=== PATIENT | female | born 1950 | race Caucasian/White ===

== ENCOUNTER → 2017-04-10 07:30 | Outpatient (CLI) | payer MEDICARE, OTHER, SELFPAY ==
--- NOTE | 2017-04-10 07:32 | HPBI_ITS ---
MAMMOGRAPHY - BILATERAL SCREENING REASON FOR EXAM: Female, 67 years old. Routine annual screening examination. PERTINENT HISTORY: Non-contributory. Remote right stereotactic breast biopsy. TECHNIQUE: Digital bilateral breast jason (3D mammographic acquisition) in the CC and MLO projections. 2-D mediolateral oblique (MLO) and craniocaudad (CC) views of both breasts were obtained. CAD: Full Field Digital Mammography with Computer Added Detection was performed. COMPARISON: Comparison is made with prior study dated November 21, 2014 and November 17, 2013. FINDINGS: Breast Composition: The breasts are almost entirely fatty. There are no dominant masses or suspicious calcifications. Stable bilateral benign appearing axillary lymph nodes. No other significant abnormalities are identified. There has been no significant change since the prior study. HPBI/SCREENING MAMM (CAD), BILAT IMPRESSION: Stable bilateral screening mammogram. Yearly follow-up mammogram recommended. (A) ASSESSMENT CATEGORY: BIRADS Category 2: Benign. A letter regarding these results will be sent to the patient by the facility within 30 days. Approximately 10% of breast cancers are not detected by mammography. A normal mammogram should not delay biopsy of a clinically suspicious abnormality. [id number] Electronically Signed: Jose Cardozo MD at 8:57 EST Tel [phone], Service support ,
== END ==
PROVIDERS: Family Provider Nurse Practitioner; PCP Nurse Practitioner; Visit Provider Nurse Practitioner
DX: Z12.31 Encounter for screening mammogram for malignant neoplasm of breast (principal)
CPT/HCPCS: 77063; 77067

== ENCOUNTER → 2017-05-15 09:01 | Outpatient (CLI) | payer MEDICARE, OTHER, SELFPAY ==
[2017-05-15 09:41] LABS: Absolute Lymphocyte Count 1.71 X10^3/ul (0.83-4.51); Absolute Neutrophil Count 4.2 X10^3/uL (2.0-7.7); Basophil# 0.02 X10^3/uL; Basophil% 0.3 % (0-1); Eosinophil# 0.17 X10^3/uL; Eosinophils% 2.6 % (0-5); Hemoglobin 11.8 g/dl (12.0-15.0); Lymphocyte # 1.71 X10^3/ul (4.0); Lymphocyte % 25.9 % (19-41); Mean Corp Hgb Conc 31.1 g/gl (32-36); Mean Corpuscular Hgb 27.3 pg (27.0-32.0); Mean Platelet Vol. 10.5 fl (6.2-12.0); Monocyte# 0.51 X10^3/uL; Monocyte% 7.7 % (0-10); Neutrophil # 4.19 X10^3/uL (2.7-7.7); Neutrophil % 63.5 % (47-70); Platelet Count 223 K/mm3 (150-450); RBC Distribution Width CV 19.8 % (11.6-14.6); RBC Distribution Width SD 63.4 fl (35.1-43.9); Red Blood Count 4.32 M/mm3 (4.2-5.4); White Blood Count 6.6 K/mm3 (4.4-11.0)
[2017-05-15 09:43] LABS: POSITIVE COUNT NO; POSITIVE DIFFERENTIAL NO; POSITIVE MORPHOLOGY NO
== END ==
PROVIDERS: Family Provider Nurse Practitioner; PCP Nurse Practitioner; Visit Provider Nurse Practitioner
DX: D62 Acute posthemorrhagic anemia (principal); K62.5 Hemorrhage of anus and rectum
CPT/HCPCS: 36415; 85025

== ENCOUNTER → 2018-03-15 15:45 | Outpatient (CLI) | payer MEDICARE, OTHER, SELFPAY ==
[2018-03-15 14:56] VITALS: BMI 44.2
[2018-03-16 00:49] LABS: Absolute Lymphocyte Count 1.65 X10^3/ul (0.83-4.51); Absolute Neutrophil Count 5.3 X10^3/uL (2.0-7.7); Basophil# 0.02 X10^3/uL; Basophil% 0.3 % (0-1); Eosinophil# 0.11 X10^3/uL; Eosinophils% 1.4 % (0-5); Hematocrit 45.3 % (37-47); Hemoglobin 14.4 g/dl (12.0-15.0); Lymphocyte # 1.65 X10^3/ul (4.0); Lymphocyte % 21.6 % (19-41); Mean Corp Hgb Conc 31.8 g/gl (32-36); Mean Corpuscular Hgb 30.2 pg (27.0-32.0); Mean Platelet Vol. 11.3 fl (6.2-12.0); Monocyte# 0.54 X10^3/uL; Monocyte% 7.1 % (0-10); Neutrophil % 69.3 % (47-70); Platelet Count 279 K/mm3 (150-450); RBC Distribution Width CV 14.2 % (11.6-14.6); RBC Distribution Width SD 48.8 fl (35.1-43.9); Red Blood Count 4.77 M/mm3 (4.2-5.4); White Blood Count 7.6 K/mm3 (4.4-11.0)
[2018-03-16 00:50] LABS: POSITIVE COUNT NO; POSITIVE DIFFERENTIAL NO; POSITIVE MORPHOLOGY NO
[2018-03-16 00:54] LABS: ALB/GLOB Ratio 0.9 RATIO (0.9-2.4); AST(SGOT) 17 U/L (15-37); Alanine Aminotransfer ALT/SGPT 28 U/L (13-56); Albumin, Serum 3.8 g/dL (3.2-5.0); Alkaline Phosphatase 66 U/L (45-117); Amylase 33 U/L (25-115); Anion Gap 7 (5-15); BUN 21 mg/dL (7-18); BUN/Creat Ratio 19.6 RATIO (10-20); Calcium,Total 9.7 mg/dL (8.5-10.1); Chloride 98 mmol/L (98-107); Cholesterol 130 mg/dL (200); Creatinine, Serum 1.07 mg/dL (0.55-1.02); EST Glomerular Filtration Rate 54 mL/min (>60); Est Glom Filt Rate - Afr Amer 66 mL/min (>60); Globulin 4.4 g/dL (2.2-4.2); Glucose 231 mg/dL (74-106); High Density Lipoprotein 44 mg/dL; Lipase 144 U/L (73-393); Potassium 3.9 mmol/L (3.5-5.1); Protein, Total 8.2 g/dL (6.4-8.2); Sodium Level 135 mmol/L (136-145); Thyroid Stim Hormone (TSH) 1.27 uIU/mL (0.358-3.74); Triglycerides 265 mg/dL; Very Low Density Lipoprotein 53 mg/dL (5-40)
== END ==
PROVIDERS: Family Provider Nurse Practitioner; PCP Nurse Practitioner; Referring Provider Nurse Practitioner; Visit Provider Nurse Practitioner
DX: R07.9 Chest pain, unspecified (principal); R10.11 Right upper quadrant pain; D62 Acute posthemorrhagic anemia; E78.5 Hyperlipidemia, unspecified
CPT/HCPCS: 80053; 80061; 82150; 83690; 84443; 84484; 85025

== ENCOUNTER → 2018-03-24 06:56 | Outpatient (CLI) | payer MEDICARE, OTHER, SELFPAY ==
[2018-03-17 13:09] VITALS: BMI 44.2
--- NOTE | 2018-03-24 07:01 | ECHOCS_ITS ---
Reason For Study: Chest Pain Procedure This was a 2D Doppler, Color Flow transthoracic echocardiogram. Exam performed in department. Left Ventricle Normal LV size. Left ventricular systolic function is normal. Stage 1 diastolic dysfunction. The estimated ejection fraction is 75 %. No regional wall motion abnormalities noted. Right Ventricle Normal RV size. Normal systolic function. Atria Normal left atrium. Normal right atrium. Mitral Valve Normal mitral valve. Tricuspid Valve Normal tricuspid valve. Aortic Valve The aortic valve is not well visualized. Pulmonic Valve Normal pulmonic valve. Great Vessels Normal aortic root. The pulmonary artery is normal size. Normal inferior vena cava. Pericardium/Pleural No pericardial effusion. Medication Definity0.2ml given slow IV push to enhance endocardial definition. MMode/2D Measurements & Calculations LVIDd: 3.9 cm IVSd: 1.4 cm Ao root diam: 2.8 cm LVIDs: 2.1 cm LVPWd: 0.87 cm RVDd: 3.2 cm FS: 46.3 % LAV(MOD-bp): 26.9 ml LVAd ap4: 34.5 cm2 SV(MOD-sp4): 83.0 ml LAV(MOD-bp) Indexed: 12.6 ml/m2 EDV(MOD-sp4): 106.8 ml LAV(MOD-sp2): 23.4 ml EDV(sp4-el): 109.3 ml LAV(MOD-sp4): 28.7 ml LVAs ap4: 12.9 cm2 ESV(MOD-sp4): 23.8 ml ESV(sp4-el): 22.2 ml EF(MOD-sp4): 77.7 % EF(sp4-el): 79.7 % SV(sp4-el): 87.1 ml LA A4 area: 14.3 cm2 LA dimension(2D): 3.4 cm RA A4 area: 12.6 cm2 Doppler Measurements & Calculations MV E max musa: 77.4 cm/sec Lat Peak E' Musa: 8.6 cm/sec Med Peak E' Musa: 7.6 cm/sec MV A max musa: 103.8 cm/sec E/E' lat: 8.9 E/E' med: 10.2 MV E/A: 0.75 Ao V2 max: 184.6 cm/sec LV V1 max: 129.9 cm/sec PA V2 max: 111.7 cm/sec Ao max P.6 mmHg LV V1 max P.8 mmHg Ao V2 mean: 128.4 cm/sec Ao mean P.3 mmHg Ao V2 VTI: 36.6 cm Interpretation Summary Normal LV size. Left ventricular systolic function is normal. Stage 1 diastolic dysfunction. The estimated ejection fraction is 75 %. Contrast injection was performed. Ordering Physician: Anthony Maldonado Referring Physician: Beulah Hawkins Performed By: Oksana Muller, CECI, RVT
--- NOTE | 2018-03-24 12:17 | STRESSREP ---
Stress Test Report Pharmacologic myocardial perfusion stress test. 67-year-old lady with a history of hypertension diabetes mellitus and coronary artery disease. Medications: Protonix metformin simvastatin lisinopril. Stress protocol: Resting EKG demonstrates normal sinus rhythm with a rate of 73 bpm normal intervals are noted resting blood pressure 120/82 mmHg. 0.4 mg of regadenoson was infused per usual protocol followed by rapid intravenous saline flush injection continuous EKG monitoring was performed the maximum heart rate attained was 96 bpm which was 62% of maximum predicted heart rate the maximum workload was 1 metabolic equivalent. At rest there were no ST or T wave changes noted suggest abnormal flow reserve at peak infusion no ST or T wave changes were noted suggest abnormal flow reserve. The resting blood pressure 120/82 with a final blood pressure 120/78 mmHg. Myocardial perfusion protocol. 14.6 mCi of technetium 99m sestamibi was injected at rest. 0.4 mg of regadenoson was infused per usual protocol peak infusion 44.9 mCi of technetium 99m sestamibi was injected stress images were obtained stress and rest images were reconstructed and compared in the short axis vertical and horizontal long axis. Gated images were also obtained next Perfusion SPECT analysis: Review of the images demonstrate normal perfusion noted in all areas of myocardium. The resting images similarly demonstrate normal perfusion noted in all areas of the marked area. No areas of reversibility are noted suggest ischemia no previous infarct is noted. Gated SPECT analysis: The gated ejection fraction is noted to be 84%. Conclusion: Normal pharmacologic myocardial perfusion stress test. Preserved ejection fraction.
--- OUTSIDE RECORDS SUMMARY | 2018-05-26 01:45 | XMS RPT_ITS ---
:1950 Author Organization OHIP Care Team Providers Name Role Phone Beulah Hawkins CRIMINAL JUDGE-C Attending Unavailable Jorge Hawkinsa CRIMINAL JUDGE-C Primary Care Unavailable Beulah Hawkins CRIMINAL JUDGE-C Referring Unavailable Jaymie Rosario Attending Unavailable Joel, [place] Attending Unavailable Jorge Hawkinsa CRIMINAL JUDGE-C Referring Unavailable Joel, [place] Attending Unavailable Joel, Anthony Referring Unavailable Ross Beulah CRIMINAL JUDGE-C Primary Care Unavailable Beulah Hawkins CRIMINAL JUDGE-C Attending Unavailable Jorge Hawkinsa CRIMINAL JUDGE-C Primary Care Unavailable Chago Harris Consulting Unavailable Beulah Hawkins CRIMINAL JUDGE-C Attending Unavailable Jorge Hawkinsa CRIMINAL JUDGE-C Primary Care Unavailable Jorge Hawkinsa CRIMINAL JUDGE-C Referring Unavailable PROBLEMS PROBLEMS DATE TYPE CONDITION / CODE ATTENDING STATUS SOURCE 03/17/2018 Unknown E78.5 - Joel, [place] Active [facility] Hyperlipidemia, Community unspecified / Hospital E78.5(ICD-10) Repository 03/17/2018 Unknown R07.9 - Chest pain, Joel, Anthony Active [facility] unspecified / Community R07.9(ICD-10) Hospital Repository 03/17/2018 Unknown E11.65 - Type 2 Joel, Anthony Active [facility] diabetes mellitus Community with hyperglycemia / Hospital E11.65(ICD-10) Repository 03/17/2018 Unknown E11.8 - Type 2 Joel, Anthony Active [facility] diabetes mellitus Community with unspecified Hospital complications / Repository E11.8(ICD-10) 03/17/2018 Unknown I10 - Essential Joel, Anthony Active [facility] (primary) Community hypertension / Hospital I10(ICD-10) Repository 03/16/2018 Unknown D62 - Acute Hawkins, Active [facility] posthemorrhagic Beulah CRIMINAL JUDGE-C [facility] anemia / D62(ICD-10) Hospital Repository 03/16/2018 Unknown R10.11 - Right upper Hawkins, Active [facility] quadrant pain / Beulah CRIMINAL JUDGE-C Community R10.11(ICD-10) Hospital Repository 04/23/2017 Unknown Z12.31 - Encounter Hawkins, Active [facility] for screening Beulah CRIMINAL JUDGE-C [facility] mammogram for Hospital malignant neoplasm of Repository breast / Z12.31(ICD-10) PROCEDURES PROCEDURES No Procedure Records FoundRESULTS RESULTS ECHO, COMPLETE W/ Observed: 03/24/2018 Status: F Source: [facility] CONTRAST 12:43 PM [facility] REPOSITORY [facility] Cardiovascular Services [address] [place] [id number] Echo Complete W/ Contrast 03/24/18 1020 MR#: [id number] Acct: [id number] Name: ELISEO WOODARD Rep #: [id number] : 1950 67 From: Anthony Maldonado MD Attending Dr: Anthony Maldonado MD Status: REG CLI Ordering Dr: Anthony Maldonado MD Date: 03/24/18 Location: [place] Sex: F C Admitted: Reason For Study: Chest Pain Procedure This was a 2D Doppler, Color Flow transthoracic echocardiogram. Exam performed in department. Left Ventricle Normal LV size. Left ventricular systolic function is normal. Stage 1 diastolic dysfunction. The estimated ejection fraction is 75 %. No regional wall motion abnormalities noted. Right Ventricle Normal RV size. Normal systolic function. Atria Normal left atrium. Normal right atrium. Mitral Valve Normal mitral valve. Tricuspid Valve Normal tricuspid valve. Aortic Valve The aortic valve is not well visualized. Pulmonic Valve Normal pulmonic valve. Great Vessels Normal aortic root. The pulmonary artery is normal size. Normal inferior vena cava. Pericardium/Pleural No pericardial effusion. Medication Definity0.2ml given slow IV push to enhance endocardial definition. MMode/2D Measurements AND Calculations LVIDd: 3.9 cm IVSd: 1.4 cm Ao root diam: 2.8 cm LVIDs: 2.1 cm LVPWd: 0.87 cm RVDd: 3.2 cm FS: 46.3 % LAV(MOD-bp): 26.9 ml LVAd ap4: 34.5 cm2 SV(MOD-sp4): 83.0 ml LAV(MOD-bp) Indexed: 12.6 ml/m2 EDV(MOD-sp4): 106.8 ml LAV(MOD-sp2): 23.4 ml EDV(sp4-el): 109.3 ml LAV(MOD-sp4): 28.7 ml LVAs ap4: 12.9 cm2 ESV(MOD-sp4): 23.8 ml ESV(sp4-el): 22.2 ml EF(MOD-sp4): 77.7 % EF(sp4-el): 79.7 % SV(sp4-el): 87.1 ml LA A4 area: 14.3 cm2 LA dimension(2D): 3.4 cm RA A4 area: 12.6 cm2 Doppler Measurements AND Calculations MV E max musa: 77.4 cm/sec Lat Peak E' Musa: 8.6 cm/sec Med Peak E' Musa: 7.6 cm/sec MV A max musa: 103.8 cm/sec E/E' lat: 8.9 E/E' med: 10.2 MV E/A: 0.75 Ao V2 max: 184.6 cm/sec LV V1 max: 129.9 cm/sec PA V2 max: 111.7 cm/sec Ao max P.6 mmHg LV V1 max P.8 mmHg Ao V2 mean: 128.4 cm/sec Ao mean P.3 mmHg Ao V2 VTI: 36.6 cm Interpretation Summary Normal LV size. Left ventricular systolic function is normal. Stage 1 diastolic dysfunction. The estimated ejection fraction is 75 %. Contrast injection was performed. Ordering Physician: Anthony Maldonado Referring Physician: Beulah Hawkins Performed By: Oksana Muller, CECI, RVT 03/24/18 1243 Date Anthony Maldonado MD CC: CRIMINAL JUDGE Beulah Hawkins; Anthony Maldonado MD Date Dictated: 03/24/18 1020 Date Transcribed: 03/24/18 1243 Analyst Sales: Signed STRESS REPORT Observed: 03/24/2018 Status: F Source: [place] 12:19 PM [facility] REPOSITORY [facility] Cardiovascular Services [address] [place] [address] MR#: [id number] Acct: [id number] Name: ELISEO WOODARD Rep #: [id number] : 1950 67 From: Anthony Maldonado MD Primary Care: Beulah Hawkins NP Status: REG CLI Ordering Dr: Sex: F C Stress Test Report Pharmacologic myocardial perfusion stress test. 67-year-old lady with a history of hypertension diabetes mellitus and coronary artery disease. Medications: Protonix metformin simvastatin lisinopril. Stress protocol: Resting EKG demonstrates normal sinus rhythm with a rate of 73 bpm normal intervals are noted resting blood pressure 120/82 mmHg. 0.4 mg of regadenoson was infused per usual protocol followed by rapid intravenous saline flush injection continuous EKG monitoring was performed the maximum heart rate attained was 96 bpm which was 62% of maximum predicted heart rate the maximum workload was 1 metabolic equivalent. At rest there were no ST or T wave changes noted suggest abnormal flow reserve at peak infusion no ST or T wave changes were noted suggest abnormal flow reserve. The resting blood pressure 120/82 with a final blood pressure 120/78 mmHg. Myocardial perfusion protocol. 14.6 mCi of technetium 99m sestamibi was injected at rest. 0.4 mg of regadenoson was infused per usual protocol peak infusion 44.9 mCi of technetium 99m sestamibi was injected stress images were obtained stress and rest images were reconstructed and compared in the short axis vertical and horizontal long axis. Gated images were also obtained next Perfusion SPECT analysis: Review of the images demonstrate normal perfusion noted in all areas of myocardium. The resting images similarly demonstrate normal perfusion noted in all areas of the marked area. No areas of reversibility are noted suggest ischemia no previous infarct is noted. Gated SPECT analysis: The gated ejection fraction is noted to be 84%. Conclusion: Normal pharmacologic myocardial perfusion stress test. Preserved ejection fraction. 03/24/189 <Electronically signed by Anthony Maldonado MD> Date Anthony Maldonado MD CC: VANNESA Hawkins; Anthony Maldonado MD Date Dictated: 03/24/181216 Date Transcribed: 03/24/181216 Analyst Sales: [place] Signed CARDIOLOGY VISIT Observed: 03/17/2018 Status: F Source: [place] REPORT 1:52 PM [facility] REPOSITORY [facility] [address] [place] [address]. [address] [place] [address] OFFICE VISIT Date of Service: 03/17/18 MR#: [id number] Acct: [id number] Name: ELISEO WOODARD Rep #: [id number] : 1950 Provider: Anthony Maldonado MD Age/Sex: 67/F Location: [facility] Status: Signed HPI HPI Chief Complaint: Initial visit Details: ELISEO WOODARD, is a 67 F who presents to the office today for an initial visit. She is a lady with a history of hypertension, diabetes mellitus, previous cardiac catheterization which demonstrated no significant obstructive coronary disease in 2009. She recently saw her primary physician and started complaining of some chest discomfort described as a heaviness on the left side in the axilla radiating to the right side of her chest. They do not appear to be any exacerbating features and no associated palpitations. She has not had any dizziness or diaphoresis no near syncope or syncope. She has been compliant with her medications. An electrocardiogram which was done did not demonstrate any significant changes. She denies any intermittent claudication. Her physical exam demonstrates clear lung badillo regular rate and rhythm no pedal edema her electrocardiogram here demonstrates normal sinus rhythm with a rate of 90 bpm left anterior fascicular block and an incomplete right bundle branch block. Intake Vital Signs03/17/18 Height 5 ft 5 in Intake Visit Reasons: PCP ref'd for CP, pre-syncope Allergies azithromycin [From Zithromax] Allergy (Verified 03/17/18 13:09) Hives Medications Iron Polysaccharide Complex [Ferrex 150] 150 mg PO DAILYCM 02/03/17 [History Confirmed 02/03/17] Iron Polysaccharide Complex [Ferrex 150] 150 mg PO DAILYCM 02/03/17 [History Confirmed 02/03/17] Multivitamin [Multiple Vitamins] 1 ea PO DAILY 02/03/17 [History Confirmed 02/03/17] Pantoprazole Sodium [Protonix] 40 mg PO BID #60 tab 02/05/17 [Rx] duloxetine 60 mg capsule,delayed release 60 mg PO QHS #90 cap 03/15/18 [Rx Confirmed 03/15/18] glimepiride 2 mg tablet 4 mg PO DAILY #90 tab 03/15/18 [Rx Confirmed 03/15/18] hydrochlorothiazide 25 mg tablet 25 mg PO DAILY #90 tab 03/15/18 [Rx Confirmed 03/15/18] lisinopril 10 mg tablet 10 mg PO DAILY #90 tab 03/15/18 [Rx Confirmed 03/15/18] metformin 1,000 mg tablet 1,000 mg PO BIDCM #180 tab 03/15/18 [Rx Confirmed 03/15/18] pioglitazone 30 mg tablet 30 mg PO DAILY #90 tab 03/15/18 [Rx Confirmed 03/15/18] simvastatin 20 mg tablet 80 mg PO QHS #90 tab 03/15/18 [Rx Confirmed 03/15/18] [facility] Medical History Essential (primary) hypertension (Chronic) Anemia (Chronic) Diabetes mellitus type 2, uncontrolled, with complications (Chronic) Hyperlipidemia (Chronic) Peripheral vascular disease (Acute) Morbid obesity (Chronic) Diverticulitis large intestine (Chronic) Early cataracts, bilateral (Chronic) Fatty liver (Chronic) Fibromyalgia (Chronic) GI bleed (Chronic) Non-alcoholic cirrhosis (Chronic) Anemia associated with acute blood loss (Resolved) Rectal bleed (Resolved) Surgical History History of left heart catheterization (Resolved 02/13/10) H/O parotidectomy (Resolved) S/P total hip arthroplasty (Resolved) S/P total knee arthroplasty (Resolved) Family History Other Benign tumor of kidney CVA (cerebral vascular accident) Diverticulosis Lung cancer Stomach cancer Social History Smoking Status: Never smoker ROS Const Const: Negative for fatigue, weakness, difficulty sleeping, frequent falls, excessive sweating or headache(s) Eyes Eyes: Negative for loss of peripheral vision, transient loss of vision, blurry vision, tunnel vision or double vision ENT ENT: Negative for headache(s), dizziness, Nosebleed/epistaxis or balance problems Cardio Chest Pain: Yes (Left axillary radiating to sternum and around back) Frequency: daily, weekly (for the past 3 months) Character: sharp, other Onset: at rest Duration: minutes, brief Exacerbation: rest Palpitations: No Edema: None Muscle aches with walking: None Resp Respiratory: Negative for SOB with activity, SOB at rest, SOB orthopnea\SOB lying down, paroxysmal nocturnal dyspnea or Cough GI GI: Positive for heartburn and bloating; negative nausea, black,tarry stools or vomiting : Negative for hematuria Musc Musc: Negative for balance problems, muscle aches/ myalgia, muscle weakness or joint pain Skin Skin: Negative non-healing lesions, unusual bruising or rash Neuro Neuro: Positive for other (5 days ago had anepisode of dizziness while sitting became diaphoretic/hot); negative for weakness, frequent falls, headache(s), blurry vision, double vision, dizziness, lightheadedness, orthostatic symptoms, near syncope, syncope or lack of coordination Irivn Hematologic/Lymphatic: Negative for easy bruising or easy bleeding Endo Endo: Negative for fatigue, excessive sweating or increased thirst/drinking Psych Psych: Negative for anxiety or depression Allergy Allergy/Immunology: Negative for hives, Negative for rash Cardiology Exam Const Appearance: cooperative, healthy appearing, well developed, well groomed and no acute distress Nutritional Appearance: well nourished and average body habitus Orientation: alert, awake and oriented x3 Head Head: normal to inspection, normocephalic and atraumatic Ears: hearing grossly normal bilaterally and external ears normal Nose: external nose normal, nasal mucous membranes and turbinates normal, nares normal, septum normal, no nasal discharge Face and Sinus: face symmetric Mouth: oral mucosae normal, tongue normal, oropharynx normal and moist mucous membranes Teeth and gingiva: dentition normal Throat: posterior oropharynx normal, tonsils normal and uvula midline Eyes General: appearance normal, both eyes and all related structures Eyelids: eyelids normal Conjunctivae: conjunctivae normal Pupils: PERRL, normal by confrontation and accommodation normal EOM: EOM intact bilaterally Neck Neck: normal visual inspection, trachea midline and no JVD JVD: +5 Carotids: normal carotid upstroke and bounding pulses Chest Chest inspection: normal inspection of the chest, symmetric chest movement and normal respiratory effort Auscultation: Bilateral: Clear to Auscultation Cardio Palpation: normal PMI Rate: regular rate Rhythm: regular rhythm Heart sounds: S1 normal, S2 normal and normal, physiologic split S2; negative rub, gallop or murmur GI GI: normal to inspection, soft, no hepatosplenomegaly and bowel sounds present Neuro General: alert, awake, oriented x3, no focal sensory deficit, gait normal and moves all extremities Skin Skin: no rashes or lesions noted Extremities Pulses: Normal: Right Femoral Pulse, Left Femoral Pulse, Right Dorsalis Pedis Pulse, Left Dorsalis Pedis Pulse, Right Posterior Tibial Pulse, Left Posterior Tibial Pulse, Right Radial Pulse, Left Radial Pulse Lower Extremity Edema: None: Bilateral Musculoskel Musculoskeletal: No joint tenderness Psych Psychological: normal affect Assessment AND Plan 1. Chest pain at rest R07.9 Plan She has some chest discomfort which appears to be atypical. With her last cardiac catheterization 9 years ago which was no more I would recommend that we perform stress testing with an echocardiogram if the above is normal I would strongly suggest that we evaluate her gallbladder issue. Orders Orders: 2. Essential (primary) hypertension I10 Plan She does have a history of hypertension which is well controlled on the current medications with the lisinopril and the hydrochlorothiazide. These too should be continued. An echocardiogram would assess her left ventricular function and look for any wall thickness. Orders Orders: 3. Hyperlipidemia E78.5 Plan She does have a history of hyperlipidemia she is on high intensity statin. I see that the a re-percent lipid profile was performed demonstrating a total cholesterol 130, LDL 33 and HDL 44. No other changes will be made. Thank you for allowing me to participate in the care of your patient. Please don't hesitate to call if any issues arise Orders Orders: Plan Detail Other Orders Orders: Follow Up 6 Months (mmm) Coding Level of Care Code Off vis,new,level 4 Diagnoses Chest pain at rest R07.9 Essential (primary) hypertension I10 Hyperlipidemia E78.5 Coding Level of Care Code Off vis,new,level 4 Diagnoses Chest pain at rest R07.9 Essential (primary) hypertension I10 Hyperlipidemia E78.5 Supplemental Info Supplemental Information Labs LDL Cholesterol 33 mg/dL (0-130) 03/15/18 HDL Cholesterol 44 mg/dL (40-) 03/15/18 Triglycerides 265 mg/dL (-199) H 03/15/18 VLDL Cholesterol 53 mg/dL (5-40) H 03/15/18 Diagnostics Electrocardiogram 03/17/18 03/17/18 1352 <Electronically signed by Anthony Maldonado MD> Date Anthony Maldonado MD Cosigner Signature: Date (if applicable) CC: VANNESA Hawkins 12 LEAD EKG PERFORMED Observed: 03/17/2018 Status: F Source: [facility] 1:11 PM [facility] REPOSITORY [facility] [address] [facility] [place] [address] 12 Lead EKG performed by [facility] 03/17/18 1310 MR#: [id number] Acct: [id number] Name: ELISEO WOODARD Rep #: [id number] : 1950 67 From: Anthony Maldonado MD Attending Dr: Anthony Maldonado MD Status: DEP AMB Ordering Dr: Anthony Maldonado MD Date: 03/17/18 Location: [facility] Sex: F C Admitted: [facility]/12 Lead EKG performed by [facility] ECG Report Interpretation Sinus Rhythm -RSR(V1) -incomplete right bundle branch block and anterior fascicular block. ABNORMAL Electronically signed on 03/23/2018 at 13:30 by Anthony Maldonadowood Software Version [id number] 03/23/18 1334 Date Anthony Maldonado MD CC: VANNESA Hawkins Date Dictated: 03/17/18 131 Date Transcribed: 03/17/181309 Analyst Sales: [place] Signed OFFICE VISIT Observed: 03/16/2018 Status: F Source: [facility] 12:03 PM [facility] REPOSITORY [facility] [address] [place] [address] OFFICE VISIT Date of Service: 03/15/18 MR#: [id number] Acct: [id number] Name: ELISEO WOODARD Rep #: [id number] : 1950 Provider: VANNESA Hawkins Age/Sex: 67/F Location: [facility] Status: Signed Intake Vital Signs03/15/18 Height 5 ft 5 in Intake Visit Reasons: RX REFILLS Accompanied by: Is patient in pain?: No Allergies azithromycin [From Zithromax] Allergy (Verified 02/03/17 15:55) Hives Medications Iron Polysaccharide Complex [Ferrex 150] 150 mg PO DAILYCM 02/03/17 [History Confirmed 02/03/17] Iron Polysaccharide Complex [Ferrex 150] 150 mg PO DAILYCM 02/03/17 [History Confirmed 02/03/17] Multivitamin [Multiple Vitamins] 1 ea PO DAILY 02/03/17 [History Confirmed 02/03/17] Pantoprazole Sodium [Protonix] 40 mg PO BID #60 tab 02/05/17 [Rx] duloxetine 60 mg capsule,delayed release 60 mg PO QHS #90 cap 03/15/18 [Rx Confirmed 03/15/18] glimepiride 2 mg tablet 4 mg PO DAILY #90 tab 03/15/18 [Rx Confirmed 03/15/18] hydrochlorothiazide 25 mg tablet 25 mg PO DAILY #90 tab 03/15/18 [Rx Confirmed 03/15/18] lisinopril 10 mg tablet 10 mg PO DAILY #90 tab 03/15/18 [Rx Confirmed 03/15/18] metformin 1,000 mg tablet 1,000 mg PO BIDCM #180 tab 03/15/18 [Rx Confirmed 03/15/18] pioglitazone 30 mg tablet 30 mg PO DAILY #90 tab 03/15/18 [Rx Confirmed 03/15/18] simvastatin 20 mg tablet 80 mg PO QHS #90 tab 03/15/18 [Rx Confirmed 03/15/18] Is last menstrual period known: No Post menopausal: Yes Patient : No PFSH Medical History Anemia associated with acute blood loss (Acute) Diabetes mellitus type 2, uncontrolled, with complications (Acute) Diverticulitis large intestine (Acute) Early cataracts, bilateral (Acute) Fatty liver (Acute) Fibromyalgia (Acute) GI bleed (Acute) H/O: HTN (hypertension) (Acute) Non-alcoholic cirrhosis (Acute) Rectal bleed (Acute) Surgical History H/O parotidectomy (Acute) History of right-sided carotid endarterectomy (Acute) S/P total hip arthroplasty (Acute) S/P total knee arthroplasty (Acute) Family History Other Benign tumor of kidney CVA (cerebral vascular accident) Diverticulosis Lung cancer Stomach cancer Social History Smoking Status: Never smoker HPI HPI (General) HPI HPI: ELISEO WOODARD, is a 67 F who presents to the office today for medication refills Her BS run around 160 -190 c/o being very dizzy at times and fatigued not eating well. Had an incident this past weekend of very dizzy while sitting in her recliner.Had to hold on to the arms because felt like spinning lasting few minutes. also c/o pains from her L axilla across her chest to her sternum. started 1 -2 months ago last for 45 sec goes away but can come back 1-2 x a day or waits a week.Recently coming more often . ROS Const Constitutional: Positive for anorexia, decreased energy and fatigue Cardio Cardiology: Positive for chest pain at rest, lightheadedness and fast heart rate Gastro GI: Yes diarrhea Musc Musculoskeletal: Positive for joint pain (lower back pain with walking) Neuro Neurology: Positive for dizziness Endo Endo: Yes fatigue Exam Const Constitutional: Yes cooperative, Yes healthy appearing Nutritional Appearance: Yes obese and overweight Orientation: Yes oriented x3 HENMT Head: Yes normocephalic Ear: Yes hearing grossly normal bilaterally Eyes General: Yes appearance normal, both eyes and all related structures Visual Badillo: Yes normal visual badillo by confrontation Resp Effort AND Inspection: Yes normal respiratory effort Auscultation: Yes clear to auscultation bilaterally Cardio Palpitation: Yes normal PMI Rate: Yes regular rate and other (elevated) Rhythm: Yes other (elevated) and regular rhythm Bruits: Yes other (elevated) GI Inspection: Yes normal to inspection Auscultation: Yes hypoactive bowel sounds Percussion: Yes normal to percussion Palpation: Yes soft and guarding (RUQ) Musc Cervical Spine: Yes cervical ROM normal Skin General: no rashes or lesions noted Extrem General: Yes normal to inspection and no pedal edema Neuro General: Yes oriented x3 Psych Appearance: Positive grossly normal Affect: Positive normal affect Results POC A1C POC A1C 8.2 % Last Edit by NARDA Singh on 03/15/18 15:15 Assessment AND Plan Problems 1. Right upper quadrant abdominal tenderness without rebound tenderness R10.811 2. Diabetes mellitus type 2, uncontrolled, with complications E11.8; E11.65 3. Chest pain at rest R07.9 4. Iron deficiency anemia, unspecified iron deficiency anemia type D50.9 Patient Instructions Take only 1/2 of the HCTZ for now when remembers Checking her TSH today will get back to her before changing meds around Will call with the lab results Will refer to cardiology for a workup on the chest pains having Orders Orders: Medications New: Discontinued: sennosides-docusate sodium 8.6-50 mg May hold regimen if s2 tabs PO DAILY 60 tabs 0RF tools loose. Discontinued Reason: Pt no longer taking Coding Level of Care Code Off vis,est,level 3 Diagnoses Right upper quadrant abdominal tenderness without rebound tenderness R10.811 Presence of rebound: absent Diabetes mellitus type 2, uncontrolled, with complications E11.8; E11.65 Chest pain at rest R07.9 Iron deficiency anemia, unspecified iron deficiency anemia type D50.9 Anemia type: iron deficiency Iron deficiency anemia type: unspecified iron deficiency 03/16/18 1203 <Electronically signed by Beulah LABOY> Date Beulah Hawkins CRIMINAL JUDGE-C CC: CBC W/DIFF, AUTOMATED Collected: 03/15/2018 Status: F Source: [place] 3:45 PM [facility] REPOSITORY TYPE CODE TESTS RESULT OUT OF RANGE REFERENCE UNITS LAB L100.1000 4.4-11.0 K/mm3 Normal WBC 7.6 LAB L100.1200 4.2-5.4 M/mm3 Normal RBC 4.77 LAB L100.1300 12.0-15.0 g/dl Normal HGB 14.4 LAB L100.1400 37-47 % Normal HCT 45.3 LAB L100.1500 81-99 fL Normal MCV 95.0 LAB L100.1600 27.0-32.0 pg Normal MCH 30.2 LAB L100.1700 32-36 g/gl Low MCHC 31.8 LAB L100.1810 11.6-14.6 % Normal RDW CV 14.2 LAB L100.1820 35.1-43.9 fl High RDW SD 48.8 LAB L100.1900 150-450 K/mm3 Normal PLT 279 LAB L100.2000 6.2-12.0 fl Normal MPV 11.3 LAB L100.2100 47-70 % Normal NEUT% 69.3 LAB L100.2200 19-41 % Normal LY% 21.6 LAB L100.2300 0-10 % Normal MONO% 7.1 LAB L100.2400 0-5 % Normal EO% 1.4 LAB L100.2500 0-1 % Normal BASO% 0.3 LAB L100.2550 0.0-0.9 % Normal IM GRAN % 0.300 Result Comment: IG% - Immature Granulocytes (promyelocytes, myelocytes and metamyelocytes) > 1% indicates that a LEFT SHIFT is Present. LAB L100.2620 2.0-7.7 X10 3/uL Normal Absolute Neut 5.3 LAB L100.2720 0.83-4.51 X10 3/ul Normal Absolute Lymph 1.65 Performed By: #### L100.0100 #### [facility] [address] [place], [address] COMPREHENSIVE METABOLIC Collected: 03/15/2018 Status: F Source: [facility] 3:45 PM [facility] REPOSITORY Order Comment: 'TROP' Serial specimen #1, #2, #3, or #4: 1 TYPE CODE TESTS RESULT OUT OF RANGE REFERENCE UNITS LAB L501.0100 74-106 mg/dL High GLU 231 Result Comment: Glucose result greater than or equal to 200 mg/dL suggests DIABETES MELLITUS per A.D.A. criteria. Please note revised GLUCOSE reference range effective 2017. LAB L501.1000 7-18 mg/dL High BUN 21 LAB L501.1100 0.55-1.02 mg/dL High CREAT,SERUM 1.07 Result Comment: The validity of the calculated GFR AND GFRAA in patients over 70 years has not been determined. Clinical correlation is essential. LAB L501.1110 >60 mL/min Low EST GFR 54 Result Comment: Non- GFR Calc LAB L501.1115 >60 mL/min Normal EST GFR - AA 66 Result Comment: GFR Calc LAB L501.1300 10-20 RATIO Normal BUN/CRE 19.6 LAB L501.1500 6.4-8.2 g/dL T Normal PROT 8.2 LAB L501.1800 3.2-5.0 g/dL Normal ALB 3.8 LAB L501.1950 2.2-4.2 g/dL High GLOB 4.4 LAB L501.2000 0.9-2.4 RATIO Normal A/G 0.9 LAB L501.2200 8.5-10.1 mg/dL CA Normal 9.7 LAB L501.4100 15-37 U/L Normal AST 17 LAB L501.4305 45-117 U/L Normal ALK P 66 LAB L501.4405 13-56 U/L Normal ALT 28 LAB L501.4600 0.20-1.00 mg/dL T Normal BILI 0.40 LAB L501.5300 136-145 mmol/L Low NA 135 LAB L501.5600 3.5-5.1 mmol/L K Normal 3.9 LAB L501.5900 98-107 mmol/L CL Normal 98 LAB L501.6100 21.0-32.0 mmol/L Normal CO2 30.0 LAB L501.6200 5-15 Normal GAP 7 Performed By: #### L500.4050, L500.4100, L501.2400, L501.2450, L501.4010, L501.9520 #### [facility] [address] [place], [place], [address] LIPID PROFILE Collected: 03/15/2018 Status: F Source: [place] 3:45 PM [facility] REPOSITORY Order Comment: 'TROP' Serial specimen #1, #2, #3, or #4: 1 TYPE CODE TESTS RESULT OUT OF RANGE REFERENCE UNITS LAB L501.4900 200 mg/dL Normal CHOL 130 Result Comment: <200 mg/dL Desirable 200-240 mg/dL Borderline >240 mg/dL High Risk LAB L501.5000 mg/dL High TRIG 265 Result Comment: The drugs N-Acetylcysteine and Metamizole may falsely depress this assay. Serum Triglycerides Reference Interval Normal <150 mg/dL Borderline high 150 - 199 mg/dL High 200 - 499 mg/dL Very High > or = 500 mg/dL LAB L501.6400 mg/dL Normal HDL 44 Result Comment: The drugs N-Acetylcysteine and Metamizole may falsely depress this assay. Reference Range HDL <40 mg/dL Low HDL Cholesterol HDL >or= 60 mg/dL High HDL Cholesterol LAB L501.6500 0-130 mg/dL Normal LDL 33 LAB L501.6600 5-40 mg/dL High VLDL 53 Performed By: #### L500.4050, L500.4100, L501.2400, L501.2450, L501.4010, L501.9520 #### [facility] [address] [place], [address] AMYLASE Collected: 03/15/2018 Status: F Source: [place] 3:45 PM [facility] REPOSITORY Order Comment: 'TROP' Serial specimen #1, #2, #3, or #4: 1 TYPE CODE TESTS RESULT OUT OF RANGE REFERENCE UNITS LAB L501.2400 25-115 U/L Normal LARA 33 Performed By: #### L500.4050, L500.4100, L501.2400, L501.2450, L501.4010, L501.9520 #### [facility] [address] [place], [address] LIPASE Collected: 03/15/2018 Status: F Source: [place] 3:45 PM [facility] REPOSITORY Order Comment: 'TROP' Serial specimen #1, #2, #3, or #4: 1 TYPE CODE TESTS RESULT OUT OF RANGE REFERENCE UNITS LAB L501.2450 73-393 U/L Normal LIPASE 144 Performed By: #### L500.4050, L500.4100, L501.2400, L501.2450, L501.4010, L501.9520 #### [facility] [address] [place], [place], [address] TROPONIN-I Collected: 03/15/2018 Status: F Source: [place] 3:45 PM [facility] REPOSITORY Order Comment: 'TROP' Serial specimen #1, #2, #3, or #4: 1 TYPE CODE TESTS RESULT OUT OF RANGE REFERENCE UNITS LAB L501.4010 <0.045 ng/mL Normal < 0.015 TROPONIN-I Result Comment: TROPONIN-I EXPECTED VALUES <0.045 Negative 0.045 - 0.590 Consistent with Cardiac Damage > OR = 0.600 Critical Value Not every elevated troponin is indicative of AR. These values should be used with clinical judgement in examining the patient's clinical picture for diagnosis. To establish a diagnosis of AR versus myocardial injury, there must be a demonstrated rise and/or fall in the troponin values, in addition to ischemic symptoms, EKG changes, new regional wall motion abnormality, and/or angiographical evidence. PLEASE NOTE: REFERENCE RANGES EDITED 17 Performed By: #### L500.4050, L500.4100, L501.2400, L501.2450, L501.4010, L501.9520 #### [facility] [address] [place], [place], [address] THYROID STIM HORMONE Collected: 03/15/2018 Status: F Source: [place] (TSH) 3:45 PM [facility] REPOSITORY Order Comment: 'TROP' Serial specimen #1, #2, #3, or #4: 1 TYPE CODE TESTS RESULT OUT OF RANGE REFERENCE UNITS LAB L501.9520 0.358-3.74 uIU/mL Normal TSH 1.27 Performed By: #### L500.4050, L500.4100, L501.2400, L501.2450, L501.4010, L501.9520 #### [facility] [address] [place], [place], [address] CBC W/DIFF, AUTOMATED Collected: 05/15/2017 Status: F Source: [place] 9:06 AM [facility] REPOSITORY TYPE CODE TESTS RESULT OUT OF RANGE REFERENCE UNITS LAB L100.1000 4.4-11.0 K/mm3 Normal WBC 6.6 LAB L100.1200 4.2-5.4 M/mm3 Normal RBC 4.32 LAB L100.1300 12.0-15.0 g/dl Low HGB 11.8 LAB L100.1400 37-47 % Normal HCT 38.0 LAB L100.1500 81-99 fL Normal MCV 88.0 LAB L100.1600 27.0-32.0 pg Normal MCH 27.3 LAB L100.1700 32-36 g/gl Low MCHC 31.1 LAB L100.1810 11.6-14.6 % High RDW CV 19.8 LAB L100.1820 35.1-43.9 fl High RDW SD 63.4 LAB L100.1900 150-450 K/mm3 Normal PLT 223 LAB L100.2000 6.2-12.0 fl Normal MPV 10.5 LAB L100.2100 47-70 % Normal NEUT% 63.5 LAB L100.2200 19-41 % Normal LY% 25.9 LAB L100.2300 0-10 % Normal MONO% 7.7 LAB L100.2400 0-5 % Normal EO% 2.6 LAB L100.2500 0-1 % Normal BASO% 0.3 LAB L100.2550 0.0-0.9 % Normal IM GRAN % 0.000 Result Comment: IG% - Immature Granulocytes (promyelocytes, myelocytes and metamyelocytes) > 1% indicates that a LEFT SHIFT is Present. LAB L100.2620 2.0-7.7 X10 3/uL Normal Absolute Neut 4.2 LAB L100.2720 0.83-4.51 X10 3/ul Normal Absolute Lymph 1.71 Performed By: #### L100.0100 #### [facility] [address] [place], [place], [address] SCREENING MAMM (CAD), Observed: 04/10/2017 Status: F Source: [place] BILAT 7:32 AM [facility] REPOSITORY [facility] Imaging Services [address] [place] [address] SCREENING MAMM (CAD), BILAT MR#: [id number] Acct: [id number] Name: ELISEO WOODARD Rep #: [id number] : 1950 F 67 From: Jose Cardozo MD PCP: Beulah Hawkins NP Status: REG CLI Study: SCREENING MAMM (CAD), BILAT Date of Exam: 04/10/17 Exam# [id number] Ordering Dr: Beulah Hawkins CRIMINAL JUDGE-C MAMMOGRAPHY - BILATERAL SCREENING REASON FOR EXAM: Female, 67 years old. Routine annual screening examination. PERTINENT HISTORY: Non-contributory. Remote right stereotactic breast biopsy. TECHNIQUE: Digital bilateral breast jason (3D mammographic acquisition) in the CC and MLO projections. 2-D mediolateral oblique (MLO) and craniocaudad (CC) views of both breasts were obtained. CAD: Full Field Digital Mammography with Computer Added Detection was performed. COMPARISON: Comparison is made with prior study dated November 21, 2014 and November 17, 2013. FINDINGS: Breast Composition: The breasts are almost entirely fatty. There are no dominant masses or suspicious calcifications. Stable bilateral benign appearing axillary lymph nodes. No other significant abnormalities are identified. There has been no significant change since the prior study. HPBI/SCREENING MAMM (CAD), BILAT IMPRESSION: Stable bilateral screening mammogram. Yearly follow-up mammogram recommended. (A) ASSESSMENT CATEGORY: BIRADS Category 2: Benign. A letter regarding these results will be sent to the patient by the facility within 30 days. Approximately 10% of breast cancers are not detected by mammography. A normal mammogram should not delay biopsy of a clinically suspicious abnormality. [id number] Electronically Signed: Jose Cardozo MD at 8:57 EST Tel [phone], Service support , CC: VANNESA Hawkins Analyst Sales: Signed ALLERGIES ALLERGIES DATE TYPE / CODE NAME / CODE REACTION SEVERITY SOURCE 03/17/2018 Drug azithromycin Hives Unknown [place] [facility] Allergy/4160 /[id number]( Hospital 88443(SNOMED RXNORM) Repository CT) ENCOUNTERS ENCOUNTERS ADMIT/DISCHARGE ACCOUNT ADMITTING ENCOUNTER LOCATION SOURCE NUMBER CLASS 03/24/2018 [id number] [place] 0 [facility] ing:NM Repository 03/17/2018/ [id number] Ambulatory BMSBuilding:B [place] 9 7 [facility] Repository 03/16/2018 [id number] Ambulatory BMSBuilding:B [place] 3 [facility] Repository 03/15/2018 [id number] Amb[place] 4 [facility] ing:LABSPEC Repository 05/15/2017 [id number] Ambulatory [place] 8 [facility] ing:LAB.FUTUR Repository E 04/10/2017 [id number] [facility] [place] 4 [facility] ing:BI Repository PAYERS PAYERS ENCOUNTER GUARANTOR PAYER SUBSCRIBER SOURCE 03/24/2018 JOSE RAMON Primary ELISEO E [place] [id number] Insurance:MEDICARE MULLETTDOB: [facility] PART A [facility] [id number] Number: Repository [id number]: [phone] [id number] [phone] () Date:2018-03-18 03/24/2018 Secondary ELISEO [place] Insurance:AETNA SR MULLETTDOB: [facility] SUPPLEMENT [facility] [id number] Hospital Number: Repository [id number] Date:[id number] SENIOR SUPPLEMENT [address] [place] [address]FQ: 03/24/2018 Tertiary NOT GIVENUNK [place] Insurance:SELF [facility]Y [facility] Number: Effective Repository Date:2018-03-18 03/17/2018 JOSE RAMON Primary ELISEO E [place] [id number] Insurance:MEDICARE MULLETTDOB: Community [place] PART A olic [id number] [place] Number[facility] Repository [id number]: 330 [id number] [phone] () Date:2018-03-16 03/17/2018 Secondary [place]ISEO [place] Insurance:AETNA SR MULLETTDOB: Community [id number] Hospital Number: Repository [id number] Date:2221-16-06NEXEW SENIOR SUPPLEMENT [address] [place] [id number]: 03/17/2018 Tertiary NOT GIVENUNK [place] Insurance:SELF PAY [facility] Number: Effective Repository Date:2018-03-17 03/16/2018 JOSE RAMON Primary ELISEO E [place] [id number] Insurance:MEDICARE MULLETTDOB: Community LEON[place] PART A [id number] [place] Number[facility] Repository [address]Qat: 330 [id number] [phone] () Date:2018-03-16 03/16/2018 Secondary ELISEO E [place] Insurance:AETNA SR MULLETTDOB: Community SUPPLEMENT [facility] [id number] Hospital Number: Repository [id number] Date:[id number] SENIOR SUPPLEMENT [id number] [place] [address]JV: 03/16/2018 Tertiary NOT GIVENUNK [place] Insurance:SELF PAY [facility] Number: Effective Repository Date:2018-03-16 03/15/2018 JOSE RAMON Primary ELISEO E [place] [id number] Insurance:MEDICARE MULLETTDOB: Community LEONIE PART A [facility] [id number] Number: Repository [id number]: 330 [id number] [phone] () Date:2018-03-15 03/15/2018 Secondary ELISEO E [place] Insurance:AETNA SR MULLETTDOB: Community SUPPLEMENT INSPolicy [id number] Hospital Number: Repository [id number] Date:[id number] SENIOR SUPPLEMENT [address] [address], [place] [address]VH: 03/15/2018 Tertiary NOT GIVENUNK Jaoo Insurance:SELF PAY [facility] Number: Effective Repository Date:2018-03-15 05/15/2017 Jose Ramon Primary ELISEO E [place] [id number] Insurance:MEDICARE MULLETTDOB: Community [place] PART A [facility] [id number] Number: Repository [address]Otv: 330 [id number] [phone] () Date:2017-05-15 05/15/2017 Secondary ELISEO E [place] Insurance:AETNA SR MULLETTDOB: Community SUPPLEMENT [facility] [id number] Hospital Number: Repository [id number] Date:[id number] SENIOR SUPPLEMENT [address] [address], [place] [address]FO: 05/15/2017 Tertiary NOT GIVENUNK [place] Insurance:SELF PAY [facility] Number: Effective Repository Date:2017-05-15 04/10/2017 Jose Ramon Primary ELISEO E [place] [id number] Insurance:MEDICARE MULLETTDOB: Community [place] PART A [facility] [id number] [place] Number: Repository [id number]: 330 [id number] [phone] () Date:2017-03-19 04/10/2017 Secondary ELISEO E [place] Insurance:AETNA SR MULLETTDOB: Community SUPPLEMENT [facility] [id number] Hospital Number: Repository [id number] Date:1813-20-73WXDZR SENIOR SUPPLEMENT [address] [address], [place] [address]DC: 04/10/2017 Tertiary NOT GIVENUNK [place] Insurance:SELF PAY [facility] Hospital Number: Effective Repository Date:2017-03-19
== END ==
PROVIDERS: Family Provider Nurse Practitioner; PCP Nurse Practitioner; Referring Provider Internal Medicine Cardiovascular Disease; Visit Provider Internal Medicine Cardiovascular Disease
DX: R07.9 Chest pain, unspecified (principal); I10 Essential (primary) hypertension
CPT/HCPCS: 78452; 93017; 93306; A9500; Q9957; A4216; C8929; J2785

== ENCOUNTER → 2019-03-25 21:02 | Outpatient (CLI) | payer MEDICARE, OTHER, SELFPAY ==
[2019-03-25 14:54] VITALS: BMI 41.9
[2019-03-25 21:16] LABS: Absolute Lymphocyte Count 3.71 X10^3/uL (0.83-4.51); Absolute Neutrophil Count 7.1 X10^3/uL (2.0-7.7); Basophil# 0.04 X10^3/uL; Basophil% 0.3 % (0-1); Eosinophil# 0.16 X10^3/uL; Eosinophils% 1.3 % (0-5); Hematocrit 43.2 % (37-47); Lymphocyte # 3.71 X10^3/ul (4.0); Lymphocyte % 31.1 % (19-41); Mean Corp Hgb Conc 32.4 g/dL (32-36); Mean Corpuscular Hgb 29.9 pg (27.0-32.0); Mean Corpuscular Volume 92.1 fL (81-99); Mean Platelet Vol. 10.8 fl (6.2-12.0); Monocyte# 0.86 X10^3/uL; Monocyte% 7.2 % (0-10); NRBC Flagged by Analyzer 0 % (0-5); Neutrophil # 7.13 X10^3/uL (2.7-7.7); Neutrophil % 59.8 % (47-70); Platelet Count 294 K/mm3 (150-450); RBC Distribution Width CV 13.8 % (11.6-14.6); RBC Distribution Width SD 46.4 fl (35.1-43.9); Red Blood Count 4.69 M/mm3 (4.2-5.4); White Blood Count 11.9 K/mm3 (4.4-11.0)
[2019-03-25 21:27] LABS: AST(SGOT) 27 U/L (15-37); Alanine Aminotransfer ALT/SGPT 32 U/L (13-56); Albumin, Serum 4.1 g/dL (3.2-5.0); Alkaline Phosphatase 60 U/L (45-117); Anion Gap 6 (5-15); BUN 22 mg/dL (7-18); BUN/Creat Ratio 19.3 RATIO (10-20); Calcium,Total 10.4 mg/dL (8.5-10.1); Chloride 100 mmol/L (98-107); Cholesterol 146 mg/dL (200); Creatinine, Serum 1.14 mg/dL (0.55-1.02); EST Glomerular Filtration Rate 50 mL/min (>60); Est Glom Filt Rate - Afr Amer 61 mL/min (>60); Glucose 127 mg/dL (74-106); High Density Lipoprotein 45 mg/dL; Protein, Total 8.1 g/dL (6.4-8.2); Sodium Level 135 mmol/L (136-145); Triglycerides 338 mg/dL; Very Low Density Lipoprotein 68 mg/dL (5-40)
[2019-03-30 11:35] LABS: Gonococcus By Nucleic Acid AMP N
[2019-03-31 01:07] LABS: HPV Reflexed? NOT INDICATED
== END ==
PROVIDERS: PCP Nurse Practitioner; Referring Provider Nurse Practitioner; Visit Provider Nurse Practitioner
DX: Z12.4 Encounter for screening for malignant neoplasm of cervix (principal); I10 Essential (primary) hypertension; E11.8 Type 2 diabetes mellitus with unspecified complications; E11.65 Type 2 diabetes mellitus with hyperglycemia; E78.5 Hyperlipidemia, unspecified
CPT/HCPCS: 80053; 80061; 85025; 87491; 87591; 88175; G0145

== ENCOUNTER → 2019-03-30 | Outpatient (CLI) | payer MEDICARE, OTHER, SELFPAY ==
[2019-03-25 14:54] VITALS: BMI 41.9
[2019-04-01 13:21] LABS: Giardia Lamblia, Stool EIA Negative (Negative)
== END | disposition home or self-care (01) ==
LOC: LABSPEC 12:18
PROVIDERS: PCP Nurse Practitioner; Referring Provider Nurse Practitioner; Visit Provider Nurse Practitioner
DX: R19.7 Diarrhea, unspecified (principal)
CPT/HCPCS: 82274; 83630; 87329; 87493

== ENCOUNTER → 2019-04-06 08:01 | Outpatient (CLI) | payer MEDICARE, OTHER, SELFPAY ==
[2019-03-25 14:54] VITALS: BMI 41.9
--- NOTE | 2019-04-06 08:04 | BI_ITS ---
MAMMOGRAPHY - BILATERAL SCREENING REASON FOR EXAM: Female, 69 years old. Routine annual screening examination. PERTINENT HISTORY: Non-contributory. Remote right stereotactic breast biopsy. TECHNIQUE: Digital bilateral breast rossi (3D mammographic acquisition) in the CC and MLO projections. 2-D mediolateral oblique (MLO) and craniocaudad (CC) views of both breasts were obtained. CAD: Full Field Digital Mammography with Computer Added Detection was performed. COMPARISON: Comparison is made with prior examination dated April 10, 2017 and November 21, 2014. FINDINGS: Breast Composition: The breasts are almost entirely fatty. There are no dominant masses or suspicious calcifications. Stable small benign-appearing bilateral axillary lymph nodes. No other significant abnormalities are identified. There has been no significant change since the prior study. BI/SCREEN MAMM (CAD) W/ROSSI BILAT IMPRESSION: Stable bilateral screening mammogram. Yearly follow-up mammogram recommended. (A) ASSESSMENT CATEGORY: BIRADS Category 2: Benign. A letter regarding these results will be sent to the patient by the facility within 30 days. Approximately 10% of breast cancers are not detected by mammography. A normal mammogram should not delay biopsy of a clinically suspicious abnormality. [id number] Electronically Signed: Jose Cardozo, at 14:38 EST , Service support ,
== END ==
PROVIDERS: PCP Nurse Practitioner; Referring Provider Nurse Practitioner; Visit Provider Nurse Practitioner
DX: Z12.31 Encounter for screening mammogram for malignant neoplasm of breast (principal)
CPT/HCPCS: 77063; 77067

== ENCOUNTER → 2019-04-11 08:04 | Outpatient (CLI) | payer MEDICARE, OTHER, SELFPAY ==
[2019-03-25 14:54] VITALS: BMI 41.9
[2019-04-08 08:50] VITALS: BMI 41.9
--- NOTE | 2019-04-11 08:06 | CT_ITS ---
STUDY: CT ABDOMEN AND PELVIS WITH CONTRAST REASON FOR EXAM: Female, 69 years old. DIARRHEA X MONTHS, RECTAL BLEEDING, NAUSEA, HTN, DB, PREV TUBAL LIGATION RADIATION DOSAGE (If Supplied By Facility): CTDIvol = ( 20.21 ) mGy, DLP = ( 1707.76 ) mGycm TECHNIQUE: Transaxial images were obtained from the dome of the diaphragm to the symphysis pubis with oral contrast. IV 100mL Isovue-300 was administered. Sagittal and coronal images were reconstructed. Individualized dose optimization techniques were used for this CT. COMPARISON: 04/15/2011 FINDINGS: The visualized lung bases are unremarkable. The visualized portions of the heart are within normal limits. Normal liver. Normal gallbladder and extrahepatic biliary system. Normal spleen. Normal pancreas. 2 cm nodule left adrenal gland is stable, compatible with adrenal adenoma (benign). Right adrenal gland is normal. Normal right kidney. Normal left kidney. Normal visualized stomach. Normal small intestine. There are multiple colonic diverticula consistent with diverticulosis. There is fecal residue throughout the colon but no colon wall thickening. The appendix is visualized and appears normal. Normal abdominal aorta. Normal inferior vena cava. Normal retroperitoneum. Normal urinary bladder. There is a small umbilical hernia containing fat. Bilateral hip replacements are new since 2011. Moderate spray artifact. CT/Abdomen/Pelvis W IV Cont ONLY IMPRESSION: 1. No acute inflammatory process or bowel obstruction. No colon wall thickening demonstrated. 2. Diverticulosis without evidence of diverticulitis. 3. Bilateral hip replacements 4. Stable chronic changes, as above. Electronically Signed: Dae Milton MD ([place]) at 13:36 EST , Service support ,
== END ==
PROVIDERS: PCP Nurse Practitioner; Referring Provider Nurse Practitioner; Visit Provider Nurse Practitioner
DX: C18.9 Malignant neoplasm of colon, unspecified (principal); K62.5 Hemorrhage of anus and rectum; R19.7 Diarrhea, unspecified
CPT/HCPCS: 74177; Q9967

== ENCOUNTER 2019-04-15 09:04 | Day surgery (SDC) | payer MEDICARE, OTHER, SELFPAY ==
[2019-04-08 08:50] VITALS: BMI 41.9
--- NOTE | 2019-04-08 08:50 | HP_ITS ---
Intake Vital Signs 04/08/19 BMI 41.9 04/08/19 Height 5 ft 4.5 in 04/08/19 Weight: 250 lb 04/08/19 BMI 42.2 04/08/19 BP 110/73 04/08/19 Blood Pressure Location Rt brachial 04/08/19 Position Sitting 04/08/19 Respiration 16 04/08/19 Pulse 88 04/08/19 Pulse Source Monitor 04/08/19 Temp 98.5 F 04/08/19 Temp Source Oral 04/08/19 Pulse Oximetry (%) 96 04/08/19 Oxygen Delivery Method room air Intake Visit Reasons: Blood in Stool Chief Complaint: Initial visit Allergies azithromycin [From Zithromax] Allergy (Verified 04/08/19 08:42) Hives Medications Multivitamin [Multiple Vitamins] 1 ea PO DAILY 02/03/17 [History Confirmed 04/08/19] duloxetine 60 mg capsule,delayed release 60 mg PO QHS #90 cap 03/25/19 [Rx Confirmed 04/08/19] glimepiride 4 mg tablet 4 mg PO QAM #90 tab 03/25/19 [Rx Confirmed 04/08/19] hydrochlorothiazide 25 mg tablet 25 mg PO DAILY #90 tab 03/25/19 [Rx Confirmed 04/08/19] lisinopril 10 mg tablet 10 mg PO DAILY #90 tab 03/25/19 [Rx Confirmed 04/08/19] metformin 1,000 mg tablet 1,000 mg PO BIDCM #180 tab 03/25/19 [Rx Confirmed 04/08/19] pioglitazone 30 mg tablet 30 mg PO DAILY #90 tab 03/25/19 [Rx Confirmed 04/08/19] simvastatin 80 mg tablet 80 mg PO QHS #90 tab 03/25/19 [Rx Confirmed 04/08/19] metronidazole 250 mg tablet 250 mg PO TID 10 Days #30 tab 03/30/19 [Rx Confirmed 04/08/19] amoxicillin 500 mg capsule 500 mg PO TID cap 04/08/19 [History Confirmed 04/08/19] PFS Medical History (Updated 04/08/19 @ 08:35 by Silvina Anna) Hx of flexible sigmoidoscopy (Acute) Hemorrhoids (Acute) Blood in stool (Acute) Nausea (Acute) RUQ abdominal pain (Acute) Arthritis (Acute) Fatigue (Acute) Rectal bleed (Resolved) Diverticulitis large intestine (Chronic) GI bleed (Chronic) Fibromyalgia (Chronic) Fatty liver (Chronic) Non-alcoholic cirrhosis (Chronic) Early cataracts, bilateral (Chronic) Morbid obesity (Chronic) Peripheral vascular disease (Acute) Essential (primary) hypertension (Chronic) Anemia (Chronic) Diabetes mellitus type 2, uncontrolled, with complications (Chronic) Hyperlipidemia (Chronic) Anemia associated with acute blood loss (Resolved) Surgical History (Updated 04/08/19 @ 08:46 by Silvina Anna) History of bilateral carpal tunnel release (Acute) History of esophagogastroduodenoscopy (EGD) (Acute) Hx of colonoscopy (Acute) Hx of tubal ligation (Acute) Heel spur (Acute) History of tonsillectomy and adenoidectomy (Acute) S/P total knee arthroplasty (Resolved) H/O parotidectomy (Resolved) S/P total hip arthroplasty (Resolved) History of left heart catheterization (Resolved ~02/13/10) Family History Mother Arthritis Lung cancer Brother Colon cancer Lung cancer Sister Cervical cancer Other Benign tumor of kidney CVA (cerebral vascular accident) Diverticulosis Stomach cancer Social History (Updated 04/08/19 @ 08:50 by Lex Jaimes MD) Smoking Status: Never smoker alcohol intake: never substance use type: does not use caffeine: Yes what type of physical activity do you participate in: none frequency: does not exercise HPI HPI HPI: ELISEO WOODARD is a 69 F who presents to the office today for HPI HPI Surgical H&P: Yes HPI: ELISEO WOODARD is a 69 F who presents to the office today for surgical consultation regarding diarrhea and intermittent rectal bleeding and also episode of right upper quadrant pain. Patient is referred by Beulah Hawkins CNP and a written copy of my surgical consult recommendations will be returned to her. Help evaluate this patient had fecal WBCs like to Th[place] sent that was negative. C. difficile was negative. Stool for occult blood was positive. Giardia was negative. She states that she was placed on metronidazole with some improvement. She states that when she was being examined that there was palpation of the right upper quadrant causing her acute pain and near syncope. The patient claims that she will intermittently have episodes where she breaks out into her profuse sweat. This is been ongoing for the past couple months. Her most recent colonoscopy was done by Dr. Shakira Melton on January 24, 2017 also for rectal bleeding but at that time anemia. Acuña diverticulosis identified bloody material was noted to the level of the hepatic flexure with no blood noted proximal to that but no actual source of blood loss. She also had on February 04, 2017 an upper endoscopy performed showing some minimal gastritis. H. pylori was negative. Those episodes passed. As of March 25, 2019 her white blood cell count was 11.9 with a hemoglobin 14 adequate 43.2 platelet count 294,000 with a normal differential. BUN is 22 and creatinine 1.14. Calcium level slightly elevated to 10.4. Triglycerides markedly elevated at 338. Exam Const General: cooperative, comfortable, no acute distress Nutritional Appearance: obese morbidly obese HENIN Head: normal to inspection Resp Effort & Inspection: normal respiratory effort Auscultation: clear to auscultation bilaterally Cardio Rate: regular rate Rhythm: regular rhythm GI Palpation: soft Auscultation: normal bowel sounds Other: Body habitus precludes palpation of internal organs Musc Cervical Spine: normal cervical lordosis Neuro Cognition: normal cognition Extrem General: no calf tenderness bilaterally Psych Affect: normal affect Assessment & Plan Problems 1. Diarrhea, unspecified type R19.7 2. Rectal bleeding K62.5 Plan I recommend to the patient a colonoscopy with possible biopsy or polypectomy is indicated. She is aware of the technique, benefit, risk, alternatives. Because of the diarrhea I would anticipate likely pancolonic biopsies. She has had an opportunity to ask and have questions answered. We will try to pursue and expedite her care. The intermittent streaky blood does not typically fit a diverticular bleed. 2016 she did have rectal bleeding with blood noted in the colon but not a particular source. Diverticulosis was identified at that time. I appreciate the opportunity of assisting with surgical care we will try to schedule and expedite. Cc: Beulah Hawkins, MARY BETH Jaimes M.D., F.A.C.S. Coding Level of Care Code 98035 Diagnoses Diarrhea, unspecified type R19.7 ??Diarrhea type: unspecified type Rectal bleeding K62.5 04/08/19 0850 <Electronically signed by Lex padron MD> Date _ Lex Jaimes MD I have re-examined the patient. There are no clinical changes since date of exam.
[2019-04-15] VITALS (9 sets, daily range): BP systolic 100–133; BP diastolic 59–97; PULSE 67–69; RESP 16; TEMP 36.7–36.8; O2SAT 93–99; BMI 44.4
[2019-04-15] MEDS: Lactated Ringers 1,000 ML 100 ML IV (09:47)
[2019-04-15 10:00] LABS: Bedside Glucose 181 mg/dL (70-110)
--- NOTE | 2019-04-15 10:15 | COLBX_PTH ---
PATIENT: ELISEO WOODARD LOC: EN U#:[id number] AGE/SX: 69/F ROOM: RE04/15/[address]: Dr. Lex Jaimes MD : 1950 BED: DIS: 04/15/2019 SPEC #: [id number] RECD: 04/15/19 11:23 STATUS: ONEYDA REDave #: [id number] MARGIE: 04/15/19 10:[address]: Lex Jaimes DEPT: SURGICAL PATHOLOGY RECD BY: Anjum Serna ENTERED: 04/15/19 13:18 SP TYPE: COLON BX OT DR: Beulah Hawkins, WEATHERIZATION TECHNICIAN-C Tissues: A - COLON BIOPSY B - Transverse colon C - Rectum, NOS Procedures: Surgery Specimen Level IV HEADER OPERATION: Colonoscopy (MAC) PRE-OP DIAGNOSIS: Diarrhea TISSUE SUBMITTED: A - Random colonic biopsies, B - Distal transverse polyp biopsy, C - Rectal biopsy MICROSCOPIC DIAGNOSIS A. Colon, random biopsy: Fragments of colonic mucosa, no pathologic diagnosis. B. Distal transverse colon polyp, biopsy: Tubular adenoma. C. Rectum biopsy: Fragments of tubular adenoma. TAYLOR:nargis 04/18/19 MICROSCOPIC DESCRIPTION Slides are reviewed. GROSS DESCRIPTION A - Received in fixative is one container labeled with the patient's name and designated random colon biopsy. The specimen consists of multiple irregular fragments of light good soft tissue that in aggregate measure 2 x 0.8 x 0.1 cm. The specimen is totally submitted in one cassette. B - Received in fixative is one container labeled with the patient's name and designated distal transverse colon. The specimen consists of one irregular fragment of light good soft tissue that measures 0.3 x 0.2 x 0.1 cm. The specimen is totally submitted in one cassette. C - Received in fixative is one container labeled with the patient's name and designated rectum biopsy. The specimen consists of multiple irregular fragments of light good soft tissue that in aggregate measure 0.7 x 0.3 x 0.1 cm. The specimen is totally submitted in one cassette. / AM:nargis 04/15/19 TC:1 CPT: 33505 x3
--- NOTE | 2019-04-15 10:59 | OP.COLON_ITS ---
Patient Name: Cyndi Cadena Procedure Date: 04/15/2019 10:30 AM Date of : 1950 Age: 69 Procedure: Colonoscopy Indications: Clinically significant diarrhea of unexplained origin Providers: Lex Jaimes MD Referring MD: Beulah Hawkins NP Medicines: See the Anesthesia note for documentation of the administered medications Patient Profile: Last Colonoscopy: 2016. Complications: No immediate complications. Procedure: Pre-Anesthesia Assessment: - Prior to the procedure, a History and Physical was performed, and patient medications and allergies were reviewed. The patient's tolerance of previous anesthesia was also reviewed. The risks and benefits of the procedure and the sedation options and risks were discussed with the patient. All questions were answered, and informed consent was obtained. Prior Anticoagulants: The patient has taken no previous anticoagulant or antiplatelet agents. ASA Grade Assessment: II - A patient with mild systemic disease. After reviewing the risks and benefits, the patient was deemed in satisfactory condition to undergo the procedure. After I obtained informed consent, the scope was passed under direct vision. Throughout the procedure, the patient's blood pressure, pulse, and oxygen saturations were monitored continuously. The adult colonoscope was introduced through the anus and advanced to the cecum, identified by appendiceal orifice and ileocecal valve. The colonoscopy was performed without difficulty. The patient tolerated the procedure well. The quality of the bowel preparation was fair. Scope In: 10:39:06 AM Scope Withdrawal Time 0 hours 12 minutes 0 seconds Scope Out: 10:54:54 AM Total Procedure Duration Time 0 hours 15 minutes 48 seconds Findings: Hemorrhoids were found on perianal exam. Multiple diverticula were found in the entire colon. Biopsies for histology were taken with a cold forceps from the entire colon for evaluation of microscopic colitis. A 5 mm polyp was found in the distal transverse colon. The polyp was sessile. The polyp was removed with a hot snare. Resection and retrieval were complete. A 4 mm polyp was found in the rectum. The polyp was sessile. The polyp was removed with a cold biopsy forceps. Resection and retrieval were complete. Impression: - Preparation of the colon was fair. - Hemorrhoids found on perianal exam. - Diverticulosis in the entire examined colon. Biopsied. - One 5 mm polyp in the distal transverse colon, removed with a hot snare. Resected and retrieved. - One 4 mm polyp in the rectum, removed with a cold biopsy forceps. Resected and retrieved. Recommendation: - Repeat colonoscopy in 5 years for surveillance based on pathology results. - Telephone my office for pathology results in 1 week. - Continue present medications. Procedure Code(s): --- Professional --- 31806, Colonoscopy, flexible; with removal of tumor(s), polyp(s), or other lesion(s) by snare technique 15238, 59, Colonoscopy, flexible; with biopsy, single or multiple Diagnosis Code(s): --- Professional --- K64.9, Unspecified hemorrhoids D12.3, Benign neoplasm of transverse colon (hepatic flexure or splenic flexure) K62.1, Rectal polyp R19.7, Diarrhea, unspecified K57.30, Diverticulosis of large intestine without perforation or abscess without bleeding CPT copyright 2017 [employer]. All rights reserved. The codes documented in this report are preliminary and upon medical record coder review may be revised to meet current compliance requirements. Lex Jaimes MD 04/15/2019 10:59:38 AM This report has been signed electronically. Number of Addenda: 0 Note Initiated On: 04/15/2019 10:30 AM
--- NOTE | 2019-04-15 10:59 | OP.CCLET_ITS ---
04/15/2019 Beulah Hawkins NP [facility] [address] [place] [id number] Re : Colonoscopy procedure for Cyndi Cadena Dear Ms. Hawkins This procedure was performed on Monday, April 15, 2019. My impressions and recommendations are as follows: Impressions : - Preparation of the colon was fair. - Hemorrhoids found on perianal exam. - Diverticulosis in the entire examined colon. Biopsied. - One 5 mm polyp in the distal transverse colon, removed with a hot snare. Resected and retrieved. - One 4 mm polyp in the rectum, removed with a cold biopsy forceps. Resected and retrieved. Recommendations : - Repeat colonoscopy in 5 years for surveillance based on pathology results. - Telephone my office for pathology results in 1 week. - Continue present medications. My findings are described in the full procedure note, which is enclosed. If I can be of further assistance, please feel free to contact me at Doctor phone number(s): Work: . Sincerely, Lex Jaimes MD 04/15/2019 10:59:38 AM This report has been signed electronically.
== END 2019-04-15 11:44 | disposition home or self-care (01) ==
LOC: EN 09:04 → AC 09:06
PROVIDERS: PCP Nurse Practitioner; Referring Provider Nurse Practitioner; Visit Provider Surgery
PROC: 0DJD8ZZ Inspection of Lower Intestinal Tract, Via Natural or Artificial Opening Endoscopic (ICD-10-PCS; CPT 45378; principal; 2019-04-15 10:10)
DX: D12.3 Benign neoplasm of transverse colon (principal); D12.8 Benign neoplasm of rectum; K64.9 Unspecified hemorrhoids; K57.30 Diverticulosis of large intestine without perforation or abscess without bleeding; K62.5 Hemorrhage of anus and rectum; R19.7 Diarrhea, unspecified; I45.10 Unspecified right bundle-branch block; I10 Essential (primary) hypertension; E78.00 Pure hypercholesterolemia, unspecified; E11.9 Type 2 diabetes mellitus without complications; M79.7 Fibromyalgia; E66.01 Morbid (severe) obesity due to excess calories; Z68.41 Body mass index [BMI] 40.0-44.9, adult; Z79.84 Long term (current) use of oral hypoglycemic drugs; Z79.899 Other long term (current) drug therapy; Z80.0 Family history of malignant neoplasm of digestive organs
CPT/HCPCS: 45380; 45385; 82962; 88305; J7120; J2405

== ENCOUNTER → 2020-03-22 | Outpatient (CLI) | payer MEDICARE, OTHER, SELFPAY ==
[2020-03-22 14:50] VITALS: BMI 41.9
[2020-03-22 22:14] LABS: Absolute Lymphocyte Count 2.25 X10^3/uL (0.83-4.51); Absolute Neutrophil Count 5.3 X10^3/uL (2.0-7.7); Basophil# 0.04 X10^3/uL; Basophil% 0.5 % (0-1); Eosinophil# 0.08 X10^3/uL; Hematocrit 40.3 % (37-47); Hemoglobin 13.7 g/dL (12.0-15.0); Lymphocyte # 2.25 X10^3/ul (4.0); Lymphocyte % 27.3 % (19-41); Mean Corpuscular Hgb 30.5 pg (27.0-32.0); Mean Corpuscular Volume 89.8 fL (81-99); Mean Platelet Vol. 10.5 fl (6.2-12.0); Monocyte# 0.58 X10^3/uL; NRBC Flagged by Analyzer 0 % (0-5); Neutrophil # 5.28 X10^3/uL (2.7-7.7); Platelet Count 274 K/mm3 (150-450); RBC Distribution Width CV 13.2 % (11.6-14.6); RBC Distribution Width SD 43.3 fl (35.1-43.9); Red Blood Count 4.49 M/mm3 (4.2-5.4); White Blood Count 8.3 K/mm3 (4.4-11.0)
[2020-03-22 22:39] LABS: ALB/GLOB Ratio 1.2 RATIO (0.9-2.4); AST(SGOT) 22 U/L (15-37); Alanine Aminotransfer ALT/SGPT 32 U/L (13-56); Albumin, Serum 4.2 g/dL (3.2-5.0); Alkaline Phosphatase 52 U/L (45-117); Anion Gap 7 (5-15); BUN 11 mg/dL (7-18); BUN/Creat Ratio 12.6 RATIO (10-20); Calcium,Total 9.9 mg/dL (8.5-10.1); Chloride 93 mmol/L (98-107); Cholesterol 104 mg/dL (200); Creatinine, Serum 0.87 mg/dL (0.55-1.02); EST Glomerular Filtration Rate 69 mL/min (>60); Est Glom Filt Rate - Afr Amer 83 mL/min (>60); Globulin 3.5 g/dL (2.2-4.2); Glucose 79 mg/dL (74-106); High Density Lipoprotein 51 mg/dL; Protein, Total 7.7 g/dL (6.4-8.2); Sodium Level 128 mmol/L (136-145); Triglycerides 186 mg/dL; Very Low Density Lipoprotein 37 mg/dL (5-40)
== END | disposition home or self-care (01) ==
PROVIDERS: PCP Nurse Practitioner; Referring Provider Nurse Practitioner; Visit Provider Nurse Practitioner
DX: I10 Essential (primary) hypertension (principal); D64.9 Anemia, unspecified; E11.65 Type 2 diabetes mellitus with hyperglycemia
CPT/HCPCS: 80053; 80061; 83036; 85025

== ENCOUNTER → 2021-02-13 | Outpatient (CLI) | payer MEDICARE, OTHER, SELFPAY ==
[2021-02-13 21:47] LABS: Absolute Neutrophil Count 3.9 X10^3/uL (2.0-7.7); Basophil# 0.03 X10^3/uL; Basophil% 0.5 % (0-1); Eosinophil# 0.11 X10^3/uL; Eosinophils% 1.7 % (0-5); Hematocrit 41.7 % (37-47); Hemoglobin 13.7 g/dL (12.0-15.0); Lymphocyte % 29.5 % (19-41); Mean Corp Hgb Conc 32.9 g/dL (32-36); Mean Corpuscular Hgb 30.9 pg (27.0-32.0); Mean Corpuscular Volume 94.1 fL (81-99); Mean Platelet Vol. 10.6 fl (6.2-12.0); Monocyte# 0.49 X10^3/uL; Monocyte% 7.6 % (0-10); NRBC Flagged by Analyzer 0 % (0-5); Neutrophil # 3.91 X10^3/uL (2.7-7.7); Neutrophil % 60.5 % (47-70); Platelet Count 268 K/mm3 (150-450); RBC Distribution Width CV 13.4 % (11.6-14.6); RBC Distribution Width SD 46.4 fl (35.1-43.9); Red Blood Count 4.43 M/mm3 (4.2-5.4); White Blood Count 6.5 K/mm3 (4.4-11.0)
[2021-02-13 22:13] LABS: AST(SGOT) 35 U/L (15-37); Alanine Aminotransfer ALT/SGPT 41 U/L (13-56); Albumin, Serum 3.9 g/dL (3.2-5.0); Alkaline Phosphatase 68 U/L (45-117); Anion Gap 4 (5-15); BUN 21 mg/dL (7-18); BUN/Creat Ratio 25.3 RATIO (10-20); Calcium,Total 9.7 mg/dL (8.5-10.1); Chloride 101 mmol/L (98-107); Cholesterol 242 mg/dL (200); Creatinine, Serum 0.83 mg/dL (0.55-1.02); EST Glomerular Filtration Rate 72 mL/min (>60); Est Glom Filt Rate - Afr Amer 87 mL/min (>60); Glucose 92 mg/dL (74-106); Hemoglobin A1c 6.6 % (3.8-5.6); High Density Lipoprotein 50 mg/dL; Potassium 4.2 mmol/L (3.5-5.1); Protein, Total 7.9 g/dL (6.4-8.2); Sodium Level 136 mmol/L (136-145); Triglycerides 294 mg/dL; Very Low Density Lipoprotein 59 mg/dL (5-40)
== END | disposition home or self-care (01) ==
PROVIDERS: PCP Nurse Practitioner; Visit Provider Nurse Practitioner
DX: E78.2 Mixed hyperlipidemia (principal); E11.65 Type 2 diabetes mellitus with hyperglycemia
CPT/HCPCS: 80053; 80061; 83036; 85025

== ENCOUNTER → 2021-07-08 | Outpatient (CLI) | payer MEDICARE, OTHER, SELFPAY ==
[2021-07-08 22:56] LABS: AST(SGOT) 15 U/L (15-37); Alanine Aminotransfer ALT/SGPT 25 U/L (13-56); Albumin, Serum 3.6 g/dL (3.2-5.0); Alkaline Phosphatase 59 U/L (45-117); Anion Gap 6 (5-15); BUN 18 mg/dL (7-18); BUN/Creat Ratio 21.4 RATIO (10-20); Calcium,Total 9.6 mg/dL (8.5-10.1); Chloride 100 mmol/L (98-107); Creatinine, Serum 0.84 mg/dL (0.55-1.02); EST Glomerular Filtration Rate 71 mL/min (>60); Est Glom Filt Rate - Afr Amer 86 mL/min (>60); Globulin 3.6 g/dL (2.2-4.2); Glucose 68 mg/dL (74-106); Potassium 4.1 mmol/L (3.5-5.1); Protein, Total 7.2 g/dL (6.4-8.2); Sodium Level 136 mmol/L (136-145); Thyroid Stim Hormone (TSH) 0.97 uIU/mL (0.358-3.74)
== END | disposition home or self-care (01) ==
PROVIDERS: PCP Nurse Practitioner; Referring Provider Nurse Practitioner; Visit Provider Nurse Practitioner
DX: R60.9 Edema, unspecified (principal)
CPT/HCPCS: 80053; 84443

== ENCOUNTER 2021-09-15 08:39 | Emergency (ER) | payer MEDICARE, OTHER, SELFPAY ==
[2021-09-15 08:39] VITALS: BP 136/71; PULSE 78; RESP 14; TEMP 36.4; O2SAT 98; BMI 41.1
--- NOTE | 2021-09-15 08:50 | RAD_ITS ---
EXAM: XR LEFT SHOULDER COMPLETE, 2 OR MORE VIEWS CLINICAL INDICATION: INJURY TECHNIQUE: Two or more views of the left shoulder. This report was created using [employer] report generation technology. COMPARISON: None. FINDINGS: BONES/JOINTS: Acute impaction fracture of the left subcapital humeral neck. Preservation of the joint space. No sclerotic or destructive changes observed. SOFT TISSUES: Unremarkable. No soft tissue swelling or gas. No radiopaque foreign body. RAD/Shoulder min 2 Views IMPRESSION: Acute impaction fracture of the left subcapital humeral neck. Electronically Signed: Braxton Corrigan MD at 9:16 EDT ,
--- NOTE | 2021-09-15 08:50 | RAD_ITS ---
EXAM: XR LEFT HUMERUS, 2 OR MORE VIEWS CLINICAL INDICATION: INJURY TECHNIQUE: Frontal and lateral views of the left humerus. This report was created using [employer] report generation technology. COMPARISON: None. FINDINGS: BONES/JOINTS: Acute subcapital fracture of the left humeral neck. Preservation of the joint space. No sclerotic or destructive changes observed. SOFT TISSUES: Unremarkable. No soft tissue swelling or gas. No radiopaque foreign body. RAD/Humerus min 2 Views IMPRESSION: Acute subcapital fracture of the left humeral neck. Electronically Signed: Braxton Corrigan MD at 9:15 EDT ,
--- NOTE | 2021-09-15 09:17 | EDS_ITS ---
HPI History of Present Illness Chief Complaint: Upper Extremity Injury Narrative Narrative: 71-year-old female presenting after a mechanical fall. She states she was clearing milk weeds out of her yard and stepped on some rocks and lost her balance. She thought she was going to catch her self but ended up falling on her left shoulder. No head injury or LOC. She denies neck pain or headache. Patient has pain acutely in the left shoulder. No elbow pain on the left or left wrist pain patient states he is unable to move her shoulder secondary to pain. [facility] Medical History Anemia Anemia associated with acute blood loss Arthritis Blood in stool Diabetes mellitus type 2, uncontrolled, with complications Diverticulitis large intestine Early cataracts, bilateral Essential (primary) hypertension Fatty liver Fibromyalgia GI bleed Hemorrhoids Hx of flexible sigmoidoscopy Hyperlipidemia Morbid obesity Nausea Neoplasm of colon, malignant Non-alcoholic cirrhosis Peripheral vascular disease Rectal bleed RUQ abdominal pain Home Medications multivitamin 1 ea PO DAILY supplement 02/03/17 [History Last Taken 02/03/17] cyclobenzaprine 5 mg tablet 5 mg PO TID PRN muscle spasm 15 days #45 tabs 04/16/21 [Rx Last Taken Unknown] duloxetine 60 mg capsule,delayed release 60 mg PO QHS depression #90 caps 04/16/21 [Rx Last Taken Unknown] glimepiride 4 mg tablet 4 mg PO QAM diabetes #90 tabs 04/16/21 [Rx Last Taken Unknown] hydrochlorothiazide 25 mg tablet 25 mg PO DAILY water pill #90 tabs 04/16/21 [Rx Last Taken Unknown] lisinopril 10 mg tablet 10 mg PO DAILY blood pressure #90 tabs 04/16/21 [Rx Last Taken Unknown] metformin 1,000 mg tablet 1,000 mg PO BIDCM diabetes #180 tabs 04/16/21 [Rx Last Taken Unknown] prednisone 10 mg tablet 20 mg PO BID PRN back pain 4 days #30 tabs 04/16/21 [Rx Last Taken Unknown] tramadol 50 mg tablet 50 mg PO TID PRN pain 15 days #45 tabs 04/16/21 [Rx Last Taken Unknown] dapagliflozin 10 mg tablet (Farxiga) 10 mg PO DAILY #30 tabs 07/08/21 [Rx Last Taken Unknown] furosemide 40 mg tablet 40 mg PO DAILY #10 tabs 07/08/21 [Rx Last Taken Unknown] potassium chloride 20 mEq tablet,extended release 20 meq PO DAILY #30 tabs 07/08/21 [Rx Last Taken Unknown] hydrocodone-acetaminophen 5-325mg 5mg-325mg 1 tab PO Q6H PRN pain 3 days #12 tabs 09/15/21 [Rx Last Taken Unknown] Allergy/AdvReac Type Severity Reaction Status Date / Time pioglitazone Allergy Severe CHF Verified 09/15/21 08:41 sitagliptin [From Januvia] Allergy Severe legs ache Verified 09/15/21 08:41 azithromycin [From Zithromax] Allergy Hives Verified 09/15/21 08:41 ibuprofen AdvReac Bleeding Verified 09/15/21 08:41 Family History Mother Arthritis Lung cancer Brother Colon cancer Lung cancer Sister Cervical cancer Other Benign tumor of kidney CVA (cerebral vascular accident) Diverticulosis Stomach cancer Surgical History H/O parotidectomy Heel spur History of bilateral carpal tunnel release History of esophagogastroduodenoscopy (EGD) History of left heart catheterization (02/13/10) History of tonsillectomy and adenoidectomy Hx of colonoscopy Hx of tubal ligation S/P total hip arthroplasty S/P total knee arthroplasty Social History Smoking Status: Never smoker alcohol intake: never substance use type: does not use caffeine: Yes what type of physical activity do you participate in: none frequency: does not exercise ROS ROS ED Constitutional Constitutional ED: Denies chills, fever(s) or sweats Eyes Eyes: Denies blurry vision or change in vision ENT ENT ED: Denies ear pain, rhinorrhea or sore throat Cardiovascular Cardiovascular: Denies chest pain, palpitations or racing heartbeat Respiratory/Chest Respiratory/Chest: Denies cough, dyspnea or sputum Gastrointestinal Gastrointestinal: Denies abdominal pain, constipation, diarrhea or vomiting Genitourinary Genitourinary ED: Denies dysuria, hematuria or urinary frequency Musculoskeletal Musculoskeletal: Reports other Details: Left shoulder pain ; Denies myalgias or neck pain Integumentary Denies abscess, Abrasions or rash Neurologic Neurologic: Denies headache(s), paresthesias or weakness Psychiatric Psychiatric: Denies anxiety, depression, suicidal ideation or suicidal thoughts Endocrine Endocrinology: Denies polydipsia or polyuria EXAM Physical Exam Const Vital Signs: 09/15/21 08:39 Temperature 97.6 F L Temperature Source Temporal Pulse Rate 78 Respiratory Rate 14 Blood Pressure 136/71 H Blood Pressure Mean 92 Pulse Ox 98 Oxygen Delivery Method Room Air Positive well nourished General Appearance ED: NAD HEENT Reports moist mucous membranes Eyes PERRL and EOMs intact bilaterally Resp normal respiratory effort Cardio regular rate and regular rhythm Back/Spine Cervical Spine: Negative for cervical spine tenderness Extremity Extremity Narrative: Tenderness palpation of the left proximal humerus. No tenderness over the clavicle. Patient unable to move secondary to pain. No obvious deformity. Patient motor intact below the level injury. Radial pulse 2+ on the left. Handgrips 5/5 Neuro oriented x3 and CN's II-XII intact bilaterally Sensorium / Orientation: alert Psych mental status grossly normal MDM MDM MDM Narrative Medical decision making narrative: Patient presenting after mechanical fall and has pain in the left shoulder. Patient given [place] for pain. Obtain imaging of the left humerus and shoulder and on my interpretation of the plain films there is an acute fracture of the left humeral neck. Patient will be placed in a sling. She states she follows up with [facility]. She will follow-up there. Patient will be given [place] for pain for home. Impression: 1. Mechanical fall 2. Left proximal humerus fracture Lab Data Attestation: I reviewed the patient's lab results. Radiography Diagnostic Testing: Clinical Impression(s) from Imaging Studies Humerus X-Ray 09/15/21 08:50 IMPRESSION: Acute subcapital fracture of the left humeral neck. Electronically Signed: Braxton Corrigan MD at 9:15 EDT , Discharge Plan Triage Chief Complaint: Upper Extremity Injury ED Provider: Norbert Rawls Dx/Rx/DC Orders Instructions: ED Fracture, Shoulder, ED Fall Prevention Prescriptions: New hydrocodone-acetaminophen 5-325 mg tablet 1 tab PO Q6H PRN (Reason: pain) 3 Days Qty: 12 0RF No Action prednisone 10 mg tablet 20 mg PO BID PRN (Reason: back pain) 4 Days Qty: 30 1RF Rx Instructions: 2 po bid 4D,1 po bid for 4 D, 1 po qd for 4D 1/2 po qd for2 D tramadol 50 mg tablet 50 mg PO TID PRN (Reason: pain) 15 Days Qty: 45 5RF cyclobenzaprine 5 mg tablet 5 mg PO TID PRN (Reason: muscle spasm) 15 Days Qty: 45 3RF duloxetine 60 mg capsule,delayed release(DR/EC) 60 mg PO QHS Qty: 90 3RF glimepiride 4 mg tablet 4 mg PO QAM Qty: 90 3RF Rx Instructions: administer with breakfast hydrochlorothiazide 25 mg tablet 25 mg PO DAILY Qty: 90 3RF lisinopril 10 mg tablet 10 mg PO DAILY Qty: 90 3RF metformin 1,000 mg tablet 1,000 mg PO BIDCM Qty: 180 3RF Farxiga 10 mg tablet 10 mg PO DAILY Qty: 30 12RF furosemide 40 mg tablet 40 mg PO DAILY Qty: 10 0RF potassium chloride 20 mEq tablet extended release 20 meq PO DAILY Qty: 30 0RF multivitamin 1 EACH tablet 1 ea PO DAILY Primary Care Provider: Beulah Hawkins NP Referrals: Marc Mar MD [STAFF PHYSICIAN] - 3-5 Days Beulah Hawkins NP, PALLIATIVE CARE NURSE-C [Primary Care Provider] - Disposition Disposition: Home, Self Care
[2021-09-15] MEDS: HYDROcodone Bitartrate/Apap 5/325 Tablet PO (09:18)
== END 2021-09-15 09:24 | disposition home or self-care (01) ==
PROVIDERS: Emergency Provider Student in an Organized Health Care Education/Training Program; PCP Nurse Practitioner; Visit Provider Student in an Organized Health Care Education/Training Program
DX: S42.202A Unspecified fracture of upper end of left humerus, initial encounter for closed fracture (principal); E11.9 Type 2 diabetes mellitus without complications; E78.5 Hyperlipidemia, unspecified; I10 Essential (primary) hypertension; W01.0XXA Fall on same level from slipping, tripping and stumbling without subsequent striking against object, initial encounter; M19.90 Unspecified osteoarthritis, unspecified site; Z79.899 Other long term (current) drug therapy
CPT/HCPCS: 73030; 73060; 99283

== ENCOUNTER → 2022-04-22 | Outpatient (CLI) | payer MEDICARE, OTHER, SELFPAY ==
[2022-04-22 23:02] LABS: Absolute Lymphocyte Count 1.89 X10^3/uL (0.83-4.51); Absolute Neutrophil Count 4.2 X10^3/uL (2.0-7.7); Basophil# 0.03 X10^3/uL; Basophil% 0.4 % (0-1); Eosinophil# 0.16 X10^3/uL; Eosinophils% 2.3 % (0-5); Hematocrit 42.4 % (37-47); Hemoglobin 13.7 g/dL (12.0-15.0); Lymphocyte # 1.89 X10^3/ul (0.83-4.51); Lymphocyte % 27.7 % (19-41); Mean Corp Hgb Conc 32.3 g/dL (32-36); Mean Corpuscular Volume 92.8 fL (81-99); Mean Platelet Vol. 10.9 fl (6.2-12.0); Monocyte# 0.51 X10^3/uL; Monocyte% 7.5 % (0-10); NRBC Flagged by Analyzer 0 % (0-5); Neutrophil # 4.23 X10^3/uL (2.7-7.7); Platelet Count 258 K/mm3 (150-450); RBC Distribution Width CV 13.5 % (11.6-14.6); RBC Distribution Width SD 45.9 fl (35.1-43.9); Red Blood Count 4.57 M/mm3 (4.2-5.4); White Blood Count 6.8 K/mm3 (4.4-11.0)
[2022-04-22 23:32] LABS: AST(SGOT) 24 U/L (15-37); Alanine Aminotransfer ALT/SGPT 29 U/L (13-56); Albumin, Serum 3.6 g/dL (3.2-5.0); Alkaline Phosphatase 69 U/L (45-117); Anion Gap 9 (5-15); BUN 23 mg/dL (7-18); BUN/Creat Ratio 23.1 RATIO (10-20); Calcium,Total 9.9 mg/dL (8.5-10.1); Chloride 101 mmol/L (98-107); Cholesterol 214 mg/dL (200); EST Glomerular Filtration Rate 58 mL/min (>60); Est Glom Filt Rate - Afr Amer 71 mL/min (>60); Globulin 3.5 g/dL (2.2-4.2); Glucose 105 mg/dL (74-106); High Density Lipoprotein 44 mg/dL; Potassium 3.7 mmol/L (3.5-5.1); Protein, Total 7.1 g/dL (6.4-8.2); Sodium Level 140 mmol/L (136-145); Thyroid Stim Hormone (TSH) 0.57 uIU/mL (0.358-3.74); Triglycerides 351 mg/dL; Very Low Density Lipoprotein 70 mg/dL (5-40)
[2022-04-24 14:09] LABS: Endomysial Antibody IgA Negative (Negative)
[2022-04-24 22:55] LABS: Deamidated Gliadin IgA 3 units (0-19); Deamidated Gliadin IgG 2 units (0-19); Immunoglobulin A 70 mg/dL (64-422); t-Transglutaminase IgA <2 U/mL (0-3)
== END | disposition home or self-care (01) ==
PROVIDERS: PCP Nurse Practitioner; Visit Provider Nurse Practitioner
DX: I10 Essential (primary) hypertension (principal); E11.65 Type 2 diabetes mellitus with hyperglycemia; E78.5 Hyperlipidemia, unspecified; D64.9 Anemia, unspecified; K57.32 Diverticulitis of large intestine without perforation or abscess without bleeding; M79.7 Fibromyalgia
CPT/HCPCS: 80053; 80061; 82784; 83516; 84443; 85025; 86255

== ENCOUNTER → 2022-05-14 | Outpatient (CLI) | payer MEDICARE, OTHER, SELFPAY ==
--- NOTE | 2022-05-14 08:30 | CT_ITS ---
EXAM: CT ABDOMEN AND PELVIS WITH INTRAVENOUS CONTRAST CLINICAL INDICATION: LLQ pain TECHNIQUE: Helically acquired images were obtained of the abdomen and pelvis with intravenous contrast. This CT exam was performed using one or more of the following dose reduction techniques: automated exposure control, adjustment of the mA and/or kV according to patient size, and/or use of iterative reconstruction technique. This report was created using [employer] report generation technology. CONTRAST: 100 mL of IV Isovue-370. Oral contrast was also given. RADIATION DOSE: CTDIvol = 15.72 mGy, DLP = 1086.98 mGy-cm COMPARISON: CT abdomen and pelvis without contrast 04/11/2019. FINDINGS: LOWER THORAX: Unremarkable. Lung bases are clear. No cardiomegaly. No significant pericardial effusion. ABDOMEN: LIVER: Unremarkable. Homogeneous. No focal mass. GALLBLADDER AND BILE DUCTS: Unremarkable. No calcified gallstones. No gallbladder distention or wall edema. No intra- or extrahepatic biliary ductal dilation. PANCREAS: Unremarkable. No focal cystic or solid mass. SPLEEN: Unremarkable. Normal size without focal cystic or solid mass. ADRENALS: Unremarkable. No nodules. KIDNEYS AND URETERS: Mild increase in size of nonenhancing right renal cyst measuring 1.5 cm, previously 1.1 cm. No stones or hydronephrosis in both kidneys. Normal renal size and position. STOMACH AND BOWEL: Multiple diverticula in the sigmoid colon without diverticulitis. No stomach or bowel distention. PELVIS: APPENDIX: Normal. BLADDER: Unremarkable. REPRODUCTIVE: Unremarkable as visualized. No mass. ABDOMEN and PELVIS: INTRAPERITONEAL SPACE: Unremarkable. No ascites or other fluid collection. No free air. BONES/JOINTS: Bilateral metallic hip arthroplasties causing extensive metallic streak artifacts and obscuring the structures in between the hips. Diffuse degenerative disc space height narrowing throughout the lumbar spine and prominent posterior marginal spurs at L2-L3 and L3-L4 disc space levels are unchanged. No suspicious lytic or blastic abnormality. SOFT TISSUES: Smaller midline umbilical hernia containing only normal fat. VASCULATURE: Unremarkable. Abdominal aorta is non-dilated. LYMPH NODES: Unremarkable. No enlarged lymph nodes. CT/Abdomen/Pelvis WITH Contrast IMPRESSION: 1. No acute findings in the abdomen or pelvis. 2. Sigmoid diverticulosis without diverticulitis. 3. Mild increase in size of nonenhancing right renal cyst measuring 1.5 cm, previously 1.1 cm. 4. No significant interval change when compared to 04/11/2019. Electronically Signed: Braxton Corrigan MD at 10:47 EDT ,
== END | disposition home or self-care (01) ==
LOC: CT 08:29
PROVIDERS: PCP Nurse Practitioner; Referring Provider Nurse Practitioner; Visit Provider Nurse Practitioner
DX: K57.32 Diverticulitis of large intestine without perforation or abscess without bleeding (principal)
CPT/HCPCS: 74177; Q9967

== ENCOUNTER → 2022-08-27 | Outpatient (CLI) | payer MEDICARE, OTHER, SELFPAY ==
--- NOTE | 2022-08-27 10:25 | MRI_ITS ---
STUDY: MRI LEFT ANKLE WITHOUT CONTRAST REASON FOR EXAM: Female, 72 years old. Left Achilles pain. TECHNIQUE: Standardized fat and water weighted pulse sequences were obtained in all 3 orthogonal planes. COMPARISON: Left foot x-rays dated June 2013. FINDINGS: Moderate subcutaneous soft tissue edema medially (axial series 8 1-13). Normal posterior tibialis tendon. Normal flexor digitorum longus tendon. Normal flexor hallucis longus tendon. Normal peroneus longus and brevis tendons. Normal tibialis anterior tendon. Normal extensor hallucis longus tendon. Normal extensor digitorum longus tendons. Marked thickening and increased signal intensity within the distal Achilles compatible with chronic tendinosis. Longitudinal high signal intensity within the central portion of the tendon compatible with intrasubstance longitudinal partial tear. Pre-Achilles bursitis (sagittal series 7 images 8-14). Thickening of the proximal plantar fascia (sagittal series 7 image 10). Normal plantar calcaneal tubercles. Normal intrinsic muscles of the rearfoot. Normal distal tibiofibular syndesmotic ligamentous complex. Normal lateral ligamentous complex. Normal subtalar ligaments and sinus tarsi. Normal deltoid ligamentous complexes. Normal plantar calcaneonavicular (spring) ligament. 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 Normal talar dome. Normal subtalar articulations. Normal talonavicular articulation. Normal calcaneocuboid articulation. Normal navicular-cuneiform articulations. MRI/Lower Ext Joint Only (Routine) IMPRESSION: Distal Achilles tendinosis with a longitudinal high signal intensity within the distal tendon compatible with an intrasubstance partial tear. Pre-Achilles bursitis. Thickening of the proximal plantar fascia. 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 Lateral subcutaneous soft tissue edema. Electronically Signed: Osman Esteves MD at 12:28 EDT ,
== END | disposition home or self-care (01) ==
LOC: MRI 10:09
PROVIDERS: PCP Nurse Practitioner; Referring Provider Nurse Practitioner; Visit Provider Nurse Practitioner
DX: S86.012A Strain of left Achilles tendon, initial encounter (principal); X58.XXXA Exposure to other specified factors, initial encounter
CPT/HCPCS: 73721

== ENCOUNTER → 2023-04-24 | Outpatient (CLI) | payer MEDICARE, OTHER, SELFPAY ==
--- OUTSIDE RECORDS SUMMARY | 2023-04-24 21:35 | XMS RPT_ITS | CCD ---
Author Name Unknown Address [facility] [address] [place] [address] Organization [facility] Care Team Providers Care Evs Manager Name Role Phone Shakira Melton Attending Unavailable JACKIE WIGGINS Primary Care Unavailable Jackie Wiggins MD Primary Care Provider Allergies Allergy Classification Reported Allergen(s) Allergy Type Date of Onset Reaction(s) Facility (2 sources) Azithromycin; Translations: [AZITHROMYCIN] Drug Allergy 05-09-2011 Rash, Hives [facility] Repository Medications Completed/Discontinued Medications Medication Drug Class(es) Dates Sig (Normalized) Sig (Original) acetaminophen 250 mg / ibuprofen 125 mg oral tablet (1 source) Nonsteroidal Anti-inflammatory Drug ibuprofen-acetamino phen 125-250 mg tab Take by mouth as needed (for back pain). 0 Active Problems Problem Classification Problem Date Documented Da te Episodic/Chronic Abdominal pain (2 sources) Lower abdominal pain; Translations: [Lower abdominal pain, unspecified] Onset: 05-15-2011 Episodic Diverticulosis and diverticulitis (1 source) Diverticular disease; Translations: [Diverticulosis of intestine, part unspecified, without perforation or abscess without bleeding] Chronic Results Test Name Value Interpretation Reference Range Facil ity Vital Signs Date Time Vital Sign Value Performing Clinician Faci lity 05-21-2022 15:17-0400 Body height 162.6 cm Shakira Melton MD Work Phone: [facility] 05-21-2022 15:17-0400 Body temperature 97.59 [degF] Shakira Melton MD Work Phone: [facility] 05-21-2022 15:17-0400 Body weight 101.24 kg Shakira Melton MD Work Phone: [facility] 03-22-2023 15:17-0400 Diastolic blood pressure 82 mm[Hg] Shakira Melton MD Work Phone: [facility] 05-21-2022 15:17-0400 Heart rate 95 /min Shakira Melton MD Work Phone: [facility] 05-21-2022 15:17-0400 SaO2% (BldA) [Mass fraction] 95 % Shakira Melton MD Work Phone: [facility] 05-21-2022 15:17-0400 Systolic blood pressure 126 mm[Hg] Shakira Melton MD Work Phone: [facility] Encounters Encounter Date Encounter Type Care Provider Facility Start: 05-21-2022 End: 05-21-2022 ambulatory Shakira Melton Facility:[facility] Start: 05-21-2022 End: 05-21-2022 Patient encounter procedure Shakira Melton MD Work Phone: General Surgery Procedures Date Procedure Procedure Detail Performing Clinician Start: 01-09-2012 Colonoscopy Shakira Melton MD Work Phone: Start: 05-14-2002 Mammography Shakira Melton MD Work Phone: Plan of Treatment Date Care Activity Detail Author Start: 03-02-2022 ADVANCE DIRECTIVE DISCUSSION ADVANCE DIRECTIVE DISCUSSION [facility] Start: 03-02-2022 DEPRESSION ASSESSMENT DEPRESSION ASS ESSMENT [facility] Start: 01-08-2022 Colonoscopy COLONOSCOPY [facility] Start: 01-08-2022 COLORECTAL CANCER SCREENING COLORECTAL CANCER SCREENING [facility] Start: 03-19-2021 COVID-19 VACCINE (4 - Booster for Moderna series) COVID-19 VACCINE (4 - Booster for Moderna series) [facility] Start: 01-08-2017 SIGMOIDOSCOPY SIGMOIDOSCOPY [facility] Start: 2016 BONE DENSITY BONE DENSITY [facility] Start: 2016 PNEUMOCOCCAL: 65+ (1 - PCV) PNEUMOCOCCAL: 65+ (1 - PCV) [facility] Start: 07-09-2014 LIPID SCREEN LIPID SCREEN [facility] Start: 04-15-2014 DIABETES SCREEN DIABETES SCREEN [facility] Start: 05-15-2003 Mammography MAMMOGRAM [facility] Start: 2001 SHINGRIX VACCINE (1 of 2) SHINGRIX V ACCINE (1 of 2) [facility] Start: 1996 COLOGUARD (FIT-DNA) COLOGUARD (FIT-D NA) [facility] Start: [address] COLONOGRAPHY [facility] Start: 1996 FECAL OCCULT BLOOD FECAL OCCULT BLOO D [facility] Start: 1970 Urine microalbumin profile DTAP,TDAP ,TD (1 - Tdap) [facility] Start: 1969 [facility] Payers Date Payer Category Payer Medicare [id number] 2016 Medicare [id number] 2016 Medicare MEDICARE MEDICAR E A AND B [id number] 2016-Present [phone] [address] [address] [place] [address] Medicare [id number] 2016 Private Health Insurance [employer] A ETNA MEDICARE SUPPLEMENT [id number] 2016-Present [phone] [address] [address] [place] [address] Indemnity [id number] Social History Date Type Detail Facility Tobacco smoking stat [facility] Never smoked tobacco [facility] Start: 05-21-2022 Alcohol intake 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 Author Type: Physician Type: Progress Notes Filed: 05/22/2022 8:33 AM Note Text: Cyndi Cadena 1950 REFERRING PHYSICIAN: No ref. provider found CHIEF COMPLAINT: Consult (colonoscopy) HPI: The patient is a 72 year old female referred for endoscopy. Cyndi notes intermittent lower abdominal cramping pain. She had an episode of severe pain 2 months ago of the lower abdomen. This resolved. She notes loose bowel movements, 3-4 episodes per day, sometimes with fecal urgency. Her brother had colon cancer dx'd at age 52; he of kidney cancer. The patient states that she had a colonoscopy by Dr. Jaimes in 2020 (no records available for review) She denies blood in stools. She denies unintentional weight loss. She underwent CT scan at [facility] on 05/14/2022 to determine etiology of pain - diverticulosis noted, otherwise no other findings for etiology of above. PAST MEDICAL HISTORY Diagnosis Date Abdominal pain, unspecified site Arthritis Diverticulosis Diverticulosis of colon (without mention of hemorrhage) DM type 2 (diabetes mellitus, type 2) (HCC) controlled HTN (hypertension) Mixed hyperlipidemia PAST SURGICAL HISTORY Procedure Laterality Date ARTHRP KNE CONDYLEANDPLATU MEDIALANDLAT COMPARTMENTS left and right, [facility] CARPAL TUNNEL Bilateral 1995 release of carpal tunnel COLONOSCOPY FLX DX W/COLLJ SPEC WHEN PFRMD 01/09/2012 Colonoscopy EGD TRANSORAL BIOPSY SINGLE/MULTIPLE 06/06/11 EXCISE PAROTID GLAND/LESION Right 2015 TONSILLECTOMY HX 1970 TOTAL HIP REPLACEMENT Bilateral TUBAL LIGATION, 1979 Current Outpatient Medications Medication Sig dapagliflozin (FARXIGA) 10 mg tablet Take by mouth daily with breakfast. ibuprofen-acetaminophen 125-250 mg tab Take by mouth as needed (for back pain). simvastatin (ZOCOR) 80 mg tablet Take 40 mg by mouth once daily. DULoxetine (CYMBALTA) 60 mg capsule Take 60 mg by mouth once daily. metFORMIN 1,000 mg ORAL tablet Take 1,000 mg by mouth twice daily with meals. Multivitamin ORAL capsule Take 1 capsule by mouth once daily. lisinopril 10 mg ORAL tablet Take 10 mg by mouth once daily. hydrochlorothiazide 25 mg ORAL tablet Take 25 mg by mouth once daily. pantoprazole DR (PROTONIX) 40 mg tablet Take 40 mg by mouth twice daily. (Patient not taking: Reported on 05/21/2022) glimepiride (AMARYL) 4 mg tablet Take 4 mg by mouth once daily. pioglitazone (ACTOS) 30 mg tablet Take 30 mg by mouth once daily. (Patient not taking: Reported on 05/21/2022) esomeprazole (NEXIUM) 40 mg capsule Take 40 mg by mouth. sitagliptin (JANUVIA) 100 mg ORAL tablet Take 100 mg by mouth once daily. Fish Oil-DHA-EPA (FISH OIL) 1,200-144-216 mg ORAL Cap Take by mouth. Aspirin 81 mg ORAL Tab Take 81 mg by mouth. ALLERGIES: Azithromycin PERSONAL HISTORY: Social History Tobacco Use Smoking status: Never Smokeless tobacco: Never Vaping Use Vaping Use: Never used Substance Use Topics Alcohol use: No Drug use: No FAMILY HISTORY Problem Relation Age of Onset Cancer Mother lung, non-smoker Cancer Father smoker, lung ca Cancer Brother smoker, lung ca Diabetes Maternal Aunt The review of systems data was entered by the nurse and reviewed by wa Nursing Notes: Marline Villatoro LPN 05/21/2022 3:22 PM Signed REVIEW OF SYSTEMS: General: The patient NOTES fatigue, NOTES weight loss, denies weight gain, denies feeling hot, and denies feelings of cold. Eyes: The patient denies glaucoma, denies eye injury/surgery, wears glasses or contacts. Ear/Nose/Throat: The patient NOTES allergies, denies hayfever, denies ear infections, and denies bloody noses. Cardiovascular: The patient denies chest pain, denies heart disease, denies high blood pressure,denies cardiac stent, denies prior heart attack, denies irregular heart beat, NOTES high cholesterol, denies poor circulation, denies heart failure, other cardiac issues, denies claudication, denies cold feet, denies peripheral arterial stent. Respiratory: The patient denies tuberculosis, denies pneumonia, denies frequent cough, denies pulmonary embolism, denies shortness of breath, and denies coughing up blood. Gastrointestinal: The patient denies difficulty swallowing, denies acid reflux, denies ulcers, denies vomiting, denies jaundice/hepatitis, denies gallbladder problems, denies black or tarry stools, NOTES hemorrhoids, NOTES bleeding from rectum, denies diverticulitis, denies constipation, NOTES diarrhea, NOTES loss of stool control, and denies hernias. Kidney/Bladder: The patient denies kidney stones, denies urine infections, and denies bloody urine. Skin: The patient denies a history of skin cancer, denies bleeding/changing moles, and denies a history of skin rash. Neurologic: The patient denies a history of epilepsy/convulsions, denies headaches, denies head/spinal (more content not included)... [facility] History of Present illness Narrative 05-21-2022 Shakira Melton MD - 05/21/2022 7:35 PM EDT Note Date & Type Note Facility 05-21-2022 History of Presen t illness Narrative Cyndi Cadena 1950 REFERRING PHYSICIAN: No ref. provider found CHIEF COMPLAINT: Consult (colonoscopy) HPI: The patient is a 72 year old female referred for endoscopy. Cyndi notes intermittent lower abdominal cramping pain. She had an episode of severe pain 2 months ago of the lower abdomen. This resolved. She notes loose bowel movements, 3-4 episodes per day, sometimes with fecal urgency. Her brother had colon cancer dx'd at age 52; he of kidney cancer. The patient states that she had a colonoscopy by Dr. Jaimes in 2020 (no records available for review) She denies blood in stools. She denies unintentional weight loss. She underwent CT scan at [facility] on 05/14/2022 to determine etiology of pain - diverticulosis noted, otherwise no other findings for etiology of above. PAST MEDICAL HISTORY Diagnosis Date Abdominal pain, unspecified site Arthritis Diverticulosis Diverticulosis of colon (without mention of hemorrhage) DM type 2 (diabetes mellitus, type 2) (HCC) controlled HTN (hypertension) Mixed hyperlipidemia PAST SURGICAL HISTORY Procedure Laterality Date ARTHRP KNE CONDYLE&PLATU MEDIAL&LAT COMPARTMENTS left and right, [facility] CARPAL TUNNEL Bilateral 1995 release of carpal tunnel COLONOSCOPY FLX DX W/COLLJ SPEC WHEN PFRMD 01/09/2012 Colonoscopy EGD TRANSORAL BIOPSY SINGLE/MULTIPLE 06/06/11 EXCISE PAROTID GLAND/LESION Right 2016 TONSILLECTOMY HX 1970 TOTAL HIP REPLACEMENT Bilateral TUBAL LIGATION, 1979 Current Outpatient Medications Medication Sig dapagliflozin (FARXIGA) 10 mg tablet Take by mouth daily with breakfast. ibuprofen-acetaminophen 125-250 mg tab Take by mouth as needed (for back pain). simvastatin (ZOCOR) 80 mg tablet Take 40 mg by mouth once daily. DULoxetine (CYMBALTA) 60 mg capsule Take 60 mg by mouth once daily. metFORMIN 1,000 mg ORAL tablet Take 1,000 mg by mouth twice daily with meals. Multivitamin ORAL capsule Take 1 capsule by mouth once daily. lisinopril 10 mg ORAL tablet Take 10 mg by mouth once daily. hydrochlorothiazide 25 mg ORAL tablet Take 25 mg by mouth once daily. pantoprazole DR (PROTONIX) 40 mg tablet Take 40 mg by mouth twice daily. (Patient not taking: Reported on 05/21/2022) glimepiride (AMARYL) 4 mg tablet Take 4 mg by mouth once daily. pioglitazone (ACTOS) 30 mg tablet Take 30 mg by mouth once daily. (Patient not taking: Reported on 05/21/2022) esomeprazole (NEXIUM) 40 mg capsule Take 40 mg by mouth. sitagliptin (JANUVIA) 100 mg ORAL tablet Take 100 mg by mouth once daily. Fish Oil-DHA-EPA (FISH OIL) 1,200-144-216 mg ORAL Cap Take by mouth. Aspirin 81 mg ORAL Tab Take 81 mg by mouth. ALLERGIES: Azithromycin PERSONAL HISTORY: Social History Tobacco Use Smoking status: Never Smokeless tobacco: Never Vaping Use Vaping Use: Never used Substance Use Topics Alcohol use: No Drug use: No FAMILY HISTORY Problem Relation Age of Onset Cancer Mother lung, non-smoker Cancer Father smoker, lung ca Cancer Brother smoker, lung ca Diabetes Maternal Aunt The review of systems data was entered by the nurse and reviewed by wa Nursing Notes: Marline Villatoro LPN 05/21/2022 3:22 PM Signed REVIEW OF SYSTEMS: General: The patient NOTES fatigue, NOTES weight loss, denies weight gain, denies feeling hot, and denies feelings of cold. Eyes: The patient denies glaucoma, denies eye injury/surgery, wears glasses or contacts. Ear/Nose/Throat: The patient NOTES allergies, denies hayfever, denies ear infections, and denies bloody noses. Cardiovascular: The patient denies chest pain, denies heart disease, denies high blood pressure,denies cardiac stent, denies prior heart attack, denies irregular heart beat, NOTES high cholesterol, denies poor circulation, denies heart failure, other cardiac issues, denies claudication, denies cold feet, denies peripheral arterial stent. Respiratory: The patient denies tuberculosis, denies pneumonia, denies frequent cough, denies pulmonary embolism, denies shortness of breath, and denies coughing up blood. Gastrointestinal: The patient denies difficulty swallowing, denies acid reflux, denies ulcers, denies vomiting, denies jaundice/hepatitis, denies gallbladder problems, denies black or tarry stools, NOTES hemorrhoids, NOTES bleeding from rectum, denies diverticulitis, denies constipation, NOTES diarrhea, NOTES loss of stool control, and denies hernias. Kidney/Bladder: The patient denies kidney stones, denies urine infections, and denies bloody urine. Skin: The patient denies a history of skin cancer, denies bleeding/changing moles, and denies a history of skin rash. Neurologic: The patient denies a history of epilepsy/convulsions, denies headaches, denies head/spinal injuries, and denies stroke/TIA. Psychiatric: The patient denies psychiatric medications, denies depression, and denies voices, denies substance abuse. Endocrine: The patient denies thyroid disorders, NOTES diabetes, and denies hormonal problems. Hematologic: The patient denies a history of bruising, denies bleeding, and denies anemia, denies blood clots. Infections: The patient NOTES a history of measles and mumps, denies rheumatic fever, and denies sexually transmitted diseases. Musculoskeletal: The patient NOTES back pain/injury, NOTES back problems, denies sciatica, denies knee/foot trouble, NOTES arthritis, or denies gout. When was patient's last Mammogram screening? 2019 Last Colonoscopy: 2020 Marline Villatoro LPN PHYSICAL EXAMINATION: General: The patient is 72 year old female, well nourished, well hydrated in no acute distress. The patient is oriented to time, place, and person. VITALS: Blood pressure 126/82, pulse 95, temperature 36.4 C (97.6 F), height 162.6 cm (5' 4 ), weight 101.2 kg (223 lb 3.2 oz), SpO2 95 %. Body mass index is 38.31 kg/m . Head: Normal cephalic, atraumatic Eyes: pupils are equally round, sclera are clear/anicteric Neck is supple with no tracheal deviation Respiratory: Normal respiratory excursion and pattern. Abdominal exam: benign Extremities: no clubbing, cyanosis or edema. Neuro: non focal Psych: normal mood Assessment IMPRESSION: cramping lower abdominal pain PLAN: I have discussed the above with the patient. I have offered colonoscopy , possible biopsies I have explained the procedure to the patient. I have counseled the patient as to the risks of the procedure, including but not limited to: infection, bleeding, injury to any intrabdominal organs such as liver/spleen, perforation of the GI tract, inability to complete the procedure, complications of anesthesia, etc. - the patient understands. I have counseled patient that given normal CT scan and that she had a colonoscopy in 2020, it is unlikely that a diagnostic colonoscopy will identify the etiology of the above patient's complaints. The patient defers colonoscopy for now. I have recommended increasing dietary fiber - 25-30 grams per day and free water intake - 8-10 glasses per day. If patient has worsening signs/symptoms, I have counseled patient to return to this office for re-evaluation. The patient acknowledges the above I have answered all questions to the patient s satisfaction and the patient has no further questions. Diagnoses: (K57.90) Diverticulosis (R10.30) Lower abdominal pain I have confirmed and edited as necessary, the PFSH and ROS obtained by others. Return to Clinic: The patient to return to clinic if worsening sign/symptoms. Medical Decision Making: Problems: Low: Stable chronic illness Medical Decision Making Level: 2 - Straightforward Shakira Melton MD documented in this encounter [facility] Nurse Note 05-21-2022 Marline BJ Villatoro - 05/21/2022 3:20 PM EDT Note Date & Type Note Facility 05-21-2022 Nurse Note REVIEW OF SYSTEMS: General: The patient NOTES fatigue, NOTES weight loss, denies weight gain, denies feeling hot, and denies feelings of cold. Eyes: The patient denies glaucoma, denies eye injury/surgery, wears glasses or contacts. Ear/Nose/Throat: The patient NOTES allergies, denies hayfever, denies ear infections, and denies bloody noses. Cardiovascular: The patient denies chest pain, denies heart disease, denies high blood pressure,denies cardiac stent, denies prior heart attack, denies irregular heart beat, NOTES high cholesterol, denies poor circulation, denies heart failure, other cardiac issues, denies claudication, denies cold feet, denies peripheral arterial stent. Respiratory: The patient denies tuberculosis, denies pneumonia, denies frequent cough, denies pulmonary embolism, denies shortness of breath, and denies coughing up blood. Gastrointestinal: The patient denies difficulty swallowing, denies acid reflux, denies ulcers, denies vomiting, denies jaundice/hepatitis, denies gallbladder problems, denies black or tarry stools, NOTES hemorrhoids, NOTES bleeding from rectum, denies diverticulitis, denies constipation, NOTES diarrhea, NOTES loss of stool control, and denies hernias. Kidney/Bladder: The patient denies kidney stones, denies urine infections, and denies bloody urine. Skin: The patient denies a history of skin cancer, denies bleeding/changing moles, and denies a history of skin rash. Neurologic: The patient denies a history of epilepsy/convulsions, denies headaches, denies head/spinal injuries, and denies stroke/TIA. Psychiatric: The patient denies psychiatric medications, denies depression, and denies voices, denies substance abuse. Endocrine: The patient denies thyroid disorders, NOTES diabetes, and denies hormonal problems. Hematologic: The patient denies a history of bruising, denies bleeding, and denies anemia, denies blood clots. Infections: The patient NOTES a history of measles and mumps, denies rheumatic fever, and denies sexually transmitted diseases. Musculoskeletal: The patient NOTES back pain/injury, NOTES back problems, denies sciatica, denies knee/foot trouble, NOTES arthritis, or denies gout. When was patient's last Mammogram screening? 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 Advance Directive(s) 06/10/2011 4:30 PM Additional Source Comments INFORMATION SOURCE (unrecogn ized section and content) Source Comments (unrecognize d section and content) In the event this informatio n is protected by the Federal Confidentiality of Alcohol and Drug Abuse Patient Records regulations: The Federal rules restrict any use of the information to criminally investigate or prosecute any alcohol or drug abuse patient.[facility] Reason for Visit (unrecogniz ed section and content) Care Teams (unrecognized sec tion and content) FOR RECORDS PERTAINING TO PATIENTS WHO ARE OR HAVE BEEN ENROLLED IN A CHEMICAL DEPENDENCY/SUBSTANCEABUSE PROGRAM, SOME INFORMATION MAY BE OMITTED. This clinical summary was aggregated from multiple sources. Caution should be exercised in using it in the provision of clinical care. This summary normalizes information from multiple sources, and as a consequence, information in this document may materially change the coding, format and clinical context of patient data. In addition, data may be omitted in some cases. CLINICAL DECISIONS SHOULD BE BASED ON THE PRIMARY CLINICAL RECORDS. [employer] [facility]. provides no warranty or guarantee of the accuracy or completeness of information in this document.
[2023-04-24 21:50] LABS: Absolute Lymphocyte Count 2.09 X10^3/uL (0.83-4.51); Absolute Neutrophil Count 4.3 X10^3/uL (2.0-7.7); Basophil# 0.02 X10^3/uL; Basophil% 0.3 % (0-1); Eosinophil# 0.11 X10^3/uL; Eosinophils% 1.6 % (0-5); Hematocrit 44.9 % (37-47); Hemoglobin 14.3 g/dL (12.0-15.0); Lymphocyte # 2.09 X10^3/ul (0.83-4.51); Mean Corp Hgb Conc 31.8 g/dL (32-36); Mean Corpuscular Hgb 30.7 pg (27.0-32.0); Mean Corpuscular Volume 96.4 fL (81-99); Mean Platelet Vol. 10.7 fl (6.2-12.0); Monocyte# 0.46 X10^3/uL; Monocyte% 6.6 % (0-10); NRBC Flagged by Analyzer 0 % (0-5); Neutrophil # 4.28 X10^3/uL (2.7-7.7); Neutrophil % 61.4 % (47-70); Platelet Count 286 K/mm3 (150-450); RBC Distribution Width CV 13.2 % (11.6-14.6); RBC Distribution Width SD 46.5 fl (35.1-43.9); Red Blood Count 4.66 M/mm3 (4.2-5.4)
[2023-04-24 22:09] LABS: ALB/GLOB Ratio 1.2 RATIO (0.9-2.4); AST(SGOT) 43 U/L (15-37); Alanine Aminotransfer ALT/SGPT 42 U/L (13-56); Albumin, Serum 4.1 g/dL (3.2-5.0); Alkaline Phosphatase 57 U/L (45-117); Anion Gap 7 (5-15); BUN 21 mg/dL (7-18); BUN/Creat Ratio 18.4 RATIO (10-20); Calcium,Total 10.2 mg/dL (8.5-10.1); Chloride 98 mmol/L (98-107); Creatinine, Serum 1.14 mg/dL (0.55-1.02); EST Glomerular Filtration Rate 50 mL/min (>60); Est Glom Filt Rate - Afr Amer 60 mL/min (>60); Globulin 3.5 g/dL (2.2-4.2); Glucose 234 mg/dL (74-106); Potassium 3.9 mmol/L (3.5-5.1); Protein, Total 7.6 g/dL (6.4-8.2); Sodium Level 137 mmol/L (136-145); Thyroid Stim Hormone (TSH) 0.84 uIU/mL (0.358-3.74); Troponin-I HS 5 pg/mL (3.0-54.0)
[2023-04-24 22:11] LABS: Hemoglobin A1c 8.4 % (3.8-5.6)
== END | disposition home or self-care (01) ==
PROVIDERS: PCP Nurse Practitioner; Visit Provider Nurse Practitioner
DX: R42 Dizziness and giddiness (principal); E11.621 Type 2 diabetes mellitus with foot ulcer; L97.509 Non-pressure chronic ulcer of other part of unspecified foot with unspecified severity; R11.2 Nausea with vomiting, unspecified; R53.83 Other fatigue; K57.32 Diverticulitis of large intestine without perforation or abscess without bleeding; I10 Essential (primary) hypertension; R61 Generalized hyperhidrosis
CPT/HCPCS: 80053; 83036; 84443; 84484; 85025; 86141

== ENCOUNTER 2024-04-20 07:39 | Day surgery (SDC) | payer MEDICARE, OTHER, SELFPAY ==
--- NOTE | 2024-04-18 11:15 | PAT.ANESEVAL ---
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 When Was Last Pacemaker Check QUESTION #4 FULL TEXT: You/Your Family Experience fever (hyperthermia) with Anesthesia Last Oral Intake Last Oral intake: Last Oral Intake NPO since Meds taken in AM with sips of water? 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 Female Yes 04/18/24 10:13 HX of Motion Sickness No 04/18/24 10:13 HX of N/V After Surgery No 04/18/24 10:13 Non-Smoker Yes 04/18/24 10:13 Duration of Surgery greater No 04/18/24 10:13 than 60 minutes Number of Risk Factors 2 04/18/24 10:13 PONV Score Moderate Risk 04/18/24 10:13 Height & Weight Height & Weight: Anesthesia: Height & Weight Height 5 ft 5 in 04/24/23 16:41 Respiratory Assessment Respiratory Assessment - light rail signal technician: Respiratory Tract Infection Hx - light rail signal technician Hx Respiratory Tract Infection No 04/18/24 10:13 STOP Sleep Apnea STOP Sleep Apnea - light rail signal technician: STOP Sleep Apnea - light rail signal technician Hx Hypertension Yes: states controlled with 04/18/24 10:13 med Hx Sleep Apnea No 04/18/24 10:13 CPAP No 04/18/24 10:13 BIPAP No 04/18/24 10:13 Do you snore loudly (louder Yes 04/18/24 10:13 than talking or can be heard Do you often feel tired/ No 04/18/24 10:13 fatigued/ sleepy during daytime? Has anyone observed you stop No 04/18/24 10:13 breathing during sleep? STOP Results Positive 02/17/25 10:13 QUESTION #5 FULL TEXT : Do you snore loudly (louder than talking or can be heard through closed doors)? 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 Specify any problems Hx of Preganancy in last 3 No 04/18/24 10:13 Months Nurse Filling Out Transfusion MGRIFFITH 04/18/24 10:13 & Questions: Date: 04/18/24 04/18/24 10:13 Time: 10:15 04/18/24 10:13 Patient unable to answer at this time (ie. 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 History - light rail signal technician: /Reproductive Hx- light rail signal technician Hx Now Gestational Age (in weeks): EDC: Hx Hx Para Hx Section SAB PFSH Medical History (Updated 04/18/24 @ 10:25 by Vani Cárdenas) Wears glasses Diabetes Dietary restriction History of diverticulitis Heartburn Non-smoker History of stress test History of echocardiogram Cardiology follow-up encounter History of CHF (congestive heart failure) Hx of flexible sigmoidoscopy Hemorrhoids Nausea RUQ abdominal pain Arthritis Neoplasm of colon, malignant Peripheral vascular disease Morbid obesity Essential (primary) hypertension Early cataracts, bilateral Non-alcoholic cirrhosis Fatty liver Fibromyalgia GI bleed Anemia associated with acute blood loss Diverticulitis large intestine Rectal bleed Hyperlipidemia Home Medications ?Medication ?Instructions ?Recorded ?Last Taken ?Type multivitamin 1 ea PO DAILY supplement 02/03/17 02/03/17 History promethazine 12.5 mg tablet 12.5 mg PO Q6H PRN nausea and 04/24/23 Unknown Rx vomiting #45 tabs dapagliflozin propanediol 10 mg 10 mg PO DAILY #30 tabs 04/25/23 Unknown Rx tablet (Farxiga) duloxetine 60 mg capsule,delayed 60 mg PO QHS fibromyalgia #90 caps 04/25/23 Unknown Rx release glimepiride 4 mg tablet 4 mg PO QAM diabetes #90 tabs 04/25/23 Unknown Rx hydrochlorothiazide 25 mg tablet 25 mg PO DAILY water pill #90 tabs 04/25/23 Unknown Rx lisinopril 10 mg tablet 10 mg PO DAILY blood pressure #90 04/25/23 Unknown Rx tabs metformin 1,000 mg tablet 1,000 mg PO BID #180 tabs 04/25/23 Unknown Rx simvastatin 40 mg tablet 40 mg PO QHS #90 tabs 04/25/23 Unknown Rx tramadol 50 mg tablet 50 mg PO TID PRN pain 15 days #45 04/25/23 Unknown Rx tabs Allergy/AdvReac Type Severity Reaction Status Date / Time pioglitazone Allergy Severe CHF Verified 04/18/24 10:08 sitagliptin (From Januvia) Allergy Severe legs ache Verified 04/18/24 10:08 azithromycin (From Zithromax) Allergy Hives Verified 04/18/24 10:08 Family History Mother Arthritis Lung cancer Brother Colon cancer Lung cancer Sister Cervical cancer Other Benign tumor of kidney CVA (cerebral vascular accident) Diverticulosis Stomach cancer Surgical History (Updated 04/18/24 @ 10:13 by Vani Cárdenas) History of parotidectomy History of bilateral carpal tunnel release History of esophagogastroduodenoscopy (EGD) Hx of colonoscopy Hx of tubal ligation Heel spur History of tonsillectomy and adenoidectomy History of left heart catheterization (02/13/10) S/P total hip arthroplasty S/P total knee arthroplasty Social History Smoking Status: Never smoker alcohol intake: never substance use type: does not use caffeine: Yes what type of physical activity do you participate in: none frequency: does not exercise Audit: Pertinent Findings Pertinent Findings EKG Perinent findings: 03/17/2018 sinus rhythm incomplete right bundle branch block anterior fascicular block Echo (EF%) pertinent findings: 03/24/2018 normal size function EF 75% Consult pertinent findings: Cardiology 09/13/2023 hypertension with current excellent control continue medications Recommendation Anesthesia Recommendation Anesthesia recommendation: OPTIMIZED for anesthesia
[2024-04-20] VITALS (7 sets, daily range): BP systolic 86–132; BP diastolic 53–76; PULSE 54–83; RESP 16–18; TEMP 36.6; O2SAT 93–97; BMI 35.9
--- NOTE | 2024-04-20 08:34 | PCM.PRE.AN2 ---
ASA Classification* ASA Classification ASA Classification: 3 Assessment & Plan Anesthesia* Anesthesia Assessment Anesthesia Assessment: Discussed sedation and/or anesthesia options, risks, benefits, and alternatives with patient/parents/legal guardian/POA. Questions invited. The patient/parents/legal guardian/POA seems to understand and agrees to proceed with anesthesia plan. Reviewed the physical assessment, medical history, allergy history and patient home medications list prior to surgery/procedure/anesthetic and documented any changes. Performed airway and anesthesia risk assessments. Anesthesia Type Anesthesia Type: MAC History Source History Obtained from:: Patient and Chart Anesthesia Focused Assessment* Temperature: 97.8 F Pulse Rate: 83 Blood Pressure: 132/76 Respiratory Rate: 18 Pulse Ox: 96 Oxygen Delivery Method: Room Air Airway Assessment Mouth opens: >3 cm Mallampati Score: I Teeth Condition: Caps/Crowns (Patient has 1 crown on the molar. It is tight.) Neck Range of motion (ROM): Full ROM Focused Labs Anesthesia Preop lab: CBC WBC 7.0 K/mm3 (4.4-11.0) 04/24/23 23:59 04/24/23 RBC 4.66 M/mm3 (4.2-5.4) 04/24/23 23:59 04/24/23 Hgb 14.3 g/dL (12.0-15.0) 04/24/23 23:59 04/24/23 Hct 44.9 % (37-47) 04/24/23 23:59 04/24/23 Plt Count 286 K/mm3 (150-450) 04/24/23 23:59 04/24/23 CHEMISTRY Potassium 3.9 mmol/L (3.5-5.1) 04/24/23 23:59 04/24/23 Sodium 137 mmol/L (136-145) 04/24/23 23:59 04/24/23 Magnesium 1.7 mg/dL (1.8-2.4) L 01/24/17 00:05 01/24/17 BUN 21 mg/dL (7-18) H 04/24/23 23:59 04/24/23 Creatinine 1.14 mg/dL (0.55-1.02) H 04/24/23 23:59 04/24/23 Glucose 234 mg/dL (74-106) H 04/24/23 23:59 04/24/23 POC Glucose 181 mg/dL (70-110) H 04/15/19 09:37 04/15/19 TSH 0.84 uIU/mL (0.358-3.74) 04/24/23 23:59 04/24/23 COAG PT 14.0 SECONDS (11.7-14.9) 02/04/17 06:24 02/04/17 Pre-Assessment Diagnosis/Proposed Procedure Planned Operative Procedure(s): colonoscopy Anesthesia History 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 When Was Last Pacemaker Check QUESTION #4 FULL TEXT: You/Your Family Experience fever (hyperthermia) with Anesthesia Last Oral Intake Last Oral intake: Last Oral Intake NPO since 04:30 04/20/24 08:14 Meds taken in AM with sips of water? 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 Female Yes 04/18/24 10:13 HX of Motion Sickness No 04/18/24 10:13 HX of N/V After Surgery No 04/18/24 10:13 Non-Smoker Yes 04/18/24 10:13 Duration of Surgery greater No 04/18/24 10:13 than 60 minutes Number of Risk Factors 2 04/18/24 10:13 PONV Score Moderate Risk 04/18/24 10:13 Height & Weight Height & Weight: Anesthesia: Height & Weight Height 5 ft 4 in 04/20/24 08:14 Weight: 95 kg 04/20/24 08:14 Body Mass Index (BMI) 35.9 04/20/24 08:14 Respiratory Assessment Respiratory Assessment - wind projects supervisor: Respiratory Tract Infection Hx - wind projects supervisor Hx Respiratory Tract Infection No 04/18/24 10:13 STOP Sleep Apnea STOP Sleep Apnea - wind projects supervisor: STOP Sleep Apnea - wind projects supervisor Hx Hypertension Yes: states controlled with 04/18/24 10:13 med Hx Sleep Apnea No 04/18/24 10:13 CPAP No 04/18/24 10:13 BIPAP No 04/18/24 10:13 Do you snore loudly (louder Yes 04/18/24 10:13 than talking or can be heard Do you often feel tired/ No 04/18/24 10:13 fatigued/ sleepy during daytime? Has anyone observed you stop No 04/18/24 10:13 breathing during sleep? STOP Results Positive 04/18/24 10:13 QUESTION #5 FULL TEXT : Do you snore loudly (louder than talking or can be heard through closed doors)? 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 Specify any problems Hx of Preganancy in last 3 No 04/18/24 10:13 Months Nurse Filling Out Transfusion MGRIFFITH 04/18/24 10:13 & Questions: Date: 04/18/24 04/18/24 10:13 Time: 10:15 04/18/24 10:13 Patient unable to answer at this time (ie. 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 Hx Now Gestational Age (in weeks): EDC: Hx Hx Para Hx Section SAB PFSH Medical History Wears glasses Diabetes Dietary restriction History of diverticulitis Heartburn Non-smoker History of stress test History of echocardiogram Cardiology follow-up encounter History of CHF (congestive heart failure) Hx of flexible sigmoidoscopy Hemorrhoids Nausea RUQ abdominal pain Arthritis Neoplasm of colon, malignant Peripheral vascular disease Morbid obesity Essential (primary) hypertension Early cataracts, bilateral Non-alcoholic cirrhosis Fatty liver Fibromyalgia GI bleed Anemia associated with acute blood loss Diverticulitis large intestine Rectal bleed Hyperlipidemia Home Medications ?Medication ?Instructions ?Recorded ?Last Taken ?Type multivitamin 1 ea PO DAILY supplement 02/03/17 02/03/17 History promethazine 12.5 mg tablet 12.5 mg PO Q6H PRN nausea and 04/24/23 Unknown Rx vomiting #45 tabs dapagliflozin propanediol 10 mg 10 mg PO DAILY #30 tabs 04/25/23 Unknown Rx tablet (Farxiga) duloxetine 60 mg capsule,delayed 60 mg PO QHS fibromyalgia #90 caps 04/25/23 Unknown Rx release glimepiride 4 mg tablet 4 mg PO QAM diabetes #90 tabs 04/25/23 Unknown Rx hydrochlorothiazide 25 mg tablet 25 mg PO DAILY water pill #90 tabs 04/25/23 Unknown Rx lisinopril 10 mg tablet 10 mg PO DAILY blood pressure #90 04/25/23 Unknown Rx tabs metformin 1,000 mg tablet 1,000 mg PO BID #180 tabs 04/25/23 Unknown Rx simvastatin 40 mg tablet 40 mg PO QHS #90 tabs 04/25/23 Unknown Rx tramadol 50 mg tablet 50 mg PO TID PRN pain 15 days #45 04/25/23 Unknown Rx tabs Allergy/AdvReac Type Severity Reaction Status Date / Time pioglitazone Allergy Severe CHF Verified 04/20/24 08:13 sitagliptin (From Januvia) Allergy Severe legs ache Verified 04/20/24 08:13 azithromycin (From Zithromax) Allergy Hives Verified 04/20/24 08:13 Family History Mother Arthritis Lung cancer Brother Colon cancer Lung cancer Sister Cervical cancer Other Benign tumor of kidney CVA (cerebral vascular accident) Diverticulosis Stomach cancer Surgical History History of parotidectomy History of bilateral carpal tunnel release History of esophagogastroduodenoscopy (EGD) Hx of colonoscopy Hx of tubal ligation Heel spur History of tonsillectomy and adenoidectomy History of left heart catheterization (02/13/10) S/P total hip arthroplasty S/P total knee arthroplasty Social History Smoking Status: Never smoker alcohol intake: never substance use type: does not use caffeine: Yes what type of physical activity do you participate in: none frequency: does not exercise Review of Systems (Anesthesia) ROS Narrative System reviewed and no additional complaints, except as documented.
--- NOTE | 2024-04-20 08:45 | COLBX_PTH ---
PATIENT: ELISEO WOODARD LOC: EN U#:[id number] AGE/SX: 74/F ROOM: RE04/20/[address]: Dr. Josué Huber DO : 1950 BED: DIS: 04/20/2024 SPEC #: [id number] RECD: 04/20/24 11:05 STATUS: ONEYDA REDave #: [id number] MARGIE: 04/20/24 08:[address]: Josué Huber DEPT: SURGICAL PATHOLOGY RECD BY: Connie Clarke ENTERED: 04/20/24 12:07 SP TYPE: COLON BX OTHR DR: Beulah Hawkins, MILK PASTEURIZER-C Tissues: A - Sigmoid colon biopsy B - Ascending colon Procedures: Surgery Specimen Level IV HEADER OPERATION: Colonoscopy with biopsy PRE-OP DIAGNOSIS: Screening for malignant neoplasm of colon TISSUE SUBMITTED: A- Sigmoid polyp biopsy, B- Ascending polyp biopsy MICROSCOPIC DIAGNOSIS A. Sigmoid colon polyp, biopsy: Tubular adenoma. B. Ascending colon polyp, biopsy: Tubular adenoma. TALYOR. 04/21/2024 MICROSCOPIC DESCRIPTION Slides are reviewed. GROSS DESCRIPTION A. Received in fixative is one container labeled with the patient's name and designated Sigmoid colon polyp biopsy. The specimen consists of one irregular fragment of light godo soft tissue that measures 0.5 x 0.5 x 0.1 cm. The specimen is totally submitted in one cassette. B. Received in fixative is one container labeled with the patient's name and designated Ascending colon polyp biopsy. The specimen consists of one irregular fragment of light good soft tissue that measures 0.4 x 0.3 x 0.1 cm. The specimen is totally submitted in one cassette. 04/20/2024 TC:1 CPT:64410y2
--- NOTE | 2024-04-20 08:47 | PCM.HP.STD ---
HPI - General General Date of Admission: 04/20/24 Date of Service: 04/20/24 Chief Complaint: Surveillance colonoscopy HPI Narrative ELISEO WOODARD, is a 74 F who presents for surveillance colonoscopy. Pt is due for screening colonoscopy is 2024. Her last one was in [address] Jaimes and she has precancerous polyps. Over the years she has developed constipation alternating with diarrhea. She feel the diarrhea is overflow in nature. She takes fiber supplementation and probiotics but these have not seemed to help. She has occasional heartburn but nothing she is concerned about. She denies blood in her stool, abdominal pain , n/v or chronic heartburn. EGD 2.14.20 - Preparation of the colon was fair. - Hemorrhoids found on perianal exam. - Diverticulosis in the entire examined colon. Biopsied. - One 5 mm polyp in the distal transverse colon, removed with a hot snare. Resected and retrieved. - One 4 mm polyp in the rectum, removed with a cold biopsy forceps. Resected and retrieved. [facility] Medical History Wears glasses Diabetes Dietary restriction History of diverticulitis Heartburn Non-smoker History of stress test History of echocardiogram Cardiology follow-up encounter History of CHF (congestive heart failure) Hx of flexible sigmoidoscopy Hemorrhoids Nausea RUQ abdominal pain Arthritis Neoplasm of colon, malignant Peripheral vascular disease Morbid obesity Essential (primary) hypertension Early cataracts, bilateral Non-alcoholic cirrhosis Fatty liver Fibromyalgia GI bleed Anemia associated with acute blood loss Diverticulitis large intestine Rectal bleed Hyperlipidemia Home Medications ?Medication ?Instructions ?Recorded ?Last Taken ?Type multivitamin 1 ea PO DAILY supplement 02/03/17 02/03/17 History promethazine 12.5 mg tablet 12.5 mg PO Q6H PRN nausea and 04/24/23 Unknown Rx vomiting #45 tabs dapagliflozin propanediol 10 mg 10 mg PO DAILY #30 tabs 04/25/23 Unknown Rx tablet (Farxiga) duloxetine 60 mg capsule,delayed 60 mg PO QHS fibromyalgia #90 caps 04/25/23 Unknown Rx release glimepiride 4 mg tablet 4 mg PO QAM diabetes #90 tabs 04/25/23 Unknown Rx hydrochlorothiazide 25 mg tablet 25 mg PO DAILY water pill #90 tabs 04/25/23 Unknown Rx lisinopril 10 mg tablet 10 mg PO DAILY blood pressure #90 04/25/23 Unknown Rx tabs metformin 1,000 mg tablet 1,000 mg PO BID #180 tabs 04/25/23 Unknown Rx simvastatin 40 mg tablet 40 mg PO QHS #90 tabs 04/25/23 Unknown Rx tramadol 50 mg tablet 50 mg PO TID PRN pain 15 days #45 04/25/23 Unknown Rx tabs Allergy/AdvReac Type Severity Reaction Status Date / Time pioglitazone Allergy Severe CHF Verified 04/20/24 08:13 sitagliptin (From Januvia) Allergy Severe legs ache Verified 04/20/24 08:13 azithromycin (From Zithromax) Allergy Hives Verified 04/20/24 08:13 Family History Mother Arthritis Lung cancer Brother Colon cancer Lung cancer Sister Cervical cancer Other Benign tumor of kidney CVA (cerebral vascular accident) Diverticulosis Stomach cancer Surgical History History of parotidectomy History of bilateral carpal tunnel release History of esophagogastroduodenoscopy (EGD) Hx of colonoscopy Hx of tubal ligation Heel spur History of tonsillectomy and adenoidectomy History of left heart catheterization (02/13/10) S/P total hip arthroplasty S/P total knee arthroplasty Social History Smoking Status: Never smoker alcohol intake: never substance use type: does not use caffeine: Yes what type of physical activity do you participate in: none frequency: does not exercise ROS Constitutional Constitutional: Denies fatigue, fever(s), poor appetite, weight gain or weight loss Gastrointestinal Gastrointestinal: Denies belching, bloating, change in bowel habits, change in stool character, chewing difficulty, coffee ground emesis, constipation, cramping, diarrhea, dyspepsia, dysphagia, early satiety, excessive flatus, fecal incontinence, heartburn, hematemesis, hematochezia, hemorrhoids, loose stools, melena, nausea, odynophagia, rectal bleeding, tenesmus, vomiting or weight changes Vital Signs Vital Signs Vital Signs: 04/20/24 08:14 04/20/24 08:14 04/20/24 08:41 Temperature 97.8 F 97.8 F Temperature Source Temporal Pulse Rate 83 83 Respiratory Rate 18 18 Respiratory Pattern Normal Blood Pressure 132/76 H 132/76 H Blood Pressure Mean 94 Blood Pressure Source Monitor Blood Pressure Position Sitting Blood Pressure Location Right Arm Pulse Ox 96 96 Oxygen Delivery Method Room Air Room Air Weight Weight: 209 lb 7.026 oz Body Mass Index (BMI) 35.9 Physical Exam Const alert, oriented x3, no apparent distress and healthy appearing General Appearance: cooperative GI normal to inspection, nondistended, normoactive bowel sounds, soft to palpation, non-tender and non-distended Percussion: normal to percussion Rectal Exam: deferred Assessment & Plan Assessment/Plan (1) Screening for malignant neoplasm of colon: PLAN: Assessment and Plan Assessment and Plan (1) Acute diarrhea: Status: Acute Plan: This is a 73 yo female pt here today for establishment. Over the past couple years patient has developed worsening constipation alternating with diarrhea. Her last colonoscopy was in 2019 with precancerous polyps. She will undergo colonoscopy in the new year. SHe is agreeable to this. She will start miralax every other day as needed to get her on a better schedule. -Colonoscopy -start miralax -f/u after procedure
--- NOTE | 2024-04-20 09:44 | OP.COLON_ITS ---
Patient Name: Cyndi Cadena Procedure Date: 04/20/2024 9:08 AM Date of : 1950 Age: 74 Procedure: Colonoscopy Indications: High risk colon cancer surveillance: Personal history of colonic polyps, Last colonoscopy: April 2019 Providers: Josué Huber DO Referring MD: Beulah Hawkins NP Medicines: Monitored Anesthesia Care Patient Profile: This is a 74 year old female. Refer to note in patient chart for documentation of history and physical. Last Colonoscopy: 5 years ago. Complications: No immediate complications. Procedure: Pre-Anesthesia Assessment: - Prior to the procedure, a History and Physical was performed, and patient medications and allergies were reviewed. The patient is competent. The risks and benefits of the procedure and the sedation options and risks were discussed with the patient. All questions were answered and informed consent was obtained. Patient identification and proposed procedure were verified by the physician in the pre-procedure area. Mental Status Examination: alert and oriented. Airway Examination: normal oropharyngeal airway and neck mobility. Respiratory Examination: clear to auscultation. CV Examination: normal. Prophylactic Antibiotics: The patient does not require prophylactic antibiotics. Prior Anticoagulants: The patient has taken no anticoagulant or antiplatelet agents except for NSAID medication. ASA Grade Assessment: II - A patient with mild systemic disease. After reviewing the risks and benefits, the patient was deemed in satisfactory condition to undergo the procedure. The anesthesia plan was to use monitored anesthesia care (MAC). Immediately prior to administration of medications, the patient was re-assessed for adequacy to receive sedatives. The heart rate, respiratory rate, oxygen saturations, blood pressure, adequacy of pulmonary ventilation, and response to care were monitored throughout the procedure. The physical status of the patient was re-assessed after the procedure. After I obtained informed consent, the scope was passed under direct vision. Throughout the procedure, the patient's blood pressure, pulse, and oxygen saturations were monitored continuously. The Colonoscope was introduced through the anus and advanced to the cecum, identified by appendiceal orifice and ileocecal valve. The colonoscopy was performed without difficulty. The patient tolerated the procedure well. The quality of the bowel preparation was adequate. The ileocecal valve, appendiceal orifice, and rectum were photographed. Scope In: 9:22:49 AM Scope Withdrawal Time 0 hours 11 minutes 26 seconds Scope Out: 9:38:41 AM Total Procedure Duration Time 0 hours 15 minutes 52 seconds Findings: The perianal and digital rectal examinations were normal. Two sessile polyps were found in the sigmoid colon and ascending colon. The polyps were 8 mm in size. These polyps were removed with a jumbo cold forceps. Resection and retrieval were complete. Verification of patient identification for the specimen was done. Estimated blood loss was minimal. Multiple large-mouthed diverticula were found in the recto-sigmoid colon, sigmoid colon, descending colon, splenic flexure, transverse colon, hepatic flexure and ascending colon. 5 mm, recently bleeding rectal varices were found. Impression: - Two 8 mm polyps in the sigmoid colon and in the ascending colon, removed with a jumbo cold forceps. Resected and retrieved. - Diverticulosis in the recto-sigmoid colon, in the sigmoid colon, in the descending colon, at the splenic flexure, in the transverse colon, at the hepatic flexure and in the ascending colon. - Rectal varices. Recommendation: - Discharge patient to home. - Resume previous diet. - Continue present medications. - Repeat colonoscopy in 5 years for surveillance. Procedure Code(s): --- Professional --- 27706, Colonoscopy, flexible; with biopsy, single or multiple CPT copyright 2021 [employer]. All rights reserved. The codes documented in this report are preliminary and upon medical biller coder review may be revised to meet current compliance requirements. Josué Huber DO 04/20/2024 9:43:55 AM This report has been signed electronically. Number of Addenda: 0 Note Initiated On: 04/20/2024 9:08 AM
--- NOTE | 2024-04-20 09:44 | OP.CCLET_ITS ---
04/20/2024 Beulah Hawkins NP [facility] [address] [place] [id number] Re : Colonoscopy procedure for Cyndi Cadena Dear Ms. Hawkins This procedure was performed on Saturday, April 20, 2024. My impressions and recommendations are as follows: Impressions : - Two 8 mm polyps in the sigmoid colon and in the ascending colon, removed with a jumbo cold forceps. Resected and retrieved. - Diverticulosis in the recto-sigmoid colon, in the sigmoid colon, in the descending colon, at the splenic flexure, in the transverse colon, at the hepatic flexure and in the ascending colon. - Rectal varices. Recommendations : - Discharge patient to home. - Resume previous diet. - Continue present medications. - Repeat colonoscopy in 5 years for surveillance. My findings are described in the full procedure note, which is enclosed. If I can be of further assistance, please feel free to contact me at . Sincerely, Josué Huber, 04/20/2024 9:43:55 AM This report has been signed electronically.
--- NOTE | 2024-04-20 09:47 | PCM.POST.ANE ---
Anesthesia: Postop Eval I Current Vital Signs Temperature: 97.8 F Pulse Rate: 54 Blood Pressure: 99/53 Respiratory Rate: 16 Pulse Ox: 93 Oxygen Delivery Method: Room Air Assessment Airway patent: Yes Spontaneous unlabored respirations: Yes Mental status: Awake and Calm nausea: No Vomiting: No Anesthesia Complication: No Fluid Hydration Crystalloid volume administer (ml): 60 Total IV fluid infused: 60 Progress Note Anesthesia document: Postop Eval 1 completed: Yes
--- NOTE | 2024-04-20 11:41 | PCM.POSTANE2 ---
Anesthesia Postop Eval I Sum Postop Eval Completion status Anesthesia document: Postop Eval 1 completed: Yes Anesthesia Postop Eval I Summary Anesthesia Postop Eval I Summary: Anesthesia Postop Eval I: Assessment Summary Airway patent Yes 04/20/24 09:48 [email or web address] Spontaneous unlabored Yes 04/20/24 09:48 [email or web address] respirations Mental status Awake,Calm 04/20/24 09:48 [email or web address] nausea No 04/20/24 09:48 [email or web address] Vomiting No 04/20/24 09:48 [email or web address] Anesthesia Postop Eval I: Fluid Summary Crystalloid volume administer 60 04/20/24 09:48 [email or web address] (ml) Colloids volume administered ( ml) Blood Product volume administered (ml) Total IV fluid infused 60 04/20/24 09:48 [email or web address] Anesthesia Postop Eval I: Summary Notes Anesthesia Complication No 04/20/24 09:48 [email or web address] Anesthesia Complication Comment: Post-operative progress note Anesthesia: Postop Eval II Evaluation Mental status: Awake and Calm Pain Level: 0 nausea: No Vomiting: No
== END 2024-04-20 10:24 | disposition home or self-care (01) ==
LOC: EN 07:39 → AC 07:41
PROVIDERS: PCP Nurse Practitioner; Referring Provider Nurse Practitioner; Visit Provider Internal Medicine Gastroenterology
PROC: 0DJD8ZZ Inspection of Lower Intestinal Tract, Via Natural or Artificial Opening Endoscopic (ICD-10-PCS; CPT 45378; principal; 2024-04-20 08:40)
DX: Z12.11 Encounter for screening for malignant neoplasm of colon (principal); E11.9 Type 2 diabetes mellitus without complications; I10 Essential (primary) hypertension; D12.2 Benign neoplasm of ascending colon; D12.5 Benign neoplasm of sigmoid colon; K57.30 Diverticulosis of large intestine without perforation or abscess without bleeding; I86.8 Varicose veins of other specified sites; E78.5 Hyperlipidemia, unspecified; R19.7 Diarrhea, unspecified; Z79.84 Long term (current) use of oral hypoglycemic drugs; Z79.899 Other long term (current) drug therapy; Z86.0109 Personal history of other colon polyps
CPT/HCPCS: 45380; 88305; A4216; J2405

== ENCOUNTER 2024-04-26 22:05 | Outpatient (CLI) | payer MEDICARE, OTHER, SELFPAY ==
[2024-04-26 22:33] LABS: Absolute Lymphocyte Count 2.49 X10^3/uL (0.83-4.51); Absolute Neutrophil Count 5.2 X10^3/uL (2.0-7.7); Basophil# 0.05 X10^3/uL; Basophil% 0.6 % (0-1); Eosinophil# 0.17 X10^3/uL; Hematocrit 44.7 % (37-47); Hemoglobin 14.8 g/dL (12.0-15.0); Lymphocyte # 2.49 X10^3/ul (0.83-4.51); Mean Corp Hgb Conc 33.1 g/dL (32-36); Mean Corpuscular Hgb 30.8 pg (27.0-32.0); Mean Corpuscular Volume 92.9 fL (81-99); Monocyte# 0.68 X10^3/uL; Monocyte% 7.9 % (0-10); NRBC Flagged by Analyzer 0 % (0-5); Neutrophil # 5.19 X10^3/uL (2.7-7.7); Neutrophil % 60.3 % (47-70); Platelet Count 273 K/mm3 (150-450); RBC Distribution Width SD 44.5 fl (35.1-43.9); Red Blood Count 4.81 M/mm3 (4.2-5.4); White Blood Count 8.6 K/mm3 (4.4-11.0)
[2024-04-27 00:53] LABS: ALB/GLOB Ratio 1.5 RATIO (0.9-2.4); AST(SGOT) 28 U/L (<=31); Alanine Aminotransfer ALT/SGPT 27 U/L (<=34); Albumin, Serum 4.4 g/dL (3.4-4.8); Alkaline Phosphatase 70 U/L (35-104); Anion Gap 17 (5-15); BUN 21 mg/dL (4-19); BUN/Creat Ratio 18.8 RATIO (10-20); Calcium 12.2 mg/dL (7.6-11.0); Carbon Dioxide 24.8 mmol/L (22.0-29.0); Chloride 95 mmol/L (96-108); Cholesterol 256 mg/dL (<=200); Creatinine, Serum 1.1 mg/dL (0.6-1.0); EST Glomerular Filtration Rate 51 (>60); Glucose 293 mg/dL (70-99); High Density Lipoprotein 45 mg/dL; Low Density Lipoprotein Calc. 77 mg/dL; Potassium 4.1 mmol/L (3.3-5.1); Protein, Total 7.4 g/dL (5.9-8.4); Sodium Level 137 mmol/L (133-145); Total Bilirubin 0.38 mg/dL (0.00-1.30); Triglycerides 672 mg/dL; Very Low Density Lipoprotein 134 mg/dL (5-40); cholesterol:hdl ratio screen 5.73
== END 2024-04-26 23:59 | disposition home or self-care (01) ==
PROVIDERS: PCP Nurse Practitioner; Visit Provider Nurse Practitioner
DX: I10 Essential (primary) hypertension (principal); E11.65 Type 2 diabetes mellitus with hyperglycemia; D50.9 Iron deficiency anemia, unspecified; M19.90 Unspecified osteoarthritis, unspecified site; R11.14 Bilious vomiting; R61 Generalized hyperhidrosis
CPT/HCPCS: 80053; 80061; 83036; 85025

== ENCOUNTER → 2024-05-25 | Outpatient (CLI) | payer MEDICARE, OTHER, SELFPAY ==
--- NOTE | 2024-05-25 07:44 | US_ITS ---
EXAM: Ultrasound abdomen limited with elastography CLINICAL HISTORY: Rectal varices COMPARISON: CT abdomen and pelvis 05/14/2022 TECHNIQUE: Ultrasound abdomen limited with elastography FINDINGS: Study is limited by bowel gas. Pancreatic tail is not visualized and the head is not well seen. Visualized portions of the pancreas appear within limits for echogenicity. Pancreatic duct at the body measures 4 mm, prominent. The liver measures 15.7 cm and appears diffusely increased in echogenicity which can be seen with hepatic steatosis or other hepatocellular disease. There is hepatic color flow. Flow within the portal vein appears hepatopetal as expected. Main portal vein measures 1.3 cm. The gallbladder appears within limits without stones, wall thickening or pericholecystic free fluid. Wall measures 2 mm. Report of a negative sonographic Mistry's sign. CBD 7.5 mm upper limits for age. The right kidney measures 10.1 x 5 x 5.9 cm. No hydronephrosis or perinephric edema seen. Suggestion of a possible 3 mm nonobstructing intrarenal stone. Spleen measures 11.8 x 5.5 x 4.1 cm. No free fluid seen. Liver stiffness 9.43 kPa, 1.76 m/sec US/ABD Limited w/ Elastography IMPRESSION: Liver stiffness 9.43 kPa, F2-F3 compatible with [id number] liver disease Metavir staging. Diffuse increased echogenicity of the liver can be seen with hepatic steatosis or other hepatocellular disease. Pancreas is not well seen. Prominent appearance of pancreatic duct at the body measuring 4 mm. Reading Location: [id number]
== END | disposition home or self-care (01) ==
LOC: US 07:44
PROVIDERS: PCP Nurse Practitioner; Referring Provider Student in an Organized Health Care Education/Training Program; Visit Provider Student in an Organized Health Care Education/Training Program
DX: I86.8 Varicose veins of other specified sites (principal)
CPT/HCPCS: 76705; 76981; 93976

== ENCOUNTER → 2024-08-10 | Outpatient (CLI) | payer MEDICARE, OTHER, SELFPAY ==
--- NOTE | 2024-08-10 13:56 | CT_ITS ---
PROCEDURE: ABDOMEN W/WO IV CONTRAST 08/10/2024 REASON FOR EXAM: PANCREATIC PROTOCOL TECHNIQUE: Abdomen CT with intravenous contrast. Multiplanar and multisequence images were obtained. One or more dose reduction techniques were used (e.g., Automated exposure control, adjustment of the mA and/or kV according to patient size, use of iterative reconstruction technique. PATIENT PREPARATION: Per protocol ORAL CONTRAST TYPE: Patient ingested oral contrast. CONTRAST: Isovue-350 VOLUME: 100 mL RADIATION DOSE SUMMARY: CTDlvol: 21.53 mGy DLP: 2146 mGycm COMPARISON: 05/14/2022. FINDINGS: Unchanged moderate diffuse spondylosis. Unchanged 1.6 cm left adrenal nodule, probably benign adenoma. Unchanged right renal simple cyst measuring 1.5 cm. Uncomplicated colonic diverticulosis, unchanged. The visualized lung bases are unremarkable. Normal liver. Normal gallbladder and extrahepatic biliary system. Normal spleen. Normal pancreas. Normal right adrenal gland. Normal size of the right kidney. There is no right renal mass. There are no right renal calculi. There is no right hydronephrosis. Normal visualized right ureter. Normal size of the left kidney. There is no left renal mass. There are no left renal calculi. There is no left hydronephrosis. Normal visualized left ureter. Normal visualized stomach. Normal small intestine. The appendix is visualized and appears normal. There is no demonstrated peritoneal fluid. Calcified atheromatous plaques of the abdominal aorta. Normal inferior vena cava. Normal retroperitoneum. CT/Abdomen W/WO IV Contrast IMPRESSION: Unchanged moderate diffuse spondylosis. Unchanged 1.6 cm left adrenal nodule, probably benign adenoma. Unchanged right renal simple cyst measuring 1.5 cm. Uncomplicated colonic diverticulosis, unchanged. Reading Location: [place] [id number]
[2024-08-10 14:51] LABS: CREATININE FINGERSTICK < 1.0 mg/dL (0.55-1.02); EGFR FINGERSTICK > 60.0000 mL/min (>60)
== END | disposition home or self-care (01) ==
LOC: CT 13:56
PROVIDERS: PCP Nurse Practitioner; Referring Provider Student in an Organized Health Care Education/Training Program; Visit Provider Student in an Organized Health Care Education/Training Program
DX: K86.89 Other specified diseases of pancreas (principal); K83.8 Other specified diseases of biliary tract
CPT/HCPCS: 74170; Q9967

== ENCOUNTER → 2024-09-21 | Outpatient (CLI) | payer MEDICARE, OTHER, SELFPAY ==
--- OUTSIDE RECORDS SUMMARY | 2024-09-21 23:20 | XMS RPT_ITS | CCD ---
Author Organization [facility] CliniSys[facility] Care Team Providers Care Supervisor Special Services Name Role Phone Jackie Wiggins MD Primary Care Provider SHAKIRA MELTON Attending Unavailable JACKIE WIGGINS Primary Care Unavailable Hawkins ZIPPER IRONER-C, Beulah Primary Care Provider Hawkins ZIPPER IRONER-C, Beulah Referring Provider Brigette Gruber Attending Provider Dr. Josué Huber DO Attending Provider Dr. Josué Huber DO Other Provider Hawkins ZIPPER IRONER-C, Beulah Attending Provider Hawkins ZIPPER IRONER-C, Beulah Primary Care Provider Hawkins ZIPPER IRONER-C, Beulah Referring Provider Brigette Gruber Attending Provider Brigette Gruber Referring Provider Josué Huber Attending Unavailable Hawkins ZIPPER IRONER, Beulah Primary Care Unavailable Hawkins ZIPPER IRONER, Beulah Referring Unavailable Hawkins ZIPPER IRONER, Beulah Primary Care Unavailable Hawkins ZIPPER IRONER, Beulah Attending Unavailable Hawkins ZIPPER IRONER, Beulah Primary Care Unavailable Brigette Vidal Attending Unavailable Brigette Vidal Referring Unavailable Hawkins ZIPPER IRONER, Beulah Primary Care Unavailable Brigette Vidal Attending Unavailable Brigette Vidal Referring Unavailable Brigette Vidal Attending Unavailable Hawkins ZIPPER IRONER, Beulah Primary Care Unavailable Hawkins ZIPPER IRONER, Beulah Referring Unavailable Hawkins ZIPPER IRONER, Beulah Primary Care Unavailable Brigette Vidal Attending Unavailable Hawkins ZIPPER IRONER, Beulah Referring Unavailable Josué Huber Consulting Unavailable Josué Huber Attending Unavailable Hawkins ZIPPER IRONER, Beulah Primary Care Unavailable Hawkins ZIPPER IRONER, Beulah Referring Unavailable Allergies Allergy Classification Reported Allergen(s) Allergy Type Date of Onset Reaction(s) Facility (12 sources) Azithromycin; Translations: [AZITHROMYCIN] Drug Allergy 05-09-2011 Rash, Hives [facility] (6 sources) Ibuprofen Drug Allergy 09-13-2019 Bleeding [facility] (9 sources) pioglitazone Drug Allergy 07-08-2021 CHF [facility] (9 sources) SITagliptin Drug Allergy 07-08-2021 legs ache [facility] (1 source) Azithromycin Drug Allergy 04-20-2024 [facility] (1 source) Ibuprofen Drug Allergy 09-15-2021 [facility] (1 source) pioglitazone Drug Allergy 04-20-2024 [facility] (1 source) SITagliptin Drug Allergy 04-20-2024 [facility] Medications Current Medications Medication Drug Class(es) Dates Sig (Normalized) Sig (Original) amoxicillin 875 mg oral tablet (3 sources) Penicillin-class Antibacterial Start: 04-26-2024 take 1 tablet by mouth twice daily Amoxicillin 875 mg tablet Active 875 mg PO TWICE A DAY April 26, 2024 1:00am Multivitamin 1 EACH tablet (3 sources) Start: 02-03-2017 Multivitamin 1 EACH tablet Active 1 NMA PO DAILY February 03, 2017 1:00am Multivitamin preparation (6 sources) Start: 02-03-2017 Multivitamin Active 1 EACH PO DAILY February 03, 2017 7:49pm Start: 02-03-2017 Multivitamin A ctive 1 EACH PO DAILY February 03, 2017 12:00am Start: 02-03-2017 Multivitamin A ctive 1 EACH PO DAILY February 03, 2017 1:00am promethazine hydrochloride 12.5 mg oral tablet (7 sources) Phenothiazine Start: 04-24-2023 End: 04-26-2024 take 1 tablet by mouth every six hours as needed for nausea and vomiting Promethazine 12.5 mg tablet Active 12.5 mg PO EVERY 6 HOURS as needed for nausea and vomiting April 26, 2024 4:08pm rosuvastatin calcium 20 mg oral tablet (2 sources) HMG-CoA Reductase Inhibitor Start: 05-16-2024 take 1 tablet by mouth once daily Rosuvastatin 20 mg tablet Active 20 mg PO daily May 16, 2024 12:00am Completed/Discontinued Medications Medication Drug Class(es) Dates Sig (Normalized) Sig (Original) acetaminophen 325 mg / HYDROcodone bitartrate 5 mg oral tablet (8 sources) Opioid Agonist Start: 09-15-2021 End: 08-08-2022 Hydrocodone-Acetami nophen 5-325 mg tablet Discontinued 1 {tbl} PO EVERY 6 HOURS as needed for pain 12 September 15, 2021 August 08, 2022 4:08pm Start: 09-15-2021 End: 08-08-2022 take 1 tablet by mouth every six hours Hydrocodone-Acetaminophen Discontinued 1 TABLET PO EVERY 6 HOURS 02 01September 15, 2021 August 08, 2022 3:08pm acetaminophen 250 mg / ibuprofen 125 mg oral tablet (1 source) Nonsteroidal Anti-inflammatory Drug ibuprofen-acetami nophen 125-250 mg tab Take by mouth as needed (for back pain). 0 Active Comment on above: Take by mouth as nee ded (for back pain). amoxicillin 875 mg / clavulanate 125 mg oral tablet (4 sources) Penicillin-class Antibacterial Start: End: Amoxicillin-Pot Clavulanate 875-125 mg tablet Discontinued 1 {tbl} PO TWICE A DAY April 24, 2023 1:00am July 06, 2023 12:27pm Start: 04-24-2023 take 1 tablet by jamel th twice daily Amoxicillin-Pot Clavulanate Active 1 TABLET PO TWICE A DAY April 24, 2023 12:00am aspirin 81 mg chewable tablet (11 sources) Platelet Aggregation Inhibitor, Nonsteroidal Anti-inflammatory Drug Start: 02-03-2017 End: 02-05-2017 take 1 tablet by mouth once daily Aspirin 81 MG Tab.Chew Discontinued 81 mg PO DAILY@0800 February 03, 2017 1:00am February 05, 2017 2:45pm Aspirin 81 mg OR AL Tab Take 81 mg by mouth. 0 Active Comment on above: Take 81 mg by mouth. baclofen 5 mg oral tablet (9 sources) gamma-Aminobutyric Acid-ergic Agonist Start: 02-14-20 End: 04-16-19 Baclofen 5 mg tablet Discontinued 5 mg PO THREE TIMES A DAY as needed for spasms February 13, 2021 1:00am April 16, 2021 9:51pm May take 1-2 pills up to 3 x a day ciprofloxacin 500 mg oral tablet (20 sources) Quinolone Antimicrobial Start: 11-01-19 End: 08-09-19 take 1 tablet by mouth twice daily Ciprofloxacin Hcl (Cipro) 500 mg tablet Discontinued 500 mg PO TWICE A DAY April 22, 2022 1:00am August 08, 2022 4:08pm Start: 04-09-2020 End: 02-13-2021 take 1 tablet by mouth twice daily Ciprofloxacin Hcl (Cipro) 500 mg tablet Discontinued 500 mg PO TWICE A DAY April 09, 2020 1:00am February 13, 2021 5:01pm cyclobenzaprine hydrochloride 5 mg oral tablet (9 sources) Muscle Relaxant Start: 04-16-2021 End: 04-22-2022 take 1 tablet by mouth three times daily as needed for muscle spasms Cyclobenzaprine 5 mg tablet Discontinued 5 mg PO THREE TIMES A DAY as needed for muscle spasm 45 April 16, 2021 1:00am April 22, 2022 6:37pm dapagliflozin 10 mg oral tablet (20 sources) Sodium-Glucose Cotransporter 2 Inhibitor Start: 07-08-2021 End: 04-26-2024 take 1 tablet by mouth once daily Dapagliflozin Propanediol (Farxiga) 10 mg tablet Discontinued 10 mg PO DAILY April 25, 2023 10:24pm April 26, 2024 4:09pm Comment on above: Take by mouth daily with breakfast. docusate sodium 50 mg / sennosides, skilled nursing 8.6 mg oral tablet (9 sources) Start: 02-05-2017 End: 03-15-2018 Sennosides-Docusate Sodium 1 TABLET tablet Discontinued 2 {tbl} PO DAILY 60 February 05, 2017 1:00am March 15, 2018 4:01pm May hold regimen if stools loose. Start: 02-05-2017 End: 03-15-2018 take 2 tablets by mouth once daily Sennosides-Docusate Sodium Discontinued 2 TABLET PO DAILY 60 February 05, 2017 12:00am March 15, 2018 3:01pm May hold regimen if stools loose. DULoxetine 60 mg delayed release oral capsule (20 sources) Serotonin and Norepinephrine Reuptake Inhibitor Start: 07-07-2014 End: 05-05-2024 take 1 capsule by mouth at bedtime Duloxetine 60 mg capsule,delayed release(DR/EC) Discontinued 60 mg PO AT BEDTIME April 13, 2020 3:20pm April 16, 2021 10:00pm Start: 07-07-2014 End: 04-25-2023 take 60 mg by mouth at bedtime Duloxetine Discontinued 60 MG PO AT BEDTIME April 13, 2020 2:20pm April 16, 2021 9:00pm Comment on above: Take 60 mg by mouth once daily. esomeprazole 40 mg delayed release oral capsule (2 sources) Proton Pump Inhibitor esomeprazole (NEXIUM) 40 mg capsule Take 40 mg by mouth. 0 Active Comment on above: Take 40 mg by mouth. Fish Oil-DHA-EPA (FISH OIL) 1,200-144-216 mg ORAL Cap (2 sources) Fish Oil-DHA-EPA (FISH OIL) 1,200-144-216 mg ORAL Cap Take by mouth. 0 Active Comment on above: Take by mouth. furosemide 40 mg oral tablet (9 sources) Loop Diuretic Start: 07-09-19 22 End: 04-22-19 23 take 1 tablet by mouth once daily Furosemide 40 mg tablet Discontinued 40 mg PO DAILY July 08, 2021 12:00am April 22, 2022 6:37pm glimepiride 4 mg oral tablet (20 sources) Sulfonylurea Start: 02-13-20 17 End: 04-26-19 take 1 tablet by mouth once daily at breakfast Glimepiride 4 mg tablet Discontinued 4 mg PO EVERY MORNING April 16, 2020 3:14pm April 16, 2021 10:00pm administer with breakfast Start: 07-07-2014 End: 03-19-2018 take 2 tablets by mouth once daily Glimepiride 2 mg tablet Discontinued 4 mg PO DAILY March 15, 2018 4:05pm March 19, 2018 11:32am Start: 07-07-2014 End: 03-19-2018 take 4 mg by mouth once daily Glimepiride Discontinued 4 MG PO DAILY March 15, 2018 3:05pm March 19, 2018 10:32am Comment on above: Take 4 mg by mouth o nce daily. hydroCHLOROthiazide 25 mg oral tablet (20 sources) Thiazide Diuretic Star t: 10-19 End: 02-2 5-20 25 take 1 tablet by mouth once daily Hydrochlorothiazide 25 mg tablet Discontinued 25 mg PO DAILY April 13, 2020 3:20pm April 16, 2021 10:00pm Comment on above: Take 25 mg by mouth once daily. 2 ml ketorolac tromethamine 30 mg/ml injection (3 sources) Nonsteroidal Anti-inflammatory Drug, Cyclooxygenase Inhibitor Star t: 11-19 End: 11-19 inject 60 mg by intramuscular injection once ketorolac 60 mg/2 mL intramuscular solution Discontinued 60 MG SC ONCE July 08, 2021 4:57pm July 08, 2021 8:09pm Start: 04-16-2021 End: 04-16-2021 inject 60 mg by intramuscular injection once ketorolac 60 mg/2 mL intramuscular solution Discontinued 60 MG SC ONCE April 16, 2021 8:48pm April 16, 2021 8:48pm Start: 02-13-2021 End: 02-13-2021 inject 60 mg by intramuscular injection once ketorolac 60 mg/2 mL intramuscular solution Discontinued 60 MG SC ONCE February 13, 2021 4:41pm February 13, 2021 4:41pm lisinopril 10 mg oral tablet (20 sources) Angiotensin Converting Enzyme Inhibitor Start: 07-07-2014 End: 04-26-2024 take 1 tablet by mouth once daily Lisinopril 10 mg tablet Discontinued 10 mg PO DAILY April 13, 2020 3:20pm April 16, 2021 10:00pm Comment on above: Take 10 mg by mouth once daily. metFORMIN hydrochloride 1000 mg oral tablet (20 sources) Biguanide Start: 04-24-2022 End: 04-26-2024 take 1 tablet by mouth twice daily Metformin 1,000 mg tablet Discontinued 1000 mg PO TWICE A DAY 180 April 25, 2023 10:25pm April 26, 2024 4:09pm Start: 04-22-2022 End: 08-08-2022 take 1 tablet by mouth once daily Metformin 1,000 mg tablet extended release 24hr Discontinued 1000 mg PO DAILY April 22, 2022 1:00am August 08, 2022 4:09pm Start: 07-07-2014 End: 04-22-2022 take 1 tablet by mouth twice daily at mealtime Metformin 1,000 mg tablet Discontinued 1000 mg PO TWICE DAILY WITH MEALS April 13, 2020 3:20pm April 16, 2021 10:00pm Comment on above: Take 1,000 mg by jamel twice daily with meals. metroNIDAZOLE 250 mg oral tablet (18 sources) Nitroimidazole Antimicrobial Start: 04-11-19 End: 04-21-19 take 1 tablet by mouth three times daily Metronidazole 250 mg tablet Discontinued 250 mg PO THREE TIMES A DAY 30 April 11, 2019 1:00am April 20, 2019 1:00am April 21, 2019 1:08am Start: 03-30-2019 End: 04-09-2019 take 1 tablet by mouth three times daily Metronidazole 250 mg tablet Discontinued 250 mg PO THREE TIMES A DAY 30 March 30, 2019 1:00am April 08, 2019 1:00am April 09, 2019 1:08am Multivitamin ORAL capsule (2 sources) take 1 capsule by mouth once daily Multivitamin ORAL capsule Take 1 capsule by mouth once daily. 0 Active Comment on above: Take 1 capsule by mo [facility] once daily. pantoprazole 40 mg delayed release oral tablet (11 sources) Proton Pump Inhibitor Start: 017 End: 019 take 1 tablet by mouth twice daily Pantoprazole 40 MG tablet Discontinued 40 mg PO TWICE A DAY 60 February 05, 2017 1:00am September 08, 2018 1:25pm Comment on above: Take 40 mg by mouth twice daily. pioglitazone 45 mg oral tablet (20 sources) Peroxisome Proliferator Receptor alpha Agonist, Peroxisome Proliferator Receptor gamma Agonist, Thiazolidinedione Start: 021 End: take 1 tablet by mouth once daily Pioglitazone 45 mg tablet Discontinued 45 mg PO DAILY April 16, 2020 3:15pm April 16, 2021 10:00pm Start: 01-23-2017 End: 03-22-2020 take 1 tablet by mouth once daily Pioglitazone 30 mg tablet Discontinued 30 mg PO DAILY March 25, 2019 4:09pm March 22, 2020 4:13pm Comment on above: Take 30 mg by mouth once daily. polysaccharide iron complex 150 mg oral capsule (18 sources) Start: 7 End: 9 take 1 capsule by mouth once daily at mealtime Polysaccharide Iron Complex 150 MG capsule Discontinued 150 mg PO DAILY WITH MEALS February 03, 2017 1:00am September 08, 2018 1:26pm potassium chloride 20 meq extended release oral tablet (9 sources) Start: End: 3 take 1 tablet by mouth once daily Potassium Chloride 20 mEq tablet extended release Discontinued 20 meq PO DAILY July 08, 2021 12:00am April 22, 2022 6:38pm predniSONE 10 mg oral tablet (12 sources) Start: End: 4 take 2 tablets by mouth twice daily as needed, then take 1 tablet by mouth twice daily as needed, then take 0.5 tablet by mouth once daily as needed Prednisone 10 mg tablet Discontinued 20 mg PO TWICE A DAY as needed for poison cain 30 July 06, 2023 12:27pm January 27, 2024 10:28am 2 po bid 4D,1 po bid for 4 D, 1 po qd for 4D 1/2 po qd for2 D Start: 04-16-2021 End: 10-31-2021 take 2 tablets by mouth twice daily as needed for pain, then take 1 tablet by mouth twice daily as needed for pain, then take 0.5 tablet by mouth once daily as needed for pain Prednisone 10 mg tablet Discontinued 20 mg PO TWICE A DAY as needed for back pain 30 April 16, 2021 1:00am October 31, 2021 6:59pm 2 po bid 4D,1 po bid for 4 D, 1 po qd for 4D 1/2 po qd for2 D Start: 04-16-2021 End: 10-31-2021 Prednisone Discontinued 20 M G PO TWICE A DAY 30 April 16, 2021 12:00am October 31, 2021 5:59pm 2 po bid 4D,1 po bid for 4 D, 1 po qd for 4D 1/2 po qd for2 D simvastatin 40 mg oral tablet (20 sources) HMG-CoA Reductase Inhibitor Start: 04-23-2022 End: 05-16-2024 take 1 tablet by mouth at bedtime Simvastatin 40 mg tablet Discontinued 40 mg PO AT BEDTIME April 26, 2024 4:08pm May 16, 2024 12:51pm Start: 03-19-2018 End: 02-13-2021 take 1 tablet by mouth at bedtime Simvastatin 80 mg tablet Discontinued 80 mg PO AT BEDTIME April 16, 2020 3:16pm February 13, 2021 5:04pm Start: 02-12-2017 simvastatin (Z OCOR) 80 mg tablet Take 40 mg by mouth once daily. 0 02/12/2017 Active Start: 07-07-2014 End: 03-19-2018 take 4 tablets by mouth at bedtime Simvastatin 20 mg tablet Discontinued 80 mg PO AT BEDTIME March 15, 2018 4:06pm March 19, 2018 11:32am Start: 07-07-2014 End: 03-19-2018 take 80 mg by mouth at bedtime Simvastatin Discontinue d 80 MG PO AT BEDTIME March 15, 2018 3:06pm March 19, 2018 10:32am Comment on above: Take 40 mg by mouth once daily. SITagliptin 100 mg oral tablet (2 sources) Dipeptidyl Peptidase 4 Inhibitor take 1 tablet by mouth once daily sitagliptin (JANUVIA) 100 mg ORAL tablet Take 100 mg by mouth once daily. 0 Active Comment on above: Take 100 mg by mouth once daily. traMADol hydrochloride 50 mg oral tablet (20 sources) Opioid Agonist Start: 2021 End: 2023 take 1 tablet by mouth three times daily as needed for pain Tramadol 50 mg tablet Discontinued 50 mg PO THREE TIMES A DAY as needed for pain 45 15 August 27, 2022 2:48pm April 25, 2023 10:27pm triamcinolone acetonide 40 mg/ml injectable suspension (4 sources) Corticosteroid Start: 2021 End: 2021 inject 60 mg by intramuscular injection once triamcinolone acetonide 40 mg/mL suspension for injection Discontinued 60 MG IM ONCE 1.5 July 08, 2021 4:57pm July 08, 2021 8:09pm Start: 04-16-2021 End: 04-16-2021 Kenalog (triamcinolone aceto nide) 40 mg/mL suspension for injection Discontinued 40 MG INTRAARTIC ONCE April 16, 2021 8:48pm April 16, 2021 8:48pm Start: 02-13-2021 End: 02-13-2021 Kenalog (triamcinolone aceto nide) 40 mg/mL suspension for injection Discontinued 40 MG INTRAARTIC ONCE February 13, 2021 4:41pm February 13, 2021 4:41pm Problems Active Problems Problem Classification Problem Date Documented Da te Episodic/Chronic Abdominal pain (20 sources) Right upper quadrant pain; Translations: [Right upper quadrant pain] Onset: 2 09-12-2019 Episodic Acute posthemorrhagic anemia (9 sources) Acute posthemorrhagic anemia; Translations: [Acute posthemorrhagic anemia] 03-16-2018 Episodic Biliary tract disease (2 sources) Disorder of biliary tract; Translations: [Other specified diseases of biliary tract] 05-26-2024 Chronic Cancer of colon (9 sources) Malignant tumor of colon; Translations: [Malignant neoplasm of colon, unspecified] 09-12-2019 Chronic Conditions associated with dizziness or vertigo (9 sources) Dizziness; Translations: [Dizziness and giddiness] 09-12-2019 Episodic Deficiency and other anemia (9 sources) Anemia; Translations: [Anemia, unspecified] 03-25-2019 Episodic Diabetes mellitus with complications (18 sources) Type 2 diabetes mellitus; Translations: [Uncontrolled type 2 diabetes mellitus with complication] 03-16-2018 Chronic Disorders of lipid metabolism (9 sources) Hyperlipidemia; Translations: [Hyperlipidemia, unspecified] 03-22-2020 Chronic Diverticulosis and diverticulitis (10 sources) Diverticulitis of large intestine; Translations: [Diverticulitis of large intestine without perforation or abscess without bleeding] 04-08-2019 Chronic E Codes: Adverse effects of medical drugs (3 sources) Adverse reaction to drug; Translations: [Adverse effect of unspecified drugs, medicaments and biological substances, initial encounter] 04-27-2024 Episodic Essential hypertension (10 sources) Essential hypertension; Translations: [Essential (primary) hypertension] Onset: 5 03-16-2018 Chronic Comment on above: per pt, controlled o n meds Gastrointestinal hemorrhage (18 sources) Gastrointestinal hemorrhage; Translations: [Gastrointestinal hemorrhage, unspecified] 03-16-2018 Episodic Genitourinary symptoms and ill-defined conditions (9 sources) Dysuria; Translations: [Dysuria] 04-09-2020 Episodic Malaise and fatigue (9 sources) Fatigue; Translations: [Other fatigue] 09-12-2019 Episodic Nausea and vomiting (13 sources) Nausea; Translations: [Nausea] 09-12-2019 Episodic Nonspecific chest pain (9 sources) Chest pain at rest; Translations: [Chest pain, unspecified] 09-12-2019 Episodic Osteoarthritis (9 sources) Arthritis; Translations: [Unspecified osteoarthritis, unspecified site] 09-12-2019 Chronic Other connective tissue disease (9 sources) Bursitis of right hip; Translations: [Other bursitis of hip, right hip] 02-13-2021 Episodic Other connective tissue disease (9 sources) Fibromyalgia; Translations: [Fibromyalgia] 04-08-2019 Episodic Other connective tissue disease (4 sources) Tendinitis of elbow or forearm; Translations: [Other enthesopathies, not elsewhere classified] 12-31-2022 Episodic Other connective tissue disease (4 sources) Triggering of digit; Translations: [Trigger finger, left index finger] 12-31-2022 Episodic Other diseases of veins and lymphatics (1 source) Varicose veins of other specified sites; Translations: [Varicose veins of other specified sites] Onset: Episodic Other gastrointestinal disorders (6 sources) Irritable bowel syndrome; Translations: [Irritable bowel syndrome without diarrhea] 05-05-2024 Chronic Other gastrointestinal disorders (9 sources) Diarrhea; Translations: [Diarrhea, unspecified] 09-12-2019 Episodic Other gastrointestinal disorders (4 sources) Acute diarrhea; Translations: [Diarrhea, unspecified] 01-14-2024 Episodic Other liver diseases (9 sources) Cirrhosis - non-alcoholic; 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] 04-08-2019 Chronic Other skin disorders (4 sources) Hyperhidrosis; Translations: [Generalized hyperhidrosis] 04-24-2023 Episodic Otitis media and related conditions (3 sources) Acute bilateral otitis media ; Translations: [Otitis media, unspecified, bilateral] 04-27-2024 Episodic Pancreatic disorders (not diabetes) (3 sources) Pancreatic duct disorder; Translations: [Other specified diseases of pancreas] Onset: 5 05-26-2024 Episodic Peripheral and visceral atherosclerosis (9 sources) Peripheral vascular disease; Translations: [Peripheral vascular disease, unspecified] 09-12-2019 Chronic Peritonitis and intestinal abscess (7 sources) Abdominal visceral abscess ; Translations: [Peritoneal abscess] 04-23-2022 Episodic Residual codes; unclassified (9 sources) Edema; Translations: [Edema, unspecified] 07-08-2021 Episodic Spondylosis; intervertebral disc disorders; other back problems (9 sources) Sciatica; Translations: [Sciatica, right side] 02-13-2021 Episodic Sprains and strains (5 sources) Rupture of left Achilles tendon; Translations: [Strain of left Achilles tendon, initial encounter] 08-08-2022 Episodic Superficial injury; contusion (4 sources) Splinter in foot; Translations: [Superficial foreign body, unspecified foot, initial encounter] 04-24-2023 Episodic Urinary tract infections (9 sources) Cystitis; Translations: [Cystitis, unspecified without hematuria] 04-09-2020 Episodic Past or Other Problems Problem Classification Problem Date Documented Da te Episodic/Chronic Hemorrhoids (16 sources) Hemorrhoids; Translations: [Unspecified hemorrhoids] Onset: 05-05-2024 09-12-2019 Episodic Other screening for suspected conditions (not mental disorders or infectious disease) (8 sources) Patient encounter status; Translations: [Encounter for screening for malignant neoplasm of colon] Onset: 04-26-2024 04-20-2024 Episodic Results Test Name Value Interpretation Reference Range Facility Abdomen W/WO IV Contraston 0 08-10-2024 Abdomen W/WO IV Contrast [facility] [address] [place] [id number] Abdomen W/WO IV Contrast MR#: [id number] Acct: [id number] Name: ELISEO CADENA Rep #: [id number] : [id number] F [id number] From: Luis F meza MD PCP: NARDA Singh Status: REG CLI Study: Abdomen W/WO IV Contrast Date of Exam: 5 Exam# [id number] Ordering Dr: Brigette Vidal PROCEDURE: ABDOMEN W/WO IV CONTRAST 08/10/2024 REASON FOR EXAM: PANCREATIC PROTOCOL TECHNIQUE: Abdomen CT with intravenous contrast. Multiplanar and multisequence images were obtained. One or more dose reduction techniques were used (e.g., Automated exposure control, adjustment of the mA and/or kV according to patient size, use of iterative reconstruction technique. PATIENT PREPARATION: Per protocol ORAL CONTRAST TYPE: Patient ingested oral contrast. CONTRAST: Isovue-350 VOLUME: 100 mL RADIATION DOSE SUMMARY: CTDlvol: 21.53 mGy DLP: 2146 mGycm COMPARISON: 05/14/2022. FINDINGS: Unchanged moderate diffuse spondylosis. Unchanged 1.6 cm left adrenal nodule, probably benign adenoma. Unchanged right renal simple cyst measuring 1.5 cm. Uncomplicated colonic diverticulosis, unchanged. The visualized lung bases are unremarkable. Normal liver. Normal gallbladder and extrahepatic biliary system. Normal spleen. Normal pancreas. Normal right adrenal gland. Normal size of the right kidney. There is no right renal mass. There are no right renal calculi. There is no right hydronephrosis. Normal visualized right ureter. Normal size of the left kidney. There is no left renal mass. There are no left renal calculi. There is no left hydronephrosis. Normal visualized left ureter. Normal visualized stomach. Normal small intestine. The appendix is visualized and appears normal. There is no demonstrated peritoneal fluid. Calcified atheromatous plaques of the abdominal aorta. Normal inferior vena cava. Normal retroperitoneum. CT/Abdomen W/WO IV Contrast IMPRESSION: Unchanged moderate diffuse spondylosis. Unchanged 1.6 cm left adrenal nodule, probably benign adenoma. Unchanged right renal simple cyst measuring 1.5 cm. Uncomplicated colonic diverticulosis, unchanged. Reading Location: [place] [id number] CC: NARDA Hawkins; LORETTA Torrez Director Of Revenue Cycle Management: Signed Normal [facility] CREATININE FINGERSTICKon CREATININE WB < 1.0 Normal 0.55-1.02 [facility] Comment on above: Performed By: #### L 9100.0200 #### [facility] [facility] [address] [place], [place], [id number] EGFR WB > 60.0000 Normal >60 [facility] Comment on above: Performed By: #### L 9100.0200 #### [facility] [address] [place], [place], [address] EGFROrdered By: Brigette young on 08-10-2024 GFR/1.73 sq M.predicted among non-blacks MDRD (S/P/Bld) [Vol rate/Area] mL/min/{1.73_m2} >60 [facility] ABD Limited w/ Elastographyo n 05-25-2024 ABD Limited w/ Elastography [facility] Imaging Services [address] [place], [place] [address] ABD Limited w/ Elastography MR#: [id number] Acct: [id number] Name: ELISEO CADENA Rep #: [id number] : 1950 F 74 From: Lex Manriquez MD PCP: Beulah Hawkins, ZIPPER IRONER-C Status: REG CLI Study: ABD Limited w/ Elastography Date of Exam: 05/01 08/24 Exam# [id number] Ordering Dr: Brigette Vidal EXAM: Ultrasound abdomen limited with elastography CLINICAL HISTORY: Rectal varices COMPARISON: CT abdomen and pelvis 05/14/2022 TECHNIQUE: Ultrasound abdomen limited with elastography FINDINGS: Study is limited by bowel gas. Pancreatic tail is not visualized and the head is not well seen. Visualized portions of the pancreas appear within limits for echogenicity. Pancreatic duct at the body measures 4 mm, prominent. The liver measures 15.7 cm and appears diffusely increased in echogenicity which can be seen with hepatic steatosis or other hepatocellular disease. There is hepatic color flow. Flow within the portal vein appears hepatopetal as expected. Main portal vein measures 1.3 cm. The gallbladder appears within limits without stones, wall thickening or pericholecystic free fluid. Wall measures 2 mm. Report of a negative sonographic Mistry's sign. CBD 7.5 mm upper limits for age. The right kidney measures 10.1 x 5 x 5.9 cm. No hydronephrosis or perinephric edema seen. Suggestion of a possible 3 mm nonobstructing intrarenal stone. Spleen measures 11.8 x 5.5 x 4.1 cm. No free fluid seen. Liver stiffness 9.43 kPa, 1.76 m/sec US/ABD Limited w/ Elastography IMPRESSION: Liver stiffness 9.43 kPa, F2-F3 compatible with drjo-ct-lmskbele liver disease Metavir staging. Diffuse increased echogenicity of the liver can be seen with hepatic steatosis or other hepatocellular disease. Pancreas is not well seen. Prominent appearance of pancreatic duct at the body measuring 4 mm. Reading Location: [facility] CC: NARDA Hawkins; LORETTA Torrez Director Of Revenue Cycle Management: Signed Normal [facility] Gastroenterology Visit Repor ton 05-05-2024 Gastroenterology Visit Report [facility] [address] [place] [address] OFFICE VISIT Date of Service: 05/05/24 MR#: [id number] Acct: [id number] Name: ELISEO CADENA Rep #: [id number] : 1950 Provider: LORETTA Torrez Age/Sex: 74/F Location: [facility] Status: Signed Intake Vital Signs 04/24/23 16:41 04/26/24 14:57 Height 5 ft 5 in 5 ft 4 in Intake Visit Reasons: Test Result Chief Complaint: alternating bowels 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 Allergies pioglitazone Allergy (Severe, Verified 04/20/24 08:13) CHF sitagliptin (From Januvia) Allergy (Severe, Verified 04/20/24 08:13) legs ache azithromycin (From Zithromax) Allergy (Verified 04/20/24 08:13) Hives Medications ???Medication ???Instructions ???Recorded ???Confirmed ???Type multivitamin 1 ea PO DAILY supplement 02/03/17 04/26/24 History tramadol 50 mg tablet 50 mg PO TID PRN pain 15 days #45 04/25/23 04/26/24 Rx tabs amoxicillin 875 mg tablet 875 mg PO BID #20 tabs 04/26/24 Rx dapagliflozin propanediol 10 mg 10 mg PO DAILY #30 tabs 04/26/24 0 04/26/24 Rx tablet (Farxiga) glimepiride 4 mg tablet 4 mg PO QAM diabetes #90 tabs 04/0304/26/24 Rx hydrochlorothiazide 25 mg tablet 25 mg PO DAILY water pill #90 tabs 04/26/24 04/26/24 Rx lisinopril 10 mg tablet 10 mg PO DAILY blood pressure #90 04/26/24 04/26/24 Rx tabs metformin 1,000 mg tablet 1,000 mg PO BID #180 tabs 04/26/24 04/26/24 Rx promethazine 12.5 mg tablet 12.5 mg PO Q6H PRN nausea and 04/0304/26/24 Rx vomiting #45 tabs simvastatin 40 mg tablet 40 mg PO QHS #90 tabs 04/26/24 Rx duloxetine 60 mg capsule,delayed 60 mg PO .every other day 05/05/24 History release fibromyalgia Patient : No Have you fallen in the past year?: No Nurse's Note: OV 05.05.24 Pt here for f/u. Pt reports diarrhea, constipation, abdominal pain, and occasional nausea. Pt reports she is decreasing duloxetine dosage. [facility] Medical History Wears glasses Diabetes Dietary restriction History of diverticulitis Heartburn Non-smoker History of stress test History of echocardiogram Cardiology follow-up encounter History of CHF (congestive heart failure) Hx of flexible sigmoidoscopy Hemorrhoids Nausea RUQ abdominal pain Arthritis Neoplasm of colon, malignant Peripheral vascular disease Morbid obesity Essential (primary) hypertension Early cataracts, bilateral Non-alcoholic cirrhosis Fatty liver Fibromyalgia GI bleed Anemia associated with acute blood loss Diverticulitis large intestine Rectal bleed Hyperlipidemia Surgical History History of parotidectomy History of bilateral carpal tunnel release History of esophagogastroduodenoscopy (EGD) Hx of colonoscopy Hx of tubal ligation Heel spur History of tonsillectomy and adenoidectomy History of left heart catheterization (02/13/10) S/P total hip arthroplasty S/P total knee arthroplasty Family History Mother Arthritis Lung cancer Brother Colon cancer Lung cancer Sister Cervical cancer Other Benign tumor of kidney CVA (cerebral vascular accident) Diverticulosis Stomach cancer Social History Smoking Status: Never smoker alcohol intake: never substance use type: does not use caffeine: Yes what type of physical activity do you participate in: none frequency: does not exercise HPI HPI Chief Complaint: alternating bowels Details: ELISEO CADENA, is a 74 F who presents to the office today for f/u. [facility] established 01.27.24 for screening colonoscopy. Last colonoscopy in [address] Jaimes with pre cancerous polyps. Pt with alternating constipation and diarrhea over the past few years. Takes fiber and probiotic daily. EGD 04.15.19 - Preparation of the colon was fair. - Hemorrhoids found on perianal exam. - Diverticulosis in the entire examined colon. Biopsied. - One 5 mm polyp in the distal transverse colon, removed with a hot snare. Resected and retrieved. - One 4 mm polyp in the rectum, removed with a cold biopsy forceps. Resected and retrieved. Colonoscopy 04.20.24; - Two 8 mm polyps in the sigmoid colon and in the ascending colon, removed with a jumbo cold forceps. Resected and retrieved. - Diverticulosis in the recto-sigmoid colon, in the sigmoid colon, in the descending colon, at the splenic flexure, in the transverse colon, at the hepatic flexure and in the ascending colon. - Rectal varices Precancerous polyps repeat scope in 5 years OV 3.6.35 Pt here today for f/u after colonoscopy. She continues to hermosillo (more content not included)... Normal [facility] Comprehensive Metabolic Prof ilon 04-27-2024 Albumin [Mass/Vol] 4.4 g/dL Normal 3.4-4.8 [facility] Comment on above: Performed By: #### L 501.9985, L500.4050, L500.4100, L100.0100 #### [facility] [address] [place], [address] Albumin/Globulin [Mass ratio] 1.5 {ratio} Normal 0.9-2.4 [facility] Comment on above: Performed By: #### L 501.9985, L500.4050, L500.4100, L100.0100 #### [facility] [address] [place], [address] ALK PHOS 70 U/L Normal 35-104 [facility] Comment on above: Performed By: #### L 501.9985, L500.4050, L500.4100, L100.0100 #### [facility] [address] [place], [address] ALT [Catalytic activity/Vol] 27 U/L Normal <=34 [facility] Comment on above: Performed By: #### L 501.9985, L500.4050, L500.4100, L100.0100 #### [facility] [address] [place], [address] Anion gap [Moles/Vol] 17 mmol/L High 5-15 [facility] Comment on above: Performed By: #### L 501.9985, L500.4050, L500.4100, L100.0100 #### [facility] [address] [place], [address] AST [Catalytic activity/Vol] 28 U/L Normal <=31 [facility] Comment on above: Performed By: #### L 501.9985, L500.4050, L500.4100, L100.0100 #### [facility] [address] [place], [address] Bilirubin [Mass/Vol] 0.38 mg/dL Normal 0.00-1.30 [facility] Comment on above: Performed By: #### L 501.9985, L500.4050, L500.4100, L100.0100 #### [facility] [address] [place], [address] BUN/CRE 18.8 RATIO Normal 10-20 [facility] Comment on above: Performed By: #### L 501.9985, L500.4050, L500.4100, L100.0100 #### [facility] [address] [place], [address] Calcium [Mass/Vol] 12.2 mg/dL High 7.6-11.0 [facility] Comment on above: Performed By: #### L 501.9985, L500.4050, L500.4100, L100.0100 #### [facility] [address] [place], [address] Chloride [Moles/Vol] 95 mmol/L Low 96-108 [facility] Comment on above: Performed By: #### L 501.9985, L500.4050, L500.4100, L100.0100 #### [facility] [address] [place], [address] CO2 [Moles/Vol] 24.8 mmol/L Normal 22.0-29.0 [facility] Comment on above: Performed By: #### L 501.9985, L500.4050, L500.4100, L100.0100 #### [facility] [address] [place], [address] Creatinine [Mass/Vol] 1.1 mg/dL High 0.6-1.0 [facility] Comment on above: Performed By: #### L 501.9985, L500.4050, L500.4100, L100.0100 #### [facility] [address] [place], [address] GFR/1.73 sq M.predicted among non-blacks MDRD (S/P/Bld) [Vol rate/Area] 51 mL/min/{1.73_m2} Low >60 [facility] Comment on above: Result Comment: mL/m in/1.73m2 CKD-EPI Creatinine Equation (2020) Performed By: #### L 501.9985, L500.4050, L500.4100, L100.0100 #### [facility] [address] [place], [address] Globulin (S) [Mass/Vol] 3.0 g/dL Normal 2.2-4.2 [facility] Comment on above: Performed By: #### L 501.9985, L500.4050, L500.4100, L100.0100 #### [facility] [address] [place], [address] Glucose [Mass/Vol] 293 mg/dL High 70-99 [facility] Comment on above: Performed By: #### L 501.9985, L500.4050, L500.4100, L100.0100 #### [facility] [address] [place], [address] Potassium [Moles/Vol] 4.1 mmol/L Normal 3.3-5.1 [facility] Comment on above: Performed By: #### L 501.9985, L500.4050, L500.4100, L100.0100 #### [facility] [address] [place], [address] Sodium [Moles/Vol] 137 mmol/L Normal 133-145 [facility] Comment on above: Performed By: #### L 501.9985, L500.4050, L500.4100, L100.0100 #### [facility] [address] [place], [address] T PROT 7.4 g/dL Normal 5.9-8.4 [facility] Comment on above: Performed By: #### L 501.9985, L500.4050, L500.4100, L100.0100 #### [facility] [address] [place], [address] Urea nitrogen [Mass/Vol] 21 mg/dL High 4-19 [facility] Comment on above: Performed By: #### L 501.9985, L500.4050, L500.4100, L100.0100 #### [facility] [address] [place], [address] Hemoglobin A1con 04-27-2024 HbA1c (Bld) [Mass fraction] 9.0 % Normal <=5.6 [facility] Comment on above: Performed By: #### L 501.9985, L500.4050, L500.4100, L100.0100 #### [facility] [address] [place], [address] Lipid Profileon 04-27-2024 CHOL:HDL 5.73 Normal [facility] Comment on above: Performed By: #### L 501.9985, L500.4050, L500.4100, L100.0100 #### [facility] [address] [place], [address] Cholesterol [Mass/Vol] 256 mg/dL High <=200 [facility] Comment on above: Result Comment: Chol esterol level, Desirable <200 mg/dL Borderline high cholesterol 200-239 mg/dL High cholesterol >=240 mg/dL Recommendations of the NCEP Adult Treatment Panel for the following risk-cutoff thresholds for the [place] population. Performed By: #### L 501.9985, L500.4050, L500.4100, L100.0100 #### [facility] [address] [place], [address] Cholesterol in HDL [Mass/Vol] 45 mg/dL Normal [facility] Comment on above: Result Comment: [place]aya onal Cholesterol Education Program (NCEP) guidelines: <40 mg/dL: Low HDL-cholesterol (major risk factor for CHD) >= 60 mg/dL: High HDL-cholesterol (negative risk factor for CHD) HDL-cholesterol is affected by a number of factors, e.g. smoking, exercise, hormones, sex and age. Performed By: #### L 501.9985, L500.4050, L500.4100, L100.0100 #### [facility] [address] [place], [address] Cholesterol in LDL [Mass/Vol] 77 mg/dL Normal [facility] Comment on above: Result Comment: Bord ygsied=156-063 mg/dL Higher Ffhh=622 mg/dL or greater Performed By: #### L 501.9985, L500.4050, L500.4100, L100.0100 #### [facility] [address] [place], [address] Cholesterol in VLDL [Mass/Vol] 134 mg/dL High 5-40 [facility] Comment on above: Performed By: #### L 501.9985, L500.4050, L500.4100, L100.0100 #### [facility] [address] [place], [address] Triglyceride [Mass/Vol] 672 mg/dL High [facility] Comment on above: Result Comment: The drugs N-Acetylcysteine and Metamizole may falsely depress this assay. Normal range: <150 mg/dL Borderline High: 150-199 mg/dL High: 200-499 mg/dL Very High: >500 mg/dL Performed By: #### L 501.9985, L500.4050, L500.4100, L100.0100 #### [facility] [address] [place], [address] Absolute lymphocyte countOrd ered By: Beulah Hawkins on 04-26-2024 Lymphocytes Auto (Unsp spec) [#/Vol] 2.49 10*3/uL 0.83-4.51 [facility] Absolute neutrophil countOrd ered By: Beulah Hawkins on 04-26-2024 Neutrophils (Bld) [#/Vol] 5.2 10*3/uL 2.0-7.7 [facility] Automated lymphocyte count a s percentage of total leukocytesOrdered By: Beulah Hawkins on 04-26-2024 Lymphocytes/100 WBC Auto (Unsp spec) 29.0 % - [facility] BUN/creatinine ratioOrdered By: Beulah Hawkins on 04-26-2024 Urea nitrogen/Creatinine [Mass ratio] 18.8 mg/mg 10-20 [facility] Basophil percentageOrdered B y: Beulah Hawkins on 04-26-2024 Basophils/100 WBC (Bld) 0.6 % 0-1 [facility] Bilirubin, totalOrdered By: Beulah Hawkins on 04-26-2024 Bilirubin [Mass/Vol] 0.38 mg/dL 0.00-1.30 [facility] CBC W/Diff, Automatedon 02-2 -2024 Absolute Lymph 2.49 X10 3/uL Normal 0.83-4.51 [facility] Comment on above: Performed By: #### L 501.9985, L500.4050, L500.4100, L100.0100 #### [facility] [address] [place], [address] Absolute Neut 5.2 X10 3/uL Normal 2.0-7.7 [facility] Comment on above: Performed By: #### L 501.9985, L500.4050, L500.4100, L100.0100 #### [facility] [address] [place], [address] Basophils/100 WBC (Bld) 0.6 % Normal 0-1 [facility] Comment on above: Performed By: #### L 501.9985, L500.4050, L500.4100, L100.0100 #### [facility] [address] [place], [address] Eosinophils/100 WBC (Bld) 2.0 % Normal 0-5 [facility] Comment on above: Performed By: #### L 501.9985, L500.4050, L500.4100, L100.0100 #### [facility] [address] [place], [address] Erythrocyte distribution width (RBC) [Ratio] 13.0 % Normal 11.6-14.6 [facility] Comment on above: Performed By: #### L 501.9985, L500.4050, L500.4100, L100.0100 #### [facility] [address] [place], [address] Hematocrit (Bld) [Volume fraction] 44.7 % Normal 37-47 [facility] Comment on above: Performed By: #### L 501.9985, L500.4050, L500.4100, L100.0100 #### [facility] [address] [place], [address] Hemoglobin (Bld) [Mass/Vol] 14.8 g/dL Normal 12.0-15.0 [facility] Comment on above: Performed By: #### L 501.9985, L500.4050, L500.4100, L100.0100 #### [facility] [address] [place], [address] IG% 0.200 Normal 0.0-0.9 [facility] Comment on above: Result Comment: IG% - Immature Granulocytes (promyelocytes, myelocytes and metamyelocytes) > 1% indicates that a LEFT SHIFT is Present. Performed By: #### L 501.9985, L500.4050, L500.4100, L100.0100 #### [facility] [address] [place], [address] Lymphocytes/100 WBC (Bld) 29.0 % Normal 19-41 [facility] Comment on above: Performed By: #### L 501.9985, L500.4050, L500.4100, L100.0100 #### [facility] [address] [place], [address] MCH (RBC) [Entitic mass] 30.8 pg Normal 27.0-32.0 [facility] Comment on above: Performed By: #### L 501.9985, L500.4050, L500.4100, L100.0100 #### [facility] [address] [place], [address] MCHC (RBC) [Mass/Vol] 33.1 g/dL Normal 32-36 [facility] Comment on above: Performed By: #### L 501.9985, L500.4050, L500.4100, L100.0100 #### [facility] [address] [place], [address] MCV (RBC) [Entitic vol] 92.9 fL Normal 81-99 [facility] Comment on above: Performed By: #### L 501.9985, L500.4050, L500.4100, L100.0100 #### [facility] [address] [place], [address] Monocytes/100 WBC (Bld) 7.9 % Normal 0-10 [facility] Comment on above: Performed By: #### L 501.9985, L500.4050, L500.4100, L100.0100 #### [facility] [address] [place], [address] Neutrophils/100 WBC (Bld) 60.3 % Normal 47-70 [facility] Comment on above: Performed By: #### L 501.9985, L500.4050, L500.4100, L100.0100 #### [facility] [address] [place], [address] Nucleated RBC (Bld) [#/Vol] 0 10*3/uL Normal 0-5 [facility] Comment on above: Performed By: #### L 501.9985, L500.4050, L500.4100, L100.0100 #### [facility] [address] [place], [address] Platelet mean volume (Bld) [Entitic vol] 11.0 fL Normal 6.2-12.0 [facility] Comment on above: Performed By: #### L 501.9985, L500.4050, L500.4100, L100.0100 #### [facility] [address] [place], [address] Platelets (Bld) [#/Vol] 273 10*3/uL Normal 150-450 [facility] Comment on above: Performed By: #### L 501.9985, L500.4050, L500.4100, L100.0100 #### [facility] [address] [place], [address] RBC (Bld) [#/Vol] 4.81 10*6/uL Normal 4.2-5.4 [facility] Comment on above: Performed By: #### L 501.9985, L500.4050, L500.4100, L100.0100 #### [facility] [address] [place], [address] RDW SD 44.5 fl High 35.1-43.9 [facility] Comment on above: Performed By: #### L 501.9985, L500.4050, L500.4100, L100.0100 #### [facility] [address] [place], [address] WBC (Bld) [#/Vol] 8.6 10*3/uL Normal 4.4-11.0 [facility] Comment on above: Performed By: #### L 501.9985, L500.4050, L500.4100, L100.0100 #### [facility] [address] [place], [address] Calculated very low density lipoprotein (VLDL) cholesterol measurementOrdered By: Beulah Hawkins on 04-26-2024 Calculated very low density lipoprotein (VLDL) cholesterol measurement 134 mg/dL High 5-40 [facility] VLDL Cholesterol 134 mg/dL High 5-40 [facility] Carbon dioxide measurementOr dered By: Beulah Hawkins on 04-26-2024 CO2 [Moles/Vol] 24.8 mmol/L 22.0-29.0 [facility] Chloride measurementOrdered By: Beulah Hawkins on 04-26-2024 Chloride [Moles/Vol] 95 mmol/L Low 96-108 [facility] Cholesterol/HDL ratioOrdered By: Beulah Hawkins on 04-26-2024 Cholesterol.total/Chol esterol in HDL [Mass ratio] 5.73 {ratio} [facility] Eosinophil percentageOrdered By: Beulah Hawkins on 04-26-2024 Eosinophils/100 WBC (Bld) 2.0 % 0-5 [facility] Erythrocyte distribution wid th ratioOrdered By: Beulah Hawkins on 04-26-2024 Erythrocyte distribution width (RBC) [Ratio] 13.0 % 11.6-14.6 [facility] Erythrocyte distribution wid th standard deviationOrdered By: Beulah Hawkins on 04-26-2024 Erythrocyte distribution width (RBC) [Entitic vol] 44.5 fL High 35.1-43.9 [facility] Erythrocyte distribution width (RBC) [Ratio] 44.5 fl High 35.1-43.9 [facility] GFR/1.73 sq M.predicted heather g non-blacks MDRD (S/P/Bld) [Vol rate/Area]Ordered By: Beulah Hawkins on 04-26-2024 Estimated GFR (MDRD) Non-Af Amer 51 Low >60 [facility] Comment on above: mL/min/1.73m2 CKD-EP I Creatinine Equation (2020) Glomerular filtration rate ( GFR) estimation/1.73 sq m using serum, plasma, or whole bOrdered By: Beulah Hawkins on 04-26-2024 GFR/1.73 sq M.predicted among non-blacks MDRD (S/P/Bld) [Vol rate/Area] 51 mL/min/{1.73_m2} Low >60 [facility] Comment on above: mL/min/1.73m2 CKD-EP I Creatinine Equation (2020) Hematocrit Auto (Bld) [Volum e fraction]Ordered By: Beulah Hawkins on 04-26-2024 Hematocrit (Bld) [Volume fraction] 44.7 % 37-47 [facility] Hemoglobin A1c percentageOrd ered By: Beulah Hawkins on 04-26-2024 HbA1c (Bld) [Mass fraction] 9.0 % >5.7 [facility] Hemoglobin measurementOrdere d By: Beulah Hawkins on 04-26-2024 Hemoglobin (Bld) [Mass/Vol] 14.8 g/dL 12.0-15.0 [facility] Immature granulocytes/100 WB C Auto (Bld)Ordered By: Beulah Hawkins on 04-26-2024 Immature granulocytes/100 WBC (Bld) 0.200 % 0.0-0.9 [facility] Comment on above: IG% - Immature Granu locytes (promyelocytes, myelocytes and metamyelocytes) > 1% indicates that a LEFT SHIFT is Present. LDL calc ser/plasOrdered By: Beulah Hawkins on 04-26-2024 Cholesterol in LDL [Mass/Vol] 77 mg/dL [facility] Comment on above: Sgcanuvkuq=832-457 m g/dL & Higher Poun=447 mg/dL or greater LDL Cholesterol, Calculated 77 mg/dL [facility] Comment on above: Xnajizxpmm=732-548 m g/dL & Higher Zwpb=386 mg/dL or greater Laboratory - Chemistry and C hemistry - challengeOrdered By: Beulah Hawkins on 04-26-2024 AST [Catalytic activity/Vol] 28 U/L <32 [facility] Lymphocytes Auto (Unsp spec) [#/Vol]Ordered By: Beulah Hawkins on 04-26-2024 Lymphocytes (Bld) [#/Vol] 2.49 10*3/uL 0.83-4.51 [facility] Lymphocytes/100 WBC Auto (Un sp spec)Ordered By: Beulah Hawkins on 04-26-2024 Lymphocytes/100 WBC (Bld) 29.0 % 19-41 [facility] MCV (mean corpuscular volume ) determinationOrdered By: Beulah Hawkins on 04-26-2024 MCV (RBC) [Entitic vol] 92.9 fL 81-99 [facility] Mean corpuscular hemoglobin (MCH) determinationOrdered By: Beulah Hawkins on 04-26-2024 MCH (RBC) [Entitic mass] 30.8 pg 27.0-32.0 [facility] Mean corpuscular hemoglobin concentration (MCHC) determinationOrdered By: Beulah Hawkins on 04-26-2024 MCHC (RBC) [Mass/Vol] 33.1 g/dL 32-36 [facility] Mean platelet volume determi nationOrdered By: Beulah Hawkins on 04-26-2024 Platelet mean volume (Bld) [Entitic vol] 11.0 fL 6.2-12.0 [facility] Monocyte percentageOrdered B y: Beulah Hawkins on 04-26-2024 Monocytes/100 WBC (Bld) 7.9 % 0-10 [facility] Neutrophil percentageOrdered By: Beulah Hawkins on 04-26-2024 Neutrophils/100 WBC (Bld) 60.3 % 47-70 [facility] Nucleated red blood cell per centageOrdered By: Beulah Hawkins on 04-26-2024 Nucleated RBC/100 WBC (Bld) [Ratio] 0 % 0-5 [facility] Platelet countOrdered By: Do ra Hawkins on 04-26-2024 Platelets (Bld) [#/Vol] 273 10*3/uL 150-450 [facility] RBC Auto (Bld) [#/Vol]Ordere d By: Beulah Hawkins on 04-26-2024 RBC (Bld) [#/Vol] 4.81 10*6/uL 4.2-5.4 [facility] Serum creatinine measurement (mass/volume)Ordered By: Beulah Hawkins on 04-26-2024 Creatinine [Mass/Vol] 1.1 mg/dL High 0.70-1.20 [facility] Serum globulin measurementOr dered By: Beulah Hawkins on 04-26-2024 Globulin (S) [Mass/Vol] 3.0 g/dL 2.2-4.2 [facility] Serum glucose measurement (m ass/volume)Ordered By: Beulah Hawkins on 04-26-2024 Glucose [Mass/Vol] 293 mg/dL High 70-99 [facility] Serum or plasma alanine sanderson otransferase (ALT) measurementOrdered By: Beulah Hawkins on 04-26-2024 ALT [Catalytic activity/Vol] 27 U/L <35 [facility] Serum or plasma albumin olimpia urement (mass/volume)Ordered By: Beulah Hawkins on 04-26-2024 Albumin [Mass/Vol] 4.4 g/dL 3.4-4.8 [facility] Serum or plasma albumin/glob ulin mass ratioOrdered By: Beulah Hawkins on 04-26-2024 Albumin/Globulin [Mass ratio] 1.5 {ratio} 0.9-2.4 [facility] Serum or plasma alkaline whit sphatase measurementOrdered By: Beulah Hawkins on 04-26-2024 ALP [Catalytic activity/Vol] 70 U/L 35-104 [facility] Serum or plasma anion gap de termination (moles/volume)Ordered By: Beulah Hawkins on 04-26-2024 Anion gap [Moles/Vol] 17 mmol/L High 5-15 [facility] Serum or plasma calcium olimpia urement (mass/volume)Ordered By: Beulah Hawkins on 04-26-2024 Calcium [Mass/Vol] 12.2 mg/dL High 7.6-11.0 [facility] Serum or plasma cholesterol in HDL measurement (mass/volume)Ordered By: Beulah Hawkins on 04-26-2024 Cholesterol in HDL [Mass/Vol] 45 mg/dL >40 [facility] Comment on above: National Cholesterol Education Program (NCEP) guidelines:<40 mg/dL: Low HDL-cholesterol (major risk factor for CHD)>= 60 mg/dL: High HDL-cholesterol (negative risk factor for CHD)HDL-cholesterol is affected by a number of factors, e.g. smoking, exercise, hormones, sex and age. Serum or plasma cholesterol measurement (mass/volume)Ordered By: Beulah Hawkins on 04-26-2024 Cholesterol [Mass/Vol] 256 mg/dL High <201 [facility] Comment on above: Cholesterol level, D esirable <200 mg/dLBorderline high cholesterol 200-239 mg/dLHigh cholesterol >=240 mg/dLRecommendations of the NCEP Adult Treatment Panel for the following risk-cutoff thresholds for the [place] population. Serum or plasma potassium me asurementOrdered By: Beulah Hawkins on 04-26-2024 Potassium [Moles/Vol] 4.1 mmol/L 3.3-5.1 [facility] Serum or plasma sodium measu rement (moles/volume)Ordered By: Beulah Hawkins on 04-26-2024 Sodium [Moles/Vol] 137 mmol/L 133-145 [facility] Serum or plasma urea nitroge n measurement (mass/volume)Ordered By: Beulah Hawkins on 04-26-2024 Urea nitrogen [Mass/Vol] 21 mg/dL High 4-19 [facility] Total proteinOrdered By: Jorge Hawkins on 04-26-2024 Protein [Mass/Vol] 7.4 g/dL 5.9-8.4 [facility] Triglycerides measurementOrd ered By: Beulahwin CaroHawkins on 04-26-2024 Triglyceride [Mass/Vol] 672 mg/dL High <199 [facility] Comment on above: The drugs N-Acetylcy steine and Metamizole may falsely depress this assay. Normal range: <150 mg/dLBorderline High: 150-199 mg/dLHigh: 200-499 mg/dLVery High: >500 mg/dL White blood cell (WBC) count Ordered By: Beulah Hawkins on 04-26-2024 WBC (Bld) [#/Vol] 8.6 10*3/uL 4.4-11.0 [facility] Colonoscopy Reporton 025 Colonoscopy Report [facility] Medical Records Department [address] [place] [address] Colonoscopy Report MR#: [id number] Acct: [id number] Name: ELISEO CADENA Rep #: [id number] : 1950 74 From: Josué Huber DO PCP: NARDA Singh [place] [facility] [place] Name: Eliseo Cadena Procedure Date: 04/20/2024 9:08 AM Date of : 1950 Age: 74 Procedure: Colonoscopy Indications: High risk colon cancer surveillance: Personal history of colonic polyps, Last colonoscopy: April 2019 Providers: Josué Huber DO Referring MD: Beulah Hawkins NP Medicines: Monitored Anesthesia Care Patient Profile: This is a 74 year old female. Refer to note in patient chart for documentation of history and physical. Last Colonoscopy: 5 years ago. Complications: No immediate complications. Procedure: Pre-Anesthesia Assessment: - Prior to the procedure, a History and Physical was performed, and patient medications and allergies were reviewed. The patient is competent. The risks and benefits of the procedure and the sedation options and risks were discussed with the patient. All questions were answered and informed consent was obtained. Patient identification and proposed procedure were verified by the physician in the pre-procedure area. Mental Status Examination: alert and oriented. Airway Examination: normal oropharyngeal airway and neck mobility. Respiratory Examination: clear to auscultation. CV Examination: normal. Prophylactic Antibiotics: The patient does not require prophylactic antibiotics. Prior Anticoagulants: The patient has taken no anticoagulant or antiplatelet agents except for NSAID medication. ASA Grade Assessment: II - A patient with mild systemic disease. After reviewing the risks and benefits, the patient was deemed in satisfactory condition to undergo the procedure. The anesthesia plan was to use monitored anesthesia care (MAC). Immediately prior to administration of medications, the patient was re-assessed for adequacy to receive sedatives. The heart rate, respiratory rate, oxygen saturations, blood pressure, adequacy of pulmonary ventilation, and response to care were monitored throughout the procedure. The physical status of the patient was re-assessed after the procedure. After I obtained informed consent, the scope was passed under direct vision. Throughout the procedure, the patient's blood pressure, pulse, and oxygen saturations were monitored continuously. The Colonoscope was introduced through the anus and advanced to the cecum, identified by appendiceal orifice and ileocecal valve. The colonoscopy was performed without difficulty. The patient tolerated the procedure well. The quality of the bowel preparation was adequate. The ileocecal valve, appendiceal orifice, and rectum were photographed. Scope In: 9:22:49 AM Scope Withdrawal Time 0 hours 11 minutes 26 seconds Scope Out: 9:38:41 AM Total Procedure Duration Time 0 hours 15 minutes 52 seconds Findings: The perianal and digital rectal examinations were normal. Two sessile polyps were found in the sigmoid colon and ascending colon. The polyps were 8 mm in size. These polyps were removed with a jumbo cold forceps. Resection and retrieval were complete. Verification of patient identification for the specimen was done. Estimated blood loss was minimal. Multiple large-mouthed diverticula were found in the recto-sigmoid colon, sigmoid colon, descending colon, splenic flexure, transverse colon, hepatic flexure and ascending colon. 5 mm, recently bleeding rectal varices were found. Impression: - Two 8 mm polyps in the sigmoid colon and in the ascending colon, removed with a jumbo cold forceps. Resected and retrieved. - Diverticulosis in the recto-sigmoid colon, in the sigmoid colon, in the descending colon, at the splenic flexure, in the transverse colon, at the hepatic flexure and in the ascending colon. - Rectal varices. Recommendation: - Discharge patient to home. - Resume previous diet. - Continue present medications. - Repeat colonoscopy in 5 years for surveillance. Procedure Code(s): --- Professional --- 76547, Colonoscopy, flexible; with biopsy, single or multiple CPT copyright 2021 [employer]. All rights reserved. The codes documented in this report are preliminary and upon information coder review may be revised to meet current compliance requirements. Josué Huber DO 04/20/2024 9:43:55 AM This report has been signed electronically. Number of Addenda: 0 Note Initiated On: 04/20/2024 9:08 AM 04/20/2444 Date Josué Parikhignwill Signature: Date (if indicated) CC: [employer]-C Beulah Hawkins; Josué Huber DO Date (more content not included)... [facility] MR/POSTOP.[facility] 04-20-2024 MR/POSTOP.[facility] Medical Records Department [address] [place] [address] Anesthesia Postop Eval I 04/20/24946 MR#: [id number] Acct: [id number] Name: ELISEO CADENA Rep #: [id number] : 1950 74 From: Osman Jeronimo PCP: NARDA Singh [place] [facility] [place] C Location: [place] [address] Anesthesia: Postop Eval I Current Vital Signs Temperature: 97.8 F Pulse Rate: 54 Blood Pressure: 99/53 Respiratory Rate: 16 Pulse Ox: 93 Oxygen Delivery Method: Room Air Assessment Airway patent: Yes Spontaneous unlabored respirations: Yes Mental status: Awake and Calm nausea: No Vomiting: No Anesthesia Complication: No Fluid Hydration Crystalloid volume administer (ml): 60 Total IV fluid infused: 60 Progress Note Anesthesia document: Postop Eval 1 completed: Yes 04/20/2448 Date Osman Hickey Signature: Date CC: Signed Normal [facility] MR/[id number] 04-20-2024 MR/POSTOPAN2 [facility] Medical Records Department [address] [place] [address] Anesthesia Postop Eval II 04/20/24 1141 MR#: [id number] Acct: [id number] Name: ELISEO CADENA Rep #: [id number] : 1950 74 From: Briana Bradford PCP: NARDA Singh Status:[facility] Y Race: C Location: [place] Anesthesia Postop Eval I Sum Postop Eval Completion status Anesthesia document: Postop Eval 1 completed: Yes Anesthesia Postop Eval I Summary Anesthesia Postop Eval I Summary: Anesthesia Postop Eval I: Assessment Summary Airway patent Yes 04/20/24 09:48 [email or web address] Spontaneous unlabored Yes 04/20/24 09:48 [email or web address] respirations Mental status Awake,Calm 04/20/24 09:48 [email or web address] nausea No 04/20/24 09:48 [email or web address] Vomiting No 04/20/24 09:48 [email or web address] Anesthesia Postop Eval I: Fluid Summary Crystalloid volume administer 60 04/20/24 09:48 [email or web address] (ml) Colloids volume administered ( ml) Blood Product volume administered (ml) Total IV fluid infused 60 04/20/24 09:48 [email or web address] Anesthesia Postop Eval I: Summary Notes Anesthesia Complication No 04/20/24 09:48 [email or web address] Anesthesia Complication Comment: Post-operative progress note Anesthesia: Postop Eval II Evaluation Mental status: Awake and Calm Pain Level: 0 nausea: No Vomiting: No 04/20/24 1141 Date Briana Hickey Signature: Date CC: Signed Normal [facility] Surgery Specimen Level Luzma 04-20-2024 Surgery Specimen Level IV -------- Patient Age/Sex Location Account Attending Physician -------- ELISEO CADENA 74/F EN [id number] Josué Huber DO -------- Specimen: [id number] Received: 04/20/24 Status: ONEYDA Ambriz Num: [id number] Spec Type: COLON BX Subm Dr: Josué Huber, DO HEADER OPERATION: Colonoscopy with biopsy PRE-OP DIAGNOSIS: Screening for malignant neoplasm of colon TISSUE SUBMITTED: A- Sigmoid polyp biopsy, B- Ascending polyp biopsy -------- MICROSCOPIC DIAGNOSIS A. Sigmoid colon polyp, biopsy: Tubular adenoma. B. Ascending colon polyp, biopsy: Tubular adenoma. . 04/21/2024 MICROSCOPIC DESCRIPTION Slides are reviewed. GROSS DESCRIPTION A. Received in fixative is one container labeled with the patient's name and designated Sigmoid colon polyp biopsy. The specimen consists of one irregular fragment of light good soft tissue that measures 0.5 x 0.5 x 0.1 cm. The specimen is totally submitted in one cassette. B. Received in fixative is one container labeled with the patient's name and designated Ascending colon polyp biopsy. The specimen consists of one irregular fragment of light good soft tissue that measures 0.4 x 0.3 x 0.1 cm. The specimen is totally submitted in one cassette. . 04/20/2024 TC:1 CPT:78938v7 -------- Patient Age/Sex Location Account Attending Physician -------- ELISEO CADENA 74/F EN [id number] Josué Huber DO -------- Signed (signature on file) Dr. Jairo Salcido MD 04/21/24 1205 -------- Normal [facility] Comment on above: Performed By: #### P SUIV #### [facility] [address] [place], [address] MR/PAT.ANEon 04-18-2024 MR/PAT.[facility] Medical Records Department [address] [place] [address] PAT - Anesthesia 04/18/24 1115 MR#: [id number] Acct: [id number] Name: ELISEO CADENA Rep #: [id number] : 1950 74 From: Viral Melara MD PCP: NARDA Singh [place] [facility] [place] C Location: [place] Pre-Assessment Diagnosis/Proposed Procedure Planned Operative Procedure(s): colonoscopy Anesthesia History Anesthesia History - mammography technologist: Anesthesia History - mammography technologist Hx Hospitalization No 04/18/24 10:13 Any Problems With Anesthesia Yes: woke up during knee 04/18/24 10:13 surgery and carpal tunnel surgery Cholinesterase deficiency No 04/18/24 10:13 You/Your Family Experience No 04/18/24 10:13 fever (hyperthermia) with Relationship Recent Exposure to Contagious No 03/19/20 19:31 Disease Does patient have nerve No 04/18/24 10:13 stimulator Patient instructed to have device shut off --Does patient have Pacemaker or ICD? When Was Last Pacemaker Check QUESTION #4 FULL TEXT: You/Your Family Experience fever (hyperthermia) with Anesthesia Last Oral Intake Last Oral intake: Last Oral Intake NPO since Meds taken in AM with sips of water? 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 - mammography technologist: PONV - mammography technologist Female Yes 04/18/24 10:13 HX of Motion Sickness No 04/18/24 10:13 HX of N/V After Surgery No 04/18/24 10:13 Non-Smoker Yes 04/18/24 10:13 Duration of Surgery greater No 04/18/24 10:13 than 60 minutes Number of Risk Factors 2 04/18/24 10:13 PONV Score Moderate Risk 04/18/24 10:13 Height Weight Height Weight: Anesthesia: Height Weight Height 5 ft 5 in 04/24/23 16:41 Respiratory Assessment Respiratory Assessment - mammography technologist: Respiratory Tract Infection Hx - mammography technologist Hx Respiratory Tract Infection No 04/18/24 10:13 STOP Sleep Apnea STOP Sleep Apnea - mammography technologist: STOP Sleep Apnea - mammography technologist Hx Hypertension Yes: states controlled with 04/18/24 10:13 med Hx Sleep Apnea No 04/18/24 10:13 CPAP No 04/18/24 10:13 BIPAP No 04/18/24 10:13 Do you snore loudly (louder Yes 04/18/24 10:13 than talking or can be heard Do you often feel tired/ No 04/18/24 10:13 fatigued/ sleepy during daytime? Has anyone observed you stop No 04/18/24 10:13 breathing during sleep? STOP Results Positive 04/18/24 10:13 QUESTION #5 FULL TEXT : Do you snore loudly (louder than talking or can be heard through closed doors)? 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 Specify any problems Hx of Preganancy in last 3 No 04/18/24 10:13 Months Nurse Filling Out Transfusion TOYA 04/18/24 10:13 Questions: Date: 04/18/24 04/18/24 10:13 Time: 10:15 04/18/24 10:13 Patient unable to answer at this time (ie. 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 History - mammography technologist: /Reproductive Hx- mammography technologist Hx Now Gestational Age (in weeks): EDC: Hx Hx Para [facility] Medical History (Updated 04/18/24 @ 10:25 by Vani Cárdenas) Wears glasses Diabetes Dietary restriction History of diverticulitis Heartburn Non-smoker History of stress test History of echocardiogram Cardiology follow-up encounter History of CHF (congestive heart failure) Hx of flexible sigmoidoscopy Hemorrhoids Nausea RUQ abdominal pain Arthritis Neoplasm of colon, malignant Peripheral vascular disease Morbid obesity Essential (primary) hypertension Early cataracts, bilateral Non-alcoholic cirrhosis Fatty liver Fibromyalgia GI bleed Anemia associated with acute blood loss Diverticulitis large intestine Rectal bleed Hyperlipidemia Home Medications ???Medication ???Instructions ???Recorded ???Last Taken ???Type multivitamin 1 ea PO DAILY supplement 02/03/17 02/03/17 History promethazine 12.5 mg tablet 12.5 mg PO Q6H PRN nausea (more content not included)... Normal [facility] Gastroenterology Visit Repor ton 01-27-2024 Gastroenterology Visit Report [facility] Gastroenterology [address] [place] [address] OFFICE VISIT Date of Service: 01/27/24 MR#: [id number] Acct: [id number] Name: ELISEO CADENA Rep #: [id number] : 1950 Provider: LORETTA Torrez Age/Sex: 73/F Location[place] [facility] [place] Status: Signed Intake Vital Signs 04/24/23 16:41 Height 5 ft 5 in Intake Visit Reasons: Diarrhea Chief Complaint: Initial visit Allergies pioglitazone Allergy (Severe, Verified 09/15/21 08:41) CHF sitagliptin (From Januvia) Allergy (Severe, Verified 09/15/21 08:41) legs ache azithromycin (From Zithromax) Allergy (Verified 09/15/21 08:41) Hives ibuprofen Adverse Reaction (Verified 09/15/21 08:41) Bleeding Medications ???Medication ???Instructions ???Recorded ???Confirmed ???Type multivitamin 1 ea PO DAILY supplement 02/03/17 04/24/23 History promethazine 12.5 mg tablet 12.5 mg PO Q6H PRN nausea and 04/24/23 04/24/23 Rx vomiting #45 tabs dapagliflozin propanediol 10 mg 10 mg PO DAILY #30 tabs 04/25/23 01/27/24 Rx tablet (Farxiga) duloxetine 60 mg capsule,delayed 60 mg PO QHS depression #90 caps 04/25/23 01/27/24 Rx release glimepiride 4 mg tablet 4 mg PO QAM diabetes #90 tabs 04/25/23 01/27/24 Rx hydrochlorothiazide 25 mg tablet 25 mg PO DAILY water pill #90 tabs 04/25/23 01/27/24 Rx lisinopril 10 mg tablet 10 mg PO DAILY blood pressure #90 04/25/23 01/27/24 Rx tabs metformin 1,000 mg tablet 1,000 mg PO BID #180 tabs 04/25/23 01/27/24 Rx simvastatin 40 mg tablet 40 mg PO QHS #90 tabs 04/25/23 01/27/24 Rx tramadol 50 mg tablet 50 mg PO TID PRN pain 15 days #45 04/25/23 04/25/23 Rx tabs Have you fallen in the past year?: No PFSH Medical History Anemia Anemia associated with acute blood loss Arthritis Blood in stool Diabetes mellitus type 2, uncontrolled, with complications Diverticulitis large intestine Early cataracts, bilateral Essential (primary) hypertension Fatty liver Fibromyalgia GI bleed Hemorrhoids Hx of flexible sigmoidoscopy Hyperlipidemia Morbid obesity Nausea Neoplasm of colon, malignant Non-alcoholic cirrhosis Peripheral vascular disease Rectal bleed RUQ abdominal pain Surgical History H/O parotidectomy Heel spur History of bilateral carpal tunnel release History of esophagogastroduodenoscopy (EGD) History of left heart catheterization (02/13/10) History of tonsillectomy and adenoidectomy Hx of colonoscopy Hx of tubal ligation S/P total hip arthroplasty S/P total knee arthroplasty Family History Mother Arthritis Lung cancer Brother Colon cancer Lung cancer Sister Cervical cancer Other Benign tumor of kidney CVA (cerebral vascular accident) Diverticulosis Stomach cancer Social History Smoking Status: Never smoker alcohol intake: never substance use type: does not use caffeine: Yes what type of physical activity do you participate in: none frequency: does not exercise HPI HPI Chief Complaint: Initial visit Details: ELISEO CADENA, is a 73 F who presents to the office today for establishment with [facility]. Pt is due for screening colonoscopy is 2024. Her last one was in with Dr. Jaimes and she has precancerous polyps. Over the years she has developed constipation alternating with diarrhea. She feel the diarrhea is overflow in nature. She takes fiber supplementation and probiotics but these have not seemed to help. She has occasional heartburn but nothing she is concerned about. She denies blood in her stool, abdominal pain , n/v or chronic heartburn. EGD 2.14.20 - Preparation of the colon was fair. - Hemorrhoids found on perianal exam. - Diverticulosis in the entire examined colon. Biopsied. - One 5 mm polyp in the distal transverse colon, removed with a hot snare. Resected and retrieved. - One 4 mm polyp in the rectum, removed with a cold biopsy forceps. Resected and retrieved. ROS Const Constitutional: No fatigue, fever(s) or weight change ENT ENT: No difficulty swallowing Gastro GI: No abdominal pain, belching, bloating, change in bowel habits, change in stool character, coffee ground emesis, constipation, cramping, diarrhea, heartburn, difficulty swallowing, feeling full early, excessive flatus, incontinent of stools, Vomiting blood/hematemesis, Blood in stool, loose stools, Black,tarry stools, nausea/dyspepsia, pain with swallowing, vomiting or other Musc Musculoskeletal: No joint pain Skin Skin: No yellowing of the eye or itchy eyes Psych Psychiatric: No anxiety and No depression Endo Endocrine: No fatigue or willy (more content not included)... Normal [facility] Absolute lymphocyte countOrd ered By: Beulah Caroson on 04-24-2023 Lymphocytes Auto (Unsp spec) [#/Vol] 2.09 10*3/uL 0.83-4.51 [facility] Automated lymphocyte count a s percentage of total leukocytesOrdered By: Beulah Hawkins on 04-24-2023 Lymphocytes/100 WBC Auto (Unsp spec) 30.0 % 19-41 [facility] Basophil percentageOrdered B y: Beulah Hawkins on 04-24-2023 Basophils/100 WBC (Bld) 0.3 % 0-1 [facility] Bilirubin [Mass/Vol] 0.50 mg/dL 0.20-1.00 [facility] Comment on above: For patients on eltr ombopag therapy, use of Dimension Anderson TBIL is not recommended. Chloride [Moles/Vol] 98 mmol/L 98-107 [facility] Eosinophils/100 WBC (Bld) 1.6 % 0-5 [facility] Glucose [Mass/Vol] 234 mg/dL 74-106 [facility] Comment on above: Glucose result great er than or equal to 200 mg/dLsuggests DIABETES MELLITUS per A.D.A. criteria. Hemoglobin (Bld) [Mass/Vol] 14.3 g/dL 12.0-15.0 [facility] Monocytes/100 WBC (Bld) 6.6 % 0-10 [facility] Neutrophils (Bld) [#/Vol] 4.3 10*3/uL 2.0-7.7 [facility] Neutrophils/100 WBC (Bld) 61.4 % 47-70 [facility] Potassium [Moles/Vol] 3.9 mmol/L 3.5-5.1 [facility] Protein [Mass/Vol] 7.6 g/dL 6.4-8.2 [facility] Sodium [Moles/Vol] 137 mmol/L 136-145 [facility] WBC (Bld) [#/Vol] 7.0 10*3/uL 4.4-11.0 [facility] Determination of erythrocyte mean corpuscular volume (MCV)Ordered By: Beulah Hawkins on 04-24-2023 MCV (RBC) [Entitic vol] 96.4 fL 81-99 [facility] Erythrocyte distribution wid th ratioOrdered By: Beulah Hawkins on 04-24-2023 Erythrocyte distribution width (RBC) [Ratio] 13.2 % 11.6-14.6 [facility] Erythrocyte distribution wid th standard deviationOrdered By: Beulah Hawkins on 04-24-2023 Erythrocyte distribution width (RBC) [Entitic vol] 46.5 fL 35.1-43.9 [facility] Hematocrit Auto (Bld) [Volum e fraction]Ordered By: Beulah Hawkins on 04-24-2023 Hematocrit (Bld) [Volume fraction] 44.9 % 37-47 [facility] Immature granulocytes/100 WB C Auto (Bld)Ordered By: Beulah Hawkins on 04-24-2023 Immature granulocytes/100 WBC (Bld) 0.100 % 0.0-0.9 [facility] Comment on above: IG% - Immature Granu locytes (promyelocytes, myelocytes and metamyelocytes) > 1% indicates that a LEFT SHIFT is Present. Laboratory - Chemistry and C hemistry - challengeOrdered By: Beulah Hawkins on 04-24-2023 Albumin/Globulin [Mass ratio] 1.2 {ratio} 0.9-2.4 [facility] ALP [Catalytic activity/Vol] 57 U/L 45-117 [facility] ALT [Catalytic activity/Vol] 42 U/L 13-56 [facility] CO2 [Moles/Vol] 32.0 mmol/L 21.0-32.0 [facility] Globulin (S) [Mass/Vol] 3.5 g/dL 2.2-4.2 [facility] Urea nitrogen/Creatinine [Mass ratio] 18.4 mg/mg 10-20 [facility] Laboratory - Hematology and Cell countsOrdered By: Beulah Hawkins on 04-24-2023 MCH (RBC) [Entitic mass] 30.7 pg 27.0-32.0 [facility] MCHC (RBC) [Mass/Vol] 31.8 g/dL 32-36 [facility] Nucleated RBC/100 WBC (Bld) [Ratio] 0 % 0-5 [facility] Platelet mean volume (Bld) [Entitic vol] 10.7 fL 6.2-12.0 [facility] Platelets (Bld) [#/Vol] 286 10*3/uL 150-450 [facility] No Panel InformationOrdered By: Beulah Hawkins on 04-24-2023 C-Reactive Protein High Sensitivity 1.00 mg/L <3.00 [facility] Comment on above: Low Relative Risk of CVD <1.0 mg/L Average Relative Risk of CVD 1.0 - 3.0 mg/L High Relative Risk of CVD >3.0 mg/L Estimated GFR (MDRD) Amer 60 mL/min >60 [facility] Comment on above: GFR Calc Estimated GFR (MDRD) Non-Af Amer 50 mL/min >60 [facility] Comment on above: Non- GFR Calc Troponin I High Sensitivity 5 pg/mL 3.0-54.0 [facility] Comment on above: Please Note: New Beckie t Units and Gender Specific Reference Ranges. For more information see Policy Stat Procedure Anderson High Sensitivity Troponin (TNIH) and attachments. RBC Auto (Bld) [#/Vol]Ordere d By: Beulah Hawkins on 04-24-2023 RBC (Bld) [#/Vol] 4.66 10*6/uL 4.2-5.4 [facility] Serum or plasma calcium olimpia urement (mass/volume)Ordered By: Beulah Hawkins on 04-24-2023 Calcium [Mass/Vol] 10.2 mg/dL 8.5-10.1 [facility] Serum or plasma creatinine m easurement (mass/volume)Ordered By: Beulah Hawkins on 04-24-2023 Creatinine [Mass/Vol] 1.14 mg/dL 0.55-1.02 [facility] Comment on above: The validity of the calculated GFR & GFRAA in patients over 70 years has not been determined. Clinical correlation is essential. Serum or plasma thyroid stim ulating hormone (TSH) measurement (units/volume)Ordered By: Beulah Hawkins on 04-24-2023 TSH Qn 0.84 uIU/mL 0.358-3.74 [facility] Serum or plasma urea nitroge n measurement (mass/volume)Ordered By: Beulah Hawkisn on 04-24-2023 Urea nitrogen [Mass/Vol] 21 mg/dL 7-18 [facility] Thin prep Papanicolaou smear with manual screeningOrdered By: Beulah Hawkins on 04-24-2023 Thin prep Papanicolaou smear with manual screening 4.1 g/dL 3.2-5.0 [facility] Thin prep Papanicolaou smear with manual screening 43 U/L 15-37 [facility] Thin prep Papanicolaou smear with manual screening 7 5-15 [facility] Whole blood hemoglobin A1c/t otal hemoglobin ratio (mass fraction)Ordered By: Beulah Hawkins on 04-24-2023 HbA1c (Bld) [Mass fraction] 8.4 % 3.8-5.6 [facility] Comment on above: Normal < 5.7 % Predi abetic 5.7 - 6.4 % Diabetic >or= 6.5 % Please note range changes. Laboratory - Hematology and Cell countson 12-30-2022 HbA1c (Bld) [Mass fraction] 8.2 % 4.2-6.3 [facility] Laboratory - Hematology and Cell countson 08-08-2022 HbA1c (Bld) [Mass fraction] 7.8 % 4.2-6.3 [facility] CNOVon 05-21-2022 CNOV Office Visit (ANITA ) ELISEO CADENA ([id number]) 1950 F Date Time Provider Department 05/21/22 3:00 PM SHAKIRA MELTON During your visit today, we recorded the following information about you: Temperature Pulse Blood pressure Weight 97.6 degrees 95/minute 126/82 101.2 kg Height 1.626 m Marline Villatoro LPN 05/21/2022 3:22 PM Signed [...] last Mammogram screening? 2019 Last Colonoscopy: 2020 BJ Garcia MD 05/22/2022 8:33 AM Signed Eliseo Cadena 1950 REFERRING PHYSICIAN: No ref. provider found CHIEF COMPLAINT: Consult (colonoscopy) HPI: The patient is a 72 year old female referred for endoscopy. Eliseo notes intermittent lower abdominal cramping pain. She [...] weight loss. She underwent CT scan at [facility] on 05/14/2022 to determine etiology of [...] KNE CONDYLEANDPLATU MEDIALANDLAT COMPARTMENTS left and right, [facility] CARPAL TUNNEL [...] Take 25 mg by mouth once daily. (more content not included)... Normal [facility] Absolute lymphocyte countOrd ered By: Beulah Hawkins on 04-22-2022 Lymphocytes Auto (Unsp spec) [#/Vol] 1.89 10*3/uL 0.83-4.51 [facility] Basophil percentageOrdered B y: Beulah Hawkins on 04-22-2022 Basophils/100 WBC (Bld) 0.4 % 0-1 [facility] Bilirubin [Mass/Vol] 0.30 mg/dL 0.20-1.00 [facility] Comment on above: For patients on eltr ombopag therapy, use of Dimension Anderson TBIL is not recommended. Chloride [Moles/Vol] 101 mmol/L 98-107 [facility] Cholesterol [Mass/Vol] 214 mg/dL <200 [facility] Comment on above: <200 mg/dL Desirable 200-240 mg/dL Borderline >240 mg/dL High Risk Eosinophils/100 WBC (Bld) 2.3 % 0-5 [facility] Glucose [Mass/Vol] 105 mg/dL 74-106 [facility] Comment on above: Fasting Glucose resu lt from 100 to 125 mg/dL suggests IMPAIRED HOMEOSTASIS per A.D.A. criteria. Neutrophils (Bld) [#/Vol] 4.2 10*3/uL 2.0-7.7 [facility] Neutrophils/100 WBC (Bld) 62.0 % 47-70 [facility] Potassium [Moles/Vol] 3.7 mmol/L 3.5-5.1 [facility] Protein [Mass/Vol] 7.1 g/dL 6.4-8.2 [facility] Sodium [Moles/Vol] 140 mmol/L 136-145 [facility] Triglyceride [Mass/Vol] 351 mg/dL <199 [facility] Comment on above: The drugs N-Acetylcy steine and Metamizole may falsely depress this assay.Serum Triglycerides Reference Interval Normal <150 mg/dL Borderline high 150 - 199 mg/dL High 200 - 499 mg/dL Very High > or = 500 mg/dL WBC (Bld) [#/Vol] 6.8 10*3/uL 4.4-11.0 [facility] Blood erythrocytes count (nu mber/volume)Ordered By: Beulah Hawkins on 04-22-2022 RBC (Bld) [#/Vol] 4.57 10*6/uL 4.2-5.4 [facility] Blood hemoglobin measurement (mass/volume)Ordered By: Beulah Hawkins on 04-22-2022 Hemoglobin (Bld) [Mass/Vol] 13.7 g/dL 12.0-15.0 [facility] Blood lymphocytes/100 leukoc ytesOrdered By: Beulah Hawkins on 04-22-2022 Lymphocytes/100 WBC (Bld) 27.7 % 19-41 [facility] Blood monocytes/100 leukocyt esOrdered By: Beulah Hawkins on 04-22-2022 Monocytes/100 WBC (Bld) 7.5 % 0-10 [facility] Blood platelet mean volumeOr dered By: Beulah Hawkins on 04-22-2022 Platelet mean volume (Bld) [Entitic vol] 10.9 fL 6.2-12.0 [facility] Determination of erythrocyte mean corpuscular volume (MCV)Ordered By: Beulah Hawkins on 04-22-2022 MCV (RBC) [Entitic vol] 92.8 fL 81-99 [facility] Hematocrit Auto (Bld) [Volum e fraction]Ordered By: Beulah Hawkins on 04-22-2022 Hematocrit (Bld) [Volume fraction] 42.4 % 37-47 [facility] Laboratory - Chemistry and C hemistry - challengeOrdered By: Beulah Hawkins on 04-22-2022 ALP [Catalytic activity/Vol] 69 U/L 45-117 [facility] ALT [Catalytic activity/Vol] 29 U/L 13-56 [facility] CO2 [Moles/Vol] 30.0 mmol/L 21.0-32.0 [facility] Globulin (S) [Mass/Vol] 3.5 g/dL 2.2-4.2 [facility] Urea nitrogen/Creatinine [Mass ratio] 23.1 mg/mg 10-20 [facility] Laboratory - Hematology and Cell countson 04-22-2022 HbA1c (Bld) [Mass fraction] 8.3 % 4.2-6.3 [facility] Laboratory - Hematology and Cell countsOrdered By: Beulah Hawkins on 04-22-2022 Erythrocyte distribution width (RBC) [Entitic vol] 45.9 fL 35.1-43.9 [facility] Erythrocyte distribution width (RBC) [Ratio] 13.5 % 11.6-14.6 [facility] Immature granulocytes/100 WBC (Bld) 0.100 % 0.0-0.9 [facility] Comment on above: IG% - Immature Granu locytes (promyelocytes, myelocytes and metamyelocytes) > 1% indicates that a LEFT SHIFT is Present. MCH (RBC) [Entitic mass] 30.0 pg 27.0-32.0 [facility] Nucleated RBC/100 WBC (Bld) [Ratio] 0 % 0-5 [facility] MCHC Auto (RBC) [Mass/Vol]Or dered By: Beulah Hawkins on 04-22-2022 MCHC (RBC) [Mass/Vol] 32.3 g/dL 32-36 [facility] No Panel InformationOrdered By: Beulah Hawkins on 04-22-2022 Anti-Gliadin IgA Antibody 3 units 0-19 [facility] Comment on above: Negative 0 - 19 Weak Positive 20 - 30 Moderate to Strong Positive >30 Anti-Gliadin IgG Antibody 2 units 0-19 [facility] Comment on above: Negative 0 - 19 Weak Positive 20 - 30 Moderate to Strong Positive >30 Endomysial IgA Antibody Negative Negative [facility] Estimated GFR (MDRD) Amer 71 mL/min >60 [facility] Comment on above: GFR Calc Estimated GFR (MDRD) Non-Af Amer 58 mL/min >60 [facility] Comment on above: Non- GFR Calc Thyroid Stimulating Hormone (TSH) 0.57 uIU/mL 0.358-3.74 [facility] Tissue Transglutaminase IgG Ab <2 U/mL 0-5 [facility] Comment on above: Negative 0 - 5 Weak Positive 6 - 9 Positive >9 Platelets bldOrdered By: Jorge Hawkins on 04-22-2022 Platelets (Bld) [#/Vol] 258 10*3/uL 150-450 [facility] Serum IgA measurement (units /volume)Ordered By: Beulah Hawkins on 04-22-2022 IgA Qn (S) 70 mg/dL 64-422 [facility] Comment on above: Performed at: [address] [id number] Director: Calvin Levi PhD, Phone: [phone] Serum or plasma albumin olimpia urement (mass/volume)Ordered By: Beulah Hawkins on 04-22-2022 Albumin [Mass/Vol] 3.6 g/dL 3.2-5.0 [facility] Serum or plasma albumin/glob ulin mass ratioOrdered By: Beulah Hawkins on 04-22-2022 Albumin/Globulin [Mass ratio] 1.0 {ratio} 0.9-2.4 [facility] Serum or plasma calcium olimpia urement (mass/volume)Ordered By: Beulah Hawkins on 04-22-2022 Calcium [Mass/Vol] 9.9 mg/dL 8.5-10.1 [facility] Serum or plasma cholesterol in HDL measurement (mass/volume)Ordered By: Beulha Hawkins on 04-22-2022 Cholesterol in HDL [Mass/Vol] 44 mg/dL >40 [facility] Comment on above: The drugs N-Acetylcy steine and Metamizole may falsely depress this assay. Reference Range HDL <40 mg/dL Low HDL Cholesterol HDL >or= 60 mg/dL High HDL Cholesterol Serum or plasma cholesterol in VLDL measurement (mass/volume)Ordered By: Beulah Hawkins on 04-22-2022 Cholesterol in VLDL [Mass/Vol] 70 mg/dL 5-40 [facility] Serum or plasma creatinine m easurement (mass/volume)Ordered By: Beulah Hawkins on 04-22-2022 Creatinine [Mass/Vol] 1.00 mg/dL 0.55-1.02 [facility] Comment on above: The validity of the calculated GFR & GFRAA in patients over 70 years has not been determined. Clinical correlation is essential. Serum or plasma low density lipoprotein (LDL) cholesterol measurement (mass/volume)Ordered By: Beulah Hawkins on 04-22-2022 Cholesterol in LDL [Mass/Vol] 100 mg/dL 0-130 [facility] Serum or plasma urea nitroge n measurement (mass/volume)Ordered By: Beulah Hawkins on 04-22-2022 Urea nitrogen [Mass/Vol] 23 mg/dL 7-18 [facility] Serum tissue transglutaminas e IgA antibody assay (units/volume)Ordered By: Beulah Hawkins on 04-22-2022 tTG IgA Qn (S) <2 U/mL 0-3 [facility] Comment on above: Negative 0 - 3 Weak Positive 4 - 10 Positive >10 Tissue Transglutaminase (tTG) has been identified as the endomysial antigen. Studies have demonstr- ated that endomysial IgA antibodies have over 99% specificity for gluten sensitive enteropathy. Thin prep Papanicolaou smear with manual screeningOrdered By: Beulah Hawkins on 04-22-2022 Thin prep Papanicolaou smear with manual screening 24 U/L 15-37 [facility] Thin prep Papanicolaou smear with manual screening 9 5-15 [facility] Basophil percentageon 2021 Bilirubin [Mass/Vol] 0.30 mg/dL 0.20-1.00 [facility] Work Phone: Comment on above: For patients on eltr ombopag therapy, use of Dimension Anderson TBIL is not recommended. Chloride [Moles/Vol] 100 mmol/L 98-107 [facility] Work Phone: [phone] Glucose [Mass/Vol] 68 mg/dL 74-106 [facility] Work Phone: Potassium [Moles/Vol] 4.1 mmol/L 3.5-5.1 [facility] Work Phone: [phone] Protein [Mass/Vol] 7.2 g/dL 6.4-8.2 [facility] Work Phone: [phone] Sodium [Moles/Vol] 136 mmol/L 136-145 [facility] Work Phone: [phone] Laboratory - Chemistry and C hemistry - challengeon 07-08-2021 ALP [Catalytic activity/Vol] 59 U/L 45-117 [facility] Work Phone: ALT [Catalytic activity/Vol] 25 U/L 13-56 [facility] Work Phone: CO2 [Moles/Vol] 30.0 mmol/L 21.0-32.0 [facility] Work Phone: Globulin (S) [Mass/Vol] 3.6 g/dL 2.2-4.2 [facility] Work Phone: Urea nitrogen/Creatinine [Mass ratio] 21.4 mg/mg 10-20 [facility] Work Phone: No Panel Informationon 07-08 Estimated GFR (MDRD) Amer 86 mL/min >60 [facility] Work Phone: Comment on above: GFR Calc Estimated GFR (MDRD) Non-Af Amer 71 mL/min >60 [facility] Work Phone: Comment on above: Non- GFR Calc Thyroid Stimulating Hormone (TSH) 0.97 uIU/mL 0.358-3.74 [facility] Work Phone: Serum or plasma albumin olimpia urement (mass/volume)on 07-08-2021 Albumin [Mass/Vol] 3.6 g/dL 3.2-5.0 [facility] Work Phone: Serum or plasma albumin/glob ulin mass ratioon 07-08-2021 Albumin/Globulin [Mass ratio] 1.0 {ratio} 0.9-2.4 [facility] Work Phone: Serum or plasma calcium olimpia urement (mass/volume)on 07-08-2021 Calcium [Mass/Vol] 9.6 mg/dL 8.5-10.1 [facility] Work Phone: Serum or plasma creatinine m easurement (mass/volume)on 07-08-2021 Creatinine [Mass/Vol] 0.84 mg/dL 0.55-1.02 [facility] Work Phone: Comment on above: The validity of the calculated GFR & GFRAA in patients over 70 years has not been determined. Clinical correlation is essential. Serum or plasma urea nitroge n measurement (mass/volume)on 07-08-2021 Urea nitrogen [Mass/Vol] 18 mg/dL 7-18 [facility] Work Phone: Thin prep Papanicolaou smear with manual screeningon 07-08-2021 Thin prep Papanicolaou smear with manual screening 15 U/L 15-37 [facility] Work Phone: Thin prep Papanicolaou smear with manual screening 6 5-15 [facility] Work Phone: Vital Signs Date Time Vital Sign Value Performing Clinician Facility 04-20-2024 09:55-0500 Body temperature 97.8 [degF] Beulah Hawkins [facility] Work Phone: [facility] 04-20-2024 09:55-0500 Diastolic blood pressure 56 mm[Hg] Beulah Hawkins [facility] Work Phone: [facility] 04-20-2024 09:55-0500 Heart rate 62 /min Beulah Hawkins [facility] Work Phone: [facility] 04-20-2024 09:55-0500 Respiratory rate 16 /min Beulah Hawkins [facility] Work Phone: [facility] 04-20-2024 09:55-0500 SaO2% (BldA) [Mass fraction] 95 % Beulah Hawkins [facility] Work Phone: [facility] 04-20-2024 09:55-0500 Systolic blood pressure 100 mm[Hg] Beulah Hawkins [facility] Work Phone: [facility] 04-20-2024 08:14-0500 Body mass index (BMI) [Ratio] 35.9 kg/m2 Beulah Hawkins [facility] Work Phone: [facility] 04-20-2024 08:14-0500 Body weight 95 kg Beulah Hawkins [facility] Work Phone: [facility] 04-24-2023 16:41-0500 Body height 165.1 cm [facility] 04-24-2023 16:41-0500 Body mass index (BMI) [Ratio] 35.2 kg/m2 [facility] 04-24-2023 16:41-0500 Body weight 96.16 kg [facility] 12-30-2022 08:48-0400 Body mass index (BMI) [Ratio] 34.7 kg/m2 [facility] 12-30-2022 08:48-0400 Body temperature 97.9 [degF] [facility] 12-30-2022 08:48-0400 Body weight 94.8 kg [facility] 12-30-2022 08:48-0400 Diastolic blood pressure 70 mm[Hg] [facility] 12-30-2022 08:48-0400 Heart rate 84 /min [facility] 12-30-2022 08:48-0400 Respiratory rate 18 /min [facility] 12-30-2022 08:48-0400 SaO2% (BldA) [Mass fraction] 97 % [facility] 12-30-2022 08:48-0400 Systolic blood pressure 108 mm[Hg] [facility] 08-08-2022 16:04-0400 Body height 165.1 cm [facility] 08-08-2022 16:04-0400 Body mass index (BMI) [Ratio] 35.2 kg/m2 [facility] 08-08-2022 16:04-0400 Body temperature 97.2 [degF] [facility] 08-08-2022 16:04-0400 Body weight 96.16 kg [facility] 08-08-2022 16:04-0400 Diastolic blood pressure 70 mm[Hg] [facility] 08-08-2022 16:04-0400 Heart rate 93 /min [facility] 08-08-2022 16:04-0400 Respiratory rate 18 /min [facility] 08-08-2022 16:04-0400 SaO2% (BldA) [Mass fraction] 99 % [facility] 08-08-2022 16:04-0400 Systolic blood pressure 128 mm[Hg] [facility] 05-21-2022 15:17-0400 Body height 162.6 cm Shakira Melton MD Work Phone: [facility] 05-21-2022 15:17-0400 Body temperature 97.59 [degF] Shakira Melton MD Work Phone: [facility] 05-21-2022 15:17-0400 Body weight 101.24 kg Shakira Melton MD Work Phone: [facility] 05-21-2022 15:17-0400 Diastolic blood pressure 82 mm[Hg] Shakira Melton MD Work Phone: [facility] 05-21-2022 15:17-0400 Heart rate 95 /min Shakira Melton MD Work Phone: [facility] 05-21-2022 15:17-0400 SaO2% (BldA) [Mass fraction] 95 % Shakira Melton MD Work Phone: [facility] 05-21-2022 15:17-0400 Systolic blood pressure 126 mm[Hg] Shakira Melton MD Work Phone: [facility] 04-22-2022 17:22-0500 Body height 165.1 cm [facility] 04-22-2022 17:22-0500 Body mass index (BMI) [Ratio] 37.3 kg/m2 [facility] 04-22-2022 17:22-0500 Body temperature 97.7 [degF] [facility] 04-22-2022 17:22-0500 Body weight 101.6 kg [facility] 04-22-2022 17:22-0500 Diastolic blood pressure 70 mm[Hg] [facility] 04-22-2022 17:22-0500 Heart rate 88 /min [facility] 04-22-2022 17:22-0500 Respiratory rate 18 /min [facility] 04-22-2022 17:22-0500 SaO2% (BldA) [Mass fraction] 94 % [facility] 04-22-2022 17:22-0500 Systolic blood pressure 130 mm[Hg] [facility] 09-15-2021 08:39-0400 Body height 165.1 cm [facility] Work Phone: 09-15-2021 08:39-0400 Body mass index (BMI) [Ratio] 41.1 kg/m2 [facility] Work Phone: 09-15-2021 08:39-0400 Body temperature 97.6 [degF] [facility] Work Phone: 09-15-2021 08:39-0400 Body weight 112.03 kg [facility] Work Phone: 09-15-2021 08:39-0400 Diastolic blood pressure 71 mm[Hg] [facility] Work Phone: 09-15-2021 08:39-0400 Heart rate 78 /min [facility] Work Phone: 09-15-2021 08:39-0400 Respiratory rate 14 /min [facility] Work Phone: 09-15-2021 08:39-0400 SaO2% (BldA) [Mass fraction] 98 % [facility] Work Phone: 09-15-2021 08:39-0400 Systolic blood pressure 136 mm[Hg] [facility] Work Phone: 07-08-2021 17:13-0400 Body mass index (BMI) [Ratio] 44.4 kg/m2 [facility] Work Phone: 07-08-2021 17:13-0400 Body temperature 97.5 [degF] [facility] Work Phone: 07-08-2021 17:13-0400 Body weight 121.1 kg [facility] Work Phone: 07-08-2021 17:13-0400 Diastolic blood pressure 80 mm[Hg] [facility] Work Phone: 07-08-2021 17:13-0400 Heart rate 91 /min [facility] Work Phone: 07-08-2021 17:13-0400 Respiratory rate 18 /min [facility] Work Phone: 07-08-2021 17:13-0400 SaO2% (BldA) [Mass fraction] 90 % [facility] Work Phone: 07-08-2021 17:13-0400 Systolic blood pressure 148 mm[Hg] [facility] Work Phone: 07-08-2021 17:13-0400 Body height 165.1 cm [facility] Work Phone: 07-08-2021 17:13-0400 Body mass index (BMI) [Ratio] 44.4 kg/m2 [facility] Work Phone: 07-08-2021 17:13-0400 Body temperature 97.5 [degF] [facility] Work Phone: 07-08-2021 17:13-0400 Body weight 121.1 kg [facility] Work Phone: 07-08-2021 17:13-0400 Diastolic blood pressure 80 mm[Hg] [facility] Work Phone: 07-08-2021 17:13-0400 Heart rate 91 /min [facility] Work Phone: 07-08-2021 17:13-0400 Respiratory rate 18 /min [facility] Work Phone: 07-08-2021 17:13-0400 SaO2% (BldA) [Mass fraction] 90 % [facility] Work Phone: 07-08-2021 17:13-0400 Systolic blood pressure 148 mm[Hg] [facility] Work Phone: 04-16-2021 12:36-0500 Body mass index (BMI) [Ratio] 43.2 kg/m2 [facility] Work Phone: 04-16-2021 12:36-0500 Body temperature 97.3 [degF] [facility] Work Phone: 04-16-2021 12:36-0500 Body weight 117.93 kg [facility] Work Phone: 04-16-2021 12:36-0500 Diastolic blood pressure 60 mm[Hg] [facility] Work Phone: 04-16-2021 12:36-0500 Heart rate 70 /min [facility] Work Phone: 04-16-2021 12:36-0500 Respiratory rate 18 /min [facility] Work Phone: 04-16-2021 12:36-0500 SaO2% (BldA) [Mass fraction] 95 % [facility] Work Phone: 04-16-2021 12:36-0500 Systolic blood pressure 110 mm[Hg] [facility] Work Phone: Encounters Encounter Date Encounter Type Care Provider Facility Start: 08-10-2024 End: 08-10-2024 ambulatory Beulah Hawkins [facility] Work Phone: [facility] Work Phone: Start: 08-10-2024 End: 08-10-2024 Patient encounter procedure rBigette BURGOS -Cat Scan [facility] Work Phone: Start: 08-10-2024 End: 08-10-2024 ambulatory Beulah Hawkins NP Facility:[facility] Start: 05-25-2024 End: 05-25-2024 ambulatory Beulah Hawkins [facility] Work Phone: [facility] Work Phone: Start: 05-25-2024 End: 05-25-2024 Patient encounter procedure Brigette BURGOS -Ultrasound, [facility] Work Phone: Start: 05-25-2024 End: 05-25-2024 ambulatory Beulah Hawkins [facility] Facility:[facility] Start: 05-05-2024 End: 05-05-2024 Patient encounter procedure Brigette BURGOS -[facility] Work Phone: Start: 05-05-2024 End: 05-05-2024 ambulatory Beulah Hawkins [employer] [employer] Facility:[facility] Start: 04-26-2024 End: 04-26-2024 Patient encounter procedure Beulah Hawkins [facility]-C -Laboratory, Specimen Work Phone: Start: 04-26-2024 End: 04-26-2024 ambulatory Beulah AVILAC Work Phone: [facility] Work Phone: Start: 04-20-2024 ambulatory Josué Huber Facility :[facility] Start: 04-20-2024 Non-patient / Non-visit Josuéfaustino Huber DO -[facility] Start: 04-20-2024 End: 04-20-2024 Admission to same day surgery center Josué Huber DO -Endoscopy Work Phone: Start: 04-20-2024 End: 04-20-2024 ambulatory [facility] Facility:[facility] Start: 01-27-2024 End: 01-27-2024 Patient encounter procedure Brigette Vidal [facility] Work Phone: Start: 01-27-2024 End: 01-27-2024 ambulatory Brigette Vidal Facility:[facility] Start: 04-24-2023 End: 04-24-2023 ambulatory [facility] Work Phone: Start: 04-24-2023 End: 04-24-2023 Patient encounter procedure [facility]-Laboratory, Specimen Work Phone: Start: 08-27-2022 End: 08-27-2022 ambulatory [facility] Work Phone: Start: 08-27-2022 End: 08-27-2022 Patient encounter procedure [facility] Work Phone: Start: 05-21-2022 End: 05-21-2022 ambulatory SHAKIRA MELTON Facility:[facility] Start: 05-21-2022 End: 05-21-2022 Patient encounter procedure Shakira Melton MD Work Phone: General Surgery Comment on above: Diverticulosis; Lower abdominal pain Start: 05-15-2022 Telephone encounter Shakira Jacobs MD Work Phone: General Surgery Comment on above: Appointment Start: 05-14-2022 End: 05-14-2022 ambulatory [facility] Work Phone: Start: 05-14-2022 End: 05-14-2022 Patient encounter procedure [facility]-Cat Scan, [facility] Start: 04-22-2022 End: 04-22-2022 ambulatory [facility] Work Phone: Start: 04-22-2022 End: 04-22-2022 Patient encounter procedure [facility]-Laboratory, Specimen Start: 09-15-2021 End: 09-15-2021 Emergency department patient visit [facility]-Emergency Department Start: 07-08-2021 End: 07-08-2021 Patient encounter procedure [facility]-Laboratory, Specimen Procedures Date Procedure Procedure Detail Performing Clinician Start: 08-10-2024 Creatinine blood Beulah blount [employer] [employer]-C Work Phone: Start: 08-10-2024 CT of abdomen with contrast Beulah Hawkins [employer]-C Work Phone: Start: 05-25-2024 Ultrasound elastogra phy of liver Beulah Hawkins [employer]-C Work Phone: Start: 08-27-2022 MRI of joint of lowe r extremity Start: 05-14-2022 Computed tomography of abdomen and pelvis with contrast Start: 09-15-2021 Plain x-ray of humerus Start: 09-15-2021 Plain X-ray of shoulder Start: 01-09-2012 Colonoscopy Shakira Melton MD Work Phone: Start: 07-09-2009 Lipid 1996 panel - S jaun or Plasma Shakira Melton MD Work Phone: Start: 05-14-2002 Mammography Shakira Melton MD Work Phone: Plan of Treatment Date Care Activity Detail Author Start: 04-20-2024 Colonoscopy w/biopsy single/multiple COLONOSCOPY AND BIOPSY [facility] Start: 04-20-2024 Patient discharge [facility] Start: 03-02-2023 Advance Directive Discussion Advance Directive Discussion [facility] Start: 03-02-2023 Depression Assessment Depression Assessment [facility] Start: 10-31-2022 Covid-19 Vaccine () Covid-19 Vaccine () [facility] Start: 10-31-2022 Influenza vaccination Influenza Vacc[facility] (#[facility]) [facility] Start: 03-02-2022 ADVANCE DIRECTIVE DISCUSSION ADVANCE DIRECTIVE DISCUSSION [facility] Start: 03-02-2022 DEPRESSION ASSESSMENT DEPRESSION ASSESSMENT [facility] Start: 01-08-2022 Colonoscopy COLONOSCOPY [facility] Start: 01-08-2022 COLORECTAL CANCER SCREENING COLORECTAL CANCER SCREENING [facility] Start: 01-08-2022 Screening for malignant neoplasm of colon [facility] Start: 03-19-2021 COVID-19 VACCINE (4 - Booster for Moderna series) COVID-19 VACCINE (4 - Booster for Moderna series) [facility] Start: 01-08-2017 Screening for malignant neoplasm of colon Sigmoidoscopy [facility] Start: 01-08-2017 SIGMOIDOSCOPY SIGMOIDOSCOPY [facility] Start: 2016 BONE DENSITY BONE DENSITY [facility] Start: 2016 Pneumococcal Vaccine: 65+ (1 of 1 - PCV) Pneumococcal Vaccine: 65+ (1 of 1 - PCV) [facility] Start: 2016 PNEUMOCOCCAL: 65+ (1 - PCV) PNEUMOCOCCAL: 65+ (1 - PCV) [facility] Start: 2016 Screening for osteoporosis Bone Density Screening [facility] Start: 07-09-2014 Lipid panel Lipid Screening [facility] Start: 07-09-2014 LIPID SCREEN LIPID SCREEN [facility] Start: 04-15-2014 DIABETES SCREEN DIABETES SCREEN [facility] Start: 04-15-2014 Diabetes Screening Diabetes Screening [facility] Start: 2011 RSV Vaccine (1 - 1-dose 60+ series) RSV Vaccine (1 - 1-dose 60+ series) [facility] Start: 05-15-2003 Mammography MAMMOGRAM [facility] Start: 05-15-2003 Screening for malignant neoplasm of breast Mammogram Screening [facility] Start: 2001 SHINGRIX VACCINE (1 of 2) SHINGRIX VACCINE (1 of 2) [facility] Start: 1996 COLOGUARD (FIT-DNA) COLOGUARD (FIT-DNA) [facility] Start: [address] COLONOGRAPHY [facility] Start: 1996 FECAL OCCULT BLOOD FECAL OCCULT BLOOD [facility] Start: 1996 Screening for malignant neoplasm of colon [facility] Start: 1970 Urine microalbumin profile [facility] Start: 1969 HEPATITIS C SCREENING HEPATITIS C SCREENING [facility] Start: 1969 Hepatitis C screening Hepatitis C Screening [facility] CT Abdomen and Pelvi s W contrast IV [facility] Liver stiffness by US.transient elastography [facility] Patient Education ED Fracture, S [place] ED Fall Prevention [facility] Work Phone: Patient referral [facility] Work Phone: Immunizations Immunization Date Immunization Notes Care Provider Fa cility 12-10-2021 influenza virus vaccine, unspecified formulation Shakira Melton MD Work Phone: [facility] 12-12-2016 influenza, injectabl e, quadrivalent, preservative free [facility] 12-12-2016 influenza, seasonal, injectable [facility] Payers Date Payer Category Payer Self-pay [id number] 2016 Medicare [id number] 2016 Medicare MEDICARE MEDICAR E A AND B [id number] 2016-Present [phone] [address] [address] [place] [address] Medicare [id number] 2016 Private Health Insurance [facility] [id number] 2016 Private Health Insurance [employer] A ETNA MEDICARE SUPPLEMENT [id number] 2016-Present [phone] [address] [address] [place] [address] [employer] [id number] Private Health Insurance [id number] Unknown [id number] Unknown [id number] Unknown [id number] Unknown [id number] Unknown [id number] Unknown [id number] Unknown [id number] Unknown [id number] Social History Date Type Detail Facility Start: 04-10-2020 End: 09-15-2021 Tobacco smoking status NVIS Unknown if ever smoked [facility] Start: 02-04-2017 None [facility] Start: 02-04-2017 Spouse/ Signif icant Other [facility] Start: 02-04-2017 Non-smoker [facility] Start: 1950 Sex Assigned At Female W [facility] Start: 04-18-2024 Tobacco smoking status NVIS Never smoked tobacco [facility] Start: 02-13-2017 End: 05-21-2022 Alcohol intake Current non-drinker of alcohol (finding) [facility] Start: 1950 Sex Assigned At Not on file [facility] Start: 02-05-2020 End: 05-21-2022 History of Social function [facility] Start: 02-05-2020 End: 05-21-2022 Tobacco use panel [facility] National Score (1-100), lower number is lower risk Not on file [facility] Start: 05-08-2024 End: 05-29-2024 Sex Female (finding) [facility] Goals Date Patient Goal Desired Activity /State Mental Status Date Assessment Result Facility 04-20-2024 Cognitive function Voice/Name [facility] Work Phone: Clinical Notes 05-15-2022 to 08-11-2024 Note Date & Type Note Facility 08-11-2024 Radiology Diagnostic study note [facility] Imaging Services [address] [place] [address] Abdomen W/WO IV Contrast MR#: [id number] Acct: [id number] Name: ELISEO CADENA Rep #: [id number] : 1950 F 74 From: Shell Lennon MD PCP: NARDA Singh Status: REG CLI Study:Abdomen W/WO IV Contrast Date of Exam: 08/10/24 Exam# [id number] Ordering Dr: Brigette Vidal PROCEDURE: ABDOMEN W/WO IV CONTRAST 08/10/2024 REASON FOR EXAM: PANCREATIC PROTOCOL TECHNIQUE: Abdomen CT with intravenous contrast. Multiplanar and multisequence images were obtained. One or more dose reduction techniques were used (e.g., Automated exposure control, adjustment of the mA and/or kV according to patient size, use of iterative reconstruction technique. PATIENT PREPARATION: Per protocol ORAL CONTRAST TYPE: Patient ingested oral contrast. CONTRAST: Isovue-350 VOLUME: 100 mL RADIATION DOSE SUMMARY: CTDlvol: 21.53 mGy DLP: 2146 mGycm COMPARISON: 05/14/2022. FINDINGS: Unchanged moderate diffuse spondylosis. Unchanged 1.6 cm left adrenal nodule, probably benign adenoma. Unchanged right renal simple cyst measuring 1.5 cm. Uncomplicated colonic diverticulosis, unchanged. The visualized lung bases are unremarkable. Normal liver. Normal gallbladder and extrahepatic biliary system. Normal spleen. Normal pancreas. Normal right adrenal gland. Normal size of the right kidney. There is no right renal mass. There are no right renal calculi. There is no right hydronephrosis. Normal visualized right ureter. Normal size of the left kidney. There is no left renal mass. There are no leftrenal calculi. There is no left hydronephrosis. Normal visualized left ureter. Normal visualized stomach. Normal small intestine. The appendix is visualized and appears normal. There is no demonstrated peritoneal fluid. Calcified atheromatous plaques of the abdominal aorta. Normal inferior vena cava. Normal retroperitoneum. CT/Abdomen W/WO IV Contrast IMPRESSION: Unchanged moderate diffuse spondylosis. Unchanged 1.6 cm left adrenal nodule, probably benign adenoma. Unchanged right renal simple cyst measuring 1.5 cm. Uncomplicated colonic diverticulosis, unchanged. Reading Location: [id number] CC: NARDA Hawkins; LORETTA Torrez ~ Director Of Revenue Cycle Management: Signed [facility] 05-26-2024 Radiology Diagnostic study note [facility] Imaging Services [address] [place], [place] [address] ABD Limited w/ Elastography MR#: [id number] Acct: [id number] Name: ELISEO CADENA Rep #: [id number] : 1950 F 74 From: Julio Cesar Manriquez MD PCP: NARDA Singh Status: REG CLI Study:ABD Limited w/ Elastography Date of Exa m: 05/25/24 Exam# [id number] Ordering Dr: Brigette Vidal EXAM: Ultrasound abdomen limited with elastography CLINICAL HISTORY: Rectal varices COMPARISON: CT abdomen and pelvis 05/14/2022 TECHNIQUE: Ultrasound abdomen limited with elastography FINDINGS: Study is limited by bowel gas. Pancreatic tail is not visualized and the head is not well seen. Visualized portions of the pancreas appear within limits for echogenicity. Pancreatic duct at the body measures 4 mm, prominent. The liver measures 15.7 cm and appears diffusely increased in echogenicity whichcan be seen with hepatic steatosis or other hepatocellular disease. There is hepatic color flow. Flow within the portal vein appears hepatopetal as expected. Main portal vein measures 1.3 cm. The gallbladder appears within limits without stones, wall thickening or pericholecystic free fluid. Wall measures 2 mm. Report of a negative sonographic Mistry's sign. CBD 7.5 mm upper limits for age. The right kidney measures 10.1 x 5 x 5.9 cm. No hydronephrosis or perinephric edema seen. Suggestion of a possible 3 mm nonobstructing intrarenal stone. Spleen measures 11.8 x 5.5 x 4.1 cm. No free fluid seen. Liver stiffness 9.43 kPa, 1.76 m/sec US/ABD Limited w/ Elastography IMPRESSION: Liver stiffness 9.43 kPa, F2-F3 compatible with [id number] liver disease Metavir staging. Diffuse increased echogenicity of the liver can be seen with hepatic steatosis or other hepatocellular disease. Pancreas is not well seen. Prominent appearance of pancreatic duct at the body measuring 4 mm. Reading Location: [id number] CC: NARDA Hawkins; LORETTA Torrez ~ Director Of Revenue Cycle Management: Signed [facility] 04-20-2024 Evaluation note Diagnosis Onset Date Resolution Screening for malignant neoplasm of colon acute April 20, 025 7:39am IBS (irritable bowel syndrome) acute May 05, 2024 1:56pm Rectal varices acute May 05, 2024 1:56pm [facility] Work Phone: 1(836) 264-530802-19-2025 [facility] Medical Records Department [address] [place] [address] History Physical Exam 04/20/24 0847 MR#: [id number] Acct: [id number] Name: ELISEO CADENA Rep #: [id number] : 1950 74 From: Josué Friend DO PCP: NARDA Singh [place] [facility] Location: [address] HPI - General General Date of Admission: 04/20/24 Date of Service: 04/20/24 Chief Complaint: Surveillance colonoscopy HPI Narrative ELISEO CADENA, is a 74 F who presents for surveillance colonoscopy. Pt is due for screening colonoscopy is 2024. Her last one was in [address] Jaimes and she has precancerous polyps. Over the years she has developed constipation alternating with diarrhea. She feel the diarrhea is overflow in nature. She takes fiber supplementation and probiotics but these have not seemed to help. She has occasional heartburn but nothing she is concerned about. She denies blood in her stool, abdominal pain , n/v or chronic heartburn. EGD 2.14.20 - Preparation of the colon was fair. - Hemorrhoids found on perianal exam. - Diverticulosis in the entire examined colon. Biopsied. - One 5 mm polyp in the distal transverse colon, removed with a hot snare. Resected and retrieved. - One 4 mm polyp in the rectum, removed with a cold biopsy forceps. Resected and retrieved. [facility] Medical History Wears glasses Diabetes Dietary restriction History of diverticulitis Heartburn Non-smoker History of stress test History of echocardiogram Cardiology follow-up encounter History of CHF (congestive heart failure) Hx of flexible sigmoidoscopy Hemorrhoids Nausea RUQ abdominal pain Arthritis Neoplasm of colon, malignant Peripheral vascular disease Morbid obesity Essential (primary) hypertension Early cataracts, bilateral Non-alcoholic cirrhosis Fatty liver Fibromyalgia GI bleed Anemia associated with acute blood loss Diverticulitis large intestine Rectal bleed Hyperlipidemia Home Medications ???Medication ???Instructions ???Recorded ???Last Taken ???Type multivitamin 1 ea PO DAILY supplement 02/03/17 02/03/17 History promethazine 12.5 mg tablet 12.5 mg PO Q6H PRN nausea and 04/03 05/23 Unknown Rx vomiting #45 tabs dapagliflozin propanediol 10 mg 10 mg PO DAILY #30 tabs 04/25/23 U nknown Rx tablet (Farxiga) duloxetine 60 mg capsule,delayed 60 mg PO QHS fibromyalgia #90 caps 04/25/23 Unknown Rx release glimepiride 4 mg tablet 4 mg PO QAM diabetes #90 tabs 04/03 06/23 Unknown Rx hydrochlorothiazide 25 mg tablet 25 mg PO DAILY water pill #90 tabs 04/25/23 Unknown Rx lisinopril 10 mg tablet 10 mg PO DAILY blood pressure #90 04/25/23 Unknown Rx tabs metformin 1,000 mg tablet 1,000 mg PO BID #180 tabs 04/25/23 Unknown Rx simvastatin 40 mg tablet 40 mg PO QHS #90 tabs 04/25/23 Unk nown Rx tramadol 50 mg tablet 50 mg PO TID PRN pain 15 days #45 04/25/23 Unknown Rx tabs Allergy/AdvReac Type Severity Reaction Status Date / Time pioglitazone Allergy Severe CHF Verified 04/20/24 08:13 sitagliptin (From Januvia) Allergy Severe legs ache Verified 04/20/24 08:13 azithromycin (From Zithromax) Allergy Hives Verified 04/20/24 08:13 Family History Mother Arthritis Lung cancer Brother Colon cancer Lung cancer Sister Cervical cancer Other Benign tumor of kidney CVA (cerebral vascular accident) Diverticulosis Stomach cancer Surgical History History of parotidectomy History of bilateral carpal tunnel release History of esophagogastroduodenoscopy (EGD) Hx of colonoscopy Hx of tubal ligation Heel spur History of tonsillectomy and adenoidectomy History of left heart catheterization (02/13/10) S/P total hip arthroplasty S/P total knee arthroplasty Social History Smoking Status: Never smoker alcohol intake: never substance use type: does not use caffeine: Yes what type of physical activity do you participate in: none frequency: does not exercise ROS Constitutional Constitutional: Denies fatigue, fever(s), poor appetite, weight gain or weight loss Gastrointestinal Gastrointestinal: Denies belching, bloating, change in bowel habits, change in stool character, chewing difficulty, coffee ground emesis, constipation, cramping, diarrhea, dyspepsia, dysphagia, early satiety, excessive flatus, fecal incontinence, heartburn, hematemesis, hematochezia, hemorrhoids, loose stools, melena, nausea, odynophagia, rectal bleeding, tenesmus, vomiting or weight changes Vital Signs Vital Signs Vital Signs: 04/20/24 08:14 04/20/24 08:14 04/20/24 08:41 [place] (more content not included)...[facility]11-27-2024 Evaluation note* Diagnosis Onset Date Resolution Status Admit Date Acute diarrhea acute January 012023 8:53am Screening for malignant neoplasm of colon acute April 20, 2024 7:39am IBS (irritable bowel syndrome) acute May 05, 2024 1:56pm Rectal varices acute May 05, 2024 1:56pm [facility] Work Phone: 1([phone]) 212-918403-22-2023 NoteHNO ID: [id number] Author: Shakira Melton MD Service: ? Author Type: Physician Type: Progress Notes Filed: 05/22/2022 8:33 AM Note Text: Eliseo Cadena 1950 REFERRING PHYSICIAN: No ref. provider found CHIEF COMPLAINT: Consult (colonoscopy) HPI: The patient is a 72 year old female referred for endoscopy. Eliseo notes intermittent lower abdominal cramping pain. She [...] weight loss. She underwent CT scan at [facility] on 05/14/2022 to determine etiology of [...] KNE CONDYLEANDPLATU MEDIALANDLAT COMPARTMENTS left and right, [facility] CARPAL TUNNEL [...] entered by the nurse and reviewed by nj Nursing Notes: Marline Villatoro LPN 05/21/2022 3:22 [...] denies headaches, denies head/spinal (more content not included)...[facility]03-22-2023 History of Present illness Narrative* Shakira Melton MD - 05/21/2022 7:35 PM EDT Eliseo Cadena 1950 REFERRING PHYSICIAN: No ref. provider found CHIEF COMPLAINT: Consult (colonoscopy) HPI: The patient is a 72 year old female referred for endoscopy. Eliseo notes intermittent lower abdominal cramping pain. She [...] weight loss. She underwent CT scan at [facility] on 05/14/2022 to determine etiology of [...] 1970 TOTAL HIP REPLACEMENT Bilateral TUBAL LIGATION, 1978 Current Outpatient Medications Medication Sig dapagliflozin (FARXIGA) [...] entered by the nurse and reviewed by nj Nursing Notes: Marline Villatoro LPN 05/21/2022 3:22 [...] failure, other cardiac issues, denies claudication, denies coldfeet, denies peripheral arterial stent. Respiratory: The patient [...] nourished, well hydrated in no acute distress. Thepatient is oriented to time, place, and person. VITALS: Blood pressure 126/82, pulse 95, temperature 36.4 C (97.6 F), height 162.6 cm (5' 4), weight 101.2 kg (223 lb 3.2 oz), [...] such as liver/spleen, perforation of the GI tract,inability to complete the procedure, complications of anesthesia, [...] Straightforward Shakira Melton MD [facility] Nurse Note* Marline Villatoro LPN - 05/21/2022 3:20 PM EDT REVIEW OF SYSTEMS: General: The patient NOTES [...] failure, other cardiac issues, denies claudication, denies coldfeet, denies peripheral arterial stent. Respiratory: The patient [...] 2020 Marline Villatoro LPN documented in this encounterOhio [facility]03-16-2023 Miscellaneous Notes* Telephone Encounter - Elsie Vidal RN - 05/15/2022 3:52 PM EDT Spoke with patient, advised that her appointment with Dr. Melton is Saturday, May 21, 2022. Elsie Vidal RN * Telephone Encounter - Danielle Hendrix RN - 05/15/2022 2:00 PM EDT Patient calling to let office know that she had CT of her abdomen and pelvis done yesterday at [facility] in case they did not receive results. Patient has an appointment with Dr. Melton tomorrow, 05/16. 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, with complications chronic Diverticulitis large intestine chronic Hyperlipidemia chronic [facility] Work Phone: Evaluation note* Diagnosis Diverticulosis Diverticulosis of colon (without mention of hemorrhage) Lower abdominal pain Abdominal pain, other specified site documented in this encounter [facility]* Diagnosis Onset Date Resolution Status Achilles rupture, left acute Diabetes mellitus type 2, 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, with complications chronic [facility] Work Phone: Evaluation note* Diagnosis Onset Date Resolution Status Forearm tendonitis acute Trigger finger of all digits of left hand acute Diabetes mellitus type 2, 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, with complications chronic Hyperhidrosis acute Nausea & vomiting acute Splinter of foot acute Dizziness resolved Fatigue resolved [facility] Work Phone: Reason for referral (narrative)No reason for referral information availableWPremier Health [facility] Work Phone: Chief Complaint and Reason for Visit Chief Complaint Back pain & trigger injection Legs feet swollen & painful Reason for Visit Bursitis of right hi p Sciatica, right side Diabetic foot ulcer Edema Sciatica, right side Chief Complaint Legs feet swollen & painful left arm Reason for Visit Diabetic foot ulcer Edema Sciatica, right side Chief Complaint medication refills & Labs Reason for Visit Abdominal visceral a bscess Left lower quadrant pain Anemia Diabetes mellitus type 2, uncontrolled, with complications Diverticulitis large intestine Hyperlipidemia Chief Complaint medication refills & Labs LLQ PAIN Reason for Visit Abdominal visceral a bscess Left lower quadrant pain Anemia Diabetes mellitus type 2, uncontrolled, with complications Diverticulitis large intestine Hyperlipidemia Chief Complaint LLQ PAIN HEEL INJURY Strain of left Achilles tendon, initial encounter Reason for Visit Achilles rupture, le ft Diabetes mellitus type 2, uncontrolled, with complications Chief Complaint Hands & Elbow pain Sinus infection splinter(L)Foot Reason for Visit Forearm tendonitis Trigger finger of all digits of left hand Diabetes mellitus type 2, uncontrolled, with complications Hyperhidrosis Nausea & vomiting Splinter of foot Dizziness Fatigue Chief Complaint Admit Date Diarrhea January 27, 2024 8:53am Test Result May 05, 2024 1:56 pm Reason for Visit Admit Date Acute diarrhea January 27, 2024 8:53am Screening for malignant neoplasm of colo n April 20, 2024 7:39am IBS (irritable bowel syndrome) April 1:56pm Rectal varices May 05, 2024 1:56 pm Chief Complaint Admit Date Test Result May 05, 2024 1:56 pm RECTAL VARICES May 25, 2024 7:4 4am Reason for Visit Admit Date Screening for malignant neoplasm of colo n April 20, 2024 7:39am IBS (irritable bowel syndrome) April 1:56pm Rectal varices May 05, 2024 1:56 pm Chief Complaint Admit Date Test Result May 05, 2024 1:56 pm RECTAL VARICES May 25, 2024 7:4 4am Other specified diseases of pancreas Tomás e 2024 1:55pm Family History No Family History Records Found Relationship Condition Age at Onset Recorded Date/T morena Not Specified Diverticulosis of intestine Unknown Malignant neoplasm of stomach Unknown Benign neoplasm of kidney Unknown Cerebrovascular accident (CVA) Unknown mother Arthritis Unknown Malignant neoplasm of lung Unknown brother Malignant neoplasm of colon Unknown sister Malignant neoplasm of cervix Unknown Advance Directives No Advanced Directives Records Found Advance Directive Response Recorded Date/ Time Advance Directives Yes March 19, 2020 8:31pm Living Will Yes March 19 8:31pm Power of Percussion Instrument Tuner Yes March 19, 2020 8:31pm Advance Directive Response Recorded Date/ Time Name of Medical Power of Percussion Instrument Tuner jose ramon kelley, September 15, 2021 9:07am Advance Directives Yes March 19, 2020 8:31pm Living Will Yes September 15, 2021 9:07am Power of Percussion Instrument Tuner Yes September 15 9:07am Advance Directive Response Recorded Date/ Time Advance Directives Yes March 19, 2020 7:31pm Living Will Yes September 15, 2021 8:07am Power of Percussion Instrument Tuner Yes September 15 8:07am Advance Directive Response Recorded Date/ Time Advance Directives Yes March 19, 2020 8:31pm Living Will Yes September 15, 2021 9:07am Power of Percussion Instrument Tuner Yes September 15 9:07am Documents on File Type Date Recorded Patient Drawing Frame Tender Expl anation Advance Directive(s) 06/10/2011 4:30 PM Advance Directive Response Recorded Date/ Time Living Will Yes September 15, 2021 9:07am Power of Percussion Instrument Tuner Yes September 15 9:07am Living Will Yes April 18 11:13am Power of Percussion Instrument Tuner Yes April 18, 2024 11:13am Name of Medical Power of Percussion Instrument Tuner TONY Jose Ramon Ragland April 18, 2024 11:13am Advance Directives Yes March 19, 2020 8:31pm Advance Directive Response Recorded Date/ Time Living Will Yes April 18 11:13am Do you have a Healthcare Pow er of Percussion Instrument Tuner? Yes April 18, 2024 11:13am Name of Medical Power of Percussion Instrument Tuner TONY Ragland April 18, 2024 11:13am Advance Directives Yes March 19, 2020 8:31pm Summary Purpose Additional Source Comments Goals (unrecognized section and content) Goals may be documented in a n alternate sectionGoals may be documented in an alternate sectionGoals may be documented in an alternate sectionGoals may be documented in an alternate sectionGoals may be documented in an alternate sectionGoals may be documented in an alternate section Care Teams (unrecognized sec tion and content) Team Status: Active Member Role Status Dates Beulah Hawkins ZIPPER IRONER, ZIPPER IRONER-C Family Provider Active Beulah Hawkins ZIPPER IRONER, ZIPPER IRONER-C Primary Care Provider Active Team Status: Inactive Member Role Status Dates Beulah Hawkins ZIPPER IRONER, ZIPPER IRONER-C Primary Care Pr ovider, Attending Provider, Referring Provider Active Team Status: Inactive Member Role Status Dates Beulah Hawkins ZIPPER IRONER, ZIPPER IRONER-C Primary Care Provider, Attend ing Provider Active Supervisor Special Services Relationship Specialty Start Date End Date Jackie Wiggins MD PCP - General Family Medicine 04/17/11 Supervisor Special Services Relationship Specialty Start Date End Date Jackie Wiggins MD PCP - General Family Medicine 04/17/11 Team Status: Active Member Role Status Dates Beulah Hawkins ZIPPER IRONER, ZIPPER IRONER-C Primary Care Provider Active Team Status: Inactive Member Role Status Dates Beulah Hawkins ZIPPER IRONER, ZIPPER IRONER-C Primary Care Provider Active Start: January 27, 2024 End: January 27, 2024 Beulah Hawkins ZIPPER IRONER, ZIPPER IRONER-C Referring Provider Active Start: January 27, 2024 End: January 27, 2024 LORETTA Torrez Attending Provider Active Start: January 27, 2024 End: January 27, 2024 Team Status: Inactive Member Role Status Dates Beulah Hawkins ZIPPER IRONER, ZIPPER IRONER-C Primary Care Provider Active Start: April 20, 2024 End: April 20, 2024 Beulah Hawkins ZIPPER IRONER, ZIPPER IRONER-C Referring Provider Active Start: April 20, 2024 End: April 20, 2024 Dr. Josué Huber DO Attending Provider Active Start: April 20, 2024 End: April 20, 2024 Team Status: Active Member Role Status Dates Beulah Hawkins ZIPPER IRONER, ZIPPER IRONER-C Primary Care Provider Active Start: April 20, 2024 Beulah Hawkins ZIPPER IRONER, ZIPPER IRONER-C Referring Provider Active Start: April 20, 2024 Dr. Josué Huber DO Attending Provider Active Start: April 20, 2024 Dr. Josué Friend , DO Other Provider Active St art: April 20, 2024 Team Status: Inactive Member Role Status Dates Beulah Hawkins ZIPPER IRONER, ZIPPER IRONER-C Primary Care Provider Active Start: April 26, 2024 End: April 26, 2024 Beulah Hawkins ZIPPER IRONER, ZIPPER IRONER-C Attending Provider Active Start: April 26, 2024 End: April 26, 2024 Team Status: Inactive Member Role Status Dates Beulah Hawkins ZIPPER IRONER, ZIPPER IRONER-C Primary Care Provider Active Start: May 05, 2024 End: May 05, 2024 Beulah Hawkins ZIPPER IRONER, ZIPPER IRONER-C Referring Provider Active Start: May 05, 2024 End: May 05, 2024 LORETTA Torrez Attending Provider Active Start: May 05, 2024 End: May 05, 2024 Team Status: Inactive Member Role Status Dates Beulah Hawkins ZIPPER IRONER, ZIPPER IRONER-C Primary Care Provider Active Start: May 25, 2024 End: May 25, 2024 LORETTA Torrez Attending Provider Active Start: May 25, 2024 End: May 25, 2024 LORETTA Torrez Referring Provider Active Start: May 25, 2024 End: May 25, 2024 Team Status: Inactive Member Role Status Dates Beulah Hawkins ZIPPER IRONER, ZIPPER IRONER-C Primary Care Provider Active Start: August 10, 2024 End: August 10, 2024 LORETTA Torrez Attending Provider Active Start: August 10, 2024 End: August 10, 2024 LORETTA Torrez Referring Provider Active Start: August 10, 2024 End: August 10, 2024 Source Comments (unrecognize d section and content) In the event this informatio n is protected by the Federal Confidentiality of Alcohol and Drug Abuse Patient Records regulations: The Federal rules restrict any use of the information to criminally investigate or prosecute any alcohol or drug abuse patient.[facility] the event this information is protected by the Federal Confidentiality of Alcohol and Drug Abuse Patient Records regulations: The Federal rules restrict any use of the information to criminally investigate or prosecute any alcohol or drug abuse patient.[facility] Reason for Visit (unrecogniz ed section and content) Reason Comments Consult colonoscopy Reason Comments Appointment INFORMATION SOURCE (unrecogn ized section and content) DATE CREATED AUTHOR 05/16/2023 [facility] DATE CREATED AUTHOR AUTHOR'S ALLAN ATION 08/18/2024 [facility] FOR RECORDS PERTAINING TO PATIENTS WHO ARE [...] BE BASED ON THE PRIMARY CLINICAL RECORDS. [employer] provides no warranty or guarantee of the accuracy or completeness of information in this document.
== END | disposition home or self-care (01) ==
PROVIDERS: PCP Nurse Practitioner; Referring Provider Nurse Practitioner; Visit Provider Nurse Practitioner
DX: N30.90 Cystitis, unspecified without hematuria (principal)
CPT/HCPCS: 87086; 87088

== ENCOUNTER → 2024-10-03 | Outpatient (CLI) | payer MEDICARE, OTHER, SELFPAY ==
--- NOTE | 2024-10-03 08:30 | BI_ITS ---
EXAM: 04/06/2019 DATE: 10/03/2024 CLINICAL HISTORY: F, Age 74 y/o , ROUTINE MAMMOGRAM SCREEN TECHNIQUE: SCRN MAMM (CAD)W/ROSSI BILAT COMPARISON: Prior exam(s) dated 04/06/2019. FINDINGS: TISSUE DENSITY: The breasts are almost entirely fatty. Bilateral Breast Mammographic Findings: Benign-appearing round microcalcifications and macrocalcifications are seen in the right breast. No suspicious masses, suspicious clustered microcalcifications, architectural distortion or secondary signs of malignancy is identified in the right breast. Benign-appearing lymph nodes are seen. There is a new cluster of amorphous and round microcalcifications in the superior outer aspect of the left breast covering an area measuring approximately 12 mm. These have a branching pattern. The calcifications are worrisome for malignancy. Further workup is indicated. Benign-appearing round microcalcifications and macrocalcifications are seen elsewhere in the breast. Benign-appearing lymph nodes are seen. BI/SCRN MAMM (CAD)W/ROSSI BILAT IMPRESSION: There is a new cluster of amorphous and round microcalcifications in the superi or outer aspect of the left breast covering an area measuring approximately 12 mm. These have a branching pattern. The calcif ications are worrisome for malignancy. Further workup is indicated. Patient should return for an LM view of the left breast as well as spot morena omar magnification CC and spot-compression magnification LM views of the right breast microcalcifications. OVERALL FINAL ASSESSMENT BI-RADS 0: INCOMPLETE - NEED ADDITIONAL IMAGING EVALUATION. RECOMMENDATION: Additional Views obtained/call backs A letter with findings and recommendations will be mailed to the patient. Reading Location: [id number]
--- OUTSIDE RECORDS SUMMARY | 2024-10-03 08:55 | XMS RPT_ITS | CCD ---
Author Organization [facility] Care Team Providers Care Assistant Corporate Secretary Name Role Phone Jackie Wiggins MD Primary Care Provider SHAKIRA MELTON Attending Unavailable JACKIE WIGGINS Primary Care Unavailable Hawkins [employer]ODWORKING CRAFTSMAN-C, Beulah Primary Care Provider Hawkins [employer]ODWORKING CRAFTSMAN-C, Beulah Referring Provider Brigette Gruber Attending Provider Dr. Josué Huber DO Attending Provider Dr. Josué Huber DO Other Provider Hawkins [employer]WORKING CRAFTSMAN-C, Beulah Attending Provider Hawkins WOODWORKING CRAFTSMAN-C, Beulah Primary Care Provider Hawkins [employer]ODWORKING CRAFTSMAN[employer], Beulah Referring Provider Brigette Gruber Attending Provider Brigette Gruber Referring Provider Hawkins [employer]ODWORKING CRAFTSMAN[employer], Beulah Primary Care Provider Brigette Gruber Attending Provider Brigette Gruber Referring Provider Hawkins [employer]ODWORKING CRAFTSMAN-[employer], Beulah Attending Provider Hawkins WOODWORKING CRAFTSMAN-C, Beulah Referring Provider Brigette Vidal Attending Unavailable Hawkins WOODWORKING CRAFTSMAN, Beulah Primary Care Unavailable Hawkins WOODWORKING CRAFTSMAN, Beulah Referring Unavailable Josué Huber Attending Unavailable Josué Huber Consulting Unavailable Hawkins WOODWORKING CRAFTSMAN, Beulah Primary Care Unavailable Hawkins WOODWORKING CRAFTSMAN, Beulah Referring Unavailable Brigette Vidal Attending Unavailable Hawkins WOODWORKING CRAFTSMAN, Beulah Referring Unavailable Ross WOODWORKING CRAFTSMAN, Beulah Primary Care Unavailable Brigette Vidal Referring Unavailable Brigette Vidal Attending Unavailable Hawkins WOODWORKING CRAFTSMAN, Beulah Primary Care Unavailable Brigette Vidal Attending Unavailable Brigette Vidal Referring Unavailable Hawkins WOODWORKING CRAFTSMAN, Beulah Primary Care Unavailable Hawkins WOODWORKING CRAFTSMAN, Beulah Primary Care Unavailable Hawkins WOODWORKING CRAFTSMAN, Beulah Attending Unavailable Hawkins WOODWORKING CRAFTSMAN, Beulah Referring Unavailable Hawkins WOODWORKING CRAFTSMAN, Beulah Attending Unavailable Hawkins WOODWORKING CRAFTSMAN, Beulah Primary Care Unavailable Hawkins WOODWORKING CRAFTSMAN, Beulah Primary Care Unavailable Hawkins WOODWORKING CRAFTSMAN, Beulah Referring Unavailable Hawkins WOODWORKING CRAFTSMAN, Beulah Attending Unavailable Mayo, Josué Attending Unavailable Hawkins WOODWORKING CRAFTSMAN, Beulah Primary Care Unavailable Hawkins WOODWORKING CRAFTSMAN, Beulah Referring Unavailable Allergies Allergy Classification Reported Allergen(s) Allergy Type Date of Onset Reaction(s) Facility (13 sources) Azithromycin; Translations: [AZITHROMYCIN] Drug Allergy 05-09-2011 Rash, Hives [facility] (6 sources) Ibuprofen Drug Allergy 09-13-[address] [facility] (10 sources) pioglitazone Drug Allergy 07-08-2021 [facility] (10 sources) SITagliptin Drug Allergy 07-08-[address] [facility] (1 source) Azithromycin Drug Allergy 04-20-2024 [facility] (1 source) Ibuprofen Drug Allergy 09-15-2021 [facility] (1 source) pioglitazone Drug Allergy 04-20-2024 [facility] (1 source) SITagliptin Drug Allergy 04-20-2024 [facility] Medications Current Medications Medication Drug Class(es) Dates Sig (Normalized) Sig (Original) ciprofloxacin 500 mg oral tablet (20 sources) Quinolone Antimicrobial Start: 09-21-2024 take 1 tablet by mouth twice daily Ciprofloxacin Hcl (Cipro) 500 mg tablet Active 500 mg PO TWICE A DAY 14 September 21, 2024 12:00am Start: 10-31-2021 End: 08-08-2022 take 1 tablet by mouth twice daily Ciprofloxacin Hcl (Cipro) 500 mg tablet Discontinued 500 mg PO TWICE A DAY April 22, 2022 1:00am August 08, 2022 4:08pm Start: 04-09-2020 End: 02-13-2021 take 1 tablet by mouth twice daily Ciprofloxacin Hcl (Cipro) 500 mg tablet Discontinued 500 mg PO TWICE A DAY 14 0 April 09, 2020 1:00am February 13, 2021 5:01pm Multivitamin 1 EACH tablet (4 sources) Start: 02-03-2017 Multivitamin 1 EACH tablet Active 1 NMA PO DAILY February 03, 2017 1:00am supplement Start: 02-03-2017 Multivitamin 1 EACH tablet Active 1 NMA PO DAILY February 03, 2017 1:00am Multivitamin preparation (6 sources) Start: 02-03-2017 Multivitamin A ctive 1 EACH PO DAILY February 03, 2017 7:49pm Start: 02-03-2017 Multivitamin A ctive 1 EACH PO DAILY February 03, 2017 12:00am Start: 02-03-2017 Multivitamin A ctive 1 EACH PO DAILY February 03, 2017 1:00am phenazopyridine hydrochloride 200 mg oral tablet (1 source) Start: 09-21-2024 take 1 tablet by mouth three times daily as needed for pain Phenazopyridine (Pyridium) 200 mg tablet Active 200 mg PO THREE TIMES A DAY as needed for pain 15 September 21, 2024 12:00am Dysuria Cystitis Dysuria Cystitis, unspecified without hematuria promethazine hydrochloride 12.5 mg oral tablet (9 sources) Phenothiazine Start: 04-24-2023 End: 04-26-2024 take 1 tablet by mouth every six hours as needed for nausea and vomiting Promethazine 12.5 mg tablet Active 12.5 mg PO EVERY 6 HOURS as needed for nausea and vomiting 45 April 26, 2024 4:08pm rosuvastatin calcium 20 mg oral tablet (3 sources) HMG-CoA Reductase Inhibitor Start: 05-16-2024 take 1 tablet by mouth once daily Rosuvastatin 20 mg tablet Active 20 mg PO daily 90 3 May 16, 2024 12:00am Completed/Discontinued Medications Medication Drug Class(es) Dates Sig (Normalized) Sig (Original) acetaminophen 325 mg / HYDROcodone bitartrate 5 mg oral tablet (9 sources) Opioid Agonist Start: 09-15-2021 End: 08-08-2022 Hydrocodone-Acetami nophen 5-325 mg tablet Discontinued 1 {tbl} PO EVERY 6 HOURS as needed for pain 12 3 September 15, 2021 August 08, 2022 4:08pm Fracture of left shoulder Start: 09-15-2021 End: 08-08-2022 take 1 tablet by mouth every six hours Hydrocodone-Acetaminophen Discontinued 1 TABLET PO EVERY 6 HOURS 12 September 15, 2021 August 08, 2022 3:08pm acetaminophen 250 mg / ibuprofen 125 mg oral tablet (1 source) Nonsteroidal Anti-inflammatory Drug ibuprofen-acetami nophen 125-250 mg tab Take by mouth as needed (for back pain). 0 Active Comment on above: Take by mouth as nee ded (for back pain). amoxicillin 875 mg oral tablet (4 sources) Penicillin-class Antibacterial Start : 04-26 End: 09-22 take 1 tablet by mouth twice daily Amoxicillin 875 mg tablet Discontinued 875 mg PO TWICE A DAY 20 April 26, 2024 1:00am September 22, 2024 11:01am amoxicillin 875 mg / clavulanate 125 mg oral tablet (5 sources) Penicillin-class Antibacterial Start : 04-24 End: 07-05 Amoxicillin-Pot Clavulanate 875-125 mg tablet Discontinued 1 {tbl} PO TWICE A DAY 14 April 24, 2023 1:00am July 06, 2023 12:27pm Start: 04-24-2023 take 1 tablet by jamel th twice daily Amoxicillin-Pot Clavulanate Active 1 TABLET PO TWICE A DAY 14 April 24, 2023 12:00am aspirin 81 mg chewable tablet (12 sources) Platelet Aggregation Inhibitor, Nonsteroidal Anti-inflammatory Drug Start: 02-03-2017 End: 02-05-2017 take 1 tablet by mouth once daily Aspirin 81 MG Tab.Chew Discontinued 81 mg PO DAILY@0800 February 03, 2017 1:00am February 05, 2017 2:45pm health maintenance Aspirin 81 mg OR AL Tab Take 81 mg by mouth. 0 Active Comment on above: Take 81 mg by mouth. baclofen 5 mg oral tablet (10 sources) gamma-Aminobutyric Acid-ergic Agonist Start: End: Baclofen 5 mg tablet Discontinued 5 mg PO THREE TIMES A DAY as needed for spasms 45 February 13, 2021 1:00am April 16, 2021 9:51pm May take 1-2 pills up to 3 x a day cyclobenzaprine hydrochloride 5 mg oral tablet (10 sources) Muscle Relaxant Start: End: take 1 tablet by mouth three times daily as needed for muscle spasms Cyclobenzaprine 5 mg tablet Discontinued 5 mg PO THREE TIMES A DAY as needed for muscle spasm 45 15 April 16, 2021 1:00am April 22, 2022 6:37pm dapagliflozin 10 mg oral tablet (20 sources) Sodium-Glucose Cotransporter 2 Inhibitor Start: 022 End: take 1 tablet by mouth once daily Dapagliflozin Propanediol (Farxiga) 10 mg tablet Discontinued 10 mg PO DAILY 30 April 25, 2023 10:24pm April 26, 2024 4:09pm Comment on above: Take by mouth daily with breakfast. docusate sodium 50 mg / sennosides, care home 8.6 mg oral tablet (10 sources) Start: 017 End: 019 Sennosides-Docusate Sodium 1 TABLET tablet Discontinued 2 {tbl} PO DAILY 60 0 February 05, 2017 1:00am March 15, 2018 [...] release(DR/EC) Discontinued 60 mg PO AT BEDTIME 90 3 April 13, 2020 3:20pm April 16, 2021 10:00pm depression Start: 07-07-2014 End: 04-25-2023 take 60 mg by mouth at bedtime Duloxetine Discontinued 60 MG PO AT BEDTIME 90 April 13, 2020 2:20pm April 16, 2021 [...] by mouth. furosemide 40 mg oral tablet (10 sources) Loop Diuretic Start: 07-09-19 End: 04-22-19 23 take 1 tablet by mouth once daily Furosemide 40 mg tablet Discontinued 40 mg PO DAILY 10 July 08, 2021 12:00am April 22, 2022 6:37pm glimepiride 4 mg oral tablet (20 sources) Sulfonylurea Start: 02-13-20 End: 04-26-19 25 take 1 tablet by mouth once daily at breakfast Glimepiride 4 mg tablet Discontinued 4 mg PO EVERY MORNING April 16, 2020 3:14pm April 16, 2021 10:00pm diabetes administer with breakfast Start: 07-07-2014 End: 03-19-2018 take 2 tablets by mouth once daily Glimepiride 2 mg tablet Discontinued 4 mg PO DAILY 90 March 15, 2018 4:05pm March 19, 2018 11:32am diabtetes Start: 07-07-2014 End: 03-19-2018 take 4 mg by mouth once daily Glimepiride Discontinued 4 MG PO DAILY March 15, 2018 3:05pm March 19, 2018 10:32am Comment on above: Take 4 mg by mouth o nce daily. hydroCHLOROthiazide 25 mg oral tablet (20 sources) Thiazide Diuretic Star t: 10-19 End: 04-03 take 1 tablet by mouth once daily Hydrochlorothiazide 25 mg tablet Discontinued 25 mg PO DAILY 90 April 13, 2020 3:20pm April 16, 2021 10:00pm water pill Comment on above: Take 25 mg by [...] intramuscular solution Discontinued 60 MG SC ONCE 2 April 16, 2021 8:48pm April 16, 2021 8:48pm Start: 02-13-2021 End: 02-13-2021 inject 60 mg by intramuscular injection once ketorolac 60 mg/2 mL intramuscular solution Discontinued 60 MG SC ONCE 2 February 13, 2021 4:41pm February 13, 2021 4:41pm lisinopril 10 mg oral tablet (20 sources) Angiotensin Converting Enzyme Inhibitor Start: 07-07-2014 End: 04-26-2024 take 1 tablet by mouth once daily Lisinopril 10 mg tablet Discontinued 10 mg PO DAILY 90 3 April 13, 2020 3:20pm April 16, 2021 10:00pm blood pressure Comment on above: Take 10 mg by mouth once daily. metFORMIN hydrochloride 1000 mg oral tablet (20 sources) Biguanide Start: 04-24-2022 End: 04-26-2024 take 1 tablet by mouth twice daily Metformin 1,000 mg tablet Discontinued 1000 mg PO TWICE A DAY 180 3 April 25, 2023 10:25pm April 26, 2024 4:09pm Start: 04-22-2022 End: 08-08-2022 take 1 tablet by mouth once daily Metformin 1,000 mg tablet extended release 24hr Discontinued 1000 mg PO DAILY 90 3 April 22, 2022 1:00am August 08, 2022 4:09pm Start: 07-07-2014 End: 04-22-2022 take 1 tablet by mouth twice daily at mealtime Metformin 1,000 mg tablet Discontinued 1000 mg PO TWICE DAILY WITH MEALS 180 3 April 13, 2020 3:20pm April 16, 2021 10:00pm diabetes Comment on above: Take 1,000 mg by jamel th twice daily with meals. metroNIDAZOLE 250 mg oral tablet (20 sources) Nitroimidazole Antimicrobial Start: 04-11-19 End: 04-21-19 take 1 tablet by mouth three times daily Metronidazole 250 mg tablet Discontinued 250 mg PO THREE TIMES A DAY 30 10 0 April 11, 2019 1:00am April 20, 2019 1:00am April 21, 2019 1:08am Start: 03-30-2019 End: 04-09-2019 take 1 tablet by mouth three times daily Metronidazole 250 mg tablet Discontinued 250 mg PO THREE TIMES A DAY 30 10 March 30, 2019 1:00am April 08, 2019 1:00am April 09, 2019 1:08am Multivitamin ORAL capsule (2 sources) take 1 capsule by mouth once daily Multivitamin ORAL capsule Take 1 capsule by mouth once daily. 0 Active Comment on above: Take 1 capsule by [facility] once daily. pantoprazole 40 mg delayed release oral tablet (12 sources) Proton Pump Inhibitor Start: 017 End: 019 take 1 tablet by mouth twice daily Pantoprazole 40 MG tablet Discontinued 40 mg PO TWICE A DAY 60 0 February 05, 2017 1:00am September 08, 2018 1:25pm Comment on above: Take 40 mg by mouth twice daily. pioglitazone 45 mg oral tablet (20 sources) Peroxisome Proliferator Receptor alpha Agonist, Peroxisome Proliferator Receptor gamma Agonist, Thiazolidinedione Start: 021 End: 022 take 1 tablet by mouth once daily Pioglitazone 45 mg tablet Discontinued 45 mg PO DAILY 90 April 16, 2020 3:15pm April 16, 2021 10:00pm Start: 01-23-2017 End: 03-22-2020 take 1 tablet by mouth once daily Pioglitazone 30 mg tablet Discontinued 30 mg PO DAILY 90 March 25, 2019 4:09pm March 22, 2020 4:13pm diabetes Comment on above: Take 30 mg by mouth once daily. polysaccharide iron complex 150 mg oral capsule (20 sources) Start: 7 End: 9 take 1 capsule by mouth once daily at mealtime Polysaccharide Iron Complex 150 MG capsule Discontinued 150 mg PO DAILY WITH MEALS February 03, 2017 1:00am September 08, 2018 1:26pm anemia potassium chloride 20 meq extended release oral tablet (10 sources) Start: 2 End: 3 take 1 tablet by mouth once daily Potassium Chloride 20 mEq tablet extended release Discontinued 20 meq PO DAILY 30 July 08, 2021 12:00am April 22, 2022 6:38pm predniSONE 10 mg oral tablet (14 sources) Start: 4 End: 4 take 2 tablets by mouth twice daily as needed, then take 1 tablet by mouth twice daily as needed, then take 0.5 tablet by mouth once daily as needed Prednisone 10 mg tablet Discontinued 20 mg PO TWICE A DAY as needed for poison cain 30 4 July 06, 2023 12:27pm January 27, 2024 10:28am Allergic contact dermatitis due to plants, except food 2 po bid 4D,1 po bid for [...] DAY as needed for back pain 30 4 April 16, 2021 1:00am October 31, 2021 6:59pm Allergic contact dermatitis due to plants, except food 2 po bid 4D,1 po bid for 4 D, 1 po qd for 4D 1/2 po qd for2 D Start: 04-16-2021 End: 10-31-2021 Prednisone Discontinued 20 M G PO TWICE A DAY 30 4 April 16, 2021 12:00am October 31, 2021 5:59pm 2 po bid 4D,1 po bid for 4 D, 1 po qd for 4D 1/2 po qd for2 D simvastatin 40 mg oral tablet (20 sources) HMG-CoA Reductase Inhibitor Start: 04-23-2022 End: 05-16-2024 take 1 tablet by mouth at bedtime Simvastatin 40 mg tablet Discontinued 40 mg PO AT BEDTIME 90 3 April 26, 2024 4:08pm May 16, 2024 12:51pm Start: 03-19-2018 End: 02-13-2021 take 1 tablet by mouth at bedtime Simvastatin 80 mg tablet Discontinued 80 mg PO AT BEDTIME 90 3 April 16, 2020 3:16pm February 13, 2021 5:04pm cholesterol Start: 02-12-2017 simvastatin (Z OCOR) 80 mg tablet Take 40 mg by mouth once daily. 0 02/12/2017 Active Start: 07-07-2014 End: 03-19-2018 take 4 tablets by mouth at bedtime Simvastatin 20 mg tablet Discontinued 80 mg PO AT BEDTIME 90 3 March 15, 2018 4:06pm March 19, 2018 11:32am cholesterol lowering Start: 07-07-2014 End: 03-19-2018 take 80 mg [...] DAY as needed for pain 45 15 5 August 27, 2022 2:48pm April 25, 2023 [...] for injection Discontinued 40 MG INTRAARTIC ONCE 1 April 16, 2021 8:48pm April 16, 2021 8:48pm Start: 02-13-2021 End: 02-13-2021 Kenalog (triamcinolone aceto nide) 40 mg/mL suspension for injection Discontinued 40 MG INTRAARTIC ONCE 1 February 13, 2021 4:41pm February 13, 2021 4:41pm Problems Active Problems Problem Classification Problem Date Documented Da te Episodic/Chronic Abdominal pain (20 sources) Right upper quadrant pain; Translations: [Right upper quadrant pain] Onset: 2 09-12-2019 Episodic Acute posthemorrhagic anemia (10 sources) Acute posthemorrhagic anemia; Translations: [Acute posthemorrhagic anemia] 03-16-2018 Episodic Biliary tract disease (3 sources) Disorder of biliary tract; Translations: [Other specified diseases of biliary tract] 05-26-2024 Chronic Cancer of colon (10 sources) Malignant tumor of colon; Translations: [Malignant neoplasm of colon, unspecified] 09-12-2019 Chronic Conditions associated with dizziness or vertigo (10 sources) Dizziness; Translations: [Dizziness and giddiness] 09-12-2019 Episodic Deficiency and other anemia (10 sources) Anemia; Translations: [Anemia, unspecified] 03-25-2019 Episodic Diabetes mellitus with complications (20 sources) Type 2 diabetes mellitus; Translations: [Uncontrolled type 2 diabetes mellitus with complication] 03-16-2018 Chronic Disorders of lipid metabolism (10 sources) Hyperlipidemia; Translations: [Hyperlipidemia, unspecified] 03-22-2020 Chronic Diverticulosis and diverticulitis (11 sources) Diverticulitis of large intestine; Translations: [Diverticulitis of large intestine without perforation or abscess without bleeding] 04-08-2019 Chronic E Codes: Adverse effects of medical drugs (4 sources) Adverse reaction to drug; Translations: [Adverse effect of unspecified drugs, medicaments and biological substances, initial encounter] 04-27-2024 Episodic Essential hypertension (11 sources) Essential hypertension; Translations: [Essential (primary) hypertension] Onset: 5 03-16-2018 Chronic Comment on above: per pt, controlled o n meds Gastrointestinal hemorrhage (20 sources) Gastrointestinal hemorrhage; Translations: [Gastrointestinal hemorrhage, unspecified] 03-16-2018 Episodic Genitourinary symptoms and ill-defined conditions (10 sources) Dysuria; Translations: [Dysuria] 04-09-2020 Episodic Malaise and fatigue (10 sources) Fatigue; Translations: [Other fatigue] 09-12-2019 Episodic Nausea and vomiting (15 sources) Nausea; Translations: [Nausea] 09-12-2019 Episodic Nonspecific chest pain (10 sources) Chest pain at rest; Translations: [Chest pain, unspecified] 09-12-2019 Episodic Osteoarthritis (10 sources) Arthritis; Translations: [Unspecified osteoarthritis, unspecified site] 09-12-2019 Chronic Other connective tissue disease (10 sources) Bursitis of right hip; Translations: [Other bursitis of hip, right hip] 02-13-2021 Episodic Other connective tissue disease (10 sources) Fibromyalgia; Translations: [Fibromyalgia] 04-08-2019 Episodic Other connective tissue disease (5 sources) Tendinitis of elbow or forearm; Translations: [Other enthesopathies, not elsewhere classified] 12-31-2022 Episodic Other connective tissue disease (5 sources) Triggering of digit; Translations: [Trigger finger, left index finger] 12-31-2022 Episodic Other gastrointestinal disorders (7 sources) Irritable bowel syndrome; Translations: [Irritable bowel syndrome without diarrhea] 05-05-2024 Chronic Other gastrointestinal disorders (10 sources) Diarrhea; Translations: [Diarrhea, unspecified] 09-12-2019 Episodic Other gastrointestinal disorders (5 sources) Acute diarrhea; Translations: [Diarrhea, unspecified] 01-14-2024 Episodic Other liver diseases (10 sources) Cirrhosis - non-alcoholic; 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] 04-08-2019 Chronic Other screening for suspected conditions (not mental disorders or infectious disease) (11 sources) Patient encounter status; Translations: [Encounter for screening for malignant neoplasm of colon] Onset: 5 04-20-2024 Episodic Other skin disorders (5 sources) Hyperhidrosis; Translations: [Generalized hyperhidrosis] 04-24-2023 Episodic Otitis media and related conditions (4 sources) Acute bilateral otitis media ; Translations: [Otitis media, unspecified, bilateral] 04-27-2024 Episodic Pancreatic disorders (not diabetes) (4 sources) Pancreatic duct disorder; Translations: [Other specified diseases of pancreas] Onset: 5 05-26-2024 Episodic Peripheral and visceral atherosclerosis (10 sources) Peripheral vascular disease; Translations: [Peripheral vascular disease, unspecified] 09-12-2019 Chronic Peritonitis and intestinal abscess (8 sources) Abdominal visceral abscess ; Translations: [Peritoneal abscess] 04-23-2022 Episodic Residual codes; unclassified (10 sources) Edema; Translations: [Edema, unspecified] 07-08-2021 Episodic Spondylosis; intervertebral disc disorders; other back problems (10 sources) Sciatica; Translations: [Sciatica, right side] 02-13-2021 Episodic Sprains and strains (6 sources) Rupture of left Achilles tendon; Translations: [Strain of left Achilles tendon, initial encounter] 08-08-2022 Episodic Superficial injury; contusion (5 sources) Splinter in foot; Translations: [Superficial foreign body, unspecified foot, initial encounter] 04-24-2023 Episodic Urinary tract infections (11 sources) Cystitis; Translations: [Cystitis, unspecified without hematuria] Onset: 04-09-2020 Episodic Past or Other Problems Problem Classification Problem Date Documented Da te Episodic/Chronic Hemorrhoids (18 sources) Hemorrhoids; Translations: [Unspecified hemorrhoids] Onset: 05-05-2024 09-12-2019 Episodic Other diseases of veins and lymphatics (1 source) Varicose veins of other specified sites; Translations: [Varicose veins of other specified sites] Onset: 05-29-2024 Episodic Results Test Name Value Interpretation Reference Range Facility Urine Cultureon 09-23-2024 [facility] Below infection leve l. Mixed Gram Pos Gram Neg Org [place] Count <1000 [facility] Mixed contaminants. Submit a new specimen if indicated. Normal [facility] Comment on above: Performed By: #### M 100.2200 #### [facility] [address] [place], [place] [address]elli. [place], [place], [id number] Laboratory - Chemistry and C hemistry - challengeOrdered By: Beulah Hawkins on 09-21-2024 Bilirubin Ql (U) Negative [facility] Glucose Ql (U) 500 g/dL [facility] Ketones Ql (U) Negative [facility] pH (U) 5.5 [pH] [facility] Specific gravity (U) [Rel density] 1.015 [facility] Urobilinogen (U) [Mass/Vol] 0.0364096 mg/dL [facility] - Hematology and Cell countsOrdered By: Beulah Hawkins on 09-21-2024 Hemoglobin Ql (U) Hemolyzed [facility] - Specimen inform ationOrdered By: Beulah Hawkins on 09-21-2024 Clarity (U) Clear [facility] Color (U) YELLOW [facility] - UrinalysisOrder ed By: Beulah Hawkins on 09-21-2024 Nitrite Ql (U) Negative [facility] Protein Ql (U) 2+ [facility] No Panel InformationOrdered By: Beulah Hawkins on 09-21-[address] [facility] Urine Non-Hemolyzed Blood Trace [facility] Urine cultureOrdered By: Jorge Hawkins on 09-21-2024 Bacteria identified Cx Nom (U) Mixed Gram Pos & Gram Neg Org Abnormal [facility] Abdomen W/WO IV Contraston 0 08-10-2024 Abdomen W/WO IV Contrast [facility] [address] [place] [address] Abdomen W/WO IV Contrast MR#: [id number] Acct: [id number] Name: ELISEO CADENA Rep #: [id number] : 1950 F [id number] From: Luis F meza MD PCP: Beulah Hawkins, WOODWORKING CRAFTSMAN-C Status: REG CLI Study: Abdomen W/WO IV Contrast Date of Exam: 5 Exam# [id number] Ordering Dr: Brigette Vidal PROCEDURE: ABDOMEN W/WO [...] cm. Uncomplicated colonic diverticulosis, unchanged. Reading Location: [place] [address] CC: NARDA Hawkins; LORETTA Torrez [employer] Supervisor Lieutenant: Signed Normal [facility] CREATININE FINGERSTICKon CREATININE WB < 1.0 Normal 0.55-1.02 [facility] Comment on above: Performed By: #### L 9100.0200 #### [facility] [address] [facility]. [place], [place], [address] EGFR WB > 60.0000 Normal >60 [facility] Comment on above: Performed By: #### L 9100.0200 #### [facility] [address] [place], [place], [address] EGFROrdered By: Brigette Sue asov on 08-10-2024 GFR/1.73 sq M.predicted among non-blacks MDRD (S/P/Bld) [Vol rate/Area] mL/min/{1.73_m2} >60 [facility] ABD Limited w/ Elastographyo n 05-25-2024 ABD Limited w/ Elastography [facility] [address] [place], [place] [address] ABD Limited w/ Elastography MR#: [id number] Acct: [id number] Name: ELISEO CADENA Rep #: [id number] : 1950 F [id number] From: Lex Manriquez MD PCP: NARDA Singh Status: REG CLI Study: ABD Limited w/ Elastography Date of Exam: 05/01 08/24 Exam# [id number] Ordering Dr: Brigette Vidal EXAM: Ultrasound abdomen [...] Liver stiffness 9.43 kPa, F2-F3 compatible with [id number] liver disease Metavir staging. Diffuse increased echogenicity of the liver can be seen with hepatic steatosis or other hepatocellular disease. Pancreas is not well seen. Prominent appearance of pancreatic duct at the body measuring 4 mm. 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 Gastroenterology Visit Repor ton 05-05-2024 Gastroenterology Visit Report [facility] [address] [place] [address] OFFICE VISIT Date of Service: 05/05/24 MR#: [id number] Acct: [id number] Name: ELISEO CADENA Rep #: [id number] : 1950 Provider: LORETTA Torrez Age/Sex: 74/F [place] [facility] [place]: Signed Intake Vital Signs 04/24/23 16:41 04/26/24 14:57 Height 5 ft 5 in 5 ft 4 in Intake Visit Reasons: Test Result Chief Complaint: alternating bowels [employer] Professor Required: No Allergies pioglitazone Allergy (Severe, Verified [...] Pt reports she is decreasing duloxetine dosage. [facility] Medical History Wears glasses Diabetes Dietary restriction [...] presents to the office today for f/u. [facility] established 01.27.24 for screening colonoscopy. Last colonoscopy [...] to hermosillo (more content not included)... Normal [facility] Comprehensive Metabolic Prof swetha 04-27-2024 Albumin [Mass/Vol] 4.4 g/dL Normal 3.4-4.8 [facility] Comment on above: Performed By: #### L 501.9985, L500.4050, L500.4100, L100.0100 #### [facility] [address] [place], [address] Albumin/Globulin [Mass ratio] 1.5 {ratio} Normal 0.9-2.4 [facility] Comment on above: Performed By: #### L 501.9985, L500.4050, L500.4100, L100.0100 #### [facility] [address] [place], [address] ALK PHOS 70 U/L Normal 35-104 [facility] Comment on above: Performed By: #### L 501.9985, L500.4050, L500.4100, L100.0100 #### [facility] [address] [place], [address] ALT [Catalytic activity/Vol] 27 U/L Normal <=34 [facility] Comment on above: Performed By: #### L 501.9985, L500.4050, L500.4100, L100.0100 #### [facility] [address] [place], [address] Anion gap [Moles/Vol] 17 mmol/L High 5-15 [facility] Comment on above: Performed By: #### L 501.9985, L500.4050, L500.4100, L100.0100 #### [facility] [address] [place], [address] AST [Catalytic activity/Vol] 28 U/L Normal <=31 [facility] Comment on above: Performed By: #### L 501.9985, L500.4050, L500.4100, L100.0100 #### [facility] [address] [place], [address] Bilirubin [Mass/Vol] 0.38 mg/dL Normal 0.00-1.30 [facility] Comment on above: Performed By: #### L 501.9985, L500.4050, L500.4100, L100.0100 #### [facility] [address] [place], [address] BUN/CRE 18.8 RATIO Normal 10-20 [facility] Comment on above: Performed By: #### L 501.9985, L500.4050, L500.4100, L100.0100 #### [facility] [address] [place], [address] Calcium [Mass/Vol] 12.2 mg/dL High 7.6-11.0 [facility] Comment on above: Performed By: #### L 501.9985, L500.4050, L500.4100, L100.0100 #### [facility] [address] [place], [address] Chloride [Moles/Vol] 95 mmol/L Low 96-108 [facility] Comment on above: Performed By: #### L 501.9985, L500.4050, L500.4100, L100.0100 #### [facility] [address] [place], [address] CO2 [Moles/Vol] 24.8 mmol/L Normal 22.0-29.0 [facility] Comment on above: Performed By: #### L 501.9985, L500.4050, L500.4100, L100.0100 #### [facility] [address] [place], [address] Creatinine [Mass/Vol] 1.1 mg/dL High 0.6-1.0 [facility] Comment on above: Performed By: #### L 501.9985, L500.4050, L500.4100, L100.0100 #### [facility] [address] [place], [address] GFR/1.73 sq M.predicted among non-blacks MDRD (S/P/Bld) [Vol rate/Area] 51 mL/min/{1.73_m2} Low >60 [facility] Comment on above: Result Comment: mL/m in/1.73m2 CKD-EPI Creatinine Equation (2020) Performed By: #### L 501.9985, L500.4050, L500.4100, L100.0100 #### [facility] [address] [place], [address] Globulin (S) [Mass/Vol] 3.0 g/dL Normal 2.2-4.2 [facility] Comment on above: Performed By: #### L 501.9985, L500.4050, L500.4100, L100.0100 #### [facility] [address] [place], [address] Glucose [Mass/Vol] 293 mg/dL High 70-99 [facility] Comment on above: Performed By: #### L 501.9985, L500.4050, L500.4100, L100.0100 #### [facility] [address] [place], [address] Potassium [Moles/Vol] 4.1 mmol/L Normal 3.3-5.1 [facility] Comment on above: Performed By: #### L 501.9985, L500.4050, L500.4100, L100.0100 #### [facility] [address] [place], [address] Sodium [Moles/Vol] 137 mmol/L Normal 133-145 [facility] Comment on above: Performed By: #### L 501.9985, L500.4050, L500.4100, L100.0100 #### [facility] [address] [place], [address] T PROT 7.4 g/dL Normal 5.9-8.4 [facility] Comment on above: Performed By: #### L 501.9985, L500.4050, L500.4100, L100.0100 #### [facility] [address] [place], [address] Urea nitrogen [Mass/Vol] 21 mg/dL High 4-19 [facility] Comment on above: Performed By: #### L 501.9985, L500.4050, L500.4100, L100.0100 #### [facility] [address] [place], [address] Hemoglobin A1con 04-27-2024 HbA1c (Bld) [Mass fraction] 9.0 % Normal <=5.6 [facility] Comment on above: Performed By: #### L 501.9985, L500.4050, L500.4100, L100.0100 #### [facility] [address] [place], [address] Lipid Profileon 04-27-2024 CHOL:HDL 5.[address] [facility] Comment on above: Performed By: #### L 501.9985, L500.4050, L500.4100, L100.0100 #### [facility] [address] [place], [address] Cholesterol [Mass/Vol] 256 mg/dL High <=200 [facility] Comment on above: Result Comment: Chol esterol level, Desirable <200 mg/dL Borderline high cholesterol 200-239 mg/dL High cholesterol >=240 mg/dL Recommendations of the NCEP Adult Treatment Panel for the following risk-cutoff thresholds for the [place] population. Performed By: #### L 501.9985, L500.4050, L500.4100, L100.0100 #### [facility] [address] [place], [address] Cholesterol in HDL [Mass/Vol] 45 mg/dL Normal [facility] Comment on above: Result Comment: [place] onal Cholesterol Education Program (NCEP) guidelines: <40 mg/dL: Low HDL-cholesterol (major risk factor for CHD) >= 60 mg/dL: High HDL-cholesterol (negative risk factor for CHD) HDL-cholesterol is affected by a number of factors, e.g. smoking, exercise, hormones, sex and age. Performed By: #### L 501.9985, L500.4050, L500.4100, L100.0100 #### [facility] [address] [place], [address] Cholesterol in LDL [Mass/Vol] 77 mg/dL Normal [facility] Comment on above: Result Comment: Bord gydilr=517-847 mg/dL Higher Gaoc=245 mg/dL or greater Performed By: #### L 501.9985, L500.4050, L500.4100, L100.0100 #### [facility] [address] [place], [address] Cholesterol in VLDL [Mass/Vol] 134 mg/dL High 5-40 [facility] Comment on above: Performed By: #### L 501.9985, L500.4050, L500.4100, L100.0100 #### [facility] [address] [place], [address] Triglyceride [Mass/Vol] 672 mg/dL High [facility] Comment on above: Result Comment: The drugs N-Acetylcysteine and Metamizole may falsely depress this assay. Normal range: <150 mg/dL Borderline High: 150-199 mg/dL High: 200-499 mg/dL Very High: >500 mg/dL Performed By: #### L 501.9985, L500.4050, L500.4100, L100.0100 #### [facility] [address] [place], [address] Absolute lymphocyte countOrd ered By: Beulah Hawkins on 04-26-2024 Lymphocytes Auto (Unsp spec) [#/Vol] 2.49 10*3/uL 0.83-4.51 [facility] Absolute neutrophil countOrd ered By: Beulah Hawkins on 04-26-2024 Neutrophils (Bld) [#/Vol] 5.2 10*3/uL 2.0-7.7 [facility] Automated lymphocyte count a s percentage of total leukocytesOrdered By: Beulah Hawkins on 04-26-2024 Lymphocytes/100 WBC Auto (Unsp spec) 29.0 % - [facility] BUN/creatinine ratioOrdered By: Beulah Hawkins on 04-26-2024 Urea nitrogen/Creatinine [Mass ratio] 18.8 mg/mg 10- [facility] Basophil percentageOrdered B y: Beulah Hawkins on 04-26-2024 Basophils/100 WBC (Bld) 0.6 % 0-1 [facility] Bilirubin, totalOrdered By: Beulah Hawkins on 04-26-2024 Bilirubin [Mass/Vol] 0.38 mg/dL 0.00-1.30 [facility] CBC W/Diff, Automatedon 04-03 Absolute Lymph 2.49 X10 3/uL Normal 0.83-4.51 [facility] Comment on above: Performed By: #### L 501.9985, L500.4050, L500.4100, L100.0100 #### [facility] [address] [place], [address] Absolute Neut 5.2 X10 3/uL Normal 2.0-7.7 [facility] Comment on above: Performed By: #### L 501.9985, L500.4050, L500.4100, L100.0100 #### [facility] [address] [place], [address] Basophils/100 WBC (Bld) 0.6 % Normal 0-1 [facility] Comment on above: Performed By: #### L 501.9985, L500.4050, L500.4100, L100.0100 #### [facility] [address] [place], [address] Eosinophils/100 WBC (Bld) 2.0 % Normal 0-5 [facility] Comment on above: Performed By: #### L 501.9985, L500.4050, L500.4100, L100.0100 #### [facility] [address] [place], [address] Erythrocyte distribution width (RBC) [Ratio] 13.0 % Normal 11.6-14.6 [facility] Comment on above: Performed By: #### L 501.9985, L500.4050, L500.4100, L100.0100 #### [facility] [address] [place], [address] Hematocrit (Bld) [Volume fraction] 44.7 % Normal 37-47 [facility] Comment on above: Performed By: #### L 501.9985, L500.4050, L500.4100, L100.0100 #### [facility] [address] [place], [address] Hemoglobin (Bld) [Mass/Vol] 14.8 g/dL Normal 12.0-15.0 [facility] Comment on above: Performed By: #### L 501.9985, L500.4050, L500.4100, L100.0100 #### [facility] [address] [place], [address] IG% 0.200 Normal 0.0-0.9 [facility] Comment on above: Result Comment: IG% - Immature Granulocytes (promyelocytes, myelocytes and metamyelocytes) > 1% indicates that a LEFT SHIFT is Present. Performed By: #### L 501.9985, L500.4050, L500.4100, L100.0100 #### [facility] [address] [place], [address] Lymphocytes/100 WBC (Bld) 29.0 % Normal 19-41 [facility] Comment on above: Performed By: #### L 501.9985, L500.4050, L500.4100, L100.0100 #### [facility] [address] [place], [address] MCH (RBC) [Entitic mass] 30.8 pg Normal 27.0-32.0 [facility] Comment on above: Performed By: #### L 501.9985, L500.4050, L500.4100, L100.0100 #### [facility] [address] [place], [address] MCHC (RBC) [Mass/Vol] 33.1 g/dL Normal 32-36 [facility] Comment on above: Performed By: #### L 501.9985, L500.4050, L500.4100, L100.0100 #### [facility] [address] [place], [address] MCV (RBC) [Entitic vol] 92.9 fL Normal 81-99 [facility] Comment on above: Performed By: #### L 501.9985, L500.4050, L500.4100, L100.0100 #### [facility] [address] [place], [address] Monocytes/100 WBC (Bld) 7.9 % Normal 0-10 [facility] Comment on above: Performed By: #### L 501.9985, L500.4050, L500.4100, L100.0100 #### [facility] [address] [place], [address] Neutrophils/100 WBC (Bld) 60.3 % Normal 47-70 [facility] Comment on above: Performed By: #### L 501.9985, L500.4050, L500.4100, L100.0100 #### [facility] [address] [place], [address] Nucleated RBC (Bld) [#/Vol] 0 10*3/uL Normal 0-5 [facility] Comment on above: Performed By: #### L 501.9985, L500.4050, L500.4100, L100.0100 #### [facility] [address] [place], [address] Platelet mean volume (Bld) [Entitic vol] 11.0 fL Normal 6.2-12.0 [facility] Comment on above: Performed By: #### L 501.9985, L500.4050, L500.4100, L100.0100 #### [facility] [address] [place], [address] Platelets (Bld) [#/Vol] 273 10*3/uL Normal 150-450 [facility] Comment on above: Performed By: #### L 501.9985, L500.4050, L500.4100, L100.0100 #### [facility] [address] [place], [address] RBC (Bld) [#/Vol] 4.81 10*6/uL Normal 4.2-5.4 [facility] Comment on above: Performed By: #### L 501.9985, L500.4050, L500.4100, L100.0100 #### [facility] [address] [place], [address] RDW SD 44.5 fl High 35.1-43.9 [facility] Comment on above: Performed By: #### L 501.9985, L500.4050, L500.4100, L100.0100 #### [facility] [address] [place], [address] WBC (Bld) [#/Vol] 8.6 10*3/uL Normal 4.4-11.0 [facility] Comment on above: Performed By: #### L 501.9985, L500.4050, L500.4100, L100.0100 #### [facility] [address] [place], [address] Calculated very low density lipoprotein (VLDL) cholesterol measurementOrdered By: Beulah Hawkins on 04-26-2024 Calculated very low density lipoprotein (VLDL) cholesterol measurement 134 mg/dL High 5-40 [facility] VLDL Cholesterol 134 mg/dL High 5-40 [facility] Carbon dioxide measurementOr dered By: Beulah Hawkins on 04-26-2024 CO2 [Moles/Vol] 24.8 mmol/L 22.0-29.0 [facility] Chloride measurementOrdered By: Beulah Hawkins on 04-26-2024 Chloride [Moles/Vol] 95 mmol/L Low 96-108 [facility] Cholesterol/HDL ratioOrdered By: Beulah Hawkins on 04-26-2024 Cholesterol.total/Chol esterol in HDL [Mass ratio] 5.73 {ratio} [facility] Eosinophil percentageOrdered By: Beulah Hawkins on 04-26-2024 Eosinophils/100 WBC (Bld) 2.0 % 0-5 [facility] Erythrocyte distribution wid th ratioOrdered By: Beulah Hawkins on 04-26-2024 Erythrocyte distribution width (RBC) [Ratio] 13.0 % 11.6-14.6 [facility] Erythrocyte distribution wid th standard deviationOrdered By: Beulah Hawkins on 04-26-2024 Erythrocyte distribution width (RBC) [Entitic vol] 44.5 fL High 35.1-43.9 [facility] Erythrocyte distribution width (RBC) [Ratio] 44.5 fl High 35.1-43.9 [facility] GFR/1.73 sq M.predicted heather g non-blacks MDRD (S/P/Bld) [Vol rate/Area]Ordered By: Beulah Hawkins on 04-26-2024 Estimated GFR (MDRD) Non-Af Amer 51 Low >60 [facility] Comment on above: mL/min/1.73m2 CKD-EP I Creatinine Equation (2020) Glomerular filtration rate ( GFR) estimation/1.73 sq m using serum, plasma, or whole bOrdered By: Beulah Hawkins on 04-26-2024 GFR/1.73 sq M.predicted among non-blacks MDRD (S/P/Bld) [Vol rate/Area] 51 mL/min/{1.73_m2} Low >60 [facility] Comment on above: mL/min/1.73m2 CKD-EP I Creatinine Equation (2020) Hematocrit Auto (Bld) [Volum e fraction]Ordered By: Beulah Hawkins on 04-26-2024 Hematocrit (Bld) [Volume fraction] 44.7 % 37-47 [facility] Hemoglobin A1c percentageOrd ered By: Beulah Hawkins on 04-26-2024 HbA1c (Bld) [Mass fraction] 9.0 % >5.7 [facility] Hemoglobin measurementOrdere d By: Beulah Hawkins on 04-26-2024 Hemoglobin (Bld) [Mass/Vol] 14.8 g/dL 12.0-15.0 [facility] Immature granulocytes/100 WB C Auto (Bld)Ordered By: Beulah Hawkins on 04-26-2024 Immature granulocytes/100 WBC (Bld) 0.200 % 0.0-0.9 [facility] Comment on above: IG% - Immature Granu locytes (promyelocytes, myelocytes and metamyelocytes) > 1% indicates that a LEFT SHIFT is Present. LDL calc ser/plasOrdered By: Beulah Hawkins on 04-26-2024 Cholesterol in LDL [Mass/Vol] 77 mg/dL [facility] Comment on above: Twkntlxxxp=275-991 m g/dL & Higher Twbj=341 mg/dL or greater LDL Cholesterol, Calculated 77 mg/dL [facility] Comment on above: Nurgdpvljl=267-904 m g/dL & Higher Jcct=784 mg/dL or greater Laboratory - Chemistry and C hemistry - challengeOrdered By: Beulah Hawkins on 04-26-2024 AST [Catalytic activity/Vol] 28 U/L <32 [facility] Lymphocytes Auto (Unsp spec) [#/Vol]Ordered By: Beulah Hawkins on 04-26-2024 Lymphocytes (Bld) [#/Vol] 2.49 10*3/uL 0.83-4.51 [facility] Lymphocytes/100 WBC Auto (Un sp spec)Ordered By: Beulah Hawkins on 04-26-2024 Lymphocytes/100 WBC (Bld) 29.0 % 19-41 [facility] MCV (mean corpuscular volume ) determinationOrdered By: Beulah Hawkins on 04-26-2024 MCV (RBC) [Entitic vol] 92.9 fL 81-99 [facility] Mean corpuscular hemoglobin (MCH) determinationOrdered By: Beulah Hawkins on 04-26-2024 MCH (RBC) [Entitic mass] 30.8 pg 27.0-32.0 [facility] Mean corpuscular hemoglobin concentration (MCHC) determinationOrdered By: Beulah Hawkins on 04-26-2024 MCHC (RBC) [Mass/Vol] 33.1 g/dL 32-36 [facility] Mean platelet volume determi nationOrdered By: Beulah Hawkins on 04-26-2024 Platelet mean volume (Bld) [Entitic vol] 11.0 fL 6.2-12.0 [facility] Monocyte percentageOrdered B y: Beulah Hawkins on 04-26-2024 Monocytes/100 WBC (Bld) 7.9 % 0-10 [facility] Neutrophil percentageOrdered By: Beulah Hawkins on 04-26-2024 Neutrophils/100 WBC (Bld) 60.3 % 47-70 [facility] Nucleated red blood cell per centageOrdered By: Beulah Hawkins on 04-26-2024 Nucleated RBC/100 WBC (Bld) [Ratio] 0 % 0-5 [facility] Platelet countOrdered By: Do ra Hawkins on 04-26-2024 Platelets (Bld) [#/Vol] 273 10*3/uL 150-450 [facility] RBC Auto (Bld) [#/Vol]Ordere d By: Beulah Hawkins on 04-26-2024 RBC (Bld) [#/Vol] 4.81 10*6/uL 4.2-5.4 [facility] Serum creatinine measurement (mass/volume)Ordered By: Beulah Hawkins on 04-26-2024 Creatinine [Mass/Vol] 1.1 mg/dL High 0.70-1.20 [facility] Serum globulin measurementOr dered By: Beulah Hawkins on 04-26-2024 Globulin (S) [Mass/Vol] 3.0 g/dL 2.2-4.2 [facility] Serum glucose measurement (m ass/volume)Ordered By: Beulah Hawkins on 04-26-2024 Glucose [Mass/Vol] 293 mg/dL High 70-99 [facility] Serum or plasma alanine sanderson otransferase (ALT) measurementOrdered By: Beulah Hawkins on 04-26-2024 ALT [Catalytic activity/Vol] 27 U/L <35 [facility] Serum or plasma albumin olimpia urement (mass/volume)Ordered By: Beulah Hawkins on 04-26-2024 Albumin [Mass/Vol] 4.4 g/dL 3.4-4.8 [facility] Serum or plasma albumin/glob ulin mass ratioOrdered By: Beulah Hawkins on 04-26-2024 Albumin/Globulin [Mass ratio] 1.5 {ratio} 0.9-2.4 [facility] Serum or plasma alkaline whit sphatase measurementOrdered By: Beulah Hawkins on 04-26-2024 ALP [Catalytic activity/Vol] 70 U/L 35-104 [facility] Serum or plasma anion gap de termination (moles/volume)Ordered By: Beulah Hawkins on 04-26-2024 Anion gap [Moles/Vol] 17 mmol/L High 5-15 [facility] Serum or plasma calcium olimpia urement (mass/volume)Ordered By: Beulah Hawkins on 04-26-2024 Calcium [Mass/Vol] 12.2 mg/dL High 7.6-11.0 [facility] Serum or plasma cholesterol in HDL measurement (mass/volume)Ordered By: Beulah Hawkins on 04-26-2024 Cholesterol in HDL [Mass/Vol] 45 mg/dL >40 [facility] Comment on above: National Cholesterol Education Program (NCEP) guidelines:<40 mg/dL: Low HDL-cholesterol (major risk factor for CHD)>= 60 mg/dL: High HDL-cholesterol (negative risk factor for CHD)HDL-cholesterol is affected by a number of factors, e.g. smoking, exercise, hormones, sex and age. Serum or plasma cholesterol measurement (mass/volume)Ordered By: Beulah Hawkins on 04-26-2024 Cholesterol [Mass/Vol] 256 mg/dL High <201 [facility] Comment on above: Cholesterol level, D esirable <200 mg/dLBorderline high cholesterol 200-239 mg/dLHigh cholesterol >=240 mg/dLRecommendations of the NCEP Adult Treatment Panel for the following risk-cutoff thresholds for the [place] population. Serum or plasma potassium me asurementOrdered By: Beulah Hawkins on 04-26-2024 Potassium [Moles/Vol] 4.1 mmol/L 3.3-5.1 [facility] Serum or plasma sodium measu rement (moles/volume)Ordered By: Beulah Hawkins on 04-26-2024 Sodium [Moles/Vol] 137 mmol/L 133-145 [facility] Serum or plasma urea nitroge n measurement (mass/volume)Ordered By: Beulah Hawkins on 04-26-2024 Urea nitrogen [Mass/Vol] 21 mg/dL High 4-19 [facility] Total proteinOrdered By: Jorge Hawkins on 04-26-2024 Protein [Mass/Vol] 7.4 g/dL 5.9-8.4 [facility] Triglycerides measurementOrd ered By: Beulah Hawkins on 04-26-2024 Triglyceride [Mass/Vol] 672 mg/dL High <199 [facility] Comment on above: The drugs N-Acetylcy steine and Metamizole may falsely depress this assay. Normal range: <150 mg/dLBorderline High: 150-199 mg/dLHigh: 200-499 mg/dLVery High: >500 mg/dL White blood cell (WBC) count Ordered By: Beulah Hawkins on 04-26-2024 WBC (Bld) [#/Vol] 8.6 10*3/uL 4.4-11.0 [facility] Colonoscopy Reporton 025 Colonoscopy Report [facility] Medical Records Department [address] [place] [address] Colonoscopy Report MR#: [id number] Acct: [id number] Name: ELISEO CADENA Rep #: [id number] : 1950 74 From: Josué Huber DO PCP: NARDA Singh Status:REG [facility] Patient Name: Eliseo Cadena Procedure Date: 04/20/2024 [...] for surveillance. Procedure Code(s): --- Professional --- 71746, Colonoscopy, flexible; with biopsy, single or multiple CPT copyright 2021 [employer]. All rights reserved. The codes documented in this report are preliminary and upon inpatient coder review may be revised to meet current compliance requirements. Josué Huber DO 04/20/2024 9:43:55 AM This report has been signed electronically. Number of Addenda: 0 Note Initiated On: 04/20/2024 9:08 AM 04/20/24 0944 Date Josué Pearce Signature: Date (if indicated) CC: NARDA Hawkins; Josué Huber, Date (more content not included)... [facility] MR/POSTOP.ANEon 04-20-2024 MR/POSTOP.ANE [facility] Medical Records Department [address] [place] [address] Anesthesia Postop Eval I 04/20/24 0947 MR#: [id number] Acct: [id number] Name: ELISEO CADENA Rep #: [id number] : 1950 74 From: Osman Jeronimo PCP: NARDA Singh Status:REG [facility] Y Race: C Location: [place] [address] Anesthesia: Postop Eval I Current Vital Signs [...] Anesthesia document: Postop Eval 1 completed: Yes 04/20/24947 Date Osman Hickey Signature: Date CC: Signed [facility] MR/[id number] 04-20-2024 MR/POSTOPAN2 [facility] Medical Records Department [address] [place] [address] Anesthesia Postop Eval II 04/20/24 1141 MR#: [id number] Acct: [id number] Name: ELISEO CADENA Rep #: [id number] : 1950 74 From: Briana Bradford PCP: Beulah Hawkins NP-C Status:DEP SDC Y Race: C Location: [place] Anesthesia Postop [...] Briana Hickey Signature: Date CC: Signed Normal [facility] Surgery Specimen Level Luzma 04-20-2024 Surgery Specimen Level IV -------- Patient Age/Sex Location Account Attending Physician -------- SURINDERELISEO TOM 74/F EN [id number] Josué Huber DO -------- Specimen: [id number] Received: 04/20/24 Status: ONEYDA Ambriz Num: [id number] Spec Type: COLON BX Subm Dr: Josué Huber DO HEADER OPERATION: Colonoscopy with biopsy PRE-OP DIAGNOSIS: Screening for malignant neoplasm of colon TISSUE SUBMITTED: A- Sigmoid polyp biopsy, B- Ascending polyp biopsy -------- MICROSCOPIC DIAGNOSIS A. Sigmoid colon polyp, biopsy: Tubular adenoma. B. Ascending colon polyp, biopsy: Tubular adenoma. SJ.mr 04/21/2024 MICROSCOPIC DESCRIPTION Slides are reviewed. GROSS [...] specimen is totally submitted in one cassette. 04/20/2024 TC:1 CPT:29682u4 -------- Patient Age/Sex Location Account Attending Physician -------- ELISEO CADENA 74/F EN [id number] Josué Huber DO -------- Signed (signature on file) Dr. Jairo Salcido MD 04/21/24 [address] -------- [address] [facility] Comment on above: Performed By: #### P SUIV #### [facility] [address] [place], [place], [id number] MR/PAT.Molly 04-18-2024 MR/PAT.DEJA [facility] Medical Records Department [address] [place] [address] PAT - Anesthesia 04/18/24 1115 MR#: [id number] Acct: [id number] Name: ELISEO CADENA Rep #: [id number] : 1950 74 From: Viral Melara MD PCP: AUSTIN SinghC Status:PRE [facility] Y Race: C Location: EN Pre-Assessment Diagnosis/Proposed Procedure Planned Operative Procedure(s): colonoscopy Anesthesia History Anesthesia History - colorman: Anesthesia History - colorman Hx Hospitalization No 04/18/24 10:13 Any Problems [...] take am of surgery PONV PONV - colorman: PONV - colorman Female Yes 04/18/24 10:13 HX of Motion [...] 04/24/23 16:41 Respiratory Assessment Respiratory Assessment - colorman: Respiratory Tract Infection Hx - colorman Hx Respiratory Tract Infection No 04/18/24 10:13 STOP Sleep Apnea STOP Sleep Apnea - colorman: STOP Sleep Apnea - colorman Hx Hypertension Yes: states controlled with 04/18/24 [...] Tobacco Use History Tobacco Use History - colorman: Tobacco Use History - colorman Tobacco Use Smoking Status Never smoker 04/18/24 10:13 Hx Tobacco Use No 04/18/24 10:13 Years Smoking Packs Smoked per Day Smoking Cessation Date was within the last 15 years Hx Smoking Cessation Date Hx Smoking Cessation Counseling Hematologic Medial History Hematologic Hx - colorman: 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 Normal [facility] Gastroenterology Visit Repor ton 01-27-2024 Gastroenterology Visit Report [facility] Gastroenterology [address] [place] [address] OFFICE VISIT Date of Service: 01/27/24 MR#: [id number] Acct: [id number] Name: ELISEO CADENA Rep #: [id number] : 1950 Provider: LORETTA Torrez Age/Sex: 73/F Location: [facility] Status: Signed Intake Vital Signs 04/24/23 16:41 [...] 60 mg PO QHS depression #90 caps 02/24/24 11/27/24 Rx release glimepiride 4 mg tablet 4 [...] to the office today for establishment with [facility]. Pt is due for screening colonoscopy is [...] pain , n/v or chronic heartburn. EGD 04.15.19 - Preparation of the colon [...] or willy (more content not included)... Normal [facility] Absolute lymphocyte countOrd ered By: Beulah Hawkins on 04-24-2023 Lymphocytes Auto (Unsp spec) [#/Vol] 2.09 10*3/uL 0.83-4.51 [facility] Automated lymphocyte count a s percentage of total leukocytesOrdered By: Beulah Hawkins on 04-24-2023 Lymphocytes/100 WBC Auto (Unsp spec) 30.0 % 19-41 [facility] Basophil percentageOrdered B y: Beulah Hawkins on 04-24-2023 Basophils/100 WBC (Bld) 0.3 % 0-1 [facility] Bilirubin [Mass/Vol] 0.50 mg/dL 0.20-1.00 [facility] Comment on above: For patients on eltr ombopag therapy, use of Dimension Mcgrew TBIL is not recommended. Chloride [Moles/Vol] 98 mmol/L 98-107 [facility] Eosinophils/100 WBC (Bld) 1.6 % 0-5 [facility] Glucose [Mass/Vol] 234 mg/dL 74-106 [facility] Comment on above: Glucose result great er than or equal to 200 mg/dLsuggests DIABETES MELLITUS per A.D.A. criteria. Hemoglobin (Bld) [Mass/Vol] 14.3 g/dL 12.0-15.0 [facility] Monocytes/100 WBC (Bld) 6.6 % 0-10 [facility] Neutrophils (Bld) [#/Vol] 4.3 10*3/uL 2.0-7.7 [facility] Neutrophils/100 WBC (Bld) 61.4 % 47-70 [facility] Potassium [Moles/Vol] 3.9 mmol/L 3.5-5.1 [facility] Protein [Mass/Vol] 7.6 g/dL 6.4-8.2 [facility] Sodium [Moles/Vol] 137 mmol/L 136-145 [facility] WBC (Bld) [#/Vol] 7.0 10*3/uL 4.4-11.0 [facility] Determination of erythrocyte mean corpuscular volume (MCV)Ordered By: Beulah Hawkins on 04-24-2023 MCV (RBC) [Entitic vol] 96.4 fL 81-99 [facility] Erythrocyte distribution wid th ratioOrdered By: Beulah Hawkins on 04-24-2023 Erythrocyte distribution width (RBC) [Ratio] 13.2 % 11.6-14.6 [facility] Erythrocyte distribution wid th standard deviationOrdered By: Beulah Hawkins on 04-24-2023 Erythrocyte distribution width (RBC) [Entitic vol] 46.5 fL 35.1-43.9 [facility] Hematocrit Auto (Bld) [Volum e fraction]Ordered By: Beulah Hawkins on 04-24-2023 Hematocrit (Bld) [Volume fraction] 44.9 % 37-47 [facility] Immature granulocytes/100 WB C Auto (Bld)Ordered By: Beulah Hawkins on 04-24-2023 Immature granulocytes/100 WBC (Bld) 0.100 % 0.0-0.9 [facility] Comment on above: IG% - Immature Granu locytes (promyelocytes, myelocytes and metamyelocytes) > 1% indicates that a LEFT SHIFT is Present. Laboratory - Chemistry and C hemistry - challengeOrdered By: Beulah Hawkins on 04-24-2023 Albumin/Globulin [Mass ratio] 1.2 {ratio} 0.9-2.4 [facility] ALP [Catalytic activity/Vol] 57 U/L 45-117 [facility] ALT [Catalytic activity/Vol] 42 U/L 13-56 [facility] CO2 [Moles/Vol] 32.0 mmol/L 21.0-32.0 [facility] Globulin (S) [Mass/Vol] 3.5 g/dL 2.2-4.2 [facility] Urea nitrogen/Creatinine [Mass ratio] 18.4 mg/mg 10-20 [facility] - Hematology and Cell countsOrdered By: Beulah Hawkins on 04-24-2023 MCH (RBC) [Entitic mass] 30.7 pg 27.0-32.0 [facility] MCHC (RBC) [Mass/Vol] 31.8 g/dL 32-36 [facility] Nucleated RBC/100 WBC (Bld) [Ratio] 0 % 0-5 [facility] Platelet mean volume (Bld) [Entitic vol] 10.7 fL 6.2-12.0 [facility] Platelets (Bld) [#/Vol] 286 10*3/uL 150-450 [facility] No Panel InformationOrdered By: Beulah Hawkins on 04-24-2023 C-Reactive Protein High Sensitivity 1.00 mg/L <3.00 [facility] Comment on above: Low Relative Risk of CVD <1.0 mg/L Average Relative Risk of CVD 1.0 - 3.0 mg/L High Relative Risk of CVD >3.0 mg/L Estimated GFR (MDRD) Amer 60 mL/min >60 [facility] Comment on above: GFR Calc Estimated GFR (MDRD) Non-Af Amer 50 mL/min >60 [facility] Comment on above: Non- GFR Calc Troponin I High Sensitivity 5 pg/mL 3.0-54.0 [facility] Comment on above: Please Note: New Beckie t Units and Gender Specific Reference Ranges. For more information see Policy Stat Procedure Mcgrew High Sensitivity Troponin (TNIH) and attachments. RBC Auto (Bld) [#/Vol]Ordere d By: Beulah Hawkins on 04-24-2023 RBC (Bld) [#/Vol] 4.66 10*6/uL 4.2-5.4 [facility] Serum or plasma calcium olimpia urement (mass/volume)Ordered By: Beulah Hawkins on 04-24-2023 Calcium [Mass/Vol] 10.2 mg/dL 8.5-10.1 [facility] Serum or plasma creatinine m easurement (mass/volume)Ordered By: Beulah Hawkins on 04-24-2023 Creatinine [Mass/Vol] 1.14 mg/dL 0.55-1.02 [facility] Comment on above: The validity of the calculated GFR & GFRAA in patients over 70 years has not been determined. Clinical correlation is essential. Serum or plasma thyroid stim ulating hormone (TSH) measurement (units/volume)Ordered By: Beulah Hawkins on 04-24-2023 TSH Qn 0.84 uIU/mL 0.358-3.74 [facility] Serum or plasma urea nitroge n measurement (mass/volume)Ordered By: Beulah Hawkins on 04-24-2023 Urea nitrogen [Mass/Vol] 21 mg/dL 7-18 [facility] Thin prep Papanicolaou smear with manual screeningOrdered By: Beulah Hawkins on 04-24-2023 Thin prep Papanicolaou smear with manual screening 4.1 g/dL 3.2-5.0 [facility] Thin prep Papanicolaou smear with manual screening 43 U/L 15-37 [facility] Thin prep Papanicolaou smear with manual screening 7 5-15 [facility] Whole blood hemoglobin A1c/t otal hemoglobin ratio (mass fraction)Ordered By: Beulah Hawkins on 04-24-2023 HbA1c (Bld) [Mass fraction] 8.4 % 3.8-5.6 [facility] Comment on above: Normal < 5.7 % Predi abetic 5.7 - 6.4 % Diabetic >or= 6.5 % Please note range changes. Laboratory - Hematology and Cell countson 12-30-2022 HbA1c (Bld) [Mass fraction] 8.2 % 4.2-6.3 [facility] - Hematology and Cell countson 08-08-2022 HbA1c (Bld) [Mass fraction] 7.8 % 4.2-6.3 [facility] CNOVon 05-21-2022 CNOV Office Visit (GENSWS ) ELISEO CADENA ([id number]) 1950 F Date Time Provider Department 05/21/22 [...] Garcia MD 05/22/2022 8:33 AM Signed Eliseo Surinder 1950 REFERRING PHYSICIAN: No ref. provider found [...] weight loss. [facility]2022 to determine etiology of pain - diverticulosis noted, otherwise no other findings for etiology of above. PAST MEDICAL HISTORY Diagnosis Date Abdominal pain, unspecified site Arthritis Diverticulosis Diverticulosis of colon (without mention of hemorrhage) DM type 2 (diabetes mellitus, type 2) (HCC) controlled HTN (hypertension) Mixed hyperlipidemia PAST SURGICAL HISTORY Procedure Laterality Date ARTHRP KNE CONDYLEANDPLATU MEDIALANDLAT COMPARTMENTS left and right, [facility] CARPAL TUNNEL Bilateral 1995 release of [...] once daily. (more content not included)... Normal [facility] Absolute lymphocyte countOrd ered By: Beulah Hawkins on 04-22-2022 Lymphocytes Auto (Unsp spec) [#/Vol] 1.89 10*3/uL 0.83-4.51 [facility] Basophil percentageOrdered B y: Beulah Hawkins on 04-22-2022 Basophils/100 WBC (Bld) 0.4 % 0-1 [facility] Bilirubin [Mass/Vol] 0.30 mg/dL 0.20-1.00 [facility] Comment on above: For patients on eltr ombopag therapy, use of Dimension Mcgrew TBIL is not recommended. Chloride [Moles/Vol] 101 mmol/L 98-107 [facility] Cholesterol [Mass/Vol] 214 mg/dL <200 [facility] Comment on above: <200 mg/dL Desirable 200-240 mg/dL Borderline >240 mg/dL High Risk Eosinophils/100 WBC (Bld) 2.3 % 0-5 [facility] Glucose [Mass/Vol] 105 mg/dL 74-106 [facility] Comment on above: Fasting Glucose resu lt from 100 to 125 mg/dL suggests IMPAIRED HOMEOSTASIS per A.D.A. criteria. Neutrophils (Bld) [#/Vol] 4.2 10*3/uL 2.0-7.7 [facility] Neutrophils/100 WBC (Bld) 62.0 % 47-70 [facility] Potassium [Moles/Vol] 3.7 mmol/L 3.5-5.1 [facility] Protein [Mass/Vol] 7.1 g/dL 6.4-8.2 [facility] Sodium [Moles/Vol] 140 mmol/L 136-145 [facility] Triglyceride [Mass/Vol] 351 mg/dL <199 [facility] Comment on above: The drugs N-Acetylcy steine and Metamizole may falsely depress this assay.Serum Triglycerides Reference Interval Normal <150 mg/dL Borderline high 150 - 199 mg/dL High 200 - 499 mg/dL Very High > or = 500 mg/dL WBC (Bld) [#/Vol] 6.8 10*3/uL 4.4-11.0 [facility] Blood erythrocytes count (nu mber/volume)Ordered By: Beulah Hawkins on 04-22-2022 RBC (Bld) [#/Vol] 4.57 10*6/uL 4.2-5.4 [facility] Blood hemoglobin measurement (mass/volume)Ordered By: Beulah Hawkins on 04-22-2022 Hemoglobin (Bld) [Mass/Vol] 13.7 g/dL 12.0-15.0 [facility] Blood lymphocytes/100 leukoc ytesOrdered By: Beulah Hawkins on 04-22-2022 Lymphocytes/100 WBC (Bld) 27.7 % 19-41 [facility] Blood monocytes/100 leukocyt esOrdered By: Beulah Hawkins on 04-22-2022 Monocytes/100 WBC (Bld) 7.5 % 0-10 [facility] Blood platelet mean volumeOr dered By: Beulah Hawkins on 04-22-2022 Platelet mean volume (Bld) [Entitic vol] 10.9 fL 6.2-12.0 [facility] Determination of erythrocyte mean corpuscular volume (MCV)Ordered By: Beulah Hawkins on 04-22-2022 MCV (RBC) [Entitic vol] 92.8 fL 81-99 [facility] Hematocrit Auto (Bld) [Volum e fraction]Ordered By: Beulah Hawkins on 04-22-2022 Hematocrit (Bld) [Volume fraction] 42.4 % 37-47 [facility] - Chemistry and C hemistry - challengeOrdered By: Beulah Hawkins on 04-22-2022 ALP [Catalytic activity/Vol] 69 U/L 45-117 [facility] ALT [Catalytic activity/Vol] 29 U/L 13-56 [facility] CO2 [Moles/Vol] 30.0 mmol/L 21.0-32.0 [facility] Globulin (S) [Mass/Vol] 3.5 g/dL 2.2-4.2 [facility] Urea nitrogen/Creatinine [Mass ratio] 23.1 mg/mg 10-20 [facility] - Hematology and Cell countson 04-22-2022 HbA1c (Bld) [Mass fraction] 8.3 % 4.2-6.3 [facility] - Hematology and Cell countsOrdered By: Beulah Hawkins on 04-22-2022 Erythrocyte distribution width (RBC) [Entitic vol] 45.9 fL 35.1-43.9 [facility] Erythrocyte distribution width (RBC) [Ratio] 13.5 % 11.6-14.6 [facility] Immature granulocytes/100 WBC (Bld) 0.100 % 0.0-0.9 [facility] Comment on above: IG% - Immature Granu locytes (promyelocytes, myelocytes and metamyelocytes) > 1% indicates that a LEFT SHIFT is Present. MCH (RBC) [Entitic mass] 30.0 pg 27.0-32.0 [facility] Nucleated RBC/100 WBC (Bld) [Ratio] 0 % 0-5 [facility] MCHC Auto (RBC) [Mass/Vol]Or dered By: Beulah Hawkins on 04-22-2022 MCHC (RBC) [Mass/Vol] 32.3 g/dL 32-36 [facility] No Panel InformationOrdered By: Beulah Hawkins on 04-22-2022 Anti-Gliadin IgA Antibody 3 units 0-19 [facility] Comment on above: Negative 0 - 19 Weak Positive 20 - 30 Moderate to Strong Positive >30 Anti-Gliadin IgG Antibody 2 units 0-19 [facility] Comment on above: Negative 0 - 19 Weak Positive 20 - 30 Moderate to Strong Positive >30 Endomysial IgA Antibody Negative Negative [facility] Estimated GFR (MDRD) Amer 71 mL/min >60 [facility] Comment on above: GFR Calc Estimated GFR (MDRD) Non-Af Amer 58 mL/min >60 [facility] Comment on above: Non- GFR Calc Thyroid Stimulating Hormone (TSH) 0.57 uIU/mL 0.358-3.74 [facility] Tissue Transglutaminase IgG Ab <2 U/mL 0-5 [facility] Comment on above: Negative 0 - 5 Weak Positive 6 - 9 Positive >9 Platelets bldOrdered By: Jorge Hawkins on 04-22-2022 Platelets (Bld) [#/Vol] 258 10*3/uL 150-450 [facility] Serum IgA measurement (units /volume)Ordered By: Beulah Hawkins on 04-22-2022 IgA Qn (S) 70 mg/dL 64-422 [facility] Comment on above: Performed at: [place] [id number] Director: Calvin Levi PhD, Phone: [phone] Serum or plasma albumin olimpia urement (mass/volume)Ordered By: Beulah Hawkins on 04-22-2022 Albumin [Mass/Vol] 3.6 g/dL 3.2-5.0 [facility] Serum or plasma albumin/glob ulin mass ratioOrdered By: Beulah Hawkins on 04-22-2022 Albumin/Globulin [Mass ratio] 1.0 {ratio} 0.9-2.4 [facility] Serum or plasma calcium olimpia urement (mass/volume)Ordered By: Beulah Hawkins on 04-22-2022 Calcium [Mass/Vol] 9.9 mg/dL 8.5-10.1 [facility] Serum or plasma cholesterol in HDL measurement (mass/volume)Ordered By: Beulah Hawkins on 04-22-2022 Cholesterol in HDL [Mass/Vol] 44 mg/dL >40 [facility] Comment on above: The drugs N-Acetylcy steine and Metamizole may falsely depress this assay. Reference Range HDL <40 mg/dL Low HDL Cholesterol HDL >or= 60 mg/dL High HDL Cholesterol Serum or plasma cholesterol in VLDL measurement (mass/volume)Ordered By: Beulah Hawkins on 04-22-2022 Cholesterol in VLDL [Mass/Vol] 70 mg/dL 5-40 [facility] Serum or plasma creatinine m easurement (mass/volume)Ordered By: Beulah Hawkins on 04-22-2022 Creatinine [Mass/Vol] 1.00 mg/dL 0.55-1.02 [facility] Comment on above: The validity of the calculated GFR & GFRAA in patients over 70 years has not been determined. Clinical correlation is essential. Serum or plasma low density lipoprotein (LDL) cholesterol measurement (mass/volume)Ordered By: Beulah Hawkins on 04-22-2022 Cholesterol in LDL [Mass/Vol] 100 mg/dL 0-130 [facility] Serum or plasma urea nitroge n measurement (mass/volume)Ordered By: Beulah Hawkins on 04-22-2022 Urea nitrogen [Mass/Vol] 23 mg/dL 7-18 [facility] Serum tissue transglutaminas e IgA antibody assay (units/volume)Ordered By: Beulah Hawkins on 04-22-2022 tTG IgA Qn (S) <2 U/mL 0-3 [facility] Comment on above: Negative 0 - 3 Weak Positive 4 - 10 Positive >10 Tissue Transglutaminase (tTG) has been identified as the endomysial antigen. Studies have demonstr- ated that endomysial IgA antibodies have over 99% specificity for gluten sensitive enteropathy. Thin prep Papanicolaou smear with manual screeningOrdered By: Beulah Hawkins on 04-22-2022 Thin prep Papanicolaou smear with manual screening 24 U/L 15-37 [facility] Thin prep Papanicolaou smear with manual screening 9 5-15 [facility] Basophil percentageon 2021 Bilirubin [Mass/Vol] 0.30 mg/dL 0.20-1.00 [facility] Work Phone: Comment on above: For patients on eltr ombopag therapy, use of Dimension Mcgrew TBIL is not recommended. Chloride [Moles/Vol] 100 mmol/L 98-107 [facility] Work Phone: Glucose [Mass/Vol] 68 mg/dL 74-106 [facility] Work Phone: Potassium [Moles/Vol] 4.1 mmol/L 3.5-5.1 [facility] Work Phone: [phone] Protein [Mass/Vol] 7.2 g/dL 6.4-8.2 [facility] Work Phone: [phone] Sodium [Moles/Vol] 136 mmol/L 136-145 [facility] Work Phone: Laboratory - Chemistry and C hemistry - challengeon 07-08-2021 ALP [Catalytic activity/Vol] 59 U/L 45-117 [facility] Work Phone: ALT [Catalytic activity/Vol] 25 U/L 13-56 [facility] Work Phone: CO2 [Moles/Vol] 30.0 mmol/L 21.0-32.0 [facility] Work Phone: Globulin (S) [Mass/Vol] 3.6 g/dL 2.2-4.2 [facility] Work Phone: Urea nitrogen/Creatinine [Mass ratio] 21.4 mg/mg 10-20 [facility] Work Phone: No Panel Informationon 07-08 Estimated GFR (MDRD) Amer 86 mL/min >60 [facility] Work Phone: Comment on above: GFR Calc Estimated GFR (MDRD) Non-Af Amer 71 mL/min >60 [facility] Work Phone: Comment on above: Non- GFR Calc Thyroid Stimulating Hormone (TSH) 0.97 uIU/mL 0.358-3.74 [facility] Work Phone: Serum or plasma albumin olimpia urement (mass/volume)on 07-08-2021 Albumin [Mass/Vol] 3.6 g/dL 3.2-5.0 [facility] Work Phone: Serum or plasma albumin/glob ulin mass ratioon 07-08-2021 Albumin/Globulin [Mass ratio] 1.0 {ratio} 0.9-2.4 [facility] Work Phone: Serum or plasma calcium olimpia urement (mass/volume)on 07-08-2021 Calcium [Mass/Vol] 9.6 mg/dL 8.5-10.1 [facility] Work Phone: Serum or plasma creatinine m easurement (mass/volume)on 07-08-2021 Creatinine [Mass/Vol] 0.84 mg/dL 0.55-1.02 [facility] Work Phone: Comment on above: The validity of the calculated GFR & GFRAA in patients over 70 years has not been determined. Clinical correlation is essential. Serum or plasma urea nitroge n measurement (mass/volume)on 07-08-2021 Urea nitrogen [Mass/Vol] 18 mg/dL 7-18 [facility] Work Phone: Thin prep Papanicolaou smear with manual screeningon 07-08-2021 Thin prep Papanicolaou smear with manual screening 15 U/L 15-37 [facility] Work Phone: Thin prep Papanicolaou smear with manual screening 6 5-15 [facility] Work Phone: Vital Signs Date Time Vital Sign Value Performing Clinician Facility 09-21-2024 15:49-0400 Body height 162.56 cm 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 09-21-2024 15:49-0400 Body mass index (BMI) [Ratio] 35.3 kg/m2 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 09-21-2024 15:49-0400 Body temperature 97.5 [degF] 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 09-21-2024 15:49-0400 Body weight 93.44 kg 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 09-21-2024 15:49-0400 Diastolic blood pressure 80 mm[Hg] Beulha Hawkins 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 09-21-2024 15:49-0400 Heart rate 88 /min Beulahwin Hawkins 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 09-21-2024 15:49-0400 Respiratory rate 18 /min Beulahwin Hawkins 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 09-21-2024 15:49-0400 SaO2% (BldA) [Mass fraction] 96 % 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 09-21-2024 15:49-0400 Systolic blood pressure 120 mm[Hg] Beulahwin Hawkins 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 04-20-2024 09:55-0500 Body temperature 97.8 [degF] Beulahwin Hawkins 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 04-20-2024 09:55-0500 Diastolic blood pressure 56 mm[Hg] 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 04-20-2024 09:55-0500 Heart rate 62 /min Beulahwin Hawkins 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 04-20-2024 09:55-0500 Respiratory rate 16 /min Beulahwin Hawkins 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 04-20-2024 09:55-0500 SaO2% (BldA) [Mass fraction] 95 % 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 04-20-2024 09:55-0500 Systolic blood pressure 100 mm[Hg] 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 04-20-2024 08:14-0500 Body mass index (BMI) [Ratio] 35.9 kg/m2 Beulah Caroson 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 04-20-2024 08:14-0500 Body weight 95 kg Beulah Caroson 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 04-24-2023 16:41-0500 Body height 165.1 cm [facility] 04-24-2023 16:41-0500 Body mass index (BMI) [Ratio] 35.2 kg/m2 [facility] 04-24-2023 16:41-0500 Body weight 96.16 kg [facility] 12-30-2022 08:48-0400 Body mass index (BMI) [Ratio] 34.7 kg/m2 [facility] 12-30-2022 08:48-0400 Body temperature 97.9 [degF] [facility] 12-30-2022 08:48-0400 Body weight 94.8 kg [facility] 12-30-2022 08:48-0400 Diastolic blood pressure 70 mm[Hg] [facility] 12-30-2022 08:48-0400 Heart rate 84 /min [facility] 12-30-2022 08:48-0400 Respiratory rate 18 /min [facility] 12-30-2022 08:48-0400 SaO2% (BldA) [Mass fraction] 97 % [facility] 12-30-2022 08:48-0400 Systolic blood pressure 108 mm[Hg] [facility] 08-08-2022 16:04-0400 Body height 165.1 cm [facility] 08-08-2022 16:04-0400 Body mass index (BMI) [Ratio] 35.2 kg/m2 [facility] 08-08-2022 16:04-0400 Body temperature 97.2 [degF] [facility] 08-08-2022 16:04-0400 Body weight 96.16 kg [facility] 08-08-2022 16:04-0400 Diastolic blood pressure 70 mm[Hg] [facility] 08-08-2022 16:04-0400 Heart rate 93 /min [facility] 08-08-2022 16:04-0400 Respiratory rate 18 /min [facility] 08-08-2022 16:04-0400 SaO2% (BldA) [Mass fraction] 99 % [facility] 08-08-2022 16:04-0400 Systolic blood pressure 128 mm[Hg] [facility] 05-21-2022 15:17-0400 Body height 162.6 cm Shakira Melton MD Work Phone: [facility] 05-21-2022 15:17-0400 Body temperature 97.59 [degF] Shakira Melton MD Work Phone: [facility] 05-21-2022 15:17-0400 Body weight 101.24 kg Shakira Melton MD Work Phone: [facility] 05-21-2022 15:17-0400 Diastolic blood pressure 82 mm[Hg] Shakira Melton MD Work Phone: [facility] [facility] 05-21-2022 15:17-0400 Heart rate 95 /min Shakira Melton MD Work Phone: [facility] 05-21-2022 15:17-0400 SaO2% (BldA) [Mass fraction] 95 % Shakira Melton MD Work Phone: [facility] 05-21-2022 15:17-0400 Systolic blood pressure 126 mm[Hg] Shakira Melton MD Work Phone: [facility] 04-22-2022 17:22-0500 Body height 165.1 cm [facility] 04-22-2022 17:22-0500 Body mass index (BMI) [Ratio] 37.3 kg/m2 [facility] 04-22-2022 17:22-0500 Body temperature 97.7 [degF] [facility] 04-22-2022 17:22-0500 Body weight 101.6 kg [facility] 04-22-2022 17:22-0500 Diastolic blood pressure 70 mm[Hg] [facility] 04-22-2022 17:22-0500 Heart rate 88 /min [facility] 04-22-2022 17:22-0500 Respiratory rate 18 /min [facility] 04-22-2022 17:22-0500 SaO2% (BldA) [Mass fraction] 94 % [facility] 04-22-2022 17:22-0500 Systolic blood pressure 130 mm[Hg] [facility] 09-15-2021 08:39-0400 Body height 165.1 cm [facility] Work Phone: 09-15-2021 08:39-0400 Body mass index (BMI) [Ratio] 41.1 kg/m2 [facility] Work Phone: 09-15-2021 08:39-0400 Body temperature 97.6 [degF] [facility] Work Phone: 09-15-2021 08:39-0400 Body weight 112.03 kg [facility] Work Phone: 09-15-2021 08:39-0400 Diastolic blood pressure 71 mm[Hg] [facility] Work Phone: 09-15-2021 08:39-0400 Heart rate 78 /min [facility] Work Phone: 09-15-2021 08:39-0400 Respiratory rate 14 /min [facility] Work Phone: 09-15-2021 08:39-0400 SaO2% (BldA) [Mass fraction] 98 % [facility] Work Phone: 09-15-2021 08:39-0400 Systolic blood pressure 136 mm[Hg] [facility] Work Phone: 07-08-2021 17:13-0400 Body mass index (BMI) [Ratio] 44.4 kg/m2 [facility] Work Phone: 07-08-2021 17:13-0400 Body temperature 97.5 [degF] [facility] Work Phone: 07-08-2021 17:13-0400 Body weight 121.1 kg [facility] Work Phone: 07-08-2021 17:13-0400 Diastolic blood pressure 80 mm[Hg] [facility] Work Phone: 07-08-2021 17:13-0400 Heart rate 91 /min [facility] Work Phone: 07-08-2021 17:13-0400 Respiratory rate 18 /min [facility] Work Phone: 07-08-2021 17:13-0400 SaO2% (BldA) [Mass fraction] 90 % [facility] Work Phone: 07-08-2021 17:13-0400 Systolic blood pressure 148 mm[Hg] [facility] Work Phone: 07-08-2021 17:13-0400 Body height 165.1 cm [facility] Work Phone: 07-08-2021 17:13-0400 Body mass index (BMI) [Ratio] 44.4 kg/m2 [facility] Work Phone: 07-08-2021 17:13-0400 Body temperature 97.5 [degF] [facility] Work Phone: 07-08-2021 17:13-0400 Body weight 121.1 kg [facility] Work Phone: 07-08-2021 17:13-0400 Diastolic blood pressure 80 mm[Hg] [facility] Work Phone: 07-08-2021 17:13-0400 Heart rate 91 /min [facility] Work Phone: 07-08-2021 17:13-0400 Respiratory rate 18 /min [facility] Work Phone: 07-08-2021 17:13-0400 SaO2% (BldA) [Mass fraction] 90 % [facility] Work Phone: 07-08-2021 17:13-0400 Systolic blood pressure 148 mm[Hg] [facility] Work Phone: 04-16-2021 12:36-0500 Body mass index (BMI) [Ratio] 43.2 kg/m2 [facility] Work Phone: 04-16-2021 12:36-0500 Body temperature 97.3 [degF] [facility] Work Phone: 04-16-2021 12:36-0500 Body weight 117.93 kg [facility] Work Phone: 04-16-2021 12:36-0500 Diastolic blood pressure 60 mm[Hg] [facility] Work Phone: 04-16-2021 12:36-0500 Heart rate 70 /min [facility] Work Phone: 04-16-2021 12:36-0500 Respiratory rate 18 /min [facility] Work Phone: 04-16-2021 12:36-0500 SaO2% (BldA) [Mass fraction] 95 % [facility] Work Phone: 04-16-2021 12:36-0500 Systolic blood pressure 110 mm[Hg] [facility] Work Phone: Encounters Encounter Date Encounter Type Care Provider Facility Start: 10-03-2024 ambulatory Beulah Hawkins WOODWORKING CRAFTSMAN Faci lity:[facility] Start: 09-21-2024 End: 09-21-2024 ambulatory Beulah Hawkins [employer]WORKING [employer]RA[employer]SM[employer]-C Work Phone: -Laboratory Specimen Start: 09-21-2024 End: 09-21-2024 Patient encounter procedure Beulah Hawkins [employer]ODWORKING CRAFTSM[employer]-C -Laboratory Specimen Work Phone: Start: 09-21-2024 End: 09-21-2024 ambulatory Beulah Hawkins WOODWORKING CRAFTSMAN Facility:[facility] Start: 08-10-2024 End: 08-10-2024 ambulatory 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 Work Phone: Start: 08-10-2024 End: 08-10-2024 Patient encounter procedure Brigette Vidal PA -Cat Scan [facility] Work Phone: Start: 08-10-2024 End: 08-10-2024 ambulatory Brigette Vidal Facility:[facility] Start: 05-25-2024 End: 05-25-2024 ambulatory 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 Work Phone: Start: 05-25-2024 End: 05-25-2024 Patient encounter procedure Brigette BURGOS -Ultrasound, [facility] Work Phone: Start: 05-25-2024 End: 05-25-2024 ambulatory Brigette Vidal Facility:[facility] Start: 05-05-2024 End: 05-05-2024 Patient encounter procedure Brigette BURGOS -[facility] Work Phone: Start: 05-05-2024 End: 05-05-2024 ambulatory Brigette Vidal Facility:[facility] Start: 04-26-2024 End: 04-26-2024 Patient encounter procedure Beulah Hawkins WOODWORKING CRAFTSMAN-C -Laboratory, Specimen Work Phone: Start: 04-26-2024 End: 04-26-2024 ambulatory 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 Work Phone: Start: 04-20-2024 ambulatory Josué Huber Facility :[facility] Start: 04-20-2024 Non-patient / Non-visit Josué Huber DO -[facility] Start: 04-20-2024 End: 04-20-2024 Admission to same day surgery center Josué Huber DO -Endoscopy Work Phone: Start: 04-20-2024 End: 04-20-2024 ambulatory Josué Huber Facility:[facility] Start: 01-27-2024 End: 01-27-2024 Patient encounter procedure Brigette BURGOS -[facility] Work Phone: Start: 01-27-2024 End: 01-27-2024 ambulatory Brigette Vidal Facility:[facility] Start: 04-24-2023 End: 04-24-2023 ambulatory [facility] Work Phone: Start: 04-24-2023 End: 04-24-[address] [facility]-Laboratory, Specimen Work Phone: Start: 08-27-2022 End: 08-27-2022 ambulatory [facility] Work Phone: Start: 08-27-2022 End: 08-27-[address] [facility] Work Phone: Start: 05-21-2022 End: 05-21-2022 ambulatory SHAKIRA MELTON Facility:[facility] Start: 05-21-2022 End: 05-21-2022 Patient encounter procedure Shakira Melton MD Work Phone: General Surgery Comment on above: Diverticulosis; Lower abdominal pain Start: 05-15-2022 Telephone encounter Shakira Jacobs MD Work Phone: General Surgery Comment on above: Appointment Start: 05-14-2022 End: 05-14-2022 ambulatory [facility] Work Phone: Start: 05-14-2022 End: 05-14-[address] [facility]-Cat Scan, [facility] Start: 04-22-2022 End: 04-22-2022 ambulatory [facility] Work Phone: Start: 04-22-2022 End: 04-22-[address] [facility]-Laboratory, Specimen Start: 09-15-2021 End: 09-15-2021 Emergency department patient visit [facility]-Emergency Department Start: 07-08-2021 End: 07-08-[address] [facility]-Laboratory, Specimen Procedures Date Procedure Procedure Detail Performing Clinician Start: 09-21-2024 Urine culture Beulah Steven mendez WOODWORKING CRAFTSM[employer]-C Work Phone: Start: 08-10-2024 Creatinine blood Beulah R jose alejandro WOODWORKING CRAFTSMAN-C Work Phone: Start: 08-10-2024 CT of abdomen with contrast Beulah Hawkins WOODWORKING CRAFTSMAN-C Work Phone: Start: 05-25-2024 Ultrasound elastogra phy of liver Beulah Hawkins WOODWORKING CRAFTSMAN-C Work Phone: Start: 08-27-2022 MRI of joint [...] 04-20-2024 Colonoscopy w/biopsy single/multiple COLONOSCOPY AND BIOPSY [facility] Start: 04-20-[address] [facility] Start: 03-02-2023 Advance Directive Discussion Advance Directive Discussion [facility] Start: 03-02-2023 Depression Assessment Depression Assessment [facility] Start: 10-31-2022 Covid-19 Vaccine ( season) Covid-19 Vaccine () [facility] Start: 10-31-2022 Influenza vaccination Influenza Vaccine (#1) [facility] Start: 03-02-2022 ADVANCE DIRECTIVE DISCUSSION ADVANCE DIRECTIVE DISCUSSION [facility] Start: 03-02-2022 DEPRESSION ASSESSMENT DEPRESSION ASSESSMENT [facility] Start: 01-08-2022 Colonoscopy COLONOSCOPY [facility] Start: 01-08-2022 COLORECTAL CANCER SCREENING COLORECTAL CANCER SCREENING [facility] Start: 01-08-2022 Screening for malignant neoplasm of colon [facility] Start: 03-19-2021 COVID-19 VACCINE (4 - Booster for Moderna series) COVID-19 VACCINE (4 - Booster for Moderna series) [facility] Start: 01-08-2017 Screening for malignant neoplasm of colon Sigmoidoscopy [facility] Start: 01-08-2017 SIGMOIDOSCOPY SIGMOIDOSCOPY [facility] Start: 2016 BONE DENSITY BONE DENSITY [facility] Start: 2016 Pneumococcal Vaccine: 65+ (1 of 1 - PCV) Pneumococcal Vaccine: 65+ (1 of 1 - PCV) [facility] Start: 2016 PNEUMOCOCCAL: 65+ (1 - PCV) PNEUMOCOCCAL: 65+ (1 - PCV) [facility] Start: 2016 Screening for osteoporosis Bone Density Screening [facility] Start: 07-09-2014 Lipid panel Lipid Screening [facility] Start: 07-09-2014 LIPID SCREEN LIPID SCREEN [facility] Start: 04-15-2014 DIABETES SCREEN DIABETES SCREEN [facility] Start: 04-15-2014 Diabetes Screening Diabetes Screening [facility] Start: 2011 RSV Vaccine (1 - 1-dose 60+ series) RSV Vaccine (1 - 1-dose 60+ series) [facility] Start: 05-15-2003 Mammography MAMMOGRAM [facility] Start: 05-15-2003 Screening for malignant neoplasm of breast Mammogram Screening [facility] Start: 2001 SHINGRIX VACCINE (1 of 2) SHINGRIX VACCINE (1 of 2) [facility] Start: 1996 COLOGUARD (FIT-DNA) COLOGUARD (FIT-DNA) [facility] Start: [address] COLONOGRAPHY [facility] Start: 1996 FECAL OCCULT BLOOD FECAL OCCULT BLOOD [facility] Start: 1996 Screening for malignant neoplasm of colon [facility] Start: 1970 Urine microalbumin profile [facility] Start: 1969 HEPATITIS C SCREENING HEPATITIS C SCREENING [facility] Start: 1969 Hepatitis C screening Hepatitis C Screening [facility] CT Abdomen and Pelvi s W contrast IV [facility] Liver stiffness by US.transient elastography [facility] MG Breast - bilatera l Screening [facility] Patient Education ED Fracture, [place] ED Fall Prevention [facility] Work Phone: Patient referral [facility] Work Phone: Immunizations Immunization Date Immunization Notes Care Provider Fa cility 12-10-2021 influenza virus vaccine, unspecified formulation Shakira Melton MD Work Phone: [facility] 12-12-2016 influenza, injectabl e, quadrivalent, preservative free [facility] 12-12-2016 influenza, seasonal, injectable [facility] Payers Date Payer Category Payer Self-pay [id number] 2016 Medicare [id number] 2016 Medicare MEDICARE MEDICAR E A AND B [id number] 2016-Present [phone] [address] [address] [place] [address] Medicare [id number] 2016 Private Health Insurance [facility] [id number] 2016 Private Health Insurance [employer] MEDICARE SUPPLEMENT [id number] 2016-Present [phone] [address] [address] [place] [address] Indemnity [id number] Private Health Insurance [id number] Unknown [id number] Unknown [id number] Unknown [id number] Unknown [id number] Unknown [id number] Unknown [id number] Unknown [id number] Unknown [id number] Unknown [id number] Social History Date Type Detail Facility Start: 04-10-2020 End: 09-15-2021 Tobacco smoking status WIIS Unknown if ever smoked [facility] Start: 02-04-2017 None [facility] Start: 02-04-2017 Spouse/ Signif icant Other [facility] Start: 02-04-2017 Non-smoker [facility] Start: 1950 Sex Assigned At Female [facility] Start: 04-18-2024 Tobacco smoking status NHIS Never smoked tobacco [facility] Start: 02-13-2017 End: 05-21-2022 Alcohol intake Current non-drinker of alcohol (finding) [facility] Start: 1950 Sex Assigned At Not on file [facility] Start: 02-05-2020 End: 05-21-2022 History of Social function [facility] Start: 02-05-2020 End: 05-21-2022 Tobacco use panel [facility] National Score (1-100), lower number is lower risk Not on file [facility] Start: 05-08-2024 End: 05-29-2024 Sex Female (finding) [facility] Goals Date Patient Goal Desired Activity /State Mental Status Date Assessment Result Facility 04-20-2024 Cognitive function Voice/Name [facility] Work Phone: Clinical Notes 05-15-2022 to 09-21-2024 Note Date & Type Note Facility 09-21-2024 Evaluation note Diagnosis Onset Date Resolution Cystitis acute September 21 3:31pm Dysuria acute September 21 3:31pm [facility] Work Phone: 1(313) 525-270406-12-2025 Radiology Diagnostic study note [facility] Imaging Services [address] [place] [address] Abdomen W/WO IV Contrast MR#: [id number] Acct: [id number] Name: ELISEO CADENA Rep #: [id number] : 1950 F 74 From: Shell Lennon MD PCP: NARDA Singh Status: REG CLI Study:Abdomen W/WO IV Contrast Date of Exam: 08/10/24 Exam# [id number] Ordering Dr: Brigette Vidal PROCEDURE: ABDOMEN W/WO [...] cm. Uncomplicated colonic diverticulosis, unchanged. Reading Location: [place] [address] CC: NARDA Hawkins; LORETTA Torrez ~ Correctional Supervisor Lieutenant: Signed [facility]03-27-2025 Radiology Diagnostic study note [facility] Imaging Services [address] [place], [place] [id number] ABD Limited w/ Elastography MR#: [id number] Acct: [id number] Name: ELISEO CADENA Rep #: [id number] : 1950 F 74 From: Julio Cesar Manriquez MD PCP: NARDA Singh Status: REG CLI Study:ABD Limited w/ Elastography Date of Exa m: 05/25/24 Exam# [id number] Ordering Dr: Brigette Vidal EXAM: Ultrasound abdomen [...] Liver stiffness 9.43 kPa, F2-F3 compatible with ehoy-wk-nujhdphv liver disease Metavir staging. Diffuse increased echogenicity of the liver can be seen with hepatic steatosis or other hepatocellular disease. Pancreas is not well seen. Prominent appearance of pancreatic duct at the body measuring 4 mm. Reading Location: [id number] CC: [facility]USTINC Beulah Hawkins; LORETTA Torrez ~ Correctional Supervisor Lieutenant: Signed [facility]02-19-2025 Evaluation note* Diagnosis Onset Date Resolution Status Admit Date Screening for malignant neoplasm of colon acute April 20, 2024 7:39am IBS (irritable bowel syndrome) acute May 05, 2024 1:56pm Rectal varices acute May 05, 2024 1:56pm [facility] Work Phone: 1(757) 236-101502-19-2025 [facility] Medical Records Department [address] [place] [address] History Physical Exam 04/20/24 0847 MR#: [id number] Acct: [id number] Name: ELISEO CADENA Rep #: [id number] : 1950 74 From: [facility] Friend DO PCP: NARDA Singh Status:[facility] Location: [facility]15-1 HPI - General General Date of Admission: [...] a cold biopsy forceps. Resected and retrieved. [facility] Medical History Wears glasses Diabetes Dietary restriction [...] Signs: 04/20/24 08:14 04/20/24 08:14 04/20/24 08:41 [place] (more content not included)...[facility]11-27-2024 Evaluation note* Diagnosis Onset Date Resolution Status Admit Date Acute diarrhea acute January 012023 8:53am Screening for malignant neoplasm of colon acute April 20, 2024 7:39am IBS (irritable bowel syndrome) acute May 05, 2024 1:56pm Rectal varices acute May 05, 2024 1:56pm [facility] Work Phone: 1(632) 562-644003-22-2023 NoteHNO ID: [id number] Author: Shakira Melton MD Service: ? Author [...] weight loss. She underwent CT scan at [facility] on 05/14/2022 to determine etiology of pain [...] entered by the nurse and reviewed by mi Nursing Notes: Marline Villatoro LPN 05/21/2022 3:22 [...] denies headaches, denies head/spinal (more content not included)...[facility]03-22-2023 History of Present illness Narrative* Shakira Melton MD - 05/21/2022 7:35 PM EDT Eliseo Stearnslorrie 1950 REFERRING PHYSICIAN: No ref. provider found [...] weight loss. She underwent CT scan at [facility] on 05/14/2022 to determine etiology of pain [...] entered by the nurse and reviewed by mi Nursing Notes: Marline Villatoro LPN 05/21/2022 3:22 [...] Straightforward Shakira Melton MD [facility] Nurse Note* Marline Villatoro LPN - 05/21/2022 [...] 2020 Marline Villatoro LPN documented [facility] Miscellaneous Notes* Telephone Encounter - Elsie Vidal RN - 05/15/2022 3:52 PM EDT Spoke with patient, advised that her appointment with Dr. Melton is Saturday, May 21, 2022. Elsie Vidal RN * Telephone Encounter - Danielle Hendrix RN - 05/15/2022 2:00 PM EDT Patient calling to let office know that she had CT of her abdomen and pelvis done yesterday at [facility] in case they did not receive results. Patient has an appointment with Dr. Melton tomorrow, 05/16. [facility]* Diagnosis Onset Date Resolution Status Bursitis of right hip acute Sciatica, right side acute Diabetic foot ulcer acute Edema acute Sciatica, right side acute [facility] Work Phone: Evaluation note* Diagnosis Onset Date Resolution Status Diabetic foot ulcer acute Edema acute Sciatica, right side acute 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 Work Phone: Reason for referral (narrative)No reason for referral [facility] Work Phone: Chief Complaint and Reason for [...] 7:4 4am Other specified diseases of pancreas Jul 1:55pm Chief Complaint Admit Date Other specified diseases of pancreas Jul 1:55pm Urinary tract infection September 21, 2024 3:31pm Reason for Visit Admit Date Cystitis September 21, 2024 3:31 pm Dysuria September 21, 2024 3:31 pm Family History No Family History Records Found [...] Will Yes March 19 8:31pm Power of Banking Supervisor Yes March 19, 2020 8:31pm Advance Directive Response Recorded Date/ Time Name of Medical Power of Banking Supervisor jose ramon porras t, September 15, 2021 9:07am Advance Directives Yes March 19, 2020 8:31pm Living Will Yes September 15, 2021 9:07am Power of Banking Supervisor Yes September 15 9:07am Advance Directive Response Recorded Date/ Time Advance Directives Yes March 19, 2020 7:31pm Living Will Yes September 15, 2021 8:07am Power of Banking Supervisor Yes September 15 8:07am Advance Directive Response Recorded Date/ Time Advance Directives Yes March 19, 2020 8:31pm Living Will Yes September 15, 2021 9:07am Power of Banking Supervisor Yes September 15 9:07am Documents on File Type Date Recorded Patient Scarf And Anneal Operator Expl anation Advance Directive(s) 06/10/2011 4:30 PM Advance Directive Response Recorded Date/ Time Living Will Yes September 15, 2021 9:07am Power of Banking Supervisor Yes September 15 9:07am Living Will Yes April 18 11:13am Power of Banking Supervisor Yes April 18, 2024 11:13am Name of Medical Power of Banking Supervisor POA Jose Ramon Porras April 18, 2024 11:13am Advance Directives Yes March 19, 2020 8:31pm Advance Directive Response Recorded Date/ Time Living Will Yes April 18 11:13am Do you have a Healthcare Pow er of Banking Supervisor? Yes April 18, 2024 11:13am Name of Medical Power of Banking Supervisor POA Jose Ramon Porras April 18, 2024 11:13am Advance Directives Yes March 19, 2020 8:31pm Advance Directive Response Recorded Date/ Time Advance [...] Active Member Role Status Dates Beulah Hawkins WOODWORKING CRAFTSMAN, WOODWORKING CRAFTSMAN-C Family Provider Active Beulah Hawkins WOODWORKING CRAFTSMAN, WOODWORKING CRAFTSMAN-C Primary Care Provider Active Team Status: Inactive Member Role Status Dates Beulah Hawkins WOODWORKING CRAFTSMAN, WOODWORKING CRAFTSMAN-C Primary Care Pr ovider, Attending Provider, Referring Provider Active Team Status: Inactive Member Role Status Dates Beulah Hawkins WOODWORKING CRAFTSMAN, WOODWORKING CRAFTSMAN-C Primary Care Provider, Attend ing Provider Active Assistant Corporate Secretary Relationship Specialty Start Date End Date Jackie Wiggins MD PCP - General Family Medicine 04/17/11 Assistant Corporate Secretary Relationship Specialty Start Date End Date Jackie Wiggins MD PCP - General Family Medicine 04/17/11 Team Status: Active Member Role Status Dates Beulah Hawkins WOODWORKING CRAFTSMAN, WOODWORKING CRAFTSMAN-C Primary Care Provider Active Team Status: Inactive Member Role Status Dates Beulah Hawkins WOODWORKING CRAFTSMAN, WOODWORKING CRAFTSMAN-C Primary Care Provider Active Start: January 27, 2024 End: January 27, 2024 Beulah Hawkins WOODWORKING CRAFTSMAN, WOODWORKING CRAFTSMAN-C Referring Provider Active Start: January 27, 2024 End: January 27, 2024 LORETTA Torrez Attending Provider Active Start: January 27, 2024 End: January 27, 2024 Team Status: Inactive Member Role Status Dates Beulah Hawkins WOODWORKING CRAFTSMAN, WOODWORKING CRAFTSMAN-C Primary Care Provider Active Start: April 20, 2024 End: April 20, 2024 Beulah Hawkins WOODWORKING CRAFTSMAN, WOODWORKING CRAFTSMAN-C Referring Provider Active Start: April 20, 2024 End: April 20, 2024 Dr. Josué Huber , DO Attending Provider Active Start: April 20, 2024 End: April 20, 2024 Team Status: Active Member Role Status Dates Beulah Hawkins WOODWORKING CRAFTSMAN, WOODWORKING CRAFTSMAN-C Primary Care Provider Active Start: April 20, 2024 Beulah Hawkins WOODWORKING CRAFTSMAN, WOODWORKING CRAFTSMAN-C Referring Provider Active Start: April 20, 2024 Dr. Josué Huber , Attending Provider Active Start: April 20, 2024 Dr. Josué Huber , Other Provider Active St art: April 20, 2024 Team Status: Inactive Member Role Status Dates Beulah Hawkins WOODWORKING CRAFTSMAN, WOODWORKING CRAFTSMAN-C Primary Care Provider Active Start: April 26, 2024 End: April 26, 2024 Beulah Hawkins WOODWORKING CRAFTSMAN, WOODWORKING CRAFTSMAN-C Attending Provider Active Start: April 26, 2024 End: April 26, 2024 Team Status: Inactive Member Role Status Dates Beulah Hawkins WOODWORKING CRAFTSMAN, WOODWORKING CRAFTSMAN-C Primary Care Provider Active Start: May 05, 2024 End: May 05, 2024 Beulah Hawkins WOODWORKING CRAFTSMAN, WOODWORKING CRAFTSMAN-C Referring Provider Active Start: May 05, 2024 End: May 05, 2024 LORETTA Torrez Attending Provider Active Start: May 05, 2024 End: May 05, 2024 Team Status: Inactive Member Role Status Dates Beulah Hawkins WOODWORKING CRAFTSMAN, WOODWORKING CRAFTSMAN-C Primary Care Provider Active Start: May 25, 2024 End: May 25, 2024 LORETTA Torrez Attending Provider Active Start: May 25, 2024 End: May 25, 2024 LORETTA Torrez Referring Provider Active Start: May 25, 2024 End: May 25, 2024 Team Status: Inactive Member Role Status Dates Beulah Hawkins WOODWORKING CRAFTSMAN, WOODWORKING CRAFTSMAN-C Primary Care Provider Active Start: August 10, 2024 End: August 10, 2024 LORETTA Torrez Attending Provider Active Start: August 10, 2024 End: August 10, 2024 LORETTA Torrez Referring Provider Active Start: August 10, 2024 End: August 10, 2024 Team Status: Active Member Role/Relationship Status Dates Beulah Hawkins WOODWORKING CRAFTSMAN, WOODWORKING CRAFTSMAN-C Primary Care Provider Active Team Status: Inactive Member Role/Relationship Status Dates Beulah Hawkins WOODWORKING CRAFTSMAN, WOODWORKING CRAFTSMAN-C Primary Care Provider Active Start: August 10, 2024 End: August 10, 2024 LORETTA Torrez Attending Provider Active Start: August 10, 2024 End: August 10, 2024 LORETTA Torrez Referring Provider Active Start: August 10, 2024 End: August 10, 2024 Team Status: Inactive Member Role/Relationship Status Dates Beulah Hawkins WOODWORKING CRAFTSMAN, WOODWORKING CRAFTSMAN-C Primary Care Provider Active Start: September 21, 2024 End: September 21, 2024 Beulah Hawkins NP, WOODWORKING CRAFTSMAN-C Attending Provider Active Start: September 21, 2024 End: September 21, 2024 Beulah Hawkins WOODWORKING CRAFTSMAN, WOODWORKING CRAFTSMAN-C Referring Provider Active Start: September 21, 2024 End: September 21, 2024 Team Status: Inactive Member Role/Relationship Status Dates Beulah Hawkins WOODWORKING CRAFTSMAN, WOODWORKING CRAFTSMAN-C Primary Care Provider Active Start: September 21, 2024 End: September 21, 2024 Beulah Hawkins NP, WOODWORKING CRAFTSMAN-C Attending Provider Active Start: September 21, 2024 End: September 21, 2024 Beulah Hawkins WOODWORKING CRAFTSMAN, WOODWORKING CRAFTSMAN-C Referring Provider Active Start: September 21, 2024 End: September 21, 2024 Source Comments (unrecognize d section and content) In the event this informatio n is protected by the Federal Confidentiality of Alcohol and Drug Abuse Patient Records regulations: The Federal rules restrict any use of the information to criminally investigate or prosecute any alcohol or drug abuse patient.[facility] the event this information is protected by the Federal Confidentiality of Alcohol and Drug Abuse Patient Records regulations: The Federal rules restrict any use of the information to criminally investigate or prosecute any alcohol or drug abuse patient.[facility] Reason for Visit (unrecogniz ed section and content) Reason Comments Consult colonoscopy Reason Comments Appointment INFORMATION SOURCE (unrecogn ized section and content) DATE CREATED AUTHOR 05/16/2023 [facility] DATE CREATED AUTHOR AUTHOR'S ALLAN CUELLAR 10/01/2024 [facility] FOR RECORDS PERTAINING TO PATIENTS WHO ARE [...] BE BASED ON THE PRIMARY CLINICAL RECORDS. [employer] provides no warranty or guarantee of the accuracy or completeness of information in this document.
== END | disposition home or self-care (01) ==
LOC: OPBI 08:13
PROVIDERS: PCP Nurse Practitioner; Referring Provider Nurse Practitioner; Visit Provider Nurse Practitioner
DX: Z12.31 Encounter for screening mammogram for malignant neoplasm of breast (principal)
CPT/HCPCS: 77063; 77067

== ENCOUNTER → 2024-10-12 | Outpatient (CLI) | payer MEDICARE, OTHER, SELFPAY ==
--- NOTE | 2024-10-12 08:54 | BI_ITS ---
EXAM: DIAG MAMM W/CAD, UNILAT 10/12/2024 CLINICAL HISTORY: F, Age 74 y/o , ABNORMAL MAMMOGRAM TECHNIQUE: DIAG MAMM W/CAD, UNILAT.. Compression magnification views were obtained. COMPARISON: Prior exam(s) dated prior mammogram dated October 03, 2024.. FINDINGS: TISSUE DENSITY: There are scattered areas of fibroglandular density. Bilateral Breast Mammographic Findings: New cluster of amorphous and rounded calcifications in the superior outer aspect of the left breast. A branching pattern is once again visualized. Biopsy recommended. BI/DIAG MAMM W/CAD, UNILAT IMPRESSION: Cluster of microcalcifications once again seen in the superior outer aspect of the left breast. Biopsy recommended. OVERALL FINAL ASSESSMENT BI-RADS 4: SUSPICIOUS RECOMMENDATION: Biopsy Recommended A letter with findings and recommendations will be mailed to the patient. Reading Location: [id number]
== END | disposition home or self-care (01) ==
LOC: OPBI 08:53
PROVIDERS: PCP Nurse Practitioner; Referring Provider Nurse Practitioner; Visit Provider Nurse Practitioner
DX: R92.8 Other abnormal and inconclusive findings on diagnostic imaging of breast (principal)
CPT/HCPCS: 77065

== ENCOUNTER → 2024-10-26 | Outpatient (CLI) | payer MEDICARE, OTHER, SELFPAY ==
--- NOTE | 2024-10-26 10:45 | BRBX_PTH ---
PATIENT: ELISEO WOODARD LOC: [facility] U#:[id number] AGE/SX: 74/F ROOM: RE10/26/[address]: Dr. Isra Montelongo MD : 1950 BED: DIS: 10/26/2024 SPEC #: [id number] RECD: 10/26/24 11:07 STATUS: ONEYDA REDave #: [id number] MARGIE: 10/26/24 10:[address]: Isra Montelongo DEPT: SURGICAL PATHOLOGY RECD BY: Dionicio Valero ENTERED: 10/26/24 13:32 SP TYPE: BREAST BX OTHR DR: Beulah Hawkins, CLINICAL DOCUMENTATION SPECIALIST-C Tissues: A - Left breast, NOS Procedures: Immunohistochemical Stains Surgery Specimen Level IV IHC Stain ADDITIONAL HEADER OPERATION: Left breast stereo needle core biopsy PRE-OP DIAGNOSIS: Left breast upper outer quadrant microcalcs TISSUE SUBMITTED: A- Left breast - chambers #1&3 MICROSCOPIC DIAGNOSIS A. Breast, left, stereotactic biopsy: - Ductal carcinoma in situ (DCIS), intermediate nuclear grade with comedonecrosis. - At least 0.4 cm. - Calcifications present. - ER: positive (100%, strong intensity). - NE: positive (75%, variable intermediate and strong intensity). - IHC for CK5/6 and p40 support the histologic impression. MICROSCOPIC DESCRIPTION Slides are reviewed. ?All matched controls reacted appropriately. These tests were developed and their performance characteristics determined by [facility]. They may not have been cleared or approved by the U.S. Food and Drug Administration. The FDA has determined that such clearance or approval is not necessary.? The above immunohistochemical?markers and/or special stains have been reviewed by the Pathologist. GROSS DESCRIPTION A. Received fresh and subsequently placed in formalin labeled with the patient's name and date of are 3 good-yellow lobulated soft tissue cores, 2.6-3.0 cm in length by 0.6 cm in diameter. The specimen is entirely submitted in 3 cassettes, following postoperative imaging as follows: A1: Chamber #1A2: Chamber #2A3: Chamber #3 Cold ischemic time: 23 minutesFormalin fixation time: 8 hours, 22 minutes [place] 10/26/2024 CPT:44253,04361, [id number]
--- NOTE | 2024-10-26 11:01 | OP.PCM_ITS ---
Operative Report (Standard) Operative Information Date of Procedure: 10/26/24 Pre-Operative Diagnosis: Abnormal left breast mammogram with microcalcifications Post-Operative Diagnosis: Same Surgery/Procedure Performed: Stereotactic guided core needle biopsy of the left breast with placement of clip agricultural production engineer: No Type of Anesthesia: Local Procedure Start Time: 10:30 Procedure Stop Time: 10:50 Select all DRAINS/GRAFTS/IMPLANTS that apply: None Estimated Blood Loss: 5 Specimen collected: Yes Description of specimen(s) removed: Left breast biopsy Description of surgery: The left breast was placed into the stereotactic table and compressed and mammographic views were obtained. The microcalcifications were centered. Stereotactic views were obtained and then the calcifications were localized on the computer. The coordinates were programmed to the computer and then the skin was prepped. The skin was injected with local anesthetic and a small robert was made with a scalpel. The needle was placed into the breast and fired. Stereotactic views were once again obtained and then biopsies were obtained. X- rays of the specimen revealed microcalcifications. Next a clip was placed into the breast through the needle. The needle was removed and pressure was held. She is being sent for mammographic confirmation. She tolerated the procedure well. Surgical Findings: None Complications Complications: No
== END | disposition home or self-care (01) ==
LOC: BIRAD 10:25
PROVIDERS: PCP Nurse Practitioner; Referring Provider Surgery; Visit Provider Surgery
DX: D05.12 Intraductal carcinoma in situ of left breast (principal)
CPT/HCPCS: 19081; 88305; 88341; 88342; A4648

== ENCOUNTER 2024-11-16 10:19 | Day surgery (SDC) | payer MEDICARE, OTHER, SELFPAY ==
--- NOTE | 2024-11-09 15:44 | PAT.ANESEVAL ---
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 When Was Last Pacemaker Check QUESTION #4 FULL TEXT: You/Your Family Experience fever (hyperthermia) with Anesthesia Last Oral Intake Last Oral intake: Last Oral Intake NPO since Meds taken in AM with sips of water? 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 - ophthalmic lens inspector: PONV - ophthalmic lens inspector Female Yes 11/09/24 15:02 HX of Motion Sickness No 11/09/24 15:02 HX of N/V After Surgery No 11/09/24 15:02 Non-Smoker Yes 11/09/24 15:02 Duration of Surgery greater Yes 11/09/24 15:02 than 60 minutes Number of Risk Factors 3 11/09/24 15:02 PONV Score Moderate Risk 11/09/24 15:02 Height & Weight Height & Weight: Anesthesia: Height & Weight Height 5 ft 4 in 11/04/24 13:12 Respiratory Assessment Respiratory Assessment - ophthalmic lens inspector: Respiratory Tract Infection Hx - ophthalmic lens inspector Hx Respiratory Tract Infection No 11/09/24 15:02 STOP Sleep Apnea STOP Sleep Apnea - ophthalmic lens inspector: STOP Sleep Apnea - ophthalmic lens inspector Hx Hypertension Yes: states controlled with 11/09/24 15:02 med Hx Sleep Apnea No 11/09/24 15:02 CPAP No 11/09/24 15:02 BIPAP No 11/09/24 15:02 Do you snore loudly (louder No 11/09/24 15:02 than talking or can be heard Do you often feel tired/ Yes 11/09/24 15:02 fatigued/ sleepy during daytime? Has anyone observed you stop No 11/09/24 15:02 breathing during sleep? STOP Results Positive 11/09/24 15:02 QUESTION #5 FULL TEXT : Do you snore loudly (louder than talking or can be heard through closed doors)? 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 Specify any problems Hx of Preganancy in last 3 No 11/09/24 15:02 Months Nurse Filling Out Transfusion DSCHRIBER 11/09/24 15:02 & Questions: Date: 11/09/24 11/09/24 15:02 Time: 15:03 11/09/24 15:02 Patient unable to answer at this time (ie. 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 History - ophthalmic lens inspector: /Reproductive Hx- ophthalmic lens inspector Hx Now No 11/09/24 15:02 Gestational Age (in weeks): EDC: Hx Hx Para Hx Section SAB No 11/09/24 15:02 PFSH Medical History (Updated 11/09/24 @ 15:21 by Lorna Flannery) Discoloration of skin Cancer Bladder disease Back pain Migraine headache Diverticulosis Heartburn History of pain when walking Urinary tract infection Nocturia Mixed incontinence DCIS (ductal carcinoma in situ) Wears glasses Diabetes Dietary restriction Non-smoker History of stress test History of echocardiogram Cardiology follow-up encounter History of CHF (congestive heart failure) Hx of flexible sigmoidoscopy Nausea RUQ abdominal pain Arthritis Peripheral vascular disease Essential (primary) hypertension Non-alcoholic cirrhosis Fatty liver Fibromyalgia GI bleed Hyperlipidemia Home Medications ?Medication ?Instructions ?Recorded ?Last Taken ?Type dapagliflozin propanediol 10 mg 10 mg PO DAILY #30 tabs 04/26/24 Unknown Rx tablet (Farxiga) glimepiride 4 mg tablet 4 mg PO QAM diabetes #90 tabs 04/26/24 Unknown Rx lisinopril 10 mg tablet 10 mg PO DAILY blood pressure #90 04/26/24 Unknown Rx tabs metformin 1,000 mg tablet 1,000 mg PO BID #180 tabs 04/26/24 Unknown Rx duloxetine 60 mg capsule,delayed 60 mg PO QHS fibromyalgia 05/05/24 Unknown History release terbinafine HCl 250 mg tablet 250 mg PO QDAY #30 tabs 10/25/24 Unknown Rx ibuprofen 200 mg capsule 200 mg PO Q6H PRN pain 11/08/24 Unknown History hydrochlorothiazide 25 mg tablet 12.5 mg PO DAILY water pill 11/09/24 Unknown History nitrofurantoin 100 mg PO BID #14 caps 11/09/24 Unknown Rx monohydrate/macrocrystals 100 mg capsule (Macrobid) phenazopyridine 200 mg tablet 200 mg PO TID pain 11/09/24 Unknown History (Pyridium) rosuvastatin 20 mg tablet 20 mg PO QHS 11/09/24 Unknown History tirzepatide 5 mg/0.5 mL 5 mg subcut TH DM type 2 11/09/24 11/03/24 History subcutaneous pen injector (Mounjaro) Allergy/AdvReac Type Severity Reaction Status Date / Time pioglitazone Allergy Severe CHF Verified 11/09/24 14:58 sitagliptin (From Januvia) Allergy Severe legs ache Verified 11/09/24 14:58 azithromycin (From Zithromax) Allergy Hives Verified 11/09/24 14:58 Family History Mother Arthritis Lung cancer Brother Colon cancer Lung cancer Sister Cervical cancer Other Benign tumor of kidney CVA (cerebral vascular accident) Diverticulosis Stomach cancer Surgical History (Updated 11/09/24 @ 15:12 by Lorna Flannery) History of parotidectomy History of bilateral carpal tunnel release History of esophagogastroduodenoscopy (EGD) Hx of colonoscopy Hx of tubal ligation History of tonsillectomy and adenoidectomy History of left heart catheterization (02/13/10) S/P total hip arthroplasty S/P total knee arthroplasty Social History Smoking Status: Never smoker alcohol intake: never substance use type: does not use caffeine: Yes what type of physical activity do you participate in: none frequency: does not exercise Audit: Pertinent Findings Pertinent Findings EKG Perinent findings: EKG 01/23/2017. Normal sinus rhythm Stress test pertinent findings: Stress test 03/24/2018. Gated ejection fraction is 84%. Normal pharmacologic myocardial perfusion stress test. Echo (EF%) pertinent findings: Echo 03/24/2018. Normal LV size. EF 75%. Stage I diastolic dysfunction. Recommendation Anesthesia Recommendation Anesthesia recommendation: OPTIMIZED for anesthesia
[2024-11-16] VITALS (10 sets, daily range): BP systolic 89–112; BP diastolic 41–76; PULSE 83–100; RESP 16–18; TEMP 36.4–36.9; O2SAT 92–100; BMI 32.5
[2024-11-16] MEDS: Lactated Ringers 1,000 ML 15 ML IV (10:56)
--- NOTE | 2024-11-16 11:00 | BI_ITS ---
EXAM: BREAST BIOPSY SPECIMEN 11/16/2024 CLINICAL HISTORY: F, Age 74 y/o , TECHNIQUE: Procedure Code: BIB Modality: MG Procedure: BREAST BIOPSY SPECIMEN COMPARISON: Prior exam(s) dated prior mammogram dated October 12, 2024.. FINDINGS: TISSUE DENSITY: The breasts are heterogeneously dense, which may obscure small masses The lumpectomy specimen shows the tissue clip marker as well as the mass in the localization wire. BI/Breast Biopsy Specimen IMPRESSION: OVERALL FINAL ASSESSMENT: BIRADS 6: Known Biopsy-Proven Malignancy. RECOMMENDATION: Routine annual follow-up in 1 Year A letter with findings and recommendations will be mailed to the patient. Reading Location: [place] [id number]
--- NOTE | 2024-11-16 11:02 | PRE.ANES_ITS ---
ASA Classification* ASA Classification ASA Classification: 3 Assessment & Plan Anesthesia* Anesthesia Assessment Anesthesia Assessment: Discussed sedation and/or anesthesia options, risks, benefits, and alternatives with patient/parents/legal guardian/POA. Questions invited. The patient/parents/legal guardian/POA seems to understand and agrees to proceed with anesthesia plan. Reviewed the physical assessment, medical history, allergy history and patient home medications list prior to surgery/procedure/anesthetic and documented any changes. Performed airway and anesthesia risk assessments. Anesthesia Type Anesthesia Type: General History Source History Obtained from:: Patient and Chart Anesthesia Focused Assessment* Temperature: 97.6 F Pulse Rate: 100 Blood Pressure: 103/76 Respiratory Rate: 18 Pulse Ox: 100 Oxygen Delivery Method: Room Air Airway Assessment Mouth opens: >3 cm Mallampati Score: II Teeth Condition: Intact Neck Range of motion (ROM): Limited ROM Labs Anesthesia Preop lab: CBC WBC, (4.4-11.0) 8.6 K/mm3 04/26/24, 22:05 RBC, (4.2-5.4) 4.81 M/mm3 04/26/24, 22:05 Hgb, (12.0-15.0) 14.8 g/dL 04/26/24, 22:05 Hct, (37-47) 44.7 % 04/26/24, 22:05 Plt Count, (150-450) 273 K/mm3 04/26/24, 22:05 CHEMISTRY Potassium, (3.3-5.1) 4.1 mmol/L 04/26/24, 22:05 Sodium, (133-145) 137 mmol/L 04/26/24, 22:05 Magnesium, (1.8-2.4) 1.7 mg/dL L 01/24/17, 00:05 BUN, (4-19) 21 mg/dL H 04/26/24, 22:05 Creatinine, (0.6-1.0) 1.1 mg/dL H 04/26/24, 22:05 Glucose, (70-99) 293 mg/dL H 04/26/24, 22:05 POC Glucose, (70-110) 181 mg/dL H 04/15/19, 09:37 TSH, (0.358-3.74) 0.84 uIU/mL 04/24/23, Unknown COAG PT, (11.7-14.9) 14.0 SECONDS 02/04/17, 06:24 Pre-Assessment Diagnosis/Proposed Procedure Planned Operative Procedure(s): STEROWIRE LOCALIZATION LEFT BREAST LUMPECTOMY Anesthesia History 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 When Was Last Pacemaker Check QUESTION #4 FULL TEXT: You/Your Family Experience fever (hyperthermia) with Anesthesia Last Oral Intake Last Oral intake: Last Oral Intake NPO since 00:00 11/16/24 10:51 Meds taken in AM with sips of No 11/16/24 10:51 water? 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 - administrative staff supervisor: PONV - administrative staff supervisor Female Yes 11/09/24 15:02 HX of Motion Sickness No 11/09/24 15:02 HX of N/V After Surgery No 11/09/24 15:02 Non-Smoker Yes 11/09/24 15:02 Duration of Surgery greater Yes 11/09/24 15:02 than 60 minutes Number of Risk Factors 3 11/09/24 15:02 PONV Score Moderate Risk 11/09/24 15:02 Height & Weight Height & Weight: Anesthesia: Height & Weight Height 5 ft 4 in 11/16/24 10:51 Weight: 86 kg 11/16/24 10:51 Body Mass Index (BMI) 32.5 11/16/24 10:51 Respiratory Assessment Respiratory Assessment - administrative staff supervisor: Respiratory Tract Infection Hx - administrative staff supervisor Hx Respiratory Tract Infection No 11/09/24 15:02 STOP Sleep Apnea STOP Sleep Apnea - administrative staff supervisor: STOP Sleep Apnea - administrative staff supervisor Hx Hypertension Yes: states controlled with 11/09/24 15:02 med Hx Sleep Apnea No 11/09/24 15:02 CPAP No 11/09/24 15:02 BIPAP No 11/09/24 15:02 Do you snore loudly (louder No 11/09/24 15:02 than talking or can be heard Do you often feel tired/ Yes 11/09/24 15:02 fatigued/ sleepy during daytime? Has anyone observed you stop No 11/09/24 15:02 breathing during sleep? STOP Results Positive 11/09/24 15:02 QUESTION #5 FULL TEXT : Do you snore loudly (louder than talking or can be heard through closed doors)? 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 Specify any problems Hx of Preganancy in last 3 No 11/09/24 15:02 Months Nurse Filling Out Transfusion DSCHRIBER 11/09/24 15:02 & Questions: Date: 11/09/24 11/09/24 15:02 Time: 15:03 11/09/24 15:02 Patient unable to answer at this time (ie. 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 History - administrative staff supervisor: /Reproductive Hx- administrative staff supervisor Hx Now No 11/09/24 15:02 Gestational Age (in weeks): EDC: Hx Hx Para Hx Section SAB No 11/09/24 15:02 Active Medications Active Medications: Current Medications Generic Name Dose Route Start Last Admin Trade Name Freq PRN Reason Stop Dose Admin Cefazolin Sodium 2 gm/ Sodium 110 mls @ 200 mls/hr 11/16/24 12:30 Chloride IV 11/16/24 13:02 INTRAOP ONE Lactated Ringer's 1,000 mls @ 15 mls/hr 11/16/24 10:30 11/16/24 10:56 IV 15 mls/hr .Q48H CARMENZA Administration PFSH Medical History Discoloration of skin Cancer Bladder disease Back pain Migraine headache Diverticulosis Heartburn History of pain when walking Urinary tract infection Nocturia Mixed incontinence DCIS (ductal carcinoma in situ) Wears glasses Diabetes Dietary restriction Non-smoker History of stress test History of echocardiogram Cardiology follow-up encounter History of CHF (congestive heart failure) Hx of flexible sigmoidoscopy Nausea RUQ abdominal pain Arthritis Peripheral vascular disease Essential (primary) hypertension Non-alcoholic cirrhosis Fatty liver Fibromyalgia GI bleed Hyperlipidemia Home Medications ?Medication ?Instructions ?Recorded ?Last Taken ?Type dapagliflozin propanediol 10 mg 10 mg PO DAILY #30 tab s 04/26/24 11/12/24 Rx tablet (Farxiga) glimepiride 4 mg tablet 4 mg PO QAM diabetes #90 tab s 04/26/24 11/15/24 Rx lisinopril 10 mg tablet 10 mg PO DAILY blood pressur e #90 04/26/24 11/15/24 Rx tabs metformin 1,000 mg tablet 1,000 mg PO BID #180 tabs 11/15/24 Rx duloxetine 60 mg capsule,delayed 60 mg PO QHS fibromya lgia 05/05/24 11/15/24 History release terbinafine HCl 250 mg tablet 250 mg PO QDAY #30 tabs 10/25/24 11/15/24 Rx ibuprofen 200 mg capsule 200 mg PO Q6H PRN pain 11/08 Unknown History hydrochlorothiazide 25 mg tablet 12.5 mg PO DAILY wate r pill 11/09/24 11/15/24 History phenazopyridine 200 mg tablet 200 mg PO TID pain 11/0911/15/24 History (Pyridium) rosuvastatin 20 mg tablet 20 mg PO QHS 11/09/24 History tirzepatide 5 mg/0.5 mL 5 mg subcut TH DM type 2 12/2411/03/24 History subcutaneous pen injector (Mounjaro) vibegron 75 mg tablet (Gemtesa) 75 mg PO DAILY 5 11/15/24 History Allergy/AdvReac Type Severity Reaction Status Date / Time pioglitazone Allergy Severe CHF Verified 11/16/24 10:25 sitagliptin (From Januvia) Allergy Severe legs ache Verified 11/16/24 10:25 azithromycin (From Zithromax) Allergy Hives Verified 11/16/24 10:25 Family History Mother Arthritis Lung cancer Brother Colon cancer Lung cancer Sister Cervical cancer Other Benign tumor of kidney CVA (cerebral vascular accident) Diverticulosis Stomach cancer Surgical History History of parotidectomy History of bilateral carpal tunnel release History of esophagogastroduodenoscopy (EGD) Hx of colonoscopy Hx of tubal ligation History of tonsillectomy and adenoidectomy History of left heart catheterization (02/13/10) S/P total hip arthroplasty S/P total knee arthroplasty Social History Smoking Status: Never smoker alcohol intake: never substance use type: does not use caffeine: Yes what type of physical activity do you participate in: none frequency: does not exercise Review of Systems (Anesthesia) ROS Narrative System reviewed and no additional complaints, except as documented.
--- NOTE | 2024-11-16 11:02 | PCM.HP.BLA ---
History and Physical Date of Admission: 11/16/24 Intake Vital Signs 10/18/2513:37 11/02/2517:35 11/04/2512:12 Height 5 ft 4 in 5 ft 4 in 5 ft 4 in Weight: 193 lb BMI 33.1 BP 104/66 Blood Pressure Location Rt brachial Position Sitting Respiration 18 Pulse 66 Pulse Source Monitor Temp 97.2 F L Temp Source Temporal Pulse Oximetry (%) 97 Oxygen Delivery Method room air Intake Visit Reasons: DISCUSS BREAST SX Chief Complaint: discuss breast sx Is patient in pain?: No Allergies pioglitazone Allergy (Severe, Verified 11/04/24 13:12) CHF sitagliptin (From Januvia) Allergy (Severe, Verified 11/04/24 13:12) legs ache azithromycin (From Zithromax) Allergy (Verified 11/04/24 13:12) Hives Medications ?Medication ?Instructions ?Recorded ?Confirmed ?Type multivitamin 1 ea PO DAILY supplement 02/03/17 11/04/24 History tramadol 50 mg tablet 50 mg PO TID PRN pain 15 days #45 04/25/23 11/04/24 Rx tabs dapagliflozin propanediol 10 mg 10 mg PO DAILY #30 tabs 04/26/24 11/04/24 Rx tablet (Farxiga) glimepiride 4 mg tablet 4 mg PO QAM diabetes #90 tabs 04/26/24 11/04/24 Rx hydrochlorothiazide 25 mg tablet 25 mg PO DAILY water pill #90 tabs 04/26/24 11/04/24 Rx lisinopril 10 mg tablet 10 mg PO DAILY blood pressure #90 04/26/24 11/04/24 Rx tabs metformin 1,000 mg tablet 1,000 mg PO BID #180 tabs 04/26/24 11/04/24 Rx promethazine 12.5 mg tablet 12.5 mg PO Q6H PRN nausea and 04/26/24 11/04/24 Rx vomiting #45 tabs duloxetine 60 mg capsule,delayed 60 mg PO .every other day 05/05/24 11/04/24 History release fibromyalgia rosuvastatin 20 mg tablet 20 mg PO QDAY #90 tabs 05/16/24 11/04/24 Rx ciclopirox 0.77 % topical cream 1 applic topical BID fungal 10/18/24 11/04/24 Rx infection #90 grams terbinafine HCl 250 mg tablet 250 mg PO QDAY #30 tabs 10/25/24 11/04/24 Rx phenazopyridine 200 mg tablet 200 mg PO TID PRN pain #90 tabs 11/02/24 11/04/24 Rx (Pyridium) tirzepatide 5 mg/0.5 mL 5 mg (0.5 mL) subcut QWEEK DM type 11/02/24 11/04/24 Rx subcutaneous pen injector 2 30 days #2.5 mL (Mounjaro) Have you fallen in the past year?: No PFSH Medical History (Updated 11/04/24 @ 13:12 by Alise Alva LPN) DCIS (ductal carcinoma in situ) Wears glasses Diabetes Dietary restriction History of diverticulitis Heartburn Non-smoker History of stress test History of echocardiogram Cardiology follow-up encounter History of CHF (congestive heart failure) Hx of flexible sigmoidoscopy Hemorrhoids Nausea RUQ abdominal pain Arthritis Neoplasm of colon, malignant Peripheral vascular disease Morbid obesity Essential (primary) hypertension Early cataracts, bilateral Non-alcoholic cirrhosis Fatty liver Fibromyalgia GI bleed Anemia associated with acute blood loss Diverticulitis large intestine Rectal bleed Hyperlipidemia Surgical History History of parotidectomy History of bilateral carpal tunnel release History of esophagogastroduodenoscopy (EGD) Hx of colonoscopy Hx of tubal ligation Heel spur History of tonsillectomy and adenoidectomy History of left heart catheterization (02/13/10) S/P total hip arthroplasty S/P total knee arthroplasty Family History Mother Arthritis Lung cancer Brother Colon cancer Lung cancer Sister Cervical cancer Other Benign tumor of kidney CVA (cerebral vascular accident) Diverticulosis Stomach cancer Social History Smoking Status: Never smoker alcohol intake: never substance use type: does not use caffeine: Yes what type of physical activity do you participate in: none frequency: does not exercise HPI HPI HPI: Patient is a 74-year-old female here with DCIS of the left breast. She is here to discuss surgery for partial mastectomy. ROS General General: Yes weight change and fatigue; No appetite, colon cancer, breast cancer or weakness HEENT HEENT: Yes eye injury; No difficulty swallowing, eye surgery, swollen glands or hoarseness Endo Endocrine: Yes diabetes mellitus; No thyroid disease, thyroid cancer, Hair loss, heat intolerance or cold intolerance Skin Skin: No rash or changing moles Breast Breast: No left breast lump, right breast lump, nipple discharge, breast pain, abnormal mammogram, abnormal US or breast enlargement Musc Musculoskeletal: Yes back problems and arthritis; No rheumatoid arthritis, gout or joint pain Cardio Cardiovascular: Yes high blood pressure; No murmur, pacemaker, heart disease, atrial fibrillation, heart attack, heart stent, palpitations, shortness of breath with exertion or chest pain Psych Psychiatric: No depression, anxiety or hearing voices Resp Respiratory: No shortness of breath, No sleep apnea, No cough, No COPD, No asthma, No emphysema and No wheezing Gastro Gastrointestinal: No abdominal pain, Yes nausea or vomiting, Yes diarrhea, Yes constipation, No blood in stool, No acid reflux, Yes hemorrhoids, No ulcers, No gallbladder problem and No black,tarry stools Irvin Hematologic: No blood thinners, No blood disorders, No bleeding, Yes anemia and No blood clots Neuro Neurologic: No system reviewed and no additional complaints, except as documented, No as per HPI, No abnormal gait, No abnormal hearing, No abnormal movements, No abnormal speech, No behavioral changes, No burning sensations, No confusion, No convulsions, No disequilibrium, No dizziness, No localized weakness, No frequent falls, No headache(s), No lack of coordination, No loss of vision, No memory loss, No numbness, No other visual disturbances, No radicular pain, No restless legs, No sensory deficit, No syncope, No tingling, No tremor(s), No weakness and No other Exam Const General: cooperative Orientation: alert and oriented x3 HENMT Head: normal to inspection Neck Neck: normal visual inspection and full ROM Chest Chest palpation & inspection: normal inspection of the chest Resp Effort & Inspection: normal respiratory effort Auscultation: clear to auscultation bilaterally Cardio Rate: regular rate Rhythm: regular rhythm GI Inspection: non-distended Palpation: soft and nontender Skin General: no rashes or lesions noted Neuro General: patient alert and patient oriented x3 Extrem General: full ROM Psych Appearance: grossly normal Mental Status: mental status grossly normal Assessment and Plan Assessment and Plan (1) DCIS (ductal carcinoma in situ): Status: Acute Plan: Patient had microcalcification of the left breast. She underwent stereotactic guided core needle biopsy and was found to have DCIS of the left breast. I advised her to have partial mastectomy for further biopsy. I also discussed that if this was positive for invasive cancer she would need second surgery for sentinel lymph node biopsy and possibly for margins. I discussed performing stereotactic wire localization and then partial mastectomy on the left. I discussed the procedure in detail as well as the risks including but not limited to bleeding, infection, need for further surgery. Isra Montelongo MD Pager: [facility] [address] [place] [address], [address] [place] [address] Office: I have examined the patient and the H&P has been reviewed. There are no clinical changes since date of exam.
[2024-11-16] MEDS: Cefazolin 1 GM/5 ML Vial 2 GM IV (12:00)
[2024-11-16] MEDS: Lidocaine 1% (5 ml sdv) 5 ML Vial IV (12:01)
[2024-11-16] MEDS: fentaNYL 100 MCG/2 ML Ampul IV (12:09)
--- NOTE | 2024-11-16 12:15 | BREAST_PTH ---
PATIENT: ELISEO WOODARD [place] [facility] [id number] AGE/SX: 74/F ROOM: RE11/16/[address]: Dr. Isra Montelongo MD : 1950 BED: DIS: 11/16/2024 SPEC #: [id number] RECD: 11/16/24 12:29 STATUS: ONEYDA ROBERT #: [id number] MARGIE: 11/16/24 12:[address]: Isra Montelongo DEPT: SURGICAL PATHOLOGY RECD BY: Dionicio Valero ENTERED: 11/16/24 13:44 SP TYPE: BREAST OTHR DR: Beulah Hawkins, VANNESA-Rafita Tissues: A - Left breast, NOS Procedures: Surgery Specimen Level V HEADER OPERATION: Left breast lumpectomy after stereotactic wire localization PRE-OP DIAGNOSIS: Left breast ductal carcinoma in situ TISSUE SUBMITTED: A- Left breast mass *short stitch - superior, long stitch- lateral* MICROSCOPIC DIAGNOSIS A. 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, nuclear grade 2 (See COMMENT for SYNOPTIC REPORT) COMMENT SYNOPTIC REPORT FOR DCIS OF BREAST: Specimen (P=partial resection, M=mastectomy): P Laterality (R=right, L=left): L Histologic type: DCIS Nuclear grade: 2 Architectural patterns: micropapillary Necrosis (C=comedo, F=focal, N=not identified): N Microcalcifications (P=present, N=not identified): P Tumor extent: Number of slides involved: 1 of 7 Total number of breast slides: 7 Largest or aggregate size (cm): 0.2 cm Margins (P=positive, N=negative, NA=not applicable): Margins of main specimen: N Distance to closest margin of main specimen (mm): 0.5 mm Designation of closest margin of main specimen: red inked, superior Designation of other margins of main specimen </=2 mm: none Re-resection margin status: NA Regional lymph nodes (NA=not applicable): NA Total number of lymph nodes (sentinel and non-sentinel): 0 Number of sentinel lymph nodes: NA Number of lymph nodes with macrometastases: NA Number of lymph nodes with micrometastases: NA Number of lymph nodes with isolated tumor cells: NA Size of largest arcadio metastasis (mm): NA Size of extranodal extension (mm): NA Estrogen receptor: Positive Progesterone receptor: Positive Specimen in which ER/UT performed: [id number] pTNM: pTis pN not assigned (no nodes submitted or found) Additional pathologic findings: Cavity filled with necrotic material, consistent with a previous biopsy site Comments: none The above synoptic report complies, in slightly modified form, with the guidelines of the [employer] and the Association of [employer] of Anatomic and Surgical Path[employer] for the reporting of cancer specimens MICROSCOPIC DESCRIPTION Slides are reviewed. GROSS DESCRIPTION A. Received fresh labeled with the patient's name and date of . Designated as left breast mass is a 5.4 x 4.8 x 2.5 cm lumpectomy with an exposed localization wire on the anterior aspect. There is a short suture designated as superior and a long suture designated as lateral. Skin is not present. The specimen is inked as follows: Superior: RedInferior: BlueMedial: YellowLateral: OrangeAnterior: GreenPosterior: Black The specimen is serially sectioned from anterior to posterior (into 7 slices) revealing a 1.9 x 0.8 x 0.8 cm biopsy cavity containing pink-red spongy material and spanning slices #3-#7). A biopsy clip is identified within the biopsy site in slice #5. The biopsy site is located the following distances from each margin: Anterior: 1.4 cmInferior: 1.0 cmMedial: 1.1 cmLateral: 2.2 cmPosterior: 0.3 cm Superior: <0.1 cm The remainder of the cut surfaces are fatty with congestion of slices #1-#2. Computer Systems Designer sections are submitted, sequentially from anterior to posterior as follows: A1: Slice #1, anterior, perpendicular (green)A2: Slice #2 congested parenchyma with superior/inferior (red/blue)A3: Slice #3, biopsy site to superior/inferior (red/blue)A4: Slice #4, biopsy site to superior/inferior/medial (red/blue/yellow)A5: Slice #5, biopsy site to superior and the lateral (red/orange)A6: Slice #6, biopsy site to superior (red)A7: Slice #7, biopsy site to superior/posterior, perpendicular (red/black) Cold ischemic time: 10 minutesFormalin fixation time: 7 hours, 1 minute [place] 11/16/2024 CPT:[id number]
--- NOTE | 2024-11-16 12:31 | PCM.OPRPT ---
Operative Report (Standard) Operative Information Date of Procedure: 11/16/24 Pre-Operative Diagnosis: DCIS of the left breast Post-Operative Diagnosis: DCIS of left breast Surgery/Procedure Performed: 1. Stereotactic guided wire localization 2. Partial mastectomy of the left breast operations and maintenance technican: Yes Phlebotomy Instructor: Thiago Ford Tasks completed by first coat operator: Opening & closing and Retracting Type of Anesthesia: General/Regional RN Documented Start/Stop Times: Operation Date: 11/16/24 12:30 Case Time Into Pre-Op 11/16/24 10:27 Anesthesia Start 11/16/24 11:56 Into Room 11/16/24 11:56 Procedure Start 11/16/24 12:12 Procedure Start Time: 12:12 Procedure Stop Time: 12:40 Select all DRAINS/GRAFTS/IMPLANTS that apply: None Estimated Blood Loss: 5 Specimen collected: Yes Description of specimen(s) removed: Left breast mass Description of surgery: Patient was brought to the stereotactic table and placed in the stereotactic table. The breast was compressed and views were obtained to localize the clip. Neck stereotactic views were obtained and the clip was targeted. The skin was prepped and injected with local anesthetic. The needle was placed into the breast and stereotactic views were once again obtained. The wire was then deployed and the needle was removed. Mammograms were obtained. Next the patient was brought to the operating room and general anesthesia was induced. The left breast was prepped and draped in usual sterile fashion. A curvilinear incision was marked and injected with local anesthetic. Incision was made with a scalpel and the wire was brought into the incision. Flaps were raised and electrocautery was used to dissect free the mass. There was minimal bleeding. It was tagged with a short and long suture and sent for mammogram which showed that the clip was removed as well as the wire. The cavity was inspected and there was good hemostasis. It was irrigated and marking clips were placed. The cavity was closed with interrupted 3-0 Vicryl sutures and a running 4-0 Monocryl suture. Dermabond was applied. Patient was brought to PACU in stable condition tolerated the procedure well. Surgical Findings: none Complications Complications: No Admit VTE Documentation VTE Mechan Device Prophylaxis: SCD's
--- NOTE | 2024-11-16 12:33 | EX.PCM.DISCH ---
Discharge Instructions Diet Discharge Diet: Light diet - advance as tolerated Activity Discharge Activity: May Not Drive (for 2-3 days or while taking narcotic pain medications.) and May Shower May shower in (days): 1 Lifting Restrictions: 15 pounds for 1 week Additional Activity Instructions:: Resume held medications tomorrow Dressing / Incision Call your doctor if your incision/area has: Continuous Slow Oozing, Sudden Increased Bleeding, Increased Pain/ Swelling, Increased Redness, Foul Smelling Discharge and Swelling at the incision site Call your doctor if you observe: Fever of 101 or Higher Suture Line Care: Avoid Pulling/Pushing and Avoid Pinching/Bending Cleanse incision/area with: Soap & Water Additional Dressing/Incision Instructions:: Remove bulky dressing tomorrow. Follow Up Care Please Follow Up With: Isra Montelongo MD When: Please call to schedule 2 week follow up appointment. [phone] Test Results: Test results from this visit will be discussed in further detail at your follow-up appointment, if applicable. Discharge Plan Admission Attending Provider: Isra Montelongo Primary Care Provider: Beulah Hawkins NP Instructions Print Language: Sami Discharge Orders/Prescriptions Prescriptions: New oxycodone 5 mg Tablet 5 - 10 mg PO Q4H PRN PRN (Reason: Pain Score 4-10) 5 Days Qty: 20 0RF No Action duloxetine 60 mg capsule,delayed release(DR/EC) 60 mg PO QHS terbinafine HCl 250 mg tablet 250 mg PO QDAY Qty: 30 0RF ibuprofen 200 mg capsule 200 mg PO Q6H PRN (Reason: pain) Farxiga 10 mg tablet 10 mg PO DAILY Qty: 30 12RF glimepiride 4 mg tablet 4 mg PO QAM Qty: 90 3RF Rx Instructions: administer with breakfast lisinopril 10 mg tablet 10 mg PO DAILY Qty: 90 3RF metformin 1,000 mg tablet 1,000 mg PO BID Qty: 180 3RF phenazopyridine [Pyridium] 200 mg tablet 200 mg PO TID hydrochlorothiazide 25 mg tablet 12.5 mg PO DAILY rosuvastatin 20 mg tablet 20 mg PO QHS Mounjaro 5 mg/0.5 mL pen injector 5 mg subcut TH Gemtesa 75 mg tablet 75 mg PO DAILY Referrals / Follow Up: Hawkins,Beulah BARREL LATHE OPERATOR OUTSIDE, BARREL LATHE OPERATOR OUTSIDE-C [Primary Care Provider, Family Practice] Disposition Disposition (needs filled in before D/C Order can be placed): Home, Self Care
--- NOTE | 2024-11-16 12:48 | PCM.POST.ANE ---
Anesthesia: Postop Eval I Current Vital Signs Temperature: 98.4 F Pulse Rate: 96 Blood Pressure: 89/68 Respiratory Rate: 16 Pulse Ox: 93 Oxygen Delivery Method: Room Air Assessment Airway patent: Yes Spontaneous unlabored respirations: Yes Mental status: Awake and Calm nausea: No Vomiting: No Anesthesia Complication: No Fluid Hydration Crystalloid volume administer (ml): 600 Total IV fluid infused: 600 Progress Note Anesthesia document: Postop Eval 1 completed: Yes
--- NOTE | 2024-11-16 14:27 | POSTOPAN2_ITS ---
Anesthesia Postop Eval I Sum Postop Eval Completion status Anesthesia document: Postop Eval 1 completed: Yes Anesthesia Postop Eval I Summary Anesthesia Postop Eval I Summary: Anesthesia Postop Eval I: Assessment Summary Airway patent Yes 11/16/24 12:48 [email or web address] Spontaneous unlabored Yes 11/16/24 12:48 ORGANIC [email or web address] respirations Mental status Awake,Calm 11/16/24 12:48 ORGANIC [email or web address] nausea No 11/16/24 12:48 ORGANIC CHEMIST.[email or web address] Vomiting No 11/16/24 12:48 ORGANIC CHEMIST.[email or web address] Anesthesia Postop Eval I: Fluid Summary Crystalloid volume administer 600 11/16/24 12:48 ORGANIC [email or web address].GDOTT (ml) Colloids volume administered ( ml) Blood Product volume administered (ml) Total IV fluid infused 600 11/16/24 12:48 ORGANIC [email or web address].[email or web address] Anesthesia Postop Eval I: Summary Notes Anesthesia Complication No 11/16/24 12:48 ORGANIC [email or web address].[email or web address] Anesthesia Complication Comment: Post-operative progress note Anesthesia: Postop Eval II Evaluation Mental status: Awake and Calm Pain Level: 1 nausea: No Vomiting: No Complications Anesthesia Complication: No
--- NOTE | 2024-11-16 14:27 | PCM.POSTANE2 ---
Anesthesia Postop Eval I Sum Postop Eval Completion status Anesthesia document: Postop Eval 1 completed: Yes Anesthesia Postop Eval I Summary Anesthesia Postop Eval I Summary: Anesthesia Postop Eval I: Assessment Summary Airway patent Yes 11/16/24 12:48 [email or web address] [email or web address] Spontaneous unlabored Yes 11/16/24 12:48 FREIGHT [email or web address] respirations Mental status Awake,Calm 11/16/24 12:48 [email or web address] [email or web address] nausea No 11/16/24 12:48 FREIGHT [email or web address] Vomiting No 11/16/24 12:48 [email or web address] [email or web address] Anesthesia Postop Eval I: Fluid Summary Crystalloid volume administer 600 11/16/24 12:48 [email or web address] [email or web address] (ml) Colloids volume administered ( ml) Blood Product volume administered (ml) Total IV fluid infused 600 11/16/24 12:48 FREIGHT [email or web address] Anesthesia Postop Eval I: Summary Notes Anesthesia Complication No 11/16/24 12:48 FREIGHT [email or web address] Anesthesia Complication Comment: Post-operative progress note Anesthesia: Postop Eval II Evaluation Mental status: Awake and Calm Pain Level: 1 nausea: No Vomiting: No Complications Anesthesia Complication: No
== END 2024-11-16 14:25 | disposition home or self-care (01) ==
LOC: SDC 10:21 → AC 10:23
PROVIDERS: PCP Nurse Practitioner; Referring Provider Surgery; Visit Provider Surgery
PROC: (CPT 19301; principal; 2024-11-16 12:15)
DX: D05.12 Intraductal carcinoma in situ of left breast (principal); I11.0 Hypertensive heart disease with heart failure; I50.9 Heart failure, unspecified; E11.9 Type 2 diabetes mellitus without complications; Z79.84 Long term (current) use of oral hypoglycemic drugs; Z79.899 Other long term (current) drug therapy; E78.5 Hyperlipidemia, unspecified; Z79.85 Long-term (current) use of injectable non-insulin antidiabetic drugs
CPT/HCPCS: 19301; 19283; 00404; 19281; 76098; 82962; 88307; A4648; J2405